=== PATIENT | male | born 1950 | race Caucasian/White ===

== ENCOUNTER → 2019-03-02 09:10 | Outpatient (ROUT) | payer MEDICARE, MEDICAID, SELFPAY ==
[2019-03-02 10:21] LABS: Add Manual Diff / Slide Review NO; Basophils Absolute Auto 100 /uL (0-100); Basophils Percent Auto 0.7 % (0-2); Eosinophils Absolute Auto 400 /uL (0-450); Eosinophils Percent Auto 4.2 % (2-4); Hemoglobin 14.3 g/dL (13.5-17.5); Lymphocytes Absolute Auto 1700 /uL (1100-4500); Lymphocytes Percent Auto 15.8 % (25-40); Mean Corpuscular HGB Conc 33.2 % (30-36); Mean Corpuscular Hemoglobin 29.9 PG (26-34); Mean Corpuscular Volume 89.9 fL (80-100); Monocytes Absolute Auto 600 /uL (0-900); Monocytes Percent Auto 5.2 % (3-14); Neutrophils Absolute Auto 7900 /uL (1500-7000); Neutrophils Percent Auto 74.1 % (50-75); Platelet Count 307 X10^3/uL (150-400); Red Blood Cell Count 4.78 X10^6/uL (4.5-5.9); Red Cell Distribution Width 15.2 % (11.6-14.8); White Blood Cell Count 10.7 X10^3/uL (4.5-11.0)
[2019-03-02 10:54] LABS: Alanine Aminotransferase 24 IU/L (<50); Albumin 4.5 g/dL (3.5-5.0); Albumin Globulin Ratio 1.5 (1.0-2.8); Alkaline Phosphatase 93 U/L (38-126); Aspartate Aminotransferase 30 IU/L (17-59); BUN Creatinine Ratio 27.1 (6-22); Bilirubin Total 0.6 mg/dL (0.2-1.3); Blood Urea Nitrogen 19 mg/dL (9-20); Calcium 9.7 mg/dL (8.4-10.2); Carbon Dioxide 28 mmol/L (22-32); Chloride 103 mmol/L (98-107); Cholesterol 127 mg/dL (140-199); Estimated Glomerular Filt Rate > 60.0 mL/min (>60); Glucose 117 mg/dL (80-110); HDL Cholesterol 40 mg/dL (40-60); HEMOLYSIS < 15 (0-50); LDL Cholesterol Calculated 64 mg/dL (<100); Potassium 3.9 mmol/L (3.4-5.1); Sodium 140 mmol/L (137-145); Total Protein 7.5 g/dL (6.3-8.2); Triglycerides 114 mg/dL (35-150)
== END ==
PROVIDERS: Visit Provider Nurse Practitioner Family
DX: I63.9 Cerebral infarction, unspecified (principal); Z79.899 Other long term (current) drug therapy
CPT/HCPCS: 36415; 80053; 80061; 85025

== ENCOUNTER → 2019-05-27 07:41 | Outpatient (ROUT) | payer MEDICARE, MEDICAID, SELFPAY ==
[2019-05-27 08:43] LABS: Add Manual Diff / Slide Review NO; Basophils Absolute Auto 100 /uL (0-100); Basophils Percent Auto 0.7 % (0-2); Eosinophils Absolute Auto 600 /uL (0-450); Eosinophils Percent Auto 7.8 % (2-4); Hematocrit 45.6 % (41-53); Hemoglobin 15.1 g/dL (13.5-17.5); Lymphocytes Absolute Auto 2600 /uL (1100-4500); Lymphocytes Percent Auto 33.1 % (25-40); Mean Corpuscular HGB Conc 33.1 % (30-36); Mean Corpuscular Hemoglobin 30.1 PG (26-34); Monocytes Absolute Auto 500 /uL (0-900); Monocytes Percent Auto 6.6 % (3-14); Neutrophils Absolute Auto 4100 /uL (1500-7000); Neutrophils Percent Auto 51.8 % (50-75); Platelet Count 301 X10^3/uL (150-400); Red Blood Cell Count 5.02 X10^6/uL (4.5-5.9); Red Cell Distribution Width 14.6 % (11.6-14.8); White Blood Cell Count 7.8 X10^3/uL (4.5-11.0)
[2019-05-27 09:32] LABS: BUN Creatinine Ratio 30.5 (6-22); Blood Urea Nitrogen 18 mg/dL (9-20); Calcium 9.5 mg/dL (8.4-10.2); Carbon Dioxide 24 mmol/L (22-32); Chloride 108 mmol/L (98-107); Estimated Glomerular Filt Rate > 60.0 mL/min (>60); Glucose 80 mg/dL (80-110); HEMOLYSIS < 15 (0-50); Potassium 4.1 mmol/L (3.4-5.1); Sodium 139 mmol/L (137-145)
[2019-05-27 09:58] LABS: Thyroid Stimulating Hormone 1.38 uIU/mL (0.47-4.68)
== END ==
PROVIDERS: Visit Provider Nurse Practitioner Family
DX: I10 Essential (primary) hypertension (principal); F32.9 Major depressive disorder, single episode, unspecified
CPT/HCPCS: 36415; 80048; 84443; 85025

== ENCOUNTER → 2019-08-03 08:46 | Outpatient (ROUT) | payer MEDICARE, MEDICAID, SELFPAY ==
[2019-08-03 10:54] LABS: Prostate Specific Antigen 0.977 ng/mL (0.10-4.00)
== END ==
PROVIDERS: Visit Provider Nurse Practitioner Family
DX: R35.0 Frequency of micturition (principal)
CPT/HCPCS: 36415; 84153

== ENCOUNTER → 2020-03-02 08:25 | Outpatient (ROUT) | payer MEDICARE, MEDICAID, SELFPAY ==
[2020-03-02 08:50] LABS: Add Manual Diff / Slide Review NO; Basophils Absolute Auto 100 /uL (0-100); Basophils Percent Auto 0.8 % (0-2); Eosinophils Absolute Auto 700 /uL (0-450); Eosinophils Percent Auto 8.9 % (2-4); Hematocrit 42.3 % (41-53); Hemoglobin 14.1 g/dL (13.5-17.5); Lymphocytes Absolute Auto 3200 /uL (1100-4500); Lymphocytes Percent Auto 38.4 % (25-40); Mean Corpuscular HGB Conc 33.3 % (30-36); Mean Corpuscular Hemoglobin 30.4 PG (26-34); Mean Corpuscular Volume 91.3 fL (80-100); Monocytes Absolute Auto 600 /uL (0-900); Monocytes Percent Auto 7.1 % (3-14); Neutrophils Absolute Auto 3700 /uL (1500-7000); Neutrophils Percent Auto 44.8 % (50-75); Platelet Count 298 X10^3/uL (150-400); Red Blood Cell Count 4.64 X10^6/uL (4.5-5.9); White Blood Cell Count 8.2 X10^3/uL (4.5-11.0)
[2020-03-02 09:02] LABS: Alanine Aminotransferase 23 IU/L (<50); Albumin 4.2 g/dL (3.5-5.0); Albumin Globulin Ratio 1.4 (1.0-2.8); Alkaline Phosphatase 87 U/L (38-126); Aspartate Aminotransferase 37 IU/L (17-59); Bilirubin Total 0.5 mg/dL (0.2-1.3); Blood Urea Nitrogen 13 mg/dL (9-20); Calcium 9.3 mg/dL (8.4-10.2); Carbon Dioxide 24 mmol/L (22-32); Chloride 108 mmol/L (98-107); Cholesterol 147 mg/dL (140-199); Estimated Glomerular Filt Rate > 60.0 mL/min (>60); Globulin 3.1 g/dL (1.7-4.1); Glucose 77 mg/dL (80-110); HDL Cholesterol 40 mg/dL (40-60); HEMOLYSIS 32 (0-50); LDL Cholesterol Calculated 55 mg/dL (<100); Potassium 3.9 mmol/L (3.4-5.1); Sodium 139 mmol/L (137-145); Total Protein 7.3 g/dL (6.3-8.2); Triglycerides 259 mg/dL (35-150)
== END ==
PROVIDERS: Visit Provider Nurse Practitioner Gerontology
DX: I10 Essential (primary) hypertension (principal); E78.5 Hyperlipidemia, unspecified
CPT/HCPCS: 36415; 80053; 80061; 85025

== ENCOUNTER → 2020-05-30 08:41 | Outpatient (ROUT) | payer MEDICARE, MEDICAID, SELFPAY ==
[2020-05-30 09:18] LABS: Add Manual Diff / Slide Review NO; Basophils Absolute Auto 100 /uL (0-100); Eosinophils Absolute Auto 500 /uL (0-450); Eosinophils Percent Auto 6.9 % (2-4); Hematocrit 43.7 % (41-53); Hemoglobin 14.4 g/dL (13.5-17.5); Lymphocytes Absolute Auto 2700 /uL (1100-4500); Lymphocytes Percent Auto 39.9 % (25-40); Mean Corpuscular HGB Conc 33.1 % (30-36); Mean Corpuscular Hemoglobin 29.8 PG (26-34); Mean Corpuscular Volume 90.1 fL (80-100); Monocytes Absolute Auto 400 /uL (0-900); Monocytes Percent Auto 6.1 % (3-14); Neutrophils Absolute Auto 3100 /uL (1500-7000); Neutrophils Percent Auto 46.1 % (50-75); Platelet Count 401 X10^3/uL (150-400); Red Blood Cell Count 4.85 X10^6/uL (4.5-5.9); Red Cell Distribution Width 14.1 % (11.6-14.8); White Blood Cell Count 6.7 X10^3/uL (4.5-11.0)
[2020-05-30 09:38] LABS: Alanine Aminotransferase 20 IU/L (<50); Albumin 4.2 g/dL (3.5-5.0); Albumin Globulin Ratio 1.4 (1.0-2.8); Alkaline Phosphatase 53 U/L (38-126); Aspartate Aminotransferase 29 IU/L (17-59); BUN Creatinine Ratio 21.1 (6-22); Bilirubin Total 0.3 mg/dL (0.2-1.3); Blood Urea Nitrogen 19 mg/dL (9-20); Calcium 9.8 mg/dL (8.4-10.2); Carbon Dioxide 26 mmol/L (22-32); Chloride 107 mmol/L (98-107); Cholesterol 150 mg/dL (140-199); Estimated Glomerular Filt Rate > 60.0 mL/min (>60); Glucose 79 mg/dL (80-110); HDL Cholesterol 42 mg/dL (40-60); HEMOLYSIS < 15 (0-50); LDL Cholesterol Calculated 79 mg/dL (<100); Potassium 4.2 mmol/L (3.4-5.1); Sodium 140 mmol/L (137-145); Total Protein 7.2 g/dL (6.3-8.2); Triglycerides 143 mg/dL (35-150)
== END ==
PROVIDERS: Visit Provider Nurse Practitioner Gerontology
DX: E78.00 Pure hypercholesterolemia, unspecified (principal); D72.10 Eosinophilia, unspecified
CPT/HCPCS: 36415; 80053; 80061; 85025

== ENCOUNTER → 2020-09-22 14:44 | Outpatient (CLI) | payer MEDICARE, MEDICAID, SELFPAY ==
--- NOTE | 2020-09-22 14:52 | DI.RAD.S_ITS ---
PROCEDURE: XR CHEST 2V INDICATIONS: SOB, WHEEZING TECHNIQUE: 2 views of the chest were acquired. COMPARISON: None. FINDINGS: Surgical changes and devices: None. Lungs and pleura: Elevation of left hemidiaphragm. Subtle infiltrate in the right upper lung zone. Left basilar opacities most likely atelectasis. No pleural effusions or pneumothorax. Mediastinum: Mediastinal contours are normal. Heart size is normal. Bones and chest wall: No suspicious bony abnormalities. Soft tissues appear unremarkable. IMPRESSION: 1. Subtle infiltrate in the right upper lung zone is suspicious for developing pneumonia. 2. Left hemidiaphragm elevation and left basilar atelectasis. Dictated by: Zaid Guevara M.D. on 09/22/2020 at 17:02 Approved by: Zaid Guevara M.D. on 09/22/2020 at 17:06
== END ==
PROVIDERS: PCP Family Medicine; Referring Provider Internal Medicine; Visit Provider Internal Medicine
DX: R06.02 Shortness of breath (principal); R06.2 Wheezing
CPT/HCPCS: 71046

== ENCOUNTER → 2020-10-10 07:36 | Outpatient (ROUT) | payer MEDICARE, MEDICAID, SELFPAY ==
[2020-10-10 08:27] LABS: BUN Creatinine Ratio 23.3 (6-22); Blood Urea Nitrogen 17 mg/dL (9-20); Calcium 9.7 mg/dL (8.4-10.2); Carbon Dioxide 25 mmol/L (22-32); Chloride 109 mmol/L (98-107); Estimated Glomerular Filt Rate > 60.0 mL/min (>60); Glucose 86 mg/dL (80-110); HEMOLYSIS 28 (0-50); Potassium 4.6 mmol/L (3.4-5.1); Sodium 140 mmol/L (137-145)
== END ==
PROVIDERS: PCP Family Medicine; Visit Provider Internal Medicine
DX: Z79.899 Other long term (current) drug therapy (principal)
CPT/HCPCS: 36415; 80048

== ENCOUNTER 2021-01-31 09:29 | Emergency (ER) | payer MEDICARE, MEDICAID, SELFPAY ==
[2021-01-31] VITALS (12 sets, daily range): BP systolic 100–142; BP diastolic 57–86; PULSE 62–82; RESP 24–31; TEMP 37.6; O2SAT 88–97; BMI 35.4
--- NOTE | 2021-01-31 09:46 | DI.RAD.S_ITS ---
PROCEDURE: XR CHEST 1V INDICATIONS: covid +,SOB TECHNIQUE: One view of the chest was acquired. COMPARISON: [facility], CR, XR CHEST 2V, 09/22/2020, 14:49. FINDINGS: Surgical changes and devices: Right shoulder postoperative change is seen. Lungs and pleura: Low lung volumes are noted. This causes a crowded appearance to the lung markings and limits evaluation. Bilateral patchy interstitial infiltrates are seen, right worse than left. No large pneumothorax or large pleural effusions are seen. Mediastinum: Mediastinal contours appear normal. Heart size is normal. Bones and chest wall: No suspicious bony lesions. Age-appropriate bony degenerative changes are seen. Overlying soft tissues appear unremarkable. IMPRESSION: Patchy bilateral interstitial infiltrates are seen, which are consistent with the known clinical history of COVID pneumonia. Low lung volumes. Dictated by: Vineet Finley M.D. on 01/31/2021 at 9:30 Approved by: Vineet Finley M.D. on 01/31/2021 at 9:31
[2021-01-31 09:57] LABS: Add Manual Diff / Slide Review NO; Basophils Absolute Auto 0 /uL (0-100); Basophils Percent Auto 0.4 % (0-2); Eosinophils Absolute Auto 0 /uL (0-450); Eosinophils Percent Auto 0.3 % (2-4); Hematocrit 39.8 % (41-53); Hemoglobin 13.2 g/dL (13.5-17.5); Lymphocytes Absolute Auto 1000 /uL (1100-4500); Lymphocytes Percent Auto 17.7 % (25-40); Mean Corpuscular HGB Conc 33.2 % (30-36); Mean Corpuscular Hemoglobin 28.9 PG (26-34); Monocytes Absolute Auto 400 /uL (0-900); Monocytes Percent Auto 7.8 % (3-14); Neutrophils Absolute Auto 4200 /uL (1500-7000); Neutrophils Percent Auto 73.8 % (50-75); Platelet Count 233 X10^3/uL (150-400); Red Blood Cell Count 4.58 X10^6/uL (4.5-5.9); Red Cell Distribution Width 15.8 % (11.6-14.8); White Blood Cell Count 5.7 X10^3/uL (4.5-11.0)
--- NOTE | 2021-01-31 09:59 | ED_ITS ---
HPI - General Adult General Chief complaint: Shortness of Breath/Dyspnea Stated complaint: Hypoxia,COVID + Time Seen by Provider: 01/31/21 09:36 Source: patient and EMS Mode of arrival: EMS Limitations: physical limitation History of Present Illness HPI narrative: Patient is a 70-year-old male. Five years ago had a stroke. Is currently residing in a assisted living facility. Is vaccinated against COVID-19 however couple days ago tested positive. Respiratory status has been worsening. Was sent over from the living facility for evaluation of hypoxia. Patient does not have an oxygen requirement at baseline but is currently requiring 4 L in order to maintain oxygen saturation greater than 90%. Providers at the nursing facility inform me that he does have a history of COPD but the patient denied this. He denies chest pain. He has no change in his neurologic status. Related Data Allergies Allergy/AdvReac Type Severity Reaction Status Date / Time No Known Drug Allergies Allergy Verified 01/31/21 09:50 Review of Systems Constitutional Constitutional: Denies fever(s) Cardiovascular Cardiovascular: Reports as per HPI and Reports system reviewed and no additional complaints, except as documented Respiratory Respiratory: Reports as per HPI and Reports system reviewed and no additional complaints, except as documented Gastrointestinal Gastrointestinal: Reports as per HPI and Reports system reviewed and no additional complaints, except as documented Musculoskeletal Musculoskeletal: Reports system reviewed and no additional complaints, except as documented Integumentary/Breasts Skin/Breast: Reports system reviewed and no additional complaints, except as documented Neurologic Neurologic: Reports system reviewed and no additional complaints, except as documented Hematologic/Lymphatic On Anticoagulants: No Patient History Social History Smoking Status: Current every day smoker Smoking Status: Current every day smoker tobacco type: cigarettes alcohol intake frequency: 0-2 drinks per day Alcohol type: hard liquor Substance Use Type: does not use Exam Initial Vital Signs Initial Vital Signs: Vital Signs Temperature 99.6 F 01/31/21 09:30 Pulse Rate 82 01/31/21 09:30 Respiratory Rate 24 01/31/21 09:30 Blood Pressure 142/86 H 01/31/21 09:30 Pulse Oximetry 93 01/31/21 09:30 Const General: cooperative and No ill appearing HENMT Head: normal to inspection and normocephalic Resp Effort & Inspection: nasal flaring and tachypneic Auscultation: clear to auscultation bilaterally Cardio Rate: regular rate Rhythm: regular rhythm GI Inspection: non-distended Palpation: soft and No tender Skin Lesions: no lesions Rashes: no rashes Neuro General: patient alert, patient awake and other (No movement left arm which is not new) Cognition: normal cognition Speech: speech normal Extrem General: capillary refill normal Psych Appearance: grossly normal and well kempt Course Orders Ordered: ED Orders 01/31/21 09:45 Complete Blood Count AUTO DIFF Stat Lactate (Lactic Acid) Stat Prothrombin Time INR Stat EKG-12 Lead Stat Measure peak expiratory flow ONCE RT Consult Eval and Treat Now 01/31/21 09:46 Chest [XR chest 1V] Stat 01/31/21 10:16 Comprehensive Metabolic Panel Stat NT-proBNP (BNP-Adult 18+) Stat 01/31/21 10:43 C-Reactive Protein Quant Stat D Dimer Stat Ferritin Stat Lactate Dehydrogenase Stat Procalcitonin Stat Troponin & CK Cardiac Panel Stat Discontinued Medications Albuterol/Ipratropium (Albuterol/Ipratropium 3 Ml Ampul) 3 ml INH NOW ONE Stop: 01/31/21 10:25 Last Admin: 01/31/21 10:45 Dose: 3 ml Documented by: YOVANA Dexamethasone (Dexamethasone 10 Mg/Ml Vial) 10 mg IV NOW ONE Stop: 01/31/21 10:02 Last Admin: 01/31/21 10:12 Dose: 10 mg Documented by: LEYLA Vital Signs Vital signs: Vital Signs - 8 hr 01/31/21 09:30 01/31/21 09:43 01/31/21 10:00 Temperature 99.6 F Pulse Rate 82 78 77 Respiratory Rate 24 Blood Pressure 142/86 H Pulse Oximetry 93 93 93 01/31/21 10:01 01/31/21 10:18 01/31/21 10:30 Temperature Pulse Rate 77 70 Respiratory Rate 26 H 26 H Blood Pressure 119/62 101/59 L Pulse Oximetry 94 97 95 01/31/21 10:55 01/31/21 11:00 01/31/21 11:30 Temperature Pulse Rate 68 71 Respiratory Rate 30 H 25 H Blood Pressure 109/61 114/65 Pulse Oximetry 96 93 93 01/31/21 12:00 Temperature Pulse Rate 72 Respiratory Rate 28 H Blood Pressure 100/57 L Pulse Oximetry 88 L Medical Decision Making Lab Data Lab results reviewed: Yes I reviewed the patient's lab results. Result diagrams: 01/31/21 09:45 01/31/21 10:16 Labs: Lab Results 01/31/21 01/31/21 01/31/21 Range/Units 09:45 09:45 09:45 WBC 5.7 (4.5-11.0) X10^3/uL RBC 4.58 (4.5-5.9) X10^6/uL Hgb 13.2 L (13.5-17.5) g/dL Hct 39.8 L (41-53) % MCV 87.0 (80-100) fL MCH 28.9 (26-34) PG MCHC 33.2 (30-36) % RDW 15.8 H (11.6-14.8) % Plt Count 233 (150-400) X10^3/uL Neut % (Auto) 73.8 (50-75) % Lymph % (Auto) 17.7 L (25-40) % Bracken % (Auto) 7.8 (3-14) % Eos % (Auto) 0.3 L (2-4) % Baso % (Auto) 0.4 (0-2) % Neut # (Auto) 4200 (2135-4203) /uL Lymph # (Auto) 1000 L (7168-1254) /uL Bracken # (Auto) 400 (0-900) /uL Eos # (Auto) 0 (0-450) /uL Baso # (Auto) 0 (0-100) /uL PT 12.8 H (10.1-12.7) SECONDS INR 1.1 (0.9-1.3) D-Dimer (<230) ng/mL Sodium (137-145) mmol/L Potassium (3.4-5.1) mmol/L Chloride (98-107) mmol/L Carbon Dioxide (22-32) mmol/L BUN (9-20) mg/dL Creatinine (0.66-1.25) mg/dL Estimated GFR (>60) mL/min BUN/Creatinine Ratio (6-22) Glucose (80-110) mg/dL Lactate 1.0 (0.7-2.1) mmol/L Calcium (8.4-10.2) mg/dL Ferritin (18-464) ng/mL Total Bilirubin (0.2-1.3) mg/dL AST (17-59) IU/L ALT (<50) IU/L Alkaline Phosphatase (38-126) U/L Lactate Dehydrogenase (313-618) U/L Total Creatine Kinase (55-170) U/L CK-MB (CK-2) (<2.37) ng/mL CK-MB (CK-2) Rel Index (1.5-5.0) % Troponin I (0.01-0.034) ng/mL C-Reactive Protein (<1.0) mg/dL NT-Pro-B Natriuret Pep (<125) pg/mL Total Protein (6.3-8.2) g/dL Albumin (3.5-5.0) g/dL Globulin (1.7-4.1) g/dL Albumin/Globulin Ratio (1.0-2.8) Procalcitonin (<0.5) ng/mL 01/31/21 01/31/21 01/31/21 Range/Units 10:16 10:43 10:43 WBC (4.5-11.0) X10^3/uL RBC (4.5-5.9) X10^6/uL Hgb (13.5-17.5) g/dL Hct (41-53) % MCV (80-100) fL MCH (26-34) PG MCHC (30-36) % RDW (11.6-14.8) % Plt Count (150-400) X10^3/uL Neut % (Auto) (50-75) % Lymph % (Auto) (25-40) % Bracken % (Auto) (3-14) % Eos % (Auto) (2-4) % Baso % (Auto) (0-2) % Neut # (Auto) (0446-6992) /uL Lymph # (Auto) (0927-2284) /uL Bracken # (Auto) (0-900) /uL Eos # (Auto) (0-450) /uL Baso # (Auto) (0-100) /uL PT (10.1-12.7) SECONDS INR (0.9-1.3) D-Dimer 394 H (<230) ng/mL Sodium 139 (137-145) mmol/L Potassium 4.3 (3.4-5.1) mmol/L Chloride 108 H (98-107) mmol/L Carbon Dioxide 25 (22-32) mmol/L BUN 29 H (9-20) mg/dL Creatinine 1.21 (0.66-1.25) mg/dL Estimated GFR 59.5 L (>60) mL/min BUN/Creatinine Ratio 24.0 H (6-22) Glucose 113 H (80-110) mg/dL Lactate (0.7-2.1) mmol/L Calcium 8.8 (8.4-10.2) mg/dL Ferritin 122 (18-464) ng/mL Total Bilirubin 0.5 (0.2-1.3) mg/dL AST 54 (17-59) IU/L ALT 21 (<50) IU/L Alkaline Phosphatase 53 (38-126) U/L Lactate Dehydrogenase (313-618) U/L Total Creatine Kinase 460 H (55-170) U/L CK-MB (CK-2) 2.34 (<2.37) ng/mL CK-MB (CK-2) Rel Index 0.5 L (1.5-5.0) % Troponin I 0.074 H (0.01-0.034) ng/mL C-Reactive Protein 8.7 H (<1.0) mg/dL NT-Pro-B Natriuret Pep 878 H (<125) pg/mL Total Protein 6.5 (6.3-8.2) g/dL Albumin 3.7 (3.5-5.0) g/dL Globulin 2.8 (1.7-4.1) g/dL Albumin/Globulin Ratio 1.3 (1.0-2.8) Procalcitonin 0.13 (<0.5) ng/mL 01/31/21 Range/Units 10:43 WBC (4.5-11.0) X10^3/uL RBC (4.5-5.9) X10^6/uL Hgb (13.5-17.5) g/dL Hct (41-53) % MCV (80-100) fL MCH (26-34) PG MCHC (30-36) % RDW (11.6-14.8) % Plt Count (150-400) X10^3/uL Neut % (Auto) (50-75) % Lymph % (Auto) (25-40) % Bracken % (Auto) (3-14) % Eos % (Auto) (2-4) % Baso % (Auto) (0-2) % Neut # (Auto) (9256-4850) /uL Lymph # (Auto) (4514-6874) /uL Bracken # (Auto) (0-900) /uL Eos # (Auto) (0-450) /uL Baso # (Auto) (0-100) /uL PT (10.1-12.7) SECONDS INR (0.9-1.3) D-Dimer (<230) ng/mL Sodium (137-145) mmol/L Potassium (3.4-5.1) mmol/L Chloride (98-107) mmol/L Carbon Dioxide (22-32) mmol/L BUN (9-20) mg/dL Creatinine (0.66-1.25) mg/dL Estimated GFR (>60) mL/min BUN/Creatinine Ratio (6-22) Glucose (80-110) mg/dL Lactate (0.7-2.1) mmol/L Calcium (8.4-10.2) mg/dL Ferritin (18-464) ng/mL Total Bilirubin (0.2-1.3) mg/dL AST (17-59) IU/L ALT (<50) IU/L Alkaline Phosphatase (38-126) U/L Lactate Dehydrogenase 901 H (313-618) U/L Total Creatine Kinase (55-170) U/L CK-MB (CK-2) (<2.37) ng/mL CK-MB (CK-2) Rel Index (1.5-5.0) % Troponin I (0.01-0.034) ng/mL C-Reactive Protein (<1.0) mg/dL NT-Pro-B Natriuret Pep (<125) pg/mL Total Protein (6.3-8.2) g/dL Albumin (3.5-5.0) g/dL Globulin (1.7-4.1) g/dL Albumin/Globulin Ratio (1.0-2.8) Procalcitonin (<0.5) ng/mL Imaging Data Chest x-ray: Radiologist's Impression: [address] [address] XRay Report Signed Patient: Arron Agarwal MR#: [id number] : 1950 Acct:[id number] Age/Sex: 70 / M Date of Service: 01/31/21 Loc: ED Accession Number: [id number] ?? Procedure: XR chest 1V Ordering Provider: Nicola Welch D.O. PROCEDURE:? XR CHEST 1V ? INDICATIONS:? covid +,SOB ? TECHNIQUE:? One view of the chest was acquired.? ? COMPARISON:? [facility], , XR CHEST 2V, 09/22/2020, 14:49. ? FINDINGS:? ? Surgical changes and devices:? Right shoulder postoperative change is seen. ? Lungs and pleura:? Low lung volumes are noted. This causes a crowded appearance to the lung markings and limits evaluation.? Bilateral patchy interstitial infiltrates are seen, right worse than left. No large pneumothorax or large pleural effusions are seen.? ? Mediastinum:? Mediastinal contours appear normal.? Heart size is normal.? ? Bones and chest wall:? No suspicious bony lesions.? Age-appropriate bony degenerative changes are seen.? Overlying soft tissues appear unremarkable.? IMPRESSION:? Patchy bilateral interstitial infiltrates are seen, which are consistent with the known clinical history of COVID pneumonia.? ? Low lung volumes. ? ? Dictated by: Vineet Finley M.D. on 01/31/2021 at 9:30 ? ? Approved by: Vineet Finley M.D. on 01/31/2021 at 9:31? ECG Data Attestation: I personally reviewed and interpreted this ECG as follows: Prior ECG tracings: not available for review Interpretation: Sinus rhythm Ventricular rate is 76 Normal axis Normal QRS Normal QTC Nonspecific ST T wave changes MDM Narrative Medical decision making narrative: Patient is alert oriented x3. Has a GCS of 15. In my opinion has capacity to make decisions. Patient is adamant that he does not want to be admitted to the hospital. Informed the patient that I am concerned that he potentially could deteriorate over the next couple days and require additional respiratory support. He expressed understanding of this but does not want to be admitted. He states that this is because he has spent the better part of the past 5 years and the hospital because of his stroke and does not want to come back into the hospital. He stated that he was told by the facility staff that he could come to the emergency department ?get treatment ?and then return back home. Informed him that there is no specific medication that we can give him 1 time through the IV and then discharge him home. He denies the history of COPD however I was told by the facility staff that he does have a history of COPD. He did have some wheezing. Was given 1 DuoNeb which he states did improve his respiratory status somewhat. I also gave him Decadron. This may help with his COVID status and potentially with COPD. Upon re-evaluation patient requires 3 L of oxygen by nasal cannula to maintain saturations above 90%. Patient again understands that he can be admitted to the hospital and understands the risks of being discharged and still would like to be discharged. He was told he could return to the emergency department at any point for worsening symptoms. Discharge Plan Departure Patient Disposition: Home Clinical Impression: COVID-19, Acute respiratory distress Instructions: Coronavirus Disease 2019 Activity Restrictions/Additional Instructions: Despite our discussions about potentially worsening over the next couple days and requiring additional oxygen support you opted to be discharged back to your living facility. I recommend that you continue all of your medications as directed. You can be administered oxygen at the living facility as needed. You can return to the emergency department at any point for new or worsening symptoms. Referrals: Emerald Hahn MD [Primary Care Provider] -
[2021-01-31 10:02] LABS: INR 1.1 (0.9-1.3); Prothrombin Time 12.8 SECONDS (10.1-12.7)
[2021-01-31] MEDS: DEXAMETHASONE 10 MG/ML VIAL IV (10:12)
[2021-01-31] MEDS: ALBUTEROL/IPRATROPIUM 3 ML AMPUL INH (10:45)
[2021-01-31 11:03] LABS: D Dimer 394 ng/mL (<230)
[2021-01-31 11:05] LABS: Lactate Dehydrogenase 901 U/L (313-618)
[2021-01-31 11:08] LABS: C-Reactive Protein Quant 8.7 mg/dL (<1.0); Creatine Kinase 460 U/L (55-170)
[2021-01-31 11:17] LABS: Troponin I 0.074 ng/mL (0.01-0.034)
[2021-01-31 11:20] LABS: CKMB % Relative Index 0.5 % (1.5-5.0); Creatine Kinase MB 2.34 ng/mL (<2.37)
[2021-01-31 11:22] LABS: Procalcitonin 0.13 ng/mL (<0.5)
[2021-01-31 11:38] LABS: Alanine Aminotransferase 21 IU/L (<50); Albumin 3.7 g/dL (3.5-5.0); Albumin Globulin Ratio 1.3 (1.0-2.8); Alkaline Phosphatase 53 U/L (38-126); Aspartate Aminotransferase 54 IU/L (17-59); Bilirubin Total 0.5 mg/dL (0.2-1.3); Blood Urea Nitrogen 29 mg/dL (9-20); Calcium 8.8 mg/dL (8.4-10.2); Carbon Dioxide 25 mmol/L (22-32); Chloride 108 mmol/L (98-107); Estimated Glomerular Filt Rate 59.5 mL/min (>60); Globulin 2.8 g/dL (1.7-4.1); Glucose 113 mg/dL (80-110); HEMOLYSIS < 15 (0-50); Potassium 4.3 mmol/L (3.4-5.1); Sodium 139 mmol/L (137-145); Total Protein 6.5 g/dL (6.3-8.2)
[2021-01-31 11:40] LABS: NT-proBNP (BNP-Adult 18+) 878 pg/mL (<125)
[2021-01-31 11:40] LABS: Ferritin 122 ng/mL (18-464)
== END 2021-01-31 13:15 | disposition home or self-care (01) ==
PROVIDERS: Emergency Provider Emergency Medicine; PCP Family Medicine
DX: U07.1 COVID-19 (principal); R06.03 Acute respiratory distress; R03.0 Elevated blood-pressure reading, without diagnosis of hypertension
CPT/HCPCS: 36415; 71045; 80053; 82550; 82553; 82728; 83605; 83615; 83880; 84145; 84484; 85025; 85379; 85610; 86140; 93005; 94640; 96374; 99285; J1100

== ENCOUNTER → 2021-07-05 12:49 | Outpatient (ROUT) | payer MEDICARE, MEDICAID, SELFPAY ==
[2021-07-05 13:40] LABS: Appearance Urine UA CLEAR; Bilirubin Urine UA NEGATIVE (NEGATIVE); Color Urine UA YELLOW; Glucose Urine UA NEGATIVE (Negative); Ketones Urine UA NEGATIVE (NEGATIVE); Leukocyte Esterase Urine UA NEGATIVE (NEGATIVE); Nitrite Urine UA NEGATIVE (Negative); Occult Blood Urine UA NEGATIVE (Negative); Protein Urine UA NEGATIVE (Negative); Urobilinogen Urine UA 0.2 E.U./dL (0.2)
[2021-07-05 14:24] LABS: Bacteria Urine None Seen; Mucus Urine 1+ (Negative); RBC Urine None Seen (0-5/HPF); Squamous Epithelial Cell Urine None Seen (0-5/HPF); WBC Urine None Seen (0-5/HPF)
[2021-07-05 14:25] LABS: Culture Indicated Urine Cult Not Indicated
== END ==
PROVIDERS: PCP Family Medicine; Visit Provider Nurse Practitioner Family
DX: R32 Unspecified urinary incontinence (principal); R39.15 Urgency of urination
CPT/HCPCS: 81001

== ENCOUNTER → 2021-08-21 08:29 | Outpatient (ROUT) | payer MEDICARE, MEDICAID, SELFPAY ==
[2021-08-21 10:38] LABS: Hematocrit 47.3 % (41-53); Hemoglobin 15.5 g/dL (13.5-17.5); Mean Corpuscular HGB Conc 32.8 % (30-36); Mean Corpuscular Hemoglobin 28.8 PG (26-34); Mean Corpuscular Volume 87.7 fL (80-100); Platelet Count 311 X10^3/uL (150-400); Red Cell Distribution Width 16.9 % (11.6-14.8)
[2021-08-21 10:40] LABS: Add Manual Diff / Slide Review YES
[2021-08-21 11:16] LABS: Alanine Aminotransferase 16 IU/L (<50); Albumin 4.2 g/dL (3.5-5.0); Albumin Globulin Ratio 1.4 (1.0-2.8); Alkaline Phosphatase 54 U/L (38-126); Aspartate Aminotransferase 28 IU/L (17-59); BUN Creatinine Ratio 20.8 (6-22); Bilirubin Total 0.6 mg/dL (0.2-1.3); Blood Urea Nitrogen 20 mg/dL (9-20); Calcium 9.5 mg/dL (8.4-10.2); Carbon Dioxide 24 mmol/L (22-32); Chloride 108 mmol/L (98-107); Cholesterol 159 mg/dL (140-199); Estimated Glomerular Filt Rate > 60 mL/min (>60); Glucose 77 mg/dL (80-110); HDL Cholesterol 43 mg/dL (40-60); HEMOLYSIS 34 (0-50); LDL Cholesterol Calculated 89 mg/dL (<100); Potassium 3.9 mmol/L (3.4-5.1); Sodium 141 mmol/L (137-145); Total Protein 7.2 g/dL (6.3-8.2); Triglycerides 135 mg/dL (35-150)
[2021-08-21 11:43] LABS: Prostate Specific Antigen 1.35 ng/mL (0.10-4.00)
[2021-08-21 12:04] LABS: Neutrophils Absolute Manual 5580 /uL (3000-5900); Total Cells Counted 100
[2021-08-21 12:05] LABS: Anisocytosis 1+; Poikilocytosis 1+
== END ==
PROVIDERS: PCP Family Medicine; Visit Provider Nurse Practitioner Gerontology
DX: I10 Essential (primary) hypertension (principal); E78.5 Hyperlipidemia, unspecified; Z79.899 Other long term (current) drug therapy; R97.20 Elevated prostate specific antigen [PSA]
CPT/HCPCS: 36415; 80053; 80061; 84153; 85007; 85025

== ENCOUNTER → 2021-09-07 09:28 | Outpatient (CLI) | payer MEDICARE, MEDICAID, SELFPAY ==
--- NOTE | 2021-09-07 | DI.US.S_ITS ---
PROCEDURE: US PERIPH VENOUS LOW EXTREM LT INDICATIONS: LOCALIZED SWELLING,MASS AND LUMP LLE TECHNIQUE: Real-time imaging, as well as color and pulse Doppler interrogation, were performed of the lower extremity deep veins from the inguinal ligament to the popliteal fossa. COMPARISON: None. FINDINGS: The common femoral, femoral and popliteal veins are normally compressible, and free of intraluminal thrombus where seen. However, the mid to distal femoral vein is not seen. Color and pulse Doppler demonstrate normal phasic intraluminal flow. There is normal augmentation response to distal compression maneuver. The calf veins are not seen. Additional, dedicated ultrasound scanning is performed at the area of the clinical lump involving the mid anterior lower extremity. Soft tissue edema can be seen at this site. This study is limited by body habitus. IMPRESSION: No findings of deep venous thrombosis can be seen. However, this study is limited and the mid to distal femoral vein is not seen. Soft tissue edema can be seen at the area of swelling involving the mid anterior lower extremity. Dictated by: Vineet Finley M.D. on 09/07/2021 at 11:04 Approved by: Vineet Finley M.D. on 09/07/2021 at 11:06
== END ==
PROVIDERS: PCP Family Medicine; Referring Provider Internal Medicine; Visit Provider Internal Medicine
DX: R22.42 Localized swelling, mass and lump, left lower limb (principal)
CPT/HCPCS: 93971

== ENCOUNTER → 2021-09-19 07:43 | Outpatient (ROUT) | payer MEDICARE, MEDICAID, SELFPAY ==
[2021-09-19 09:15] LABS: BUN Creatinine Ratio 21.2 (6-22); Blood Urea Nitrogen 22 mg/dL (9-20); Calcium 9.3 mg/dL (8.4-10.2); Carbon Dioxide 26 mmol/L (22-32); Chloride 106 mmol/L (98-107); Estimated Glomerular Filt Rate > 60 mL/min (>60); Glucose 80 mg/dL (80-110); HEMOLYSIS < 15 (0-50); Potassium 3.7 mmol/L (3.4-5.1); Sodium 140 mmol/L (137-145)
[2021-09-19 09:22] LABS: NT-proBNP (BNP-Adult 18+) 978 pg/mL (<125)
== END ==
PROVIDERS: PCP Family Medicine; Visit Provider Nurse Practitioner Family
DX: R60.9 Edema, unspecified (principal)
CPT/HCPCS: 36415; 80048; 83880

== ENCOUNTER → 2021-12-27 12:03 | Outpatient (CLI) | payer MEDICARE, MEDICAID, SELFPAY ==
[2021-12-27 14:49] LABS: Hematocrit 45.7 % (41-53); Hemoglobin 15.2 g/dL (13.5-17.5); Mean Corpuscular HGB Conc 33.3 % (30-36); Mean Corpuscular Hemoglobin 30.6 PG (26-34); Mean Corpuscular Volume 91.9 fL (80-100); Platelet Count 314 X10^3/uL (150-400); Red Blood Cell Count 4.97 X10^6/uL (4.5-5.9); Red Cell Distribution Width 15.5 % (11.6-14.8); White Blood Cell Count 10.6 X10^3/uL (4.5-11.0)
[2021-12-27 14:50] LABS: Add Manual Diff / Slide Review YES
[2021-12-27 15:10] LABS: Alanine Aminotransferase 17 IU/L (<50); Albumin 4.3 g/dL (3.5-5.0); Albumin Globulin Ratio 1.3 (1.0-2.8); Alkaline Phosphatase 57 U/L (38-126); Aspartate Aminotransferase 30 IU/L (17-59); BUN Creatinine Ratio 15.9 (6-22); Bilirubin Total 0.5 mg/dL (0.2-1.3); Blood Urea Nitrogen 22 mg/dL (9-20); Calcium 9.4 mg/dL (8.4-10.2); Carbon Dioxide 29 mmol/L (22-32); Chloride 106 mmol/L (98-107); Estimated Glomerular Filt Rate 55 mL/min (>60); Globulin 3.3 g/dL (1.7-4.1); Glucose 74 mg/dL (80-110); HEMOLYSIS 22 (0-50); Potassium 3.6 mmol/L (3.4-5.1); Sodium 146 mmol/L (137-145); Total Protein 7.6 g/dL (6.3-8.2)
[2021-12-27 15:17] LABS: NT-proBNP (BNP-Adult 18+) 1630 pg/mL (<125)
[2021-12-27 15:21] LABS: Neutrophils Absolute Manual 7526 /uL (3000-5900); Total Cells Counted 100
[2021-12-27 15:22] LABS: Anisocytosis 2+
== END ==
PROVIDERS: PCP Nurse Practitioner Family; Referring Provider Nurse Practitioner Family; Visit Provider Nurse Practitioner Family
DX: R60.9 Edema, unspecified (principal); R06.03 Acute respiratory distress
CPT/HCPCS: 36415; 80053; 83880; 85007; 85025

== ENCOUNTER 2021-12-28 22:43 | Inpatient (IN) | payer MEDICARE, MEDICAID, SELFPAY ==
[2021-12-28 22:43] VITALS: BP 96/71; PULSE 75; RESP 24; O2SAT 90; BMI 34.9
[2021-12-28 22:48] VITALS: PULSE 73; O2SAT 90
--- NOTE | 2021-12-28 22:52 | DI.RAD.S_ITS ---
PROCEDURE: XR CHEST 2V INDICATIONS: shortness of breath TECHNIQUE: 2 views of the chest were acquired. COMPARISON: [facility], CR, XR CHEST 1V, 01/31/2021, 10:01. [facility], CR, XR CHEST 2V, 09/22/2020, 14:49. FINDINGS: Surgical changes and devices: None. Lungs and pleura: Left lower lobe airspace opacity is increased. No pleural effusions or pneumothorax. Mediastinum: Suspect hiatal hernia. Heart size is normal. Bones and chest wall: No suspicious bony abnormalities. Soft tissues appear unremarkable. IMPRESSION: Left lower lobe airspace opacity. This could be due to atelectasis or pneumonia or aspiration. Suspect hiatal hernia. Dictated by: Shaheen Lowry M.D. on 12/28/2021 at 23:14 Approved by: Shaheen Lowry M.D. on 12/28/2021 at 23:15
--- NOTE | 2021-12-28 22:54 | PC.NURSE ---
pt was recently started on lasix he was not taking it because of his hx of urinary retention. he states I was afraid of it
[2021-12-28 23:07] LABS: Add Manual Diff / Slide Review NO; Basophils Absolute Auto 100 /uL (0-100); Basophils Percent Auto 1.2 % (0-2); Eosinophils Absolute Auto 1100 /uL (0-450); Eosinophils Percent Auto 10.8 % (2-4); Hematocrit 45.4 % (41-53); Hemoglobin 15.1 g/dL (13.5-17.5); Lymphocytes Absolute Auto 2600 /uL (1100-4500); Mean Corpuscular HGB Conc 33.3 % (30-36); Mean Corpuscular Hemoglobin 30.2 PG (26-34); Mean Corpuscular Volume 90.7 fL (80-100); Monocytes Absolute Auto 600 /uL (0-900); Monocytes Percent Auto 5.7 % (3-14); Neutrophils Absolute Auto 5700 /uL (1500-7000); Neutrophils Percent Auto 56.3 % (50-75); Platelet Count 332 X10^3/uL (150-400); Red Blood Cell Count 5.01 X10^6/uL (4.5-5.9); Red Cell Distribution Width 15.3 % (11.6-14.8); White Blood Cell Count 10.1 X10^3/uL (4.5-11.0)
[2021-12-28 23:09] LABS: Creatine Kinase 601 U/L (55-170)
[2021-12-28] MEDS: methylPREDNISolone 125 MG/2 ML VIAL IV (23:09)
[2021-12-28 23:10] VITALS: PULSE 84; RESP 23; O2SAT 67
[2021-12-28 23:11] LABS: Alanine Aminotransferase 20 IU/L (<50); Albumin 4.2 g/dL (3.5-5.0); Albumin Globulin Ratio 1.2 (1.0-2.8); Alkaline Phosphatase 56 U/L (38-126); Aspartate Aminotransferase 32 IU/L (17-59); BUN Creatinine Ratio 15.9 (6-22); Bilirubin Total 0.5 mg/dL (0.2-1.3); Blood Urea Nitrogen 23 mg/dL (9-20); Calcium 9.1 mg/dL (8.4-10.2); Carbon Dioxide 30 mmol/L (22-32); Chloride 107 mmol/L (98-107); Estimated Glomerular Filt Rate 52 mL/min (>60); Globulin 3.4 g/dL (1.7-4.1); Glucose 118 mg/dL (80-110); HEMOLYSIS 39 (0-50); Lactate (Lactic Acid) 1.6 mmol/L (0.7-2.1); Sodium 145 mmol/L (137-145); Total Protein 7.6 g/dL (6.3-8.2)
[2021-12-28] MEDS: ALBUTEROL/IPRATROPIUM 3 ML AMPUL INH (23:15)
[2021-12-28 23:23] LABS: NT-proBNP (BNP-Adult 18+) 1930 pg/mL (<125); Troponin I 0.022 ng/mL (0.01-0.034)
[2021-12-28 23:27] LABS: Procalcitonin 0.07 ng/mL (<0.5)
[2021-12-28 23:30] VITALS: PULSE 82; RESP 32; O2SAT 98
--- NOTE | 2021-12-28 23:44 | ED.SOB ---
HPI - SOB/Dyspnea General Chief Complaint: Shortness of Breath/Dyspnea Stated Complaint: SOB Time Seen by Provider: 12/28/21 22:54 Source: EMS Mode of arrival: EMS History of Present Illness HPI Narrative: 71-year-old male daily smoker with history of prior stroke, COPD and pulmonary edema presents by EMS for evaluation of shortness of breath worsening over the course of the day that is not being relieved by his typical breathing treatments. He is a very poor historian but suggest that his shortness of breath is worse with any exertion and he is having trouble laying flat. There is some question about whether not he has been taking his diuretics because they make him urinate too often and he has a hard time going to the bathroom. He is had no fever or chills and denies any chest pain. He does not routinely use supplemental oxygen. He comes to us from a local rehab facility. He is had no nausea or vomiting and denies any abdominal pain Related Data Home Medications Medication Instructions Recorded Confirmed furosemide 80 mg tablet 80 mg DAILY 12/28/21 12/29/21 albuterol sulfate 90 mcg/actuation 2 inh inhalation BID 12/29/21 12/29/21 aerosol inhaler aspirin 81 mg tablet,delayed 81 mg DAILY 12/29/21 12/29/21 release atorvastatin 20 mg tablet 20 mg DAILY 12/29/21 12/29/21 fenofibrate micronized 134 mg 134 mg DAILY 12/29/21 12/29/21 capsule gabapentin 600 mg tablet 600 mg BID 12/29/21 12/29/21 ibuprofen 400 mg tablet 600 mg TID 12/29/21 12/29/21 lidocaine 5 % topical ointment 1 applic DAILY 12/29/21 12/29/21 melatonin 6 mg BEDTIME 12/29/21 12/29/21 potassium chloride 20 mEq 20 meq PO DAILY 12/29/21 12/29/21 tablet,extended release(part/cryst) prednisone 5 mg tablet 5 mg DAILY 12/29/21 12/29/21 risperidone 1 mg tablet 1 mg BEDTIME 12/29/21 12/29/21 salmeterol 50 mcg/dose blister 1 inh inhalation BID 12/29/21 12/29/21 powder for inhalation (Serevent Diskus) sertraline 25 mg tablet 75 mg DAILY 12/29/21 12/29/21 tamsulosin 0.4 mg capsule 0.4 mg PO DAILY 12/29/21 12/29/21 tiotropium bromide 2.5 2 inh inhalation DAILY 12/29/21 12/29/21 mcg/actuation mist for inhalation (Spiriva Respimat) Allergies Allergy/AdvReac Type Severity Reaction Status Date / Time No Known Drug Allergies Allergy Verified 01/31/21 09:50 Review of Systems Review of Systems Narrative: GENERAL: Denies chills, fatigue, malaise, fever, sweats. HEENT: Denies sinus pain, ear pain, sore throat, difficulty swallowing, dizziness. RESPIRATORY: See HPI CARDIOVASCULAR: Denies chest pain, palpitations, orthopnea, edema, GASTROINTESTINAL: Denies nausea, vomiting, abdominal pain, diarrhea, constipation, melena. : Denies dysuria, frequency, incontinence, hematuria, urinary retention. MUSCULOSKELETAL: denies weakness, joint pain, or bony pain SKIN: Denies rash, skin lesions, or other NEUROLOGIC: Denies weakness, headache, numbness, change in speech, confusion, seizures, incoordination. PSYCHIATRIC: No concerning psychosocial issues. 12 point review of systems is negative except for those stated above Patient History Social History Smoking Status: Current every day smoker Smoking Status: Current every day smoker tobacco type: cigarettes alcohol intake frequency: 0-2 drinks per day Alcohol type: hard liquor Substance Use Type: does not use Exam Narrative Exam Narrative: GENERAL: [71] year old patient appears stated age. Well-developed patient, in mild distress. Increased work of breathing, room air pulse ox in the mid to upper 80s HEAD: Atraumatic. Normocephalic. EYES: Pupils equal round and reactive. Extraocular motions intact. No scleral icterus. No injection or drainage. ENT: Nose without bleeding, purulent drainage. Throat without erythema, tonsillar hypertrophy or exudate. Airway patent. NECK: Trachea midline. Non tender CARDIOVASCULAR: Regular rate and rhythm without murmurs, gallops, or rubs. RESPIRATORY: Increased work of breathing, crackles in bilateral bases with prolonged expiratory phase, left greater than right GASTROINTESTINAL: Abdomen soft, non-tender, nondistended. EXTREMITIES: 2+ pitting edema bilateral BACK: Nontender without deformity or crepitance. No flank tenderness. NEURO: AOx3. SKIN: No rash or erythema of visible areas Initial Vital Signs Initial Vital Signs: Vital Signs Pulse Rate 75 12/28/21 22:43 Respiratory Rate 24 12/28/21 22:43 Blood Pressure 96/71 12/28/21 22:43 Pulse Oximetry 90 L 12/28/21 22:43 Oxygen Delivery Method 12/28/21 22:43 Course Course Course Narrative: Patient does have improvement in symptoms after above-stated therapies but is still requiring 5L by nasal cannula and has saturations in the mid to upper 90s. Room air ABG notes PO2 56 Orders Ordered: ED Orders 12/28/21 22:50 BNP [NT-proBNP (BNP-Adult 18+)] Stat Complete Blood Count AUTO DIFF Stat Comprehensive Metabolic Panel Stat Lactate (Lactic Acid) Stat Procalcitonin Stat Troponin & CK Cardiac Panel Stat 12/28/21 22:52 XR chest 2V Stat Measure peak expiratory flow ONCE RT Consult Eval and Treat Now 12/28/21 23:21 EKG-12 Lead Stat 12/28/21 23:47 ABG [Arterial Blood Gas] Stat 12/29/21 01:30 COVID19 -Nasal RAPID/Pre-Proc Stat Discontinued Medications Albuterol/Ipratropium (Albuterol/Ipratropium 3 Ml Ampul) 3 ml INH NOW ONE Stop: 12/28/21 22:55 Last Admin: 12/28/21 23:15 Dose: 3 ml Documented By: HEMALATHA Furosemide (Furosemide 40 Mg/4 Ml Vial) 40 mg IV NOW ONE Stop: 12/28/21 23:47 Last Admin: 12/29/21 00:07 Dose: 40 mg Documented By: HEMALATHA Ceftriaxone Sodium 2,000 mg/ (Sodium Chloride) 100 mls @ 200 mls/hr IV NOW ONE Stop: 12/29/21 01:32 Last Infusion: 12/29/21 02:58 Dose: 0 mls/hr Documented By: Admin: 12/29/21 02:13 Dose: 200 mls/hr Documented By: HEMALATHA Azithromycin 500 mg/ Dextrose 250 mls @ 250 mls/hr IV NOW ONE Stop: 12/29/21 01:32 Last Admin: 12/29/21 02:57 Dose: 250 mls/hr Documented By: HEMALATHA Methylprednisolone (Methylprednisolone 125 Mg/2 Ml Vial) 125 mg IV NOW ONE Stop: 12/28/21 22:55 Last Admin: 12/28/21 23:09 Dose: 125 mg Documented By: HEMALATHA Vital Signs Vital signs: Vital Signs - 8 hr 12/28/21 22:43 Pulse Rate 75 Respiratory Rate 24 Blood Pressure 96/71 Pulse Oximetry 90 L Oxygen Delivery Method Room Air MDM - SOB/Dyspnea Lab Data Result diagrams: 12/28/21 22:50 12/28/21 22:50 Labs: Lab Results 12/28/21 12/28/21 12/28/21 Range/Units 22:50 22:50 22:50 WBC 10.1 (4.5-11.0) X10^3/uL RBC 5.01 (4.5-5.9) X10^6/uL Hgb 15.1 (13.5-17.5) g/dL Hct 45.4 (41-53) % MCV 90.7 (80-100) fL MCH 30.2 (26-34) PG MCHC 33.3 (30-36) % RDW 15.3 H (11.6-14.8) % Plt Count 332 (150-400) X10^3/uL Neut % (Auto) 56.3 (50-75) % Lymph % (Auto) 26.0 (25-40) % [place] % (Auto) 5.7 (3-14) % Eos % (Auto) 10.8 H (2-4) % Baso % (Auto) 1.2 (0-2) % Neut # (Auto) 5700 (3327-6921) /uL Lymph # (Auto) 2600 (6440-9551) /uL [place] # (Auto) 600 (0-900) /uL Eos # (Auto) 1100 H (0-450) /uL Baso # (Auto) 100 (0-100) /uL ABG pH (7.35-7.45) ABG pCO2 (35-45) mmHg ABG pO2 (80-100) mmHg ABG HCO3 (22-26) mmol/L ABG Total CO2 (21-31) mmol/L ABG O2 Saturation (95-100) % ABG Base Excess (-2-2) mmol/L FiO2 Sodium 145 (137-145) mmol/L Potassium 4.0 (3.4-5.1) mmol/L Chloride 107 (98-107) mmol/L Carbon Dioxide 30 (22-32) mmol/L BUN 23 H (9-20) mg/dL Creatinine 1.45 H (0.66-1.25) mg/dL Estimated GFR 52 L (>60) mL/min BUN/Creatinine Ratio 15.9 (6-22) Glucose 118 H (80-110) mg/dL Lactate 1.6 (0.7-2.1) mmol/L Calcium 9.1 (8.4-10.2) mg/dL Total Bilirubin 0.5 (0.2-1.3) mg/dL AST 32 (17-59) IU/L ALT 20 (<50) IU/L Alkaline Phosphatase 56 (38-126) U/L Total Creatine Kinase (55-170) U/L CK-MB (CK-2) (<2.37) ng/mL CK-MB (CK-2) Rel Index (1.5-5.0) % Troponin I (0.01-0.034) ng/mL NT-Pro-B Natriuret Pep (<125) pg/mL Total Protein 7.6 (6.3-8.2) g/dL Albumin 4.2 (3.5-5.0) g/dL Globulin 3.4 (1.7-4.1) g/dL Albumin/Globulin Ratio 1.2 (1.0-2.8) Procalcitonin (<0.5) ng/mL SARS-CoV-2 (PCR) (Negative) 12/28/21 12/28/21 12/29/21 Range/Units 22:50 23:47 01:30 WBC (4.5-11.0) X10^3/uL RBC (4.5-5.9) X10^6/uL Hgb (13.5-17.5) g/dL Hct (41-53) % MCV (80-100) fL MCH (26-34) PG MCHC (30-36) % RDW (11.6-14.8) % Plt Count (150-400) X10^3/uL Neut % (Auto) (50-75) % Lymph % (Auto) (25-40) % [place] % (Auto) (3-14) % Eos % (Auto) (2-4) % Baso % (Auto) (0-2) % Neut # (Auto) (5429-1432) /uL Lymph # (Auto) (7476-1638) /uL [place] # (Auto) (0-900) /uL Eos # (Auto) (0-450) /uL Baso # (Auto) (0-100) /uL ABG pH 7.44 (7.35-7.45) ABG pCO2 41.6 (35-45) mmHg ABG pO2 56 L (80-100) mmHg ABG HCO3 28 H (22-26) mmol/L ABG Total CO2 29 (21-31) mmol/L ABG O2 Saturation 89 L (95-100) % ABG Base Excess 4.0 H (-2-2) mmol/L FiO2 21 Sodium (137-145) mmol/L Potassium (3.4-5.1) mmol/L Chloride (98-107) mmol/L Carbon Dioxide (22-32) mmol/L BUN (9-20) mg/dL Creatinine (0.66-1.25) mg/dL Estimated GFR (>60) mL/min BUN/Creatinine Ratio (6-22) Glucose (80-110) mg/dL Lactate (0.7-2.1) mmol/L Calcium (8.4-10.2) mg/dL Total Bilirubin (0.2-1.3) mg/dL AST (17-59) IU/L ALT (<50) IU/L Alkaline Phosphatase (38-126) U/L Total Creatine Kinase 601 H (55-170) U/L CK-MB (CK-2) 6.47 H (<2.37) ng/mL CK-MB (CK-2) Rel Index 1.1 L (1.5-5.0) % Troponin I 0.022 (0.01-0.034) ng/mL NT-Pro-B Natriuret Pep 1930 H (<125) pg/mL Total Protein (6.3-8.2) g/dL Albumin (3.5-5.0) g/dL Globulin (1.7-4.1) g/dL Albumin/Globulin Ratio (1.0-2.8) Procalcitonin 0.07 (<0.5) ng/mL SARS-CoV-2 (PCR) Negative (Negative) Discharge Plan Departure Patient Disposition: Admitted As Inpatient Clinical Impression: Acute hypoxemic respiratory failure, Left lower lobe pneumonia, Acute exacerbation of chronic obstructive pulmonary disease, Acute CHF Admit Date/Time: 12/29/21 03:09 Admit Provider: Chelsi Shin
[2021-12-29] VITALS (23 sets, daily range): BP systolic 109–177; BP diastolic 56–91; PULSE 67–94; RESP 20–44; TEMP 35.9–37.6; O2SAT 82–96; BMI 34.9
[2021-12-29] MEDS: FUROSEMIDE 40 MG/4 ML VIAL IV ×2 (00:07→05:02)
[2021-12-29 00:18] LABS: CKMB % Relative Index 1.1 % (1.5-5.0); Creatine Kinase MB 6.47 ng/mL (<2.37)
[2021-12-29 00:22] LABS: HCO3 ABG 28 mmol/L (22-26); Oxygen Saturation ABG 89 % (95-100); PCO2 ABG 41.6 mmHg (35-45); PO2 ABG 56 mmHg (80-100); TCO2 ABG 29 mmol/L (21-31); pH ABG 7.44 (7.35-7.45)
[2021-12-29 00:23] LABS: Fractionated Inspired Oxygen 21
[2021-12-29 01:59] LABS: COVID19 -Nasal RAPID Negative (Negative)
[2021-12-29] MEDS: cefTRIAXone 2,000 MG in SODIUM CHLORIDE 0.9% 100 ML 200 MG IV (02:13)
[2021-12-29] MEDS: AZITHROMYCIN 500 MG in DEXTROSE 5% IN WATER 250 ML 250 MG IV (02:57)
--- NOTE | 2021-12-29 04:02 | DI.ECHO.S_ITS ---
[facility]---------+ [facility] +---------+ : : [address] : [address] : : : : [phone] : : : : Phone: [phone]+ Echocardiogram Report + + :Name: BOROKE PETIT Study Date: 12/29/2021 Height: 68 in : :[facility] ReadingLocation: Weight: 230 lb: : Gender: Male BSA: 2.2 m2 : :: 1950 Age: 71 yrs : :Reason For Study: ACUTE RESPIRATORY FAILURE : : Performed By: Julissa Sanchez : :Referring: ARTEM OGDEN : + + Interpretation Summary The patient was in normal sinus rhythm during the exam. The left ventricle is normal in size and wall thickness. The interventricular septum is flattened, consistent with a right ventricular pressure/volume condition. Diastolic function could not be accurately assessed due to unobtainable data. The right ventricle is moderately dilated. The left atrium is not well visualized. There is trace tricuspid regurgitation. Right ventricular systolic pressure is estimated to be 50 mmHg plus the clinically estimated CVP which cannot be estimated on this exam. No prior study for comparison. Procedure: A two-dimensional transthoracic echocardiogram with color flow and Doppler was performed. Most of the acoustic windows were suboptimal, but the best imaging was obtained from the parasternal window. There is no prior echocardiogram noted for this patient. The patient was in normal sinus rhythm during the exam. Left Ventricle: The left ventricle is normal in size and wall thickness. There is no ventricular septal defect visualized. The ejection fraction is estimated to be 55-60%. The interventricular septum is flattened, consistent with a right ventricular pressure/volume condition. Diastolic function could not be accurately assessed due to unobtainable data. Right Ventricle: The right ventricle is moderately dilated. The right ventricular systolic function is normal. Atria: The left atrium is not well visualized. Right atrial size is normal. Mitral Valve: Mitral valve prolapse cannot be excluded. There is trace mitral regurgitation. Aortic Valve: The aortic valve is trileaflet. The aortic valve opens well. There is trace aortic regurgitation. Tricuspid Valve: The tricuspid valve is not well visualized, but is grossly normal. There is trace tricuspid regurgitation. Right ventricular systolic pressure is estimated to be 50 mmHg plus the clinically estimated CVP which cannot be estimated on this exam. Pulmonic Valve: The pulmonic valve is not well visualized. Great Vessels: The aortic root is normal size. The ascending aorta is normal in size. The IVC was not well visualized secondary to technical limitations making central venous pressures difficult to estimate. Pericardium/ Pleura There is no pericardial effusion. MMode/2D Measurements & Calculations LVIDd: 4.3 cm LVOT diam: 2.3 cm LVIDs: 3.1 cm Ao root diam: 3.4 cm FS: 28.7 % asc Aorta Diam: 3.3 cm EPSS: 0.89 cm IVSd: 0.92 cm LVPWd: 0.85 cm LV beach. diameter/BSA (cm/m^2): 2.0 LV sys. diameter/BSA (cm/m^2): 1.4 RA long axis: 5.6 cm RVD1 (basal): 4.9 cm RA area: 21.7 cm2 TAPSE: 2.4 cm RA vol: 70.9 ml RA : 32.7 ml/m2 Doppler Measurements & Calculations Ao V2 max: 132.9 cm/sec LVOT Max Magan: 84.8 cm/sec Ao V2 mean: 101.9 cm/sec LV V1 max P.9 mmHg Ao max P.1 mmHg LV V1 VTI: 14.5 cm Ao mean P.4 mmHg BALJINDER(I,D): 2.6 cm2 Ao V2 VTI: 22.7 cm BALJINDER(V,D): 2.6 cm2 sev ratio: 0.64 BALJINDER indexed to BSA (cm^2/m^2): 1.2 MV E max magan: 59.0 cm/sec TR max magan: 354.3 cm/sec MV A max magan: 58.7 cm/sec TR max P.2 mmHg MV E/A: 1.0 PA V2 max: 63.8 cm/sec Med Peak E' Magan: 5.2 cm/sec PA V2 mean: 41.7 cm/sec E/E' med: 11.4 PA mean P.79 mmHg Lat Peak E' Magan: 8.3 cm/sec PA pr(Accel): 67.0 mmHg E/E' lat: 7.1 E/e' average: 9.2 MV dec time: 0.20 sec SV(LVOT): 58.2 ml Reading Physician:DAVINA
--- NOTE | 2021-12-29 05:31 | PC.ADMIT ---
[facility] Admission Note: The patient,Arron Agarwal,71 y/o, was given written information regarding hospital policies, unit procedures and contact persons. Patient's smoking status: Current every day smoker. Vital Signs - 8 hr 12/28/21 22:43 12/28/21 22:48 12/28/21 23:10 Pulse Rate 75 73 84 Respiratory Rate 24 23 Blood Pressure 96/71 Pulse Oximetry 90 L 90 L 67 L Oxygen Delivery Method Room Air 12/28/21 23:30 12/29/21 00:00 12/29/21 00:30 Pulse Rate 82 70 67 Respiratory Rate 32 H 24 44 H Blood Pressure Pulse Oximetry 98 93 95 Oxygen Delivery Method 12/29/21 01:00 12/29/21 01:30 12/29/21 02:00 Pulse Rate 74 69 94 H Respiratory Rate 23 30 H 26 H Blood Pressure Pulse Oximetry 92 95 82 L Oxygen Delivery Method 12/29/21 02:30 12/29/21 03:00 12/29/21 03:22 Pulse Rate 71 71 74 Respiratory Rate 34 H 38 H 28 H Blood Pressure Pulse Oximetry 93 92 93 Oxygen Delivery Method 12/29/21 03:22 12/29/21 03:30 12/29/21 03:30 Pulse Rate 73 Respiratory Rate 30 H Blood Pressure 168/91 H 166/91 H Pulse Oximetry 93 Oxygen Delivery Method 12/29/21 03:47 12/29/21 04:00 12/29/21 04:00 Pulse Rate 77 Respiratory Rate 29 H Blood Pressure 166/91 H 177/84 H Pulse Oximetry 92 Oxygen Delivery Method Patient up from ED via stretcher. 4 assist with slider board to bed. Patient tolerated transfer well. Patient is A&O, calm and cooperative.
[2021-12-29 06:24] LABS: Appearance Urine UA CLEAR; Bilirubin Urine UA NEGATIVE (NEGATIVE); Color Urine UA YELLOW; Glucose Urine UA NEGATIVE (Negative); Ketones Urine UA NEGATIVE (NEGATIVE); Leukocyte Esterase Urine UA NEGATIVE (NEGATIVE); Nitrite Urine UA NEGATIVE (Negative); Occult Blood Urine UA NEGATIVE (Negative); Protein Urine UA NEGATIVE (Negative); Urobilinogen Urine UA 0.2 E.U./dL (0.2); pH Urine UA 6.5 (4.5-8.0)
[2021-12-29 06:25] LABS: Bacteria Urine None Seen; Culture Indicated Urine Cult Not Indicated; Hyaline Casts Urine 0-1/LPF; RBC Urine None Seen (0-5/HPF); WBC Urine None Seen (0-5/HPF)
[2021-12-29 06:39] LABS: Add Manual Diff / Slide Review NO; Basophils Absolute Auto 0 /uL (0-100); Basophils Percent Auto 0.5 % (0-2); Eosinophils Absolute Auto 100 /uL (0-450); Eosinophils Percent Auto 0.7 % (2-4); Hematocrit 44.7 % (41-53); Lymphocytes Absolute Auto 600 /uL (1100-4500); Lymphocytes Percent Auto 6.7 % (25-40); Mean Corpuscular HGB Conc 33.4 % (30-36); Mean Corpuscular Hemoglobin 30.4 PG (26-34); Mean Corpuscular Volume 90.8 fL (80-100); Monocytes Absolute Auto 100 /uL (0-900); Monocytes Percent Auto 0.7 % (3-14); Neutrophils Absolute Auto 8400 /uL (1500-7000); Neutrophils Percent Auto 91.4 % (50-75); Platelet Count 329 X10^3/uL (150-400); Red Blood Cell Count 4.93 X10^6/uL (4.5-5.9); Red Cell Distribution Width 14.9 % (11.6-14.8); White Blood Cell Count 9.2 X10^3/uL (4.5-11.0)
[2021-12-29 06:49] LABS: Magnesium 1.5 mg/dL (1.6-2.3)
[2021-12-29 06:56] LABS: Alanine Aminotransferase 22 IU/L (<50); Albumin 4.3 g/dL (3.5-5.0); Albumin Globulin Ratio 1.3 (1.0-2.8); Alkaline Phosphatase 56 U/L (38-126); Aspartate Aminotransferase 31 IU/L (17-59); BUN Creatinine Ratio 17.1 (6-22); Bilirubin Total 0.4 mg/dL (0.2-1.3); Blood Urea Nitrogen 22 mg/dL (9-20); Calcium 9.1 mg/dL (8.4-10.2); Carbon Dioxide 29 mmol/L (22-32); Chloride 101 mmol/L (98-107); Estimated Glomerular Filt Rate 60 mL/min (>60); Globulin 3.4 g/dL (1.7-4.1); Glucose 140 mg/dL (80-110); HEMOLYSIS < 15 (0-50); Potassium 3.5 mmol/L (3.4-5.1); Sodium 146 mmol/L (137-145); Total Protein 7.7 g/dL (6.3-8.2)
[2021-12-29 07:04] LABS: Troponin I 0.017 ng/mL (0.01-0.034)
[2021-12-29 07:21] LABS: Thyroid Stimulating Hormone 0.854 uIU/mL (0.47-4.68)
--- NOTE | 2021-12-29 07:46 | PM.HP.1 ---
History of Present Illness History of Present Illness Date Patient Seen: 12/29/21 Time Patient Seen: 04:11 Chief complaint: SOB Narrative: Arron Agarwal 71-year-old male daily smoker with history of prior stroke, COPD, CHF, BPH, obesity and pulmonary edema presents by EMS for evaluation of shortness of breath worsening over the course of the day that is not being relieved by his typical breathing treatments.? ED reported pt to be a very poor historian, and suggested that his shortness of breath was worse with any exertion and he is having trouble laying flat.? Patient initially presented with O2 saturations in the low 80s on room air. There is some question about whether not he has been taking his diuretics because they make him urinate too often and he has a hard time going to the bathroom.? He is had no fever or chills and denies any chest pain.? He does not routinely use supplemental oxygen.? He comes to us from a local rehab facility.? He is had no nausea or vomiting and denies any abdominal pain. For admit examination on the floor patient is difficult to rouse unable to remain awake or provide any HPI, ROS, medical history, or clarify medications. He did monitor that he has not been taking his Lasix. But was unable to obtain any further information or details. Patient's initial vitals in ED temp 99.6?, HR 82, RR 24, blood pressure 148/86, O2 saturation 93% on 4 L nasal cannula, on admit afebrile, BP 96/71, HR 75, R 24, O2 saturation 90% on 4 L nasal cannula patient's breathing is quite labored and he is sitting upright in the bed asleep, unsure if he is more obtunded due to lack of oxygenation, toxicity or simply fatigue. Patient's ABGs pH 7.44, pCO2 41.6, PO2 56, bicarb 28, TCO2 29, O2 saturation 89%, base excess 4 FiO2 21. Repeat vitals BP 166/91, HR 73, respiratory 30, O2 saturation 93% on 4 L nasal cannula. Patient's CBC is WNL, noted JEISON BUN 23, creatinine 1.45, GFR 52, glucose 118-reviewed previous labs from 09/19/2021 for comparison. Lactate and procalcitonin were WNL, BNP 1930, total CK 601, CK-to 6.47, troponin 0.022. Patient's chest x-ray demonstrated left lower lobe airspace opacities possible pneumonia, EKG sinus rhythm I personally reviewed with a rate of [address] and T-wave changes, COVID is negative. Patient admitted for acute hypoxic respiratory failure likely secondary to CHF/COPD exacerbation with JEISON. Patient History Medical History (Updated 12/29/21 @ 08:00 by JASON Diallo-) BPH (benign prostatic hyperplasia) CHF (congestive heart failure) COPD (chronic obstructive pulmonary disease) History of stroke Hyperlipidemia Neuropathy Obesity (BMI 30-39.9) Surgical History (Updated 12/29/21 @ 07:58 by JASON DialloRADHA) History of shoulder surgery Family & Social History Family History Father Heart attack Sister AA (aortic aneurysm) Social History: household members none Prior Living Arrangements Skilled Nurse Facility Safety & Behavioral: Feels Safe in Current Yes Environment Been Physically Hurt or No Threatened By a Person Tobacco & Substance use: Smoking Status Current every day smoker Smoking packs per day 1 alcohol intake frequency 0-2 drinks per day Substance Use Type does not use Meds Home Medications and Allergies Home Medications Medication Instructions Recorded Confirmed Type furosemide 80 mg tablet 80 mg DAILY 12/28/21 12/29/21 History albuterol sulfate 90 mcg/actuation 2 inh inhalation BID 12/29/21 12/29/21 History aerosol inhaler aspirin 81 mg tablet,delayed 81 mg DAILY 12/29/21 12/29/21 History release atorvastatin 20 mg tablet 20 mg DAILY 12/29/21 12/29/21 History fenofibrate micronized 134 mg 134 mg DAILY 12/29/21 12/29/21 History capsule gabapentin 600 mg tablet 600 mg BID 12/29/21 12/29/21 History ibuprofen 400 mg tablet 600 mg TID 12/29/21 12/29/21 History lidocaine 5 % topical ointment 1 applic DAILY 12/29/21 12/29/21 History melatonin 6 mg BEDTIME 12/29/21 12/29/21 History potassium chloride 20 mEq 20 meq PO DAILY 12/29/21 12/29/21 History tablet,extended release(part/cryst) prednisone 5 mg tablet 5 mg DAILY 12/29/21 12/29/21 History risperidone 1 mg tablet 1 mg BEDTIME 12/29/21 12/29/21 History salmeterol 50 mcg/dose blister 1 inh inhalation BID 12/29/21 12/29/21 History powder for inhalation (Serevent Diskus) sertraline 25 mg tablet 75 mg DAILY 12/29/21 12/29/21 History tamsulosin 0.4 mg capsule 0.4 mg PO DAILY 12/29/21 12/29/21 History tiotropium bromide 2.5 2 inh inhalation DAILY 12/29/21 12/29/21 History mcg/actuation mist for inhalation (Spiriva Respimat) Allergies Allergy/AdvReac Type Severity Reaction Status Date / Time No Known Drug Allergies Allergy Verified 01/31/21 09:50 Review of Systems Review of Systems Narrative: Unable to obtain ROS due to patient's lethargy. Exam Vital Signs (past 8 hours): - 12/29/21 00:00 12/29/21 00:30 12/29/21 01:00 Pulse Rate 70 67 74 Respiratory Rate 24 44 H 23 Blood Pressure Pulse Oximetry 93 95 92 Oxygen Delivery Method Oxygen Flow Rate 12/29/21 01:30 12/29/21 02:00 12/29/21 02:30 Pulse Rate 69 94 H 71 Respiratory Rate 30 H 26 H 34 H Blood Pressure Pulse Oximetry 95 82 L 93 Oxygen Delivery Method Oxygen Flow Rate 12/29/21 03:00 12/29/21 03:22 12/29/21 03:22 Pulse Rate 71 74 Respiratory Rate 38 H 28 H Blood Pressure 168/91 H Pulse Oximetry 92 93 Oxygen Delivery Method Oxygen Flow Rate 12/29/21 03:30 12/29/21 03:30 12/29/21 03:47 Pulse Rate 73 Respiratory Rate 30 H Blood Pressure 166/91 H 166/91 H Pulse Oximetry 93 Oxygen Delivery Method Oxygen Flow Rate 12/29/21 04:00 12/29/21 04:00 12/29/21 03:34 Pulse Rate 77 Respiratory Rate 29 H Blood Pressure 177/84 H Pulse Oximetry 92 Oxygen Delivery Method Nasal Cannula Oxygen Flow Rate 12/29/21 04:05 Pulse Rate Respiratory Rate Blood Pressure Pulse Oximetry 92 Oxygen Delivery Method Nasal Cannula Oxygen Flow Rate 4 Oxygen Delivery Method Nasal Cannula Oxygen Flow Rate 4 Narrative Exam Narrative: GENERAL: [71] year old patient appears stated age, unable to remain awake and answer questions, lethargic, does not open eyes, in mild distress.? Increased work of breathing. HEAD: Atraumatic. Normocephalic. EYES: Unable to asses ENT: Airway patent. NECK: Trachea midline. Non tender, no JVD CARDIOVASCULAR: Regular rate and rhythm without murmurs, gallops, or rubs. RESPIRATORY:? Increased work of breathing, crackles in bilateral bases with prolonged expiratory phase, left greater than right, tachypnea. GASTROINTESTINAL: Abdomen soft, non-tender, nondistended. EXTREMITIES:? 2+ pitting edema bilateral NEURO: Arousable with moderate physical stimulation, is able to verbalize orientation to place and person, unable to remain awake and doses easily. Mumbling, unable to participate in HPI, ROS SKIN: No rash or erythema of visible areas Objective Labs Result Diagrams: 12/29/21 05:35 12/29/21 05:35 Labs: Laboratory Results - last 24 hr 12/28/21 12/28/21 12/28/21 22:50 22:50 22:50 WBC 10.1 RBC 5.01 Hgb 15.1 Hct 45.4 MCV 90.7 MCH 30.2 MCHC 33.3 RDW 15.3 H Plt Count 332 Neut % (Auto) 56.3 Lymph % (Auto) 26.0 Bea[place]gard % (Auto) 5.7 Eos % (Auto) 10.8 H Baso % (Auto) 1.2 Neut # (Auto) 5700 Lymph # (Auto) 2600 [place] # (Auto) 600 Eos # (Auto) 1100 H Baso # (Auto) 100 PT INR ABG pH ABG pCO2 ABG pO2 ABG HCO3 ABG Total CO2 ABG O2 Saturation ABG Base Excess FiO2 Sodium 145 Potassium 4.0 Chloride 107 Carbon Dioxide 30 BUN 23 H Creatinine 1.45 H Estimated GFR 52 L BUN/Creatinine Ratio 15.9 Glucose 118 H Lactate 1.6 Calcium 9.1 Magnesium Total Bilirubin 0.5 AST 32 ALT 20 Alkaline Phosphatase 56 Total Creatine Kinase CK-MB (CK-2) CK-MB (CK-2) Rel Index Troponin I NT-Pro-B Natriuret Pep Total Protein 7.6 Albumin 4.2 Globulin 3.4 Albumin/Globulin Ratio 1.2 Procalcitonin TSH Urine Color Urine Appearance Urine pH Ur Specific Cameron Urine Protein Urine Glucose (UA) Urine Ketones Urine Occult Blood Urine Nitrate Urine Bilirubin Urine Urobilinogen Ur Leukocyte Esterase Urine RBC Urine WBC Urine Bacteria Hyaline Casts Ur Culture Indicated? SARS-CoV-2 (PCR) 12/28/21 12/28/21 12/29/21 22:50 23:47 01:30 WBC RBC Hgb Hct MCV MCH MCHC RDW Plt Count Neut % (Auto) Lymph % (Auto) [place] % (Auto) Eos % (Auto) Baso % (Auto) Neut # (Auto) Lymph # (Auto) [place] # (Auto) Eos # (Auto) Baso # (Auto) PT INR ABG pH 7.44 ABG pCO2 41.6 ABG pO2 56 L ABG HCO3 28 H ABG Total CO2 29 ABG O2 Saturation 89 L ABG Base Excess 4.0 H FiO2 21 Sodium Potassium Chloride Carbon Dioxide BUN Creatinine Estimated GFR BUN/Creatinine Ratio Glucose Lactate Calcium Magnesium Total Bilirubin AST ALT Alkaline Phosphatase Total Creatine Kinase 601 H CK-MB (CK-2) 6.47 H CK-MB (CK-2) Rel Index 1.1 L Troponin I 0.022 NT-Pro-B Natriuret Pep 1930 H Total Protein Albumin Globulin Albumin/Globulin Ratio Procalcitonin 0.07 TSH Urine Color Urine Appearance Urine pH Ur Specific Cameron Urine Protein Urine Glucose (UA) Urine Ketones Urine Occult Blood Urine Nitrate Urine Bilirubin Urine Urobilinogen Ur Leukocyte Esterase Urine RBC Urine WBC Urine Bacteria Hyaline Casts Ur Culture Indicated? SARS-CoV-2 (PCR) Negative 12/29/21 12/29/21 12/29/21 05:35 05:35 05:35 WBC 9.2 RBC 4.93 Hgb 15.0 Hct 44.7 MCV 90.8 MCH 30.4 MCHC 33.4 RDW 14.9 H Plt Count 329 Neut % (Auto) 91.4 H D Lymph % (Auto) 6.7 L Bea[place]gard % (Auto) 0.7 L Eos % (Auto) 0.7 L Baso % (Auto) 0.5 Neut # (Auto) 8400 H Lymph # (Auto) 600 L [place] # (Auto) 100 Eos # (Auto) 100 Baso # (Auto) 0 PT 12.0 INR 1.0 ABG pH ABG pCO2 ABG pO2 ABG HCO3 ABG Total CO2 ABG O2 Saturation ABG Base Excess FiO2 Sodium Potassium Chloride Carbon Dioxide BUN Creatinine Estimated GFR BUN/Creatinine Ratio Glucose Lactate Calcium Magnesium 1.5 L Total Bilirubin AST ALT Alkaline Phosphatase Total Creatine Kinase CK-MB (CK-2) CK-MB (CK-2) Rel Index Troponin I NT-Pro-B Natriuret Pep Total Protein Albumin Globulin Albumin/Globulin Ratio Procalcitonin TSH Urine Color Urine Appearance Urine pH Ur Specific Cameron Urine Protein Urine Glucose (UA) Urine Ketones Urine Occult Blood Urine Nitrate Urine Bilirubin Urine Urobilinogen Ur Leukocyte Esterase Urine RBC Urine WBC Urine Bacteria Hyaline Casts Ur Culture Indicated? SARS-CoV-2 (PCR) 12/29/21 12/29/21 12/29/21 05:35 05:35 06:00 WBC RBC Hgb Hct MCV MCH MCHC RDW Plt Count Neut % (Auto) Lymph % (Auto) Bea[place]gard % (Auto) Eos % (Auto) Baso % (Auto) Neut # (Auto) Lymph # (Auto) [place] # (Auto) Eos # (Auto) Baso # (Auto) PT INR ABG pH ABG pCO2 ABG pO2 ABG HCO3 ABG Total CO2 ABG O2 Saturation ABG Base Excess FiO2 Sodium 146 H Potassium 3.5 Chloride 101 Carbon Dioxide 29 BUN 22 H Creatinine 1.29 H Estimated GFR 60 BUN/Creatinine Ratio 17.1 Glucose 140 H Lactate Calcium 9.1 Magnesium Total Bilirubin 0.4 AST 31 ALT 22 Alkaline Phosphatase 56 Total Creatine Kinase CK-MB (CK-2) CK-MB (CK-2) Rel Index Troponin I 0.017 NT-Pro-B Natriuret Pep Total Protein 7.7 Albumin 4.3 Globulin 3.4 Albumin/Globulin Ratio 1.3 Procalcitonin TSH 0.854 Urine Color Yellow Urine Appearance Clear Urine pH 6.5 Ur Specific Cameron 1.010 Urine Protein Negative Urine Glucose (UA) Negative Urine Ketones Negative Urine Occult Blood Negative Urine Nitrate Negative Urine Bilirubin Negative Urine Urobilinogen 0.2 Ur Leukocyte Esterase Negative Urine RBC None seen Urine WBC None seen Urine Bacteria None seen Hyaline Casts 0-1/lpf Ur Culture Indicated? Cult not indicated SARS-CoV-2 (PCR) Assessment & Plan Assessment & Plan narrative: Arron Agarwal 71-year-old male daily smoker with history of prior stroke, COPD, CHF, BPH, obesity and pulmonary edema who presented with increasing shortness of breath. Patient admitted for acute hypoxic respiratory failure appears likely secondary to CHF and COPD exacerbation there is a possibility of left lower lobe pneumonia, patient also has a mild JEISON. 1. Hypoxic respiratory failure, acute, present on admission -suspect that this is CHF/COPD exacerbation but will continue to rule out bacterial pneumonia and viral respiratory infection. -WBC, lactate, procalcitonin all within normal limits -patient is not on home O2, presented to the ED with O2 saturations in the low 80s on room air. -Currently patient is satting 90% to 94% on 4 L nasal cannula -respiratory consult, DuoNebs q.4 hours, prednisone 40 mg daily x4 days. -repeat the ABGs, respiratory panel ordered, tox screen -patient did receive azithromycin/Rocephin in ED 2. CHF exacerbation, acute, likely secondary to medication noncompliance, present on admission -today BNP 1930, comparison 09/19/2021 BUN of 978 -2000 cc fluid restriction, low-sodium diet -strict I&O, daily weights -was unable to verify patient's medications due to his lethargy, it is reported that he is supposed to take Lasix 80 mg daily-will hold PO Lasix -20 mg IV Lasix q.8 hours-closely monitor renal function, if worsening creatinine recommend starting gentle Lasix drip. -echo ordered 3. COPD, exacerbation, acute on chronic, present on admission -continue patient's servant, Spiriva -DuoNebs, prednisone, respiratory consult 4. JEISON, acute, present on admission -today BUN 23, creatinine 1.45, GFR 52 Comparison: 09/19/2021 creatinine 1.04, GFR>60 -monitor renal function avoid nephrotoxic medications. -if Lasix causes increased creatinine consider Lasix drip for gentle rehydration and decreased nephrotoxic effects 5. Hyperlipidemia, chronic, present on admission -continue Lipitor 6. BPH, chronic, present on admission -continue Flomax -UA ordered to rule out UTI, bladder scan is needed to monitor for urinary retention 7. Neuropathy, chronic, present on admission -holding gabapentin due to patient's over-sedation 7. Obesity as evidence by BMI of 35, acute on chronic, present on admission -dietary consult placed for nutritional lifestyle modifications and weight loss Code status: DNR Surrogate decision maker: Manoj Cadenagabriele ANGELO PCR: Negative DVT/VTE prophylaxis: Lovenox and SCDs Disposition: Patient admitted to acute care for management of acute hypoxic respiratory failure secondary to COPD and CHF exacerbation with JEISON, expected length of stay greater than 3 midnights. Patient will require diuresis, support a respiratory function, and of correction renal function. I have utilized all available immediate resources to obtain, update, or review the patient's current medications. I confirmed that the patient's advanced care plan is present, Code status is documented and/or surrogate decision maker is listed in the patient's medical record. Time Spent With Patient Critical Care time: I spent a total of [] minutes of critical care time on this patient's care today; this time is exclusive of procedural time.
[2021-12-29] MEDS: predniSONE 20 MG TABLET 40 MG PO (09:05)
[2021-12-29] MEDS: FENOFIBRATE, MICRONIZED 67 MG CAPSULE 134 MG PO (09:05)
[2021-12-29] MEDS: ATORVASTATIN 20 MG TABLET PO (09:05)
[2021-12-29] MEDS: SERTRALINE 50 MG TABLET 75 MG PO (09:05)
[2021-12-29] MEDS: ASPIRIN EC 81 MG TABLET PO (09:05)
[2021-12-29] MEDS: FUROSEMIDE 20 MG/2 ML VIAL IV ×2 (09:05→16:19)
[2021-12-29] MEDS: TAMSULOSIN 0.4 MG CAPSULE PO (09:06)
[2021-12-29] MEDS: GABAPENTIN 600 MG TABLET PO ×2 (09:06→21:24)
[2021-12-29] MEDS: ENOXAPARIN 30 MG/0.3 ML SYRINGE SUBCUT (09:06)
[2021-12-29] MEDS: POTASSIUM CHLORIDE 20 MEQ TAB PO (09:06)
[2021-12-29] MEDS: IPRATROPIUM 0.5 MG/2.5 ML NEB INH ×2 (09:21→16:45)
[2021-12-29] MEDS: ALBUTEROL 2.5 MG/3 ML NEB (ADULT) INH ×2 (09:21→16:45)
[2021-12-29] MEDS: MAGNESIUM CHLORIDE 64 MG TABLET 128 MG PO (10:01)
--- NOTE | 2021-12-29 14:24 | CM.DANOTE ---
Initial Discharge Assessment Note: Case reviewed, met with patient in his room. Introduced self and role. Payer: [facility] [place] PCP: Isi Andrews 71 year old single male admitted at 03:09 am via ambulance from [facility] with SOB, acute CHF, COPD, hypoxemia and dx'd with LLL pneumonia and JEISON. He is being treated with diuretics and oxygen. He has moist cough. Patient has history of stroke 3 years ago resulting in left sided weakness and moved to [facility]. He states he cannot walk and uses a wheelchair. He uses PRN O2 at the facility and prn inhaler. He is a daily smoker. His son Manoj lives in [place], he states he has no other family. Plan: Return to [facility]. They will have to come here and evaluate him first before they accept him back. Assess for home health needs. MIKEY Discharge Planning/Care Management CM Discharge Assessment Start: 12/29/21 14:21 Freq: Status: Active Protocol: Document 12/29/21 14:22 (Rec: 12/29/21 14:24 [id number]) Discharge Planning Assessment Assigned Direct Marketing Representative Sasha Vaughan RN/DCP Advance Directives? No History Provided By Patient Prior Living Arrangements Assisted Living Comment [facility] in [place], he has resided there for 3 years since he had a stroke. Household Members none Type of transporation used prior to Relies on Others admit Facility Name Admitted From: [facility] Willing to Return to Facility? Yes Independent with ADL's No Is patient alert and oriented? No: [employer] Needs Assistance With Bathing,Grooming,Meal Prep, Managing Medications,Home Chores / Shopping Caregiver for Another No Comment ADA DME in facility Barriers to Discharge No Discharge Plan Assisted Living Facility Transportation Arrangement [facility] Additional Comment May need ? Review Status In Process Next Review Type Continued Stay Review
[2021-12-29 14:29] LABS: UR Morphine/Opiate cutoff 300 Negative (Negative); Ur Creatinine Normal (Normal); Ur Specific Gravity Normal (Normal); Urine Amphetamines Negative (Negative); Urine Barbiturates Negative (Negative); Urine Benzodiazepines Negative (Negative); Urine Cocaine Negative (Negative); Urine MDMA Negative (Negative); Urine Methadone Negative (Negative); Urine Methamphetamines Negative (Negative); Urine Oxycodone Negative (Negative); Urine Phencyclidine Negative (Negative); Urine Tetrahydrocannabinol Negative (Negative); Urine Tricyclic Antidepressant Negative (Negative); Urine pH Normal (Normal)
--- NOTE | 2021-12-29 18:02 | PM.EVENT ---
Event Note Date Patient Seen: 12/29/21 Event Note (Rapid Response, Code, or fall): Saw the patient this morning, feeling better. Acute Hypoxic respiratory failure most likely secondary to CHF exacerbation and probably COPD. Continue IV diuresis. Close monitoring of kidney functions. Refer to H and P for further details. Care plan discussed with the patient. Answered all questions.
[2021-12-29] MEDS: MELATONIN 3 MG TABLET 6 MG PO (21:23)
[2021-12-29] MEDS: risperiDONE 1 MG TABLET PO (21:24)
[2021-12-29] MEDS: ALBUTEROL/IPRATROPIUM 3 ML AMPUL INH ×2 (21:30)
[2021-12-30] VITALS (14 sets, daily range): BP systolic 105–136; BP diastolic 57–74; PULSE 67–96; RESP 16–28; TEMP 36.2–37.4; O2SAT 91–96
[2021-12-30] MEDS: FUROSEMIDE 20 MG/2 ML VIAL IV ×2 (00:25→11:03)
[2021-12-30 05:55] LABS: Add Manual Diff / Slide Review NO; Basophils Absolute Auto 0 /uL (0-100); Basophils Percent Auto 0.1 % (0-2); Eosinophils Absolute Auto 0 /uL (0-450); Eosinophils Percent Auto 0.1 % (2-4); Hematocrit 39.3 % (41-53); Hemoglobin 13.2 g/dL (13.5-17.5); Lymphocytes Absolute Auto 1100 /uL (1100-4500); Lymphocytes Percent Auto 9.1 % (25-40); Mean Corpuscular HGB Conc 33.5 % (30-36); Mean Corpuscular Hemoglobin 30.3 PG (26-34); Mean Corpuscular Volume 90.5 fL (80-100); Monocytes Absolute Auto 700 /uL (0-900); Monocytes Percent Auto 6.1 % (3-14); Neutrophils Absolute Auto 10200 /uL (1500-7000); Neutrophils Percent Auto 84.6 % (50-75); Platelet Count 328 X10^3/uL (150-400); Red Blood Cell Count 4.34 X10^6/uL (4.5-5.9); Red Cell Distribution Width 15.3 % (11.6-14.8); White Blood Cell Count 12.1 X10^3/uL (4.5-11.0)
--- NOTE | 2021-12-30 06:00 | DI.RAD.S_ITS ---
PROCEDURE: XR CHEST 2V INDICATIONS: Further assessment of Infiltrate of CXR TECHNIQUE: 2 views of the chest were acquired. COMPARISON: [facility], CR, XR CHEST 2V, 09/22/2020, 14:49. [facility], CR, XR CHEST 1V, 01/31/2021, 10:01. [facility], CR, XR CHEST 2V, 12/28/2021, 22:55. FINDINGS: Surgical changes and devices: None. Lungs and pleura: An incomplete inspiratory result is noted, causing a crowded appearance to the lung markings. No pneumothorax or significant pleural effusions are seen. Mild perihilar infiltrates are seen, which are more prominent on the current study than on the prior. Mild left lung base atelectasis is seen, which is improved. Mediastinum: Mediastinal contours are normal. Heart size is mildly enlarged. Bones and chest wall: No suspicious bony abnormalities. Age-appropriate bony degenerative changes are seen. Soft tissues appear unremarkable. IMPRESSION: Increased perihilar infiltrates. Mild cardiomegaly. Please consider CHF. Left lung base atelectasis is seen, which is improved compared to the prior. Note: No significant discrepancy from the preliminary report. Dictated by: Vineet Finley M.D. on 12/30/2021 at 6:52 Approved by: Vineet Finley M.D. on 12/30/2021 at 6:54
[2021-12-30 06:12] LABS: Alanine Aminotransferase 17 IU/L (<50); Albumin 3.5 g/dL (3.5-5.0); Albumin Globulin Ratio 1.2 (1.0-2.8); Alkaline Phosphatase 46 U/L (38-126); Aspartate Aminotransferase 24 IU/L (17-59); BUN Creatinine Ratio 24.4 (6-22); Bilirubin Total 0.4 mg/dL (0.2-1.3); Blood Urea Nitrogen 29 mg/dL (9-20); Calcium 8.7 mg/dL (8.4-10.2); Carbon Dioxide 29 mmol/L (22-32); Chloride 104 mmol/L (98-107); Estimated Glomerular Filt Rate > 60 mL/min (>60); Globulin 2.9 g/dL (1.7-4.1); Glucose 136 mg/dL (80-110); HEMOLYSIS < 15 (0-50); Potassium 3.7 mmol/L (3.4-5.1); Sodium 141 mmol/L (137-145); Total Protein 6.4 g/dL (6.3-8.2)
[2021-12-30] MEDS: ALBUTEROL/IPRATROPIUM 3 ML AMPUL INH ×2 (07:45→14:34)
[2021-12-30] MEDS: ENOXAPARIN 40 MG/0.4 ML SYRINGE SUBCUT (10:56)
[2021-12-30] MEDS: FENOFIBRATE, MICRONIZED 67 MG CAPSULE 134 MG PO (10:56)
[2021-12-30] MEDS: POTASSIUM CHLORIDE 20 MEQ TAB PO (10:57)
[2021-12-30] MEDS: predniSONE 20 MG TABLET 40 MG PO (10:57)
[2021-12-30] MEDS: TAMSULOSIN 0.4 MG CAPSULE PO (10:57)
[2021-12-30] MEDS: SERTRALINE 50 MG TABLET 75 MG PO (10:57)
[2021-12-30] MEDS: ASPIRIN EC 81 MG TABLET PO (10:58)
[2021-12-30] MEDS: ATORVASTATIN 20 MG TABLET PO (10:58)
[2021-12-30] MEDS: GABAPENTIN 600 MG TABLET PO ×2 (10:58→20:18)
--- NOTE | 2021-12-30 13:47 | CM.DPC ---
DCP/Continued: Reviewed chart. Spoke with provider in AM rounds, he reports that patient most likely will be medically stable for d/c tomorrow 10-17. Patient resides at [facility]. INTERNAL CONTROLS SPECIALIST left message with nurses station that patient will be medically stable to return tomorrow. P: CM team to follow up in AM with [place] for patient's return. Unclear is they will need to do in person assessment prior to patient's return. TEODORA
--- NOTE | 2021-12-30 16:01 | P.PN_ITS ---
Exam Vital Signs (past 8 hours): - 12/30/21 08:16 12/30/21 12:14 12/30/21 10:00 Temperature 97.1 F L 97.5 F L Pulse Rate 71 81 Respiratory Rate 26 H 26 H Blood Pressure 105/67 136/61 Pulse Oximetry 95 91 91 Oxygen Delivery Method Nasal Cannula Oxygen Flow Rate 0 3 3 12/30/21 14:00 12/30/21 14:34 Temperature Pulse Rate 82 Respiratory Rate 24 Blood Pressure Pulse Oximetry 91 93 Oxygen Delivery Method Nasal Cannula Oximask Oxygen Flow Rate 3 3 Oxygen Delivery Method Oximask Oxygen Flow Rate 3 Objective Labs Result Diagrams: 12/30/21 05:15 12/30/21 05:15 Labs: Laboratory Results - last 24 hr 12/30/21 12/30/21 05:15 05:15 WBC 12.1 H RBC 4.34 L Hgb 13.2 L Hct 39.3 L MCV 90.5 MCH 30.3 MCHC 33.5 RDW 15.3 H Plt Count 328 Neut % (Auto) 84.6 H Lymph % (Auto) 9.1 L [place] % (Auto) 6.1 Eos % (Auto) 0.1 L Baso % (Auto) 0.1 Neut # (Auto) 46802 H Lymph # (Auto) 1100 [place] # (Auto) 700 Eos # (Auto) 0 Baso # (Auto) 0 Sodium 141 Potassium 3.7 Chloride 104 Carbon Dioxide 29 BUN 29 H Creatinine 1.19 Estimated GFR > 60 BUN/Creatinine Ratio 24.4 H Glucose 136 H Calcium 8.7 Total Bilirubin 0.4 AST 24 ALT 17 Alkaline Phosphatase 46 Total Protein 6.4 Albumin 3.5 Globulin 2.9 Albumin/Globulin Ratio 1.2 [facility] Medical History (Updated 12/29/21 @ 08:00 by CIRA Diallo) BPH (benign prostatic hyperplasia) CHF (congestive heart failure) COPD (chronic obstructive pulmonary disease) History of stroke Hyperlipidemia Neuropathy Obesity (BMI 30-39.9) Surgical History (Updated 12/29/21 @ 07:58 by CIRA Diallo) History of shoulder surgery Family History Father Heart attack Sister AA (aortic aneurysm) Social History household members: none Smoking Status: Current every day smoker Assessment & Plan Assessment & Plan narrative: Acute hypoxic respiratory failure secondary to combination of CHF and COPD exacerbation -improving with IV diuretics, steroids, nebulizer therapy -most likely secondary to infiltrates and community-acquired pneumonia -received antibiotics in the ER, continuing Levaquin for 4 more days Acute on chronic systolic heart failure -continue IV diuresis, transitioned to p.o., monitor kidney functions Acute COPD exacerbation most likely secondary to underlying pneumonia, improved with nebulizer therapy and home inhalers, encourage incentive spirometry JEISON, acute, present on admission -improving probably most likely due to prerenal and poor oral intake Other medical conditions: Hyperlipidemia- continue Lipitor BPH - Continue Flomax Peripheral neuropathy -cautioned with gabapentin Obesity, secondary to excessive calories Code status:? DNR Surrogate decision maker:? Manoj Agarwal son COVID PCR:? Negative DVT/VTE prophylaxis:? Lovenox and SCDs Care plan explained to the patient and and his son Manoj. Patient's son confirms the DNR status, also understands overall poor prognosis. Time Spent With Patient Critical Care time: I spent a total of [] minutes of critical care time on this patient's care today; this time is exclusive of procedural time.
[2021-12-30] MEDS: NICOTINE 21 MG PATCH TOP (18:45)
[2021-12-30] MEDS: levoFLOXacin 250 MG TABLET 750 MG PO (18:49)
[2021-12-30] MEDS: MELATONIN 3 MG TABLET 6 MG PO (20:18)
[2021-12-30] MEDS: SENNOSIDES 8.6 MG TABLET 17.2 MG PO (20:18)
[2021-12-30] MEDS: risperiDONE 1 MG TABLET PO (20:18)
[2021-12-31 02:00] VITALS: O2SAT 89
[2021-12-31 02:05] VITALS: O2SAT 94
[2021-12-31 05:05] VITALS: BP 135/78; PULSE 66; RESP 17; TEMP 36.6; O2SAT 95
[2021-12-31 05:33] LABS: Add Manual Diff / Slide Review NO; Basophils Absolute Auto 100 /uL (0-100); Basophils Percent Auto 0.5 % (0-2); Eosinophils Absolute Auto 0 /uL (0-450); Eosinophils Percent Auto 0.2 % (2-4); Hemoglobin 14.5 g/dL (13.5-17.5); Lymphocytes Absolute Auto 1800 /uL (1100-4500); Lymphocytes Percent Auto 16.8 % (25-40); Mean Corpuscular HGB Conc 33.7 % (30-36); Mean Corpuscular Hemoglobin 30.5 PG (26-34); Mean Corpuscular Volume 90.5 fL (80-100); Monocytes Absolute Auto 700 /uL (0-900); Monocytes Percent Auto 6.5 % (3-14); Neutrophils Absolute Auto 8100 /uL (1500-7000); Platelet Count 316 X10^3/uL (150-400); Red Blood Cell Count 4.76 X10^6/uL (4.5-5.9); Red Cell Distribution Width 15.6 % (11.6-14.8); White Blood Cell Count 10.7 X10^3/uL (4.5-11.0)
[2021-12-31 05:52] LABS: Alanine Aminotransferase 18 IU/L (<50); Albumin 4.1 g/dL (3.5-5.0); Albumin Globulin Ratio 1.3 (1.0-2.8); Alkaline Phosphatase 49 U/L (38-126); Aspartate Aminotransferase 24 IU/L (17-59); BUN Creatinine Ratio 32.8 (6-22); Bilirubin Total 0.5 mg/dL (0.2-1.3); Blood Urea Nitrogen 40 mg/dL (9-20); Calcium 9.3 mg/dL (8.4-10.2); Carbon Dioxide 31 mmol/L (22-32); Chloride 101 mmol/L (98-107); Estimated Glomerular Filt Rate > 60 mL/min (>60); Globulin 3.1 g/dL (1.7-4.1); Glucose 95 mg/dL (80-110); HEMOLYSIS 26 (0-50); Potassium 3.9 mmol/L (3.4-5.1); Sodium 140 mmol/L (137-145); Total Protein 7.2 g/dL (6.3-8.2)
[2021-12-31] MEDS: ALBUTEROL/IPRATROPIUM 3 ML AMPUL INH (07:24)
[2021-12-31 07:25] VITALS: PULSE 68; RESP 20; O2SAT 94
--- NOTE | 2021-12-31 07:32 | PC.NURSE ---
Patient agitated and frustrated last night, refused Lasix. Explained importance of getting the lasix, pt continued to refuse, told junior underwriter to get out and leave him alone, I just want to sleep. MALORIE Diallo notified of pt's refusal of IV Lasix. When pt calmed down RN allowed to check IV. Site painful with flushing, infiltrated. IV DCd. Pt refused new IV. Patient continued to refuse new IV and Lasix this am. Patient also repeatedly takes off O2 mask. POX 98-99% on RA, 94% with Oximask at 3L.
[2021-12-31 08:15] VITALS: BP 121/70; PULSE 72; RESP 26; TEMP 36.1; O2SAT 94
[2021-12-31] MEDS: FUROSEMIDE 40 MG TABLET 80 MG PO (08:48)
[2021-12-31] MEDS: ASPIRIN EC 81 MG TABLET PO (08:48)
[2021-12-31] MEDS: ATORVASTATIN 20 MG TABLET PO (08:48)
[2021-12-31] MEDS: ENOXAPARIN 40 MG/0.4 ML SYRINGE SUBCUT (08:48)
[2021-12-31] MEDS: FENOFIBRATE, MICRONIZED 67 MG CAPSULE 134 MG PO (08:49)
[2021-12-31] MEDS: predniSONE 20 MG TABLET 40 MG PO (08:49)
[2021-12-31] MEDS: SERTRALINE 50 MG TABLET 75 MG PO (08:49)
[2021-12-31] MEDS: GABAPENTIN 600 MG TABLET PO (08:49)
[2021-12-31] MEDS: POTASSIUM CHLORIDE 20 MEQ TAB PO (08:49)
[2021-12-31] MEDS: TAMSULOSIN 0.4 MG CAPSULE PO (08:50)
--- NOTE | 2021-12-31 10:19 | CM.DPC ---
Addendum entered by Nan Stone R.N. 12/31/21 10:46: Spoke to Carissa from [facility] and she confirmed that they are able to accept pt back to their facility today @ 1400. DCP verbalized understanding. [facility] updated MD and RN. Pt will transport via [facility] transportation today. Nan Stone RN/SUZY Original Note: DCP Cont: [facility] contacted [facility] to request assessment on pt for his return back to their facility. Carissa @ [facility] states she will be here @ 1045 today. Pt has discharge orders placed. If [facility] is OK with accepting pt back today, pt will transport back to their facility via transport. Nan Stone RN/ZOILAP
[2021-12-31 12:54] VITALS: O2SAT 90
--- NOTE | 2021-12-31 14:27 | PC.NURSE ---
Discharge Note Patient A&O, VSS, RA, no complaints of pain/discomfort. Patient agreeable to discharge plan. Report given to facility staff, all questions/concerns addressed. Patient assisted to dress and pack all belongings. Discharge packet and belongings given to facility staff. Patient taken down via wheelchair by facility staff.
--- NOTE | 2021-12-31 18:39 | P.DS_ITS ---
History of Present Illness History of Present Illness Date Patient Seen: 12/29/21 Time Patient Seen: 04:11 Chief complaint: SOB Narrative: Per admitting provider: Arron Agarwal 71-year-old male daily smoker with history of prior stroke, COPD, CHF, BPH, obesity and pulmonary edema presents by EMS for evaluation of shortness of breath worsening over the course of the day that is not being relieved by his typical breathing treatments.? ED reported pt to be a very poor historian, and suggested that his shortness of breath was worse with any exertion and he is having trouble laying flat.? Patient initially presented with O2 saturations in the low 80s on room air. There is some question about whether not he has been taking his diuretics because they make him urinate too often and he has a hard time going to the bathroom.? He is had no fever or chills and de nies any chest pain.? He does not routinely use supplemental oxygen.? He comes to us from a local rehab facility.? He is had no nausea or vomiting and denies any abdominal pain. For admit examination on the floor patient is difficult to rouse unable to remain awake or provide any HPI, ROS, medical history, or clarify medications. He did monitor that he has not been taking his Lasix. But was unable to obtain any further information or details. Patient's initial vitals in ED temp 99.6?, HR 82, RR 24, blood pressure 148/86, O2 saturation 93% on 4 L nasal cannula, on admit afebrile, BP 96/71, HR 75, R 24, O2 saturation 90% on 4 L nasal cannula patient's breathing is quite labored and he is sitting upright in the bed asleep, unsure if he is more obtunded due to lack of oxygenation, toxicity or simply fatigue. Patient's ABGs pH 7.44, pCO2 41.6, PO2 56, bicarb 28, TCO2 29, O2 saturation 89%, base excess 4 FiO2 21. Repeat vitals BP 166/91, HR 73, respiratory 30, O2 saturation 93% on 4 L nasal cannula. Patient's CBC is WNL, noted JEISON BUN 23, creatinine 1.45, GFR 52, glucose 118-reviewed previous labs from 09/19/2021 for comparison. Lactate and procalcitonin were WNL, BNP 1930, total CK 601, CK-to 6.47, troponin 0.022. Patient's chest x-ray demonstrated left lower lobe airspace opacities possible pneumonia, EKG sinus rhythm I personally reviewed with a rate of [address] and T-wave changes, COVID is negative. Patient admitted for acute hypoxic respiratory failure likely secondary to CHF/COPD exacerbation with JEISON. Discharge Providers Provider Date of admission: 12/29/21 03:09 Discharge Date: 12/31/21 Primary care physician: MALORIE Lind Consults: 12/29/21 04:02 Consult to Respiratory Therapy Evaluate & Treat Comment: as needed for resp failure Physician Instructions: Evaluate and treat 12/29/21 04:08 Consult to Dietitian, Adult Routine Comment: Reason For Exam: BMI 35 Discharge provider: Dilshad Gannon MD Summary Hospital Course Discharge Diagnosis: 1. Acute on chronic hypoxemic respiratory failure 2. Acute on chronic diastolic heart failure 3. Acute COPD exacerbation 4. JEISON 5. BPH 6. Hyperlipidemia 7. History of CVA Hospital Course: Mr. Agarwal was admitted with respiratory distress and was hypoxemic. Workup showed volume overload, ECHO showed preserved EF, consistent with acute diastolic CHF exacerbation. He diuresed with IV lasix. He is on intermittent home O2 and in the hospital he was intermittently on oxygen on day of discharge, and this can be continued. However, he notes hesitance as an outpatient to take lasix due to urinary incontinence and difficulty with mobility after a stroke. He was more amenable to taking this medication after learning it would help prevent readmission. On day of discharge he refused to have IV placed after it come out, he was adamant about discharge home and declined to stay for further diuresis. As his respiratory status was much improved he was able to be discharged. He was also discharged with a short course of antibiotics and steroids due to his respiratory distress and possible COPD and pneumonia. He can decrease down to his home dose of prednisone after completing a short burst of increased dose. Exam Vital Signs (past 8 hours): - 12/31/21 12:54 Pulse Oximetry 90 L Oxygen Delivery Method Room Air Oxygen Delivery Method Room Air Oxygen Flow Rate 3 Narrative Exam Narrative: GEN: no acute distress CARDIOVASCULAR: Regular rate and rhythm without murmurs RESPIRATORY:? crackles bilaterally GASTROINTESTINAL: Abdomen soft, non-tender, nondistended. EXTREMITIES:? 1+ pitting edema bilaterally Objective Labs Result Diagrams: 12/31/21 05:01 12/31/21 05:01 Labs: Laboratory Results - last 24 hr 12/31/21 12/31/21 05:01 05:01 WBC 10.7 RBC 4.76 Hgb 14.5 Hct 43.0 MCV 90.5 MCH 30.5 MCHC 33.7 RDW 15.6 H Plt Count 316 Neut % (Auto) 76.0 H Lymph % (Auto) 16.8 L [place] % (Auto) 6.5 Eos % (Auto) 0.2 L Baso % (Auto) 0.5 Neut # (Auto) 8100 H Lymph # (Auto) 1800 [place] # (Auto) 700 Eos # (Auto) 0 Baso # (Auto) 100 Sodium 140 Potassium 3.9 Chloride 101 Carbon Dioxide 31 BUN 40 H Creatinine 1.22 Estimated GFR > 60 BUN/Creatinine Ratio 32.8 H Glucose 95 Calcium 9.3 Total Bilirubin 0.5 AST 24 ALT 18 Alkaline Phosphatase 49 Total Protein 7.2 Albumin 4.1 Globulin 3.1 Albumin/Globulin Ratio 1.3 [facility] Medical History (Updated 12/29/21 @ 08:00 by CIRA Diallo) BPH (benign prostatic hyperplasia) CHF (congestive heart failure) COPD (chronic obstructive pulmonary disease) History of stroke Hyperlipidemia Neuropathy Obesity (BMI 30-39.9) Surgical History (Updated 12/29/21 @ 07:58 by CIRA Diallo) History of shoulder surgery Family History Father Heart attack Sister AA (aortic aneurysm) Social History household members: none Smoking Status: Current every day smoker Discharge Plan Discharge Plan Patient Disposition: Home Provider Discharge Comment: Mr. Agarwal came in with shortness of breath. He was given medications for pneumonia, COPD and congestive heart failure. He should take his lasix regularly to prevent fluid retention. He should finish his prednisone of 40mg and then go back to his 5mg dose. He should finish his antibiotics. Discharge orders & Medications Prescriptions: New levofloxacin 250 mg Tablet 750 mg PO DAILY@1700 Qty: 3 0RF furosemide [Lasix] 40 mg tablet 40 mg PO BID Qty: 60 0RF prednisone 20 mg tablet 40 mg PO DAILY Qty: 6 0RF Continued gabapentin 600 mg tablet 600 mg BID atorvastatin 20 mg tablet 20 mg DAILY prednisone 5 mg tablet 5 mg DAILY aspirin 81 mg tablet,delayed release (DR/EC) 81 mg DAILY fenofibrate micronized 134 mg capsule 134 mg DAILY potassium chloride 20 mEq tablet,ER particles/crystals 20 meq PO DAILY tamsulosin 0.4 mg capsule 0.4 mg PO DAILY Serevent Diskus 50 mcg/dose blister with device 1 inh INHALATION BID sertraline 25 mg tablet 75 mg DAILY albuterol sulfate 90 mcg/actuation HFA aerosol inhaler 2 inh INHALATION BID risperidone 1 mg tablet 1 mg BEDTIME lidocaine 5 % ointment 1 applic DAILY Rx Instructions: to right hand Spiriva Respimat 2.5 mcg/actuation mist 2 inh INHALATION DAILY melatonin 3 mg 6 mg BEDTIME Changed ibuprofen 400 mg tablet 600 mg PO TID PRN (Reason: pain) Qty: 10 0RF Discontinued furosemide 80 mg tablet 80 mg DAILY Follow up/Referrals: Isi Andrews ARNP [Primary Care Provider] - (follow up within 2 days) Diet/Activity/Treatments Diet: Low-sodium Diet comment: 2L fluid restriction Visit Report/Discharge Packet Instructions: DI for Heart Failure Discharge Data Primary Care Provider: Isi Andrews
== END 2021-12-31 14:00 | disposition home or self-care (01) | DRG 189 ==
LOC: ED 12-29 02:23 → AC 12-29 03:10
PROVIDERS: Family Medicine; Admitting Provider Nurse Practitioner Family; Emergency Provider Emergency Medicine; PCP Nurse Practitioner Family; Referring Provider Emergency Medicine; Visit Provider Nurse Practitioner Family
DX: J96.21 Acute and chronic respiratory failure with hypoxia (principal); I50.33 Acute on chronic diastolic (congestive) heart failure; J44.1 Chronic obstructive pulmonary disease with (acute) exacerbation; N17.9 Acute kidney failure, unspecified; E78.5 Hyperlipidemia, unspecified; N40.0 Benign prostatic hyperplasia without lower urinary tract symptoms; G62.9 Polyneuropathy, unspecified; F17.210 Nicotine dependence, cigarettes, uncomplicated; Z66 Do not resuscitate; Z20.822 Contact with and (suspected) exposure to COVID-19
CPT/HCPCS: 36415; 36600; 71046; 80053; 80305; 81001; 82550; 82553; 82805; 83605; 83735; 83880; 84145; 84443; 84484; 85007; 85025; 85610; 87635; 93005; 93010; 93306; 94640; 94760; 96365; 96367; 96375; 99284; 99285; 99406; C9803; A9270; J0696; J1650; J1940; J2930; J7613

== ENCOUNTER → 2022-01-08 10:37 | Outpatient (CLI) | payer MEDICARE, MEDICAID, SELFPAY ==
[2021-12-29 04:31] VITALS: BMI 34.9
[2022-01-08 12:50] LABS: Hematocrit 46.7 % (41-53); Hemoglobin 15.8 g/dL (13.5-17.5); Mean Corpuscular HGB Conc 33.9 % (30-36); Mean Corpuscular Hemoglobin 30.4 PG (26-34); Mean Corpuscular Volume 89.6 fL (80-100); Platelet Count 262 X10^3/uL (150-400); Red Blood Cell Count 5.21 X10^6/uL (4.5-5.9); Red Cell Distribution Width 14.7 % (11.6-14.8); White Blood Cell Count 12.9 X10^3/uL (4.5-11.0)
[2022-01-08 12:51] LABS: Add Manual Diff / Slide Review YES
[2022-01-08 13:02] LABS: Blood Urea Nitrogen 23 mg/dL (9-20); Calcium 8.9 mg/dL (8.4-10.2); Carbon Dioxide 30 mmol/L (22-32); Chloride 98 mmol/L (98-107); Estimated Glomerular Filt Rate > 60 mL/min (>60); Glucose 109 mg/dL (80-110); Potassium 3.7 mmol/L (3.4-5.1); Sodium 138 mmol/L (137-145)
[2022-01-08 13:09] LABS: NT-proBNP (BNP-Adult 18+) 1520 pg/mL (<125)
[2022-01-08 13:56] LABS: Neutrophils Absolute Manual 9804 /uL (3000-5900); RBC Morphology Normal Morphology; Total Cells Counted 100
== END ==
PROVIDERS: PCP Nurse Practitioner Family; Referring Provider Nurse Practitioner Family; Visit Provider Nurse Practitioner Family
DX: I50.20 Unspecified systolic (congestive) heart failure (principal); R60.9 Edema, unspecified; J44.9 Chronic obstructive pulmonary disease, unspecified
CPT/HCPCS: 36415; 80048; 83880; 85007; 85025

== ENCOUNTER 2022-02-26 06:54 | Inpatient (IN) | payer MEDICARE, MEDICAID, SELFPAY ==
[2021-12-29 04:31] VITALS: BMI 34.9
[2022-02-26] VITALS (67 sets, daily range): BP systolic 86–137; BP diastolic 48–72; PULSE 84–123; RESP 10–39; TEMP 29–38.6; O2SAT 89–97; BMI 36.9
--- NOTE | 2022-02-26 07:07 | DI.RAD.S_ITS ---
PROCEDURE: XR CHEST 1V INDICATIONS: short of breath TECHNIQUE: One view of the chest was acquired. COMPARISON: [facility], CR, XR CHEST 2V, 12/30/2021, 6:15. FINDINGS: Surgical changes and devices: None. Lungs and pleura: Patchy bibasilar atelectasis. No pleural effusions or pneumothorax. Mediastinum: Mediastinal contours appear normal. Mild cardiomegaly. Bones and chest wall: No suspicious bony lesions. Overlying soft tissues appear unremarkable. IMPRESSION: Mild cardiomegaly, patchy bibasilar atelectasis. Dictated by: Jm Birch M.D. on 02/26/2022 at 8:24 Approved by: Jm Birch M.D. on 02/26/2022 at 8:25
[2022-02-26] MEDS: ALBUTEROL 2.5 MG/3 ML NEB (ADULT) 20 MG INH (07:10)
[2022-02-26] MEDS: FUROSEMIDE 40 MG/4 ML VIAL IV (07:20)
[2022-02-26] MEDS: methylPREDNISolone 125 MG/2 ML VIAL IV (07:20)
[2022-02-26 07:33] LABS: INR 1.1 (0.9-1.3)
[2022-02-26 07:36] LABS: Add Manual Diff / Slide Review NO; Basophils Absolute Auto 0 /uL (0-100); Basophils Percent Auto 0.2 % (0-2); Eosinophils Absolute Auto 0 /uL (0-450); Eosinophils Percent Auto 0.1 % (2-4); Hematocrit 45.1 % (41-53); Hemoglobin 14.7 g/dL (13.5-17.5); Lymphocytes Absolute Auto 600 /uL (1100-4500); Lymphocytes Percent Auto 4.3 % (25-40); Mean Corpuscular HGB Conc 32.7 % (30-36); Mean Corpuscular Hemoglobin 29.9 PG (26-34); Mean Corpuscular Volume 91.4 fL (80-100); Monocytes Absolute Auto 700 /uL (0-900); Monocytes Percent Auto 5.3 % (3-14); Neutrophils Absolute Auto 11500 /uL (1500-7000); Neutrophils Percent Auto 90.1 % (50-75); PTT Partial Thromboplastin Tim 20 SECONDS (26-36); Platelet Count 265 X10^3/uL (150-400); Red Blood Cell Count 4.93 X10^6/uL (4.5-5.9); White Blood Cell Count 12.8 X10^3/uL (4.5-11.0)
[2022-02-26 07:38] LABS: Alanine Aminotransferase 23 IU/L (<50); Albumin 4.1 g/dL (3.5-5.0); Albumin Globulin Ratio 1.3 (1.0-2.8); Alkaline Phosphatase 62 U/L (38-126); Aspartate Aminotransferase 32 IU/L (17-59); BUN Creatinine Ratio 13.8 (6-22); Bilirubin Total 0.7 mg/dL (0.2-1.3); Blood Urea Nitrogen 19 mg/dL (9-20); Calcium 9.1 mg/dL (8.4-10.2); Carbon Dioxide 25 mmol/L (22-32); Chloride 101 mmol/L (98-107); Creatine Kinase 620 U/L (55-170); Estimated Glomerular Filt Rate 55 mL/min (>60); Globulin 3.1 g/dL (1.7-4.1); Glucose 140 mg/dL (80-110); HEMOLYSIS < 15 (0-50); Lipase 179 U/L (23-300); Potassium 3.6 mmol/L (3.4-5.1); Sodium 138 mmol/L (137-145); Total Protein 7.2 g/dL (6.3-8.2)
[2022-02-26 07:47] LABS: NT-proBNP (BNP-Adult 18+) 4160 pg/mL (<125)
[2022-02-26 07:52] LABS: Troponin I 0.164 ng/mL (0.01-0.034)
--- NOTE | 2022-02-26 07:52 | ED.SOB ---
HPI - SOB/Dyspnea General Chief Complaint: Shortness of Breath/Dyspnea Stated Complaint: Shortness of breath Time Seen by Provider: 02/26/22 06:56 Source: patient and EMS Mode of arrival: EMS Limitations: no limitations History of Present Illness HPI Narrative: Patient is a 71-year-old male history of COPD CHF, stroke with left-sided hemiparesis presenting today with increasing shortness of breath. He says started yesterday afternoon progressively got worse. He denies any fever cough. He has no chest pain but is obviously dyspneic. Room O2 sat is in the 80s. Immediately placed on oxygen. He denies any swelling but has some lower extremity edema that I appreciate. He lives at a long-term care facility. He complains of orthopnea as well. Denies any palpitations chest pain. Related Data Home Medications Medication Instructions Recorded Confirmed albuterol sulfate 90 mcg/actuation 2 inh inhalation BID 12/29/21 12/29/21 aerosol inhaler aspirin 81 mg tablet,delayed 81 mg DAILY 12/29/21 12/29/21 release atorvastatin 20 mg tablet 20 mg DAILY 12/29/21 12/29/21 fenofibrate micronized 134 mg 134 mg DAILY 12/29/21 12/29/21 capsule gabapentin 600 mg tablet 600 mg BID 12/29/21 12/29/21 lidocaine 5 % topical ointment 1 applic DAILY 12/29/21 12/29/21 melatonin 6 mg BEDTIME 12/29/21 12/29/21 potassium chloride 20 mEq 20 meq PO DAILY 12/29/21 12/29/21 tablet,extended release(part/cryst) prednisone 5 mg tablet 5 mg DAILY 12/29/21 12/29/21 risperidone 1 mg tablet 1 mg BEDTIME 12/29/21 12/29/21 salmeterol 50 mcg/dose blister 1 inh inhalation BID 12/29/21 12/29/21 powder for inhalation (Serevent Diskus) sertraline 25 mg tablet 75 mg DAILY 12/29/21 12/29/21 tamsulosin 0.4 mg capsule 0.4 mg PO DAILY 12/29/21 12/29/21 tiotropium bromide 2.5 2 inh inhalation DAILY 12/29/21 12/29/21 mcg/actuation mist for inhalation (Spiriva Respimat) Previous Rx's Medication Instructions Recorded furosemide 40 mg tablet (Lasix) 40 mg PO BID #60 tabs 12/31/21 ibuprofen 400 mg tablet 600 mg PO TID PRN pain #10 tabs 12/31/21 levofloxacin 250 mg tablet 750 mg PO DAILY@1700 #3 tabs 12/31/21 prednisone 20 mg tablet 40 mg PO DAILY #6 tabs 12/31/21 Allergies Allergy/AdvReac Type Severity Reaction Status Date / Time No Known Drug Allergies Allergy Verified 01/31/21 09:50 Review of Systems Review of Systems Narrative: GENERAL: Denies chills, fatigue, malaise, fever, sweats, travel HEENT: Denies sinus pain, ear pain, sore throat, difficulty swallowing, neck pain RESPIRATORY: See HPI CARDIOVASCULAR: Denies chest pain, palpitations, orthopnea, edema GASTROINTESTINAL: Denies nausea, vomiting, abdominal pain, diarrhea, constipation, melena. : Denies dysuria, frequency, incontinence, hematuria, urinary retention, flank pain. MUSCULOSKELETAL: Denies weakness, joint pain, or bony pain SKIN: No rash, no erythema, no pruritus NEUROLOGIC: Denies weakness, dizziness, headache, numbness, change in speech, confusion PSYCHIATRIC: No concerning psychosocial issues. 12 point review of systems is negative except for those stated above and HPI Patient History Medical History BPH (benign prostatic hyperplasia) CHF (congestive heart failure) COPD (chronic obstructive pulmonary disease) History of stroke Hyperlipidemia Neuropathy Obesity (BMI 30-39.9) Surgical History History of shoulder surgery Family History Father Heart attack Sister AA (aortic aneurysm) Social History household members: none Smoking Status: Current every day smoker Smoking Status: Current every day smoker tobacco type: cigarettes alcohol intake frequency: 0-2 drinks per day Alcohol type: hard liquor Substance Use Type: does not use Exam Initial Vital Signs Initial Vital Signs: Vital Signs Pulse Rate 118 H 02/26/22 07:03 Respiratory Rate 30 H 02/26/22 07:03 Blood Pressure 137/67 02/26/22 07:03 Pulse Oximetry 96 02/26/22 07:03 Oxygen Delivery Method 02/26/22 07:03 Oxygen Flow Rate 4 02/26/22 07:03 GENERAL: Alert 71-year-old male obvious respiratory distress HEENT: Head atraumatic,EOMI, pupils reactive, face symmetric, [moist] mucous membranes CARDIOVASCULAR: Regular rate and rhythm without murmurs, rubs or gallops. RESPIRATORY: Decreased breath sounds bilaterally, speaks in 2-3 word sentences tachypneic ABDOMEN: Soft, nontender. Normoactive bowel sounds all 4 quadrants. No guarding or rebound. EXTREMITIES: Normal range of motion, no clubbing. Bilateral +2 pitting edema Neurovascularly intact NEUROLOGICAL: Alert and oriented x4. Left-sided hemiparesis at baseline SKIN: Warm, dry, no laceration, no petechiae, no rashes or lesions. Course Orders Ordered: ED Orders 02/26/22 15:30 PTT [Partial Thromboplastin Time] Stat 02/27/22 02:15 Partial Thromboplastin Time Q6H Acetaminophen (Acetaminophen 325 Mg Tablet) 650 mg PO Q6H PRN PRN Reason: Fever/Mild Pain (1-3) Last Admin: 02/26/22 12:53 Dose: 650 mg Documented By: RB Acetaminophen (Acetaminophen 650 Mg Supp) 650 mg [place] Q6HR PRN PRN Reason: Fever/Mild Pain (1-3) Aspirin (Aspirin Ec 81 Mg Tablet) 81 mg PO DAILY LIZA Atorvastatin Calcium (Atorvastatin 20 Mg Tablet) 20 mg PO BEDTIME LIZA Fenofibrate (Fenofibrate, Micronized 67 Mg Capsule) 134 mg PO DAILY LIZA Gabapentin (Gabapentin 600 Mg Tablet) 600 mg PO BID LIZA Heparin Sodium/Dextrose (Heparin Drip) 25,000 unit in 500 mls @ 20 mls/hr IV CONT LIZA; Protocol Last Titration: 02/26/22 17:00 Dose: 900 units/hr, 18 mls/hr Documented By: Titration: 02/26/22 16:30 Dose: 0 units/hr, 0 mls/hr Documented By: Admin: 02/26/22 08:56 Dose: 1,000 units/hr, 20 mls/hr Documented By: MARIBETH Piperacillin Sod/Tazobactam (Sod 3.375 gm/ Sodium Chloride) 100 mls @ 25 mls/hr IV Q8H LIZA Azithromycin 500 mg/ Dextrose 250 mls @ 250 mls/hr IV Q24H LIZA Stop: 03/01/22 12:44 Last Infusion: 02/26/22 15:22 Dose: 0 mls/hr Documented By: Admin: 02/26/22 14:02 Dose: 250 mls/hr Documented By: RB Melatonin (Melatonin 3 Mg Tablet) 6 mg PO BEDTIME PRN PRN Reason: Insomnia Naloxone HCl (Naloxone 0.4 Mg/Ml Vial) 0.2 mg IV Q2MIN PRN PRN Reason: Opiate Reversal Pantoprazole Sodium (Pantoprazole 40 Mg Vial) 40 mg IV DAILY LIZA Polyethylene Glycol (Polyethylene Glycol 3350 17 Gm Powd.Pack) 17 gm PO DAILY PRN PRN Reason: Constipation Potassium Chloride (Potassium Chloride 20 Meq Tab) 20 meq PO DAILY LIZA Risperidone (Risperidone 1 Mg Tablet) 1 mg PO BEDTIME LIZA Sennosides (Sennosides 8.6 Mg Tablet) 8.6 mg PO BID PRN PRN Reason: Constipation Sertraline HCl (Sertraline 50 Mg Tablet) 75 mg PO DAILY LIZA Tamsulosin HCl (Tamsulosin 0.4 Mg Capsule) 0.4 mg PO BEDTIME LIZA Discontinued Medications Albuterol (Albuterol 2.5 Mg/3 Ml Neb (Adult)) 20 mg INH NOW ONE Stop: 02/26/22 07:07 Last Admin: 02/26/22 07:10 Dose: 20 mg Documented By: ADY Aspirin (Aspirin 81 Mg Chew Tab) 324 mg PO NOW ONE Stop: 02/26/22 09:43 Last Admin: 02/26/22 10:19 Dose: 324 mg Documented By: MARIBETH Furosemide (Furosemide 40 Mg/4 Ml Vial) 40 mg IV NOW ONE Stop: 02/26/22 07:08 Last Admin: 02/26/22 07:20 Dose: 40 mg Documented By: KEYLA Furosemide (Furosemide 40 Mg/4 Ml Vial) 40 mg IV 1600,0800 [facility] Heparin Sodium (Porcine) (Heparin 5,000 Unit/Ml Vial) 5,000 unit IV NOW ONE Stop: 02/26/22 08:11 Last Admin: 02/26/22 08:57 Dose: 5,000 unit Documented By: MARIBETH Piperacillin Sod/Tazobactam (Sod 4.5 gm/ Sodium Chloride) 100 mls @ 200 mls/hr IV NOW ONE Stop: 02/26/22 10:57 Last Infusion: 02/26/22 13:31 Dose: 0 mls/hr Documented By: Admin: 02/26/22 12:21 Dose: 200 mls/hr Documented By: RB POTASSIUM CHLORIDE IN WATER (Potassium Cl 10 Meq/100 Ml Angelina) 10 meq in 100 mls @ 100 mls/hr IV Q1H LIZA Stop: 02/26/22 15:44 Last Admin: 02/26/22 17:32 Dose: Not Given Documented By: Admin: 02/26/22 17:32 Dose: Not Given Documented By: Admin: 02/26/22 15:37 Dose: 100 mls/hr Documented By: Infusion: 02/26/22 14:02 Dose: 0 mls/hr Documented By: Admin: 02/26/22 12:54 Dose: 100 mls/hr Documented By: RB Sodium Chloride (Normal Saline 0.9%) 500 mls @ 500 mls/hr IV BOLUS ONE Stop: 02/26/22 15:13 Last Infusion: 02/26/22 15:21 Dose: 0 mls/hr Documented By: Admin: 02/26/22 14:28 Dose: 500 mls/hr Documented By: RB Sodium Chloride (Normal Saline 0.9%) 500 mls @ 500 mls/hr IV BOLUS ONE Stop: 02/26/22 15:49 Last Infusion: 02/26/22 16:35 Dose: 0 mls/hr Documented By: Admin: 02/26/22 15:35 Dose: 500 mls/hr Documented By: CLP Methylprednisolone (Methylprednisolone 125 Mg/2 Ml Vial) 125 mg IV NOW ONE Stop: 02/26/22 07:08 Last Admin: 02/26/22 07:20 Dose: 125 mg Documented By: KEYLA Potassium Chloride (Potassium Chloride 20 Meq Tab) 20 meq PO NOW ONE Stop: 02/26/22 17:34 Last Admin: 02/26/22 18:21 Dose: 20 meq Documented By: CLP Vital Signs Vital signs: Vital Signs - 8 hr 02/26/22 07:03 02/26/22 08:20 Pulse Rate 118 H Respiratory Rate 30 H Blood Pressure 137/67 128/72 Pulse Oximetry 96 Oxygen Delivery Method Nasal Cannula Oxygen Flow Rate 4 MDM - SOB/Dyspnea Lab Data Result diagrams: 02/26/22 07:17 02/26/22 16:35 Labs: Lab Results 02/26/22 02/26/22 02/26/22 Range/Units 07:17 07:17 07:17 WBC 12.8 H (4.5-11.0) X10^3/uL RBC 4.93 (4.5-5.9) X10^6/uL Hgb 14.7 (13.5-17.5) g/dL Hct 45.1 (41-53) % MCV 91.4 (80-100) fL MCH 29.9 (26-34) PG MCHC 32.7 (30-36) % RDW 15.0 H (11.6-14.8) % Plt Count 265 (150-400) X10^3/uL Neut % (Auto) 90.1 H (50-75) % Lymph % (Auto) 4.3 L (25-40) % [place] % (Auto) 5.3 (3-14) % Eos % (Auto) 0.1 L (2-4) % Baso % (Auto) 0.2 (0-2) % Neut # (Auto) 43621 H (4424-7734) /uL Lymph # (Auto) 600 L (0415-9131) /uL [place] # (Auto) 700 (0-900) /uL Eos # (Auto) 0 (0-450) /uL Baso # (Auto) 0 (0-100) /uL PT 13.0 H (10.1-12.7) SECONDS INR 1.1 (0.9-1.3) APTT 20 L (26-36) SECONDS D-Dimer (<500) ng/ml Sodium 138 (137-145) mmol/L Potassium 3.6 (3.4-5.1) mmol/L Chloride 101 (98-107) mmol/L Carbon Dioxide 25 (22-32) mmol/L BUN 19 (9-20) mg/dL Creatinine 1.38 H (0.66-1.25) mg/dL Estimated GFR 55 L (>60) mL/min BUN/Creatinine Ratio 13.8 (6-22) Glucose 140 H (80-110) mg/dL Lactate (0.7-2.1) mmol/L Calcium 9.1 (8.4-10.2) mg/dL Magnesium (1.6-2.3) mg/dL Total Bilirubin 0.7 (0.2-1.3) mg/dL AST 32 (17-59) IU/L ALT 23 (<50) IU/L Alkaline Phosphatase 62 (38-126) U/L Total Creatine Kinase 620 H (55-170) U/L CK-MB (CK-2) 3.59 H (<2.37) ng/mL CK-MB (CK-2) Rel Index 0.6 L (1.5-5.0) % Troponin I 0.164 H* (0.01-0.034) ng/mL NT-Pro-B Natriuret Pep (<125) pg/mL Total Protein 7.2 (6.3-8.2) g/dL Albumin 4.1 (3.5-5.0) g/dL Globulin 3.1 (1.7-4.1) g/dL Albumin/Globulin Ratio 1.3 (1.0-2.8) Lipase 179 (23-300) U/L Procalcitonin 0.17 (<0.5) ng/mL SARS-CoV-2 (PCR) (Negative) Influenza A (RT-PCR) (NEGATIVE) Influenza B (RT-PCR) (NEGATIVE) RSV (PCR) (Negative) 02/26/22 02/26/22 02/26/22 Range/Units 07:17 07:17 07:17 WBC (4.5-11.0) X10^3/uL RBC (4.5-5.9) X10^6/uL Hgb (13.5-17.5) g/dL Hct (41-53) % MCV (80-100) fL MCH (26-34) PG MCHC (30-36) % RDW (11.6-14.8) % Plt Count (150-400) X10^3/uL Neut % (Auto) (50-75) % Lymph % (Auto) (25-40) % [place] % (Auto) (3-14) % Eos % (Auto) (2-4) % Baso % (Auto) (0-2) % Neut # (Auto) (8891-6543) /uL Lymph # (Auto) (8858-1111) /uL [place] # (Auto) (0-900) /uL Eos # (Auto) (0-450) /uL Baso # (Auto) (0-100) /uL PT (10.1-12.7) SECONDS INR (0.9-1.3) APTT (26-36) SECONDS D-Dimer (<500) ng/ml Sodium (137-145) mmol/L Potassium (3.4-5.1) mmol/L Chloride (98-107) mmol/L Carbon Dioxide (22-32) mmol/L BUN (9-20) mg/dL Creatinine (0.66-1.25) mg/dL Estimated GFR (>60) mL/min BUN/Creatinine Ratio (6-22) Glucose (80-110) mg/dL Lactate 3.2 H (0.7-2.1) mmol/L Calcium (8.4-10.2) mg/dL Magnesium 1.7 (1.6-2.3) mg/dL Total Bilirubin (0.2-1.3) mg/dL AST (17-59) IU/L ALT (<50) IU/L Alkaline Phosphatase (38-126) U/L Total Creatine Kinase (55-170) U/L CK-MB (CK-2) (<2.37) ng/mL CK-MB (CK-2) Rel Index (1.5-5.0) % Troponin I (0.01-0.034) ng/mL NT-Pro-B Natriuret Pep 4160 H (<125) pg/mL Total Protein (6.3-8.2) g/dL Albumin (3.5-5.0) g/dL Globulin (1.7-4.1) g/dL Albumin/Globulin Ratio (1.0-2.8) Lipase (23-300) U/L Procalcitonin (<0.5) ng/mL SARS-CoV-2 (PCR) (Negative) Influenza A (RT-PCR) (NEGATIVE) Influenza B (RT-PCR) (NEGATIVE) RSV (PCR) (Negative) 02/26/22 02/26/22 02/26/22 Range/Units 07:17 09:00 09:02 WBC (4.5-11.0) X10^3/uL RBC (4.5-5.9) X10^6/uL Hgb (13.5-17.5) g/dL Hct (41-53) % MCV (80-100) fL MCH (26-34) PG MCHC (30-36) % RDW (11.6-14.8) % Plt Count (150-400) X10^3/uL Neut % (Auto) (50-75) % Lymph % (Auto) (25-40) % [place] % (Auto) (3-14) % Eos % (Auto) (2-4) % Baso % (Auto) (0-2) % Neut # (Auto) (0474-4629) /uL Lymph # (Auto) (1618-7559) /uL [place] # (Auto) (0-900) /uL Eos # (Auto) (0-450) /uL Baso # (Auto) (0-100) /uL PT (10.1-12.7) SECONDS INR (0.9-1.3) APTT (26-36) SECONDS D-Dimer 612 H (<500) ng/ml Sodium (137-145) mmol/L Potassium (3.4-5.1) mmol/L Chloride (98-107) mmol/L Carbon Dioxide (22-32) mmol/L BUN (9-20) mg/dL Creatinine (0.66-1.25) mg/dL Estimated GFR (>60) mL/min BUN/Creatinine Ratio (6-22) Glucose (80-110) mg/dL Lactate (0.7-2.1) mmol/L Calcium (8.4-10.2) mg/dL Magnesium (1.6-2.3) mg/dL Total Bilirubin (0.2-1.3) mg/dL AST (17-59) IU/L ALT (<50) IU/L Alkaline Phosphatase (38-126) U/L Total Creatine Kinase (55-170) U/L CK-MB (CK-2) (<2.37) ng/mL CK-MB (CK-2) Rel Index (1.5-5.0) % Troponin I 0.171 H* (0.01-0.034) ng/mL NT-Pro-B Natriuret Pep (<125) pg/mL Total Protein (6.3-8.2) g/dL Albumin (3.5-5.0) g/dL Globulin (1.7-4.1) g/dL Albumin/Globulin Ratio (1.0-2.8) Lipase (23-300) U/L Procalcitonin (<0.5) ng/mL SARS-CoV-2 (PCR) Negative (Negative) Influenza A (RT-PCR) Flu a negative (NEGATIVE) Influenza B (RT-PCR) Flu b negative (NEGATIVE) RSV (PCR) Negative (Negative) 02/26/22 Range/Units 10:28 WBC (4.5-11.0) X10^3/uL RBC (4.5-5.9) X10^6/uL Hgb (13.5-17.5) g/dL Hct (41-53) % MCV (80-100) fL MCH (26-34) PG MCHC (30-36) % RDW (11.6-14.8) % Plt Count (150-400) X10^3/uL Neut % (Auto) (50-75) % Lymph % (Auto) (25-40) % [place] % (Auto) (3-14) % Eos % (Auto) (2-4) % Baso % (Auto) (0-2) % Neut # (Auto) (9395-2257) /uL Lymph # (Auto) (6044-8259) /uL [place] # (Auto) (0-900) /uL Eos # (Auto) (0-450) /uL Baso # (Auto) (0-100) /uL PT (10.1-12.7) SECONDS INR (0.9-1.3) APTT (26-36) SECONDS D-Dimer (<500) ng/ml Sodium (137-145) mmol/L Potassium (3.4-5.1) mmol/L Chloride (98-107) mmol/L Carbon Dioxide (22-32) mmol/L BUN (9-20) mg/dL Creatinine (0.66-1.25) mg/dL Estimated GFR (>60) mL/min BUN/Creatinine Ratio (6-22) Glucose (80-110) mg/dL Lactate 4.8 H* (0.7-2.1) mmol/L Calcium (8.4-10.2) mg/dL Magnesium (1.6-2.3) mg/dL Total Bilirubin (0.2-1.3) mg/dL AST (17-59) IU/L ALT (<50) IU/L Alkaline Phosphatase (38-126) U/L Total Creatine Kinase (55-170) U/L CK-MB (CK-2) (<2.37) ng/mL CK-MB (CK-2) Rel Index (1.5-5.0) % Troponin I (0.01-0.034) ng/mL NT-Pro-B Natriuret Pep (<125) pg/mL Total Protein (6.3-8.2) g/dL Albumin (3.5-5.0) g/dL Globulin (1.7-4.1) g/dL Albumin/Globulin Ratio (1.0-2.8) Lipase (23-300) U/L Procalcitonin (<0.5) ng/mL SARS-CoV-2 (PCR) (Negative) Influenza A (RT-PCR) (NEGATIVE) Influenza B (RT-PCR) (NEGATIVE) RSV (PCR) (Negative) ECG Data Interpretation: Sinus rhythm rate 116 WY interval 184 QRS 94 QTC 419 Q-waves noted in 1 to aVL no overall ST changes although some ST depression in lead 3 PVC also noted these are new from previous EKG in December 2021 MDM Narrative Medical decision making narrative: Patient is quite tachypneic and in respiratory distress. Initially albuterol DuoNeb and continuous nebulizer was started. He is not feeling much better after it or during it. He was quickly changed over to BiPAP started on Lasix. Seems to be tolerating Lasix ease of breathing is getting better. Troponin 0.16 and 0.17. No EKG changes probably demand ischemia. However during his previous admission in December he did not have elevated troponins. He is preserved ejection fraction of 55-60% in December. He has urinated with 40 mg of Lasix and has a Jimenez catheter in place. He is maintaining blood pressure. Dr. Palma cardiology consulted agrees with heparin drip and admission. Recommend spironolactone and other heart failure program medications. Agrees with heparin drip for [address] Oconnor updated on patient's symptoms test results and kindly accepts patient Discharge Plan Departure Patient Disposition: Admitted As Inpatient Clinical Impression: Acute CHF Admit Date/Time: 02/26/22 11:06 Admit Provider: Benedicto Oconnor
[2022-02-26 07:54] LABS: CKMB % Relative Index 0.6 % (1.5-5.0); Creatine Kinase MB 3.59 ng/mL (<2.37)
[2022-02-26 07:55] LABS: Procalcitonin 0.17 ng/mL (<0.5)
[2022-02-26 08:04] LABS: Lactate (Lactic Acid) 3.2 mmol/L (0.7-2.1)
[2022-02-26] MEDS: HEPARIN DRIP 25,000 UNIT/500 ML IV.SOLN 20 UNIT IV (08:56)
[2022-02-26] MEDS: HEPARIN 5,000 UNIT/ML VIAL 5000 UNIT IV (08:57)
[2022-02-26 09:37] LABS: Troponin I 0.171 ng/mL (0.01-0.034)
[2022-02-26 09:41] LABS: Magnesium 1.7 mg/dL (1.6-2.3)
[2022-02-26 09:55] LABS: Reflexed Lactate in 2 Hours Y
[2022-02-26] MEDS: ASPIRIN 81 MG CHEW TAB 324 MG PO (10:19)
[2022-02-26 10:27] LABS: Influenza A - CEPHEID Flu A NEGATIVE (NEGATIVE); Influenza B - CEPHEID Flu B NEGATIVE (NEGATIVE); Respiratory Syncytial Virus Negative (Negative)
[2022-02-26 10:30] LABS: COVID-19 CEPHEID 4-PLEX PCR Negative (Negative)
[2022-02-26 10:56] LABS: Lactate 2HR (Lactic Acid Rflx) 4.8 mmol/L (0.7-2.1)
--- NOTE | 2022-02-26 11:43 | DI.ECHO.S_ITS ---
[place] [facility]---------+ [facility] +---------+ : : [address] : [place] : : : : [phone] : : : : Phone: [phone] Echocardiogram Report + + :Name: BROOKE PETIT Study Date: 02/26/2022 Height: 68 in : :[facility] ReadingLocation: Weight: 230 lb : : Gender: Male BSA: 2.2 m2 : :: 1950 Age: 71 yrs BP: 101/53 mmHg: :Reason For Study: ASSESS EF : :Ordering Physician: SANDRA DUQUE : :Tamara Escalona Performed By: Prabha Vargas : :Referring: SANDRA DUQUE D.O. : + + Interpretation Summary Limited echo: 1) Normal left ventricular size and thickness with hyperdynamic systolic function (EF 70-75%). 2) The interventricular septum is flattened, consistent with a right ventricular pressure overload condition. 3) Moderately to severely enlarged right ventricle with mildly reduced function. Callahan sign persent (also visualized on the prior echo). 5) Right ventricular systolic pressure is estimated to be 45 mmHg plus the clinically estimated CVP which cannot be estimated on this exam. 6) Compared to the Echo done 12/29/2021, LV is hyperdynamic on this study. Procedure: A two-dimensional transthoracic echocardiogram with color flow and Doppler was performed in limited views only to assess Ejection fraction, wall motion.. The study quality was technically difficult. Comparison is made with the echocardiogram of 12/29/2021. Left Ventricle: The left ventricle is normal in size and wall thickness. The ejection fraction is estimated to be 70-75%. The interventricular septum is flattened, consistent with a right ventricular pressure overload condition. Right Ventricle: The right ventricle is moderate to severely dilated. mildly reduced function. Callahan sign persent (also visualized on the prior echo). Tricuspid Valve: There is trace tricuspid regurgitation. Right ventricular systolic pressure is estimated to be 45 mmHg plus the clinically estimated CVP which cannot be estimated on this exam. Pericardium/ Pleura There is no pericardial effusion. There is no pleural effusion. MMode/2D Measurements & Calculations LVIDd: 4.5 cm LA A4 area: 18.4 cm2 LVIDs: 2.7 cm LA length (vol): 6.2 cm FS: 39.9 % IVSd: 1.0 cm LVPWd: 1.0 cm LV beach. diameter/BSA (cm/m^2): 2.1 LV sys. diameter/BSA (cm/m^2): 1.2 RA long axis: 6.3 cm RVD1 (basal): 5.8 cm RA area: 29.5 cm2 TAPSE: 2.1 cm RA vol: 117.2 ml RA : 54.0 ml/m2 Doppler Measurements & Calculations TR max jax: 337.1 cm/sec TR max P.4 mmHg Reading Physician:03:58 PM
[2022-02-26 12:03] LABS: D Dimer 612 ng/ml (<500)
[2022-02-26] MEDS: PIPERACILLIN/TAZO 4.5 GM in SODIUM CHLORIDE 0.9% 100 ML IV (12:21)
[2022-02-26] MEDS: ACETAMINOPHEN 325 MG TABLET 650 MG PO (12:53)
[2022-02-26] MEDS: POTASSIUM CHLORIDE IN WATER 10 MEQ/100 ML PIGGYBACK 100 MEQ IV ×2 (12:54→15:37)
[2022-02-26 13:18] LABS: Appearance Urine UA CLEAR; Bilirubin Urine UA NEGATIVE (NEGATIVE); Color Urine UA YELLOW; Glucose Urine UA NEGATIVE (Negative); Ketones Urine UA NEGATIVE (NEGATIVE); Leukocyte Esterase Urine UA TRACE (NEGATIVE); Nitrite Urine UA NEGATIVE (Negative); Occult Blood Urine UA 1+ (Negative); Protein Urine UA NEGATIVE (Negative); Urobilinogen Urine UA 0.2 E.U./dL (0.2)
[2022-02-26 13:25] LABS: Bacteria Urine None Seen; Culture Indicated Urine Specimen Cultured; RBC Urine 0-1/HPF (0-5/HPF); Transitional Epi Cells Urine 0-1/HPF (0-5/HPF); WBC Urine 1-5/HPF (0-5/HPF)
[2022-02-26 13:40] LABS: Procalcitonin 0.26 ng/mL (<0.5)
[2022-02-26] MEDS: AZITHROMYCIN 500 MG in DEXTROSE 5% IN WATER 250 ML 250 MG IV (14:02)
[2022-02-26] MEDS: SODIUM CHLORIDE 0.9% 500 ML IV ×2 (14:28→15:35)
[2022-02-26 14:30] LABS: Adenovirus Not Detected (Not Detect); B. parapertussis Not Detected (Not Detecte); Bordetella pertussis Not Detected (Not Detecte); Chlamydophila pneumoniae Not Detected (Not Detect); Coronavirus 229E Not Detected (Not Detect); Coronavirus HKU1 Not Detected (Not Detect); Coronavirus NL 63 Not Detected (Not Detect); Coronavirus OC43 Not Detected (Not Detect); Human Metapneumovirus Not Detected (Not Detect); Human Rhinovirus/Enterovirus Not Detected (Not Detect); Influenza A Detected (Not Detect); Influenza B Not Detected (Not Detect); Mycoplasma pneumoniae Not Detected (Not Detect); Parainfluenza Virus 1 Not Detected (Not Detect); Parainfluenza Virus 2 Not Detected (Not Detect); Parainfluenza Virus 3 Not Detected (Not Detect); Parainfluenza Virus 4 Not Detected (Not Detect); Respiratory Syncytial Virus Not Detected (Not Detect); SARS- CoV-2 Not Detected (Not Detecte)
--- NOTE | 2022-02-26 14:42 | PC.NURSE ---
called dr. cote via office and cell to report bp trending down, no answer, left message.
[2022-02-26 14:49] LABS: Troponin I 0.156 ng/mL (0.01-0.034)
[2022-02-26 15:55] LABS: Reflexed Lactate in 2 Hours Y
[2022-02-26 16:10] LABS: PTT Partial Thromboplastin Tim 95 SECONDS (26-36)
--- NOTE | 2022-02-26 16:24 | PM.HP.1 ---
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 Patient states for last 4 days he has had progressively worsening dyspnea to where he couldn't even get around in his wheelchair without becoming very SOB. He is a longtime smoker and still currently smokes. He denies CP or wheezes. Further history is difficult to obtain due to Bipap mask in place. He would like to be DNR. In the ED patient placed on bipap with improvement in his resp distress. Had soft BP down to 86/55 and given x2 of 500cc boluses. Lactate elevated to 6. WBC 12.8 and had a fever of 101.4F. Cr 1.38. Troponin found to be 0.156 and cards contacted who recommended heparin drip x48 hours as likely demand ischemia from hypoxia. Again patient denied any chest pain. Patient History Medical History BPH (benign prostatic hyperplasia) CHF (congestive heart failure) COPD (chronic obstructive pulmonary disease) History of stroke Hyperlipidemia Neuropathy Obesity (BMI 30-39.9) Surgical History History of shoulder surgery Family & Social History Family History Father Heart attack Sister AA (aortic aneurysm) Social History: household members none Safety & Behavioral: Feels Safe in Current Yes Environment Tobacco & Substance use: Smoking Status Current every day smoker alcohol intake frequency 0-2 drinks per day Substance Use Type does not use Meds Home Medications and Allergies Home Medications Medication Instructions Recorded Confirmed Type albuterol sulfate 90 mcg/actuation 2 inh inhalation BID 12/29/21 12/29/21 History aerosol inhaler aspirin 81 mg tablet,delayed 81 mg DAILY 12/29/21 12/29/21 History release atorvastatin 20 mg tablet 20 mg DAILY 12/29/21 12/29/21 History fenofibrate micronized 134 mg 134 mg DAILY 12/29/21 12/29/21 History capsule gabapentin 600 mg tablet 600 mg BID 12/29/21 12/29/21 History lidocaine 5 % topical ointment 1 applic DAILY 12/29/21 12/29/21 History melatonin 6 mg BEDTIME 12/29/21 12/29/21 History potassium chloride 20 mEq 20 meq PO DAILY 12/29/21 12/29/21 History tablet,extended release(part/cryst) prednisone 5 mg tablet 5 mg DAILY 12/29/21 12/29/21 History risperidone 1 mg tablet 1 mg BEDTIME 12/29/21 12/29/21 History salmeterol 50 mcg/dose blister 1 inh inhalation BID 12/29/21 12/29/21 History powder for inhalation (Serevent Diskus) sertraline 25 mg tablet 75 mg DAILY 12/29/21 12/29/21 History tamsulosin 0.4 mg capsule 0.4 mg PO DAILY 12/29/21 12/29/21 History tiotropium bromide 2.5 2 inh inhalation DAILY 12/29/21 12/29/21 History mcg/actuation mist for inhalation (Spiriva Respimat) furosemide 40 mg tablet (Lasix) 40 mg PO BID #60 tabs 12/31/21 Rx ibuprofen 400 mg tablet 600 mg PO TID PRN pain #10 tabs 12/31/21 12/29/21 Rx levofloxacin 250 mg tablet 750 mg PO DAILY@1700 #3 tabs 12/31/21 Rx prednisone 20 mg tablet 40 mg PO DAILY #6 tabs 12/31/21 Rx Allergies Allergy/AdvReac Type Severity Reaction Status Date / Time No Known Drug Allergies Allergy Verified 01/31/21 09:50 Review of Systems Review of Systems Narrative: All other systems reviewed with the patient and are negative unless otherwise stated. Exam Vital Signs (past 8 hours): - 02/26/22 11:18 02/26/22 12:32 02/26/22 12:33 Temperature Pulse Rate 86 Respiratory Rate 27 H Blood Pressure 103/54 L 108/55 L Pulse Oximetry 95 Oxygen Delivery Method BiPAP Oxygen Flow Rate 15 Fraction of Inspired Oxygen 02/26/22 12:33 02/26/22 10:45 02/26/22 10:50 Temperature 101.4 F H Pulse Rate 85 98 H 97 H Respiratory Rate 28 H Blood Pressure Pulse Oximetry 94 94 94 Oxygen Delivery Method BiPAP BiPAP BiPAP Oxygen Flow Rate 15 Fraction of Inspired Oxygen 02/26/22 10:55 02/26/22 11:00 02/26/22 11:05 Temperature Pulse Rate 97 H 97 H 97 H Respiratory Rate Blood Pressure 103/54 L Pulse Oximetry 94 94 94 Oxygen Delivery Method BiPAP BiPAP BiPAP Oxygen Flow Rate Fraction of Inspired Oxygen 02/26/22 11:10 02/26/22 11:15 02/26/22 11:20 Temperature Pulse Rate 97 H 96 H 96 H Respiratory Rate Blood Pressure Pulse Oximetry 94 94 94 Oxygen Delivery Method BiPAP Oxygen Flow Rate Fraction of Inspired Oxygen 02/26/22 11:25 02/26/22 11:30 02/26/22 11:35 Temperature Pulse Rate 96 H 94 H 94 H Respiratory Rate Blood Pressure 103/59 L Pulse Oximetry 94 94 Oxygen Delivery Method BiPAP BiPAP BiPAP Oxygen Flow Rate Fraction of Inspired Oxygen 02/26/22 11:40 02/26/22 11:45 02/26/22 11:50 Temperature Pulse Rate 95 H 94 H 99 H Respiratory Rate Blood Pressure Pulse Oximetry 94 94 90 L Oxygen Delivery Method BiPAP BiPAP BiPAP Oxygen Flow Rate Fraction of Inspired Oxygen 02/26/22 11:55 02/26/22 12:00 02/26/22 12:05 Temperature Pulse Rate 97 H 93 H 91 H Respiratory Rate Blood Pressure 102/72 Pulse Oximetry 94 95 95 Oxygen Delivery Method BiPAP BiPAP BiPAP Oxygen Flow Rate Fraction of Inspired Oxygen 02/26/22 12:10 02/26/22 12:15 02/26/22 12:20 Temperature Pulse Rate 91 H 89 88 Respiratory Rate Blood Pressure 103/55 L Pulse Oximetry 95 93 94 Oxygen Delivery Method BiPAP BiPAP BiPAP Oxygen Flow Rate Fraction of Inspired Oxygen 02/26/22 12:25 02/26/22 12:30 02/26/22 12:53 Temperature 101.4 F H Pulse Rate 84 87 Respiratory Rate Blood Pressure Pulse Oximetry 94 94 Oxygen Delivery Method BiPAP Oxygen Flow Rate Fraction of Inspired Oxygen 02/26/22 13:37 02/26/22 12:41 02/26/22 12:41 Temperature 99.1 F Pulse Rate 89 Respiratory Rate 26 H Blood Pressure 118/58 L Pulse Oximetry 96 Oxygen Delivery Method Oxygen Flow Rate Fraction of Inspired Oxygen 02/26/22 12:50 02/26/22 12:50 02/26/22 13:00 Temperature Pulse Rate 90 Respiratory Rate 30 H Blood Pressure 115/51 L 103/57 L Pulse Oximetry 94 Oxygen Delivery Method Oxygen Flow Rate Fraction of Inspired Oxygen 02/26/22 13:00 02/26/22 13:11 02/26/22 13:11 Temperature Pulse Rate 90 94 H Respiratory Rate 29 H 31 H Blood Pressure 99/55 L Pulse Oximetry 94 91 Oxygen Delivery Method Oxygen Flow Rate Fraction of Inspired Oxygen 02/26/22 13:20 02/26/22 13:20 02/26/22 13:30 Temperature Pulse Rate 89 Respiratory Rate 29 H Blood Pressure 109/53 L 101/53 L Pulse Oximetry 95 Oxygen Delivery Method Oxygen Flow Rate Fraction of Inspired Oxygen 02/26/22 13:30 02/26/22 13:51 02/26/22 13:51 Temperature Pulse Rate 89 89 Respiratory Rate 29 H 30 H Blood Pressure 119/57 L Pulse Oximetry 94 94 Oxygen Delivery Method Oxygen Flow Rate Fraction of Inspired Oxygen 02/26/22 14:00 02/26/22 14:00 02/26/22 14:10 Temperature Pulse Rate 90 90 Respiratory Rate 31 H 31 H Blood Pressure 103/55 L Pulse Oximetry 95 94 Oxygen Delivery Method Oxygen Flow Rate Fraction of Inspired Oxygen 02/26/22 14:10 02/26/22 14:20 02/26/22 14:30 Temperature Pulse Rate 88 Respiratory Rate 29 H Blood Pressure 101/50 L 87/49 L Pulse Oximetry 94 Oxygen Delivery Method Oxygen Flow Rate Fraction of Inspired Oxygen 02/26/22 14:30 02/26/22 14:34 02/26/22 14:34 Temperature Pulse Rate 88 88 Respiratory Rate 27 H 27 H Blood Pressure 90/54 L Pulse Oximetry 94 94 Oxygen Delivery Method Oxygen Flow Rate Fraction of Inspired Oxygen 02/26/22 14:35 02/26/22 14:35 02/26/22 15:00 Temperature 97.8 F Pulse Rate 87 94 H Respiratory Rate 29 H 25 H Blood Pressure 89/53 L 108/62 Pulse Oximetry 94 96 Oxygen Delivery Method Oxygen Flow Rate 32 Fraction of Inspired Oxygen 32 02/26/22 14:40 02/26/22 14:40 02/26/22 14:45 Temperature Pulse Rate 88 88 Respiratory Rate 28 H 27 H Blood Pressure 96/48 L Pulse Oximetry 94 93 Oxygen Delivery Method Oxygen Flow Rate Fraction of Inspired Oxygen 02/26/22 14:45 02/26/22 14:51 02/26/22 14:51 Temperature Pulse Rate 95 H Respiratory Rate 32 H Blood Pressure 90/55 L 94/51 L Pulse Oximetry 91 Oxygen Delivery Method Oxygen Flow Rate Fraction of Inspired Oxygen 02/26/22 14:57 02/26/22 14:57 02/26/22 15:00 Temperature Pulse Rate 92 H Respiratory Rate 32 H Blood Pressure 89/56 L 86/55 L Pulse Oximetry 96 Oxygen Delivery Method Oxygen Flow Rate Fraction of Inspired Oxygen 02/26/22 15:00 02/26/22 15:30 02/26/22 15:30 Temperature Pulse Rate 99 H 88 Respiratory Rate 32 H 29 H Blood Pressure 96/52 L Pulse Oximetry 93 95 Oxygen Delivery Method Oxygen Flow Rate Fraction of Inspired Oxygen 02/26/22 14:10 02/26/22 16:00 02/26/22 16:00 Temperature Pulse Rate 86 Respiratory Rate 32 H Blood Pressure 103/55 L 103/58 L Pulse Oximetry 96 Oxygen Delivery Method Oxygen Flow Rate Fraction of Inspired Oxygen 35 Fraction of Inspired Oxygen 32 Oxygen Delivery Method BiPAP Oxygen Flow Rate 32 Narrative Exam Narrative: GEN: resp distress on bipap, obese male HEENT: moist mucous membranes, PERRL NECK: trachea midline, no JVD CV: regular rate and rhythm, no murmurs PULM: coarse breath sounds bilaterally ABD: soft, nontender, nondistended, no organomegaly EXT: warm and well perfused with no edema NEURO: awake, alert, oriented, no focal deficits Objective Labs Result Diagrams: 02/26/22 07:17 02/26/22 07:17 Labs: Laboratory Results - last 24 hr 02/26/22 02/26/22 02/26/22 07:17 07:17 07:17 WBC 12.8 H RBC 4.93 Hgb 14.7 Hct 45.1 MCV 91.4 MCH 29.9 MCHC 32.7 RDW 15.0 H Plt Count 265 Neut % (Auto) 90.1 H Lymph % (Auto) 4.3 L [place] % (Auto) 5.3 Eos % (Auto) 0.1 L Baso % (Auto) 0.2 Neut # (Auto) 37424 H Lymph # (Auto) 600 L [place] # (Auto) 700 Eos # (Auto) 0 Baso # (Auto) 0 PT 13.0 H INR 1.1 APTT 20 L D-Dimer Sodium 138 Potassium 3.6 Chloride 101 Carbon Dioxide 25 BUN 19 Creatinine 1.38 H Estimated GFR 55 L BUN/Creatinine Ratio 13.8 Glucose 140 H Lactate Calcium 9.1 Magnesium Total Bilirubin 0.7 AST 32 ALT 23 Alkaline Phosphatase 62 Total Creatine Kinase 620 H CK-MB (CK-2) 3.59 H CK-MB (CK-2) Rel Index 0.6 L Troponin I 0.164 H* NT-Pro-B Natriuret Pep Total Protein 7.2 Albumin 4.1 Globulin 3.1 Albumin/Globulin Ratio 1.3 Lipase 179 Procalcitonin 0.17 Urine Color Urine Appearance Urine pH Ur Specific [place] Urine Protein Urine Glucose (UA) Urine Ketones Urine Occult Blood Urine Nitrate Urine Bilirubin Urine Urobilinogen Ur Leukocyte Esterase Urine RBC Urine WBC Ur Transition Epith Cell Urine Bacteria Ur Culture Indicated? Chlamy pneumoniae PCR Adenovirus (PCR) B. pertussis DNA (PCR) B.parapertussis DNA PCR Coronavirus OC43 (PCR) Coronavirus HKU1 (PCR) Coronavirus 229E (PCR) SARS-CoV-2 (PCR) Coronavirus NL63 (PCR) Human Metapneumovir PCR Influenza A (RT-PCR) Influenza Type A (PCR) Influenza B (RT-PCR) Influenza Type B (PCR) M. pneumoniae (PCR) Parainfluenza 1 (PCR) Parainfluenza 2 (PCR) Parainfluenza 3 (PCR) Parainfluenza 4 (PCR) RSV (PCR) Entero/Rhino (PCR) 02/26/22 02/26/22 02/26/22 07:17 07:17 07:17 WBC RBC Hgb Hct MCV MCH MCHC RDW Plt Count Neut % (Auto) Lymph % (Auto) [place] % (Auto) Eos % (Auto) Baso % (Auto) Neut # (Auto) Lymph # (Auto) [place] # (Auto) Eos # (Auto) Baso # (Auto) PT INR APTT D-Dimer Sodium Potassium Chloride Carbon Dioxide BUN Creatinine Estimated GFR BUN/Creatinine Ratio Glucose Lactate 3.2 H Calcium Magnesium 1.7 Total Bilirubin AST ALT Alkaline Phosphatase Total Creatine Kinase CK-MB (CK-2) CK-MB (CK-2) Rel Index Troponin I NT-Pro-B Natriuret Pep 4160 H Total Protein Albumin Globulin Albumin/Globulin Ratio Lipase Procalcitonin Urine Color Urine Appearance Urine pH Ur Specific [place] Urine Protein Urine Glucose (UA) Urine Ketones Urine Occult Blood Urine Nitrate Urine Bilirubin Urine Urobilinogen Ur Leukocyte Esterase Urine RBC Urine WBC Ur Transition Epith Cell Urine Bacteria Ur Culture Indicated? Chlamy pneumoniae PCR Adenovirus (PCR) B. pertussis DNA (PCR) B.parapertussis DNA PCR Coronavirus OC43 (PCR) Coronavirus HKU1 (PCR) Coronavirus 229E (PCR) SARS-CoV-2 (PCR) Coronavirus NL63 (PCR) Human Metapneumovir PCR Influenza A (RT-PCR) Influenza Type A (PCR) Influenza B (RT-PCR) Influenza Type B (PCR) M. pneumoniae (PCR) Parainfluenza 1 (PCR) Parainfluenza 2 (PCR) Parainfluenza 3 (PCR) Parainfluenza 4 (PCR) RSV (PCR) Entero/Rhino (PCR) 02/26/22 02/26/22 02/26/22 07:17 09:00 09:02 WBC RBC Hgb Hct MCV MCH MCHC RDW Plt Count Neut % (Auto) Lymph % (Auto) [place] % (Auto) Eos % (Auto) Baso % (Auto) Neut # (Auto) Lymph # (Auto) [place] # (Auto) Eos # (Auto) Baso # (Auto) PT INR APTT D-Dimer 612 H Sodium Potassium Chloride Carbon Dioxide BUN Creatinine Estimated GFR BUN/Creatinine Ratio Glucose Lactate Calcium Magnesium Total Bilirubin AST ALT Alkaline Phosphatase Total Creatine Kinase CK-MB (CK-2) CK-MB (CK-2) Rel Index Troponin I 0.171 H* NT-Pro-B Natriuret Pep Total Protein Albumin Globulin Albumin/Globulin Ratio Lipase Procalcitonin Urine Color Urine Appearance Urine pH Ur Specific [place] Urine Protein Urine Glucose (UA) Urine Ketones Urine Occult Blood Urine Nitrate Urine Bilirubin Urine Urobilinogen Ur Leukocyte Esterase Urine RBC Urine WBC Ur Transition Epith Cell Urine Bacteria Ur Culture Indicated? Chlamy pneumoniae PCR Adenovirus (PCR) B. pertussis DNA (PCR) B.parapertussis DNA PCR Coronavirus OC43 (PCR) Coronavirus HKU1 (PCR) Coronavirus 229E (PCR) SARS-CoV-2 (PCR) Negative Coronavirus NL63 (PCR) Human Metapneumovir PCR Influenza A (RT-PCR) Flu a negative Influenza Type A (PCR) Influenza B (RT-PCR) Flu b negative Influenza Type B (PCR) M. pneumoniae (PCR) Parainfluenza 1 (PCR) Parainfluenza 2 (PCR) Parainfluenza 3 (PCR) Parainfluenza 4 (PCR) RSV (PCR) Negative Entero/Rhino (PCR) 02/26/22 02/26/22 02/26/22 10:28 12:55 12:55 WBC RBC Hgb Hct MCV MCH MCHC RDW Plt Count Neut % (Auto) Lymph % (Auto) [place] % (Auto) Eos % (Auto) Baso % (Auto) Neut # (Auto) Lymph # (Auto) [place] # (Auto) Eos # (Auto) Baso # (Auto) PT INR APTT D-Dimer Sodium Potassium Chloride Carbon Dioxide BUN Creatinine Estimated GFR BUN/Creatinine Ratio Glucose Lactate 4.8 H* 6.0 H* Calcium Magnesium Total Bilirubin AST ALT Alkaline Phosphatase Total Creatine Kinase CK-MB (CK-2) CK-MB (CK-2) Rel Index Troponin I 0.156 H* NT-Pro-B Natriuret Pep Total Protein Albumin Globulin Albumin/Globulin Ratio Lipase Procalcitonin Urine Color Urine Appearance Urine pH Ur Specific [place] Urine Protein Urine Glucose (UA) Urine Ketones Urine Occult Blood Urine Nitrate Urine Bilirubin Urine Urobilinogen Ur Leukocyte Esterase Urine RBC Urine WBC Ur Transition Epith Cell Urine Bacteria Ur Culture Indicated? Chlamy pneumoniae PCR Adenovirus (PCR) B. pertussis DNA (PCR) B.parapertussis DNA PCR Coronavirus OC43 (PCR) Coronavirus HKU1 (PCR) Coronavirus 229E (PCR) SARS-CoV-2 (PCR) Coronavirus NL63 (PCR) Human Metapneumovir PCR Influenza A (RT-PCR) Influenza Type A (PCR) Influenza B (RT-PCR) Influenza Type B (PCR) M. pneumoniae (PCR) Parainfluenza 1 (PCR) Parainfluenza 2 (PCR) Parainfluenza 3 (PCR) Parainfluenza 4 (PCR) RSV (PCR) Entero/Rhino (PCR) 02/26/22 02/26/22 02/26/22 12:55 13:00 13:10 WBC RBC Hgb Hct MCV MCH MCHC RDW Plt Count Neut % (Auto) Lymph % (Auto) [place] % (Auto) Eos % (Auto) Baso % (Auto) Neut # (Auto) Lymph # (Auto) [place] # (Auto) Eos # (Auto) Baso # (Auto) PT INR APTT D-Dimer Sodium Potassium Chloride Carbon Dioxide BUN Creatinine Estimated GFR BUN/Creatinine Ratio Glucose Lactate Calcium Magnesium Total Bilirubin AST ALT Alkaline Phosphatase Total Creatine Kinase CK-MB (CK-2) CK-MB (CK-2) Rel Index Troponin I NT-Pro-B Natriuret Pep Total Protein Albumin Globulin Albumin/Globulin Ratio Lipase Procalcitonin 0.26 Urine Color Yellow Urine Appearance Clear Urine pH 5.0 Ur Specific [place] 1.020 Urine Protein Negative Urine Glucose (UA) Negative Urine Ketones Negative Urine Occult Blood 1+ H Urine Nitrate Negative Urine Bilirubin Negative Urine Urobilinogen 0.2 Ur Leukocyte Esterase Trace H Urine RBC 0-1/hpf Urine WBC 1-5/hpf Ur Transition Epith Cell 0-1/hpf Urine Bacteria None seen Ur Culture Indicated? Specimen cultured Chlamy pneumoniae PCR Not detected Adenovirus (PCR) Not detected B. pertussis DNA (PCR) Not detected B.parapertussis DNA PCR Not detected Coronavirus OC43 (PCR) Not detected Coronavirus HKU1 (PCR) Not detected Coronavirus 229E (PCR) Not detected SARS-CoV-2 (PCR) Not detected Coronavirus NL63 (PCR) Not detected Human Metapneumovir PCR Not detected Influenza A (RT-PCR) Influenza Type A (PCR) Detected H Influenza B (RT-PCR) Influenza Type B (PCR) Not detected M. pneumoniae (PCR) Not detected Parainfluenza 1 (PCR) Not detected Parainfluenza 2 (PCR) Not detected Parainfluenza 3 (PCR) Not detected Parainfluenza 4 (PCR) Not detected RSV (PCR) Not detected Entero/Rhino (PCR) Not detected 02/26/22 15:30 WBC RBC Hgb Hct MCV MCH MCHC RDW Plt Count Neut % (Auto) Lymph % (Auto) [place] % (Auto) Eos % (Auto) Baso % (Auto) Neut # (Auto) Lymph # (Auto) [place] # (Auto) Eos # (Auto) Baso # (Auto) PT INR APTT 95 H* D D-Dimer Sodium Potassium Chloride Carbon Dioxide BUN Creatinine Estimated GFR BUN/Creatinine Ratio Glucose Lactate Calcium Magnesium Total Bilirubin AST ALT Alkaline Phosphatase Total Creatine Kinase CK-MB (CK-2) CK-MB (CK-2) Rel Index Troponin I NT-Pro-B Natriuret Pep Total Protein Albumin Globulin Albumin/Globulin Ratio Lipase Procalcitonin Urine Color Urine Appearance Urine pH Ur Specific [place] Urine Protein Urine Glucose (UA) Urine Ketones Urine Occult Blood Urine Nitrate Urine Bilirubin Urine Urobilinogen Ur Leukocyte Esterase Urine RBC Urine WBC Ur Transition Epith Cell Urine Bacteria Ur Culture Indicated? Chlamy pneumoniae PCR Adenovirus (PCR) B. pertussis DNA (PCR) B.parapertussis DNA PCR Coronavirus OC43 (PCR) Coronavirus HKU1 (PCR) Coronavirus 229E (PCR) SARS-CoV-2 (PCR) Coronavirus NL63 (PCR) Human Metapneumovir PCR Influenza A (RT-PCR) Influenza Type A (PCR) Influenza B (RT-PCR) Influenza Type B (PCR) M. pneumoniae (PCR) Parainfluenza 1 (PCR) Parainfluenza 2 (PCR) Parainfluenza 3 (PCR) Parainfluenza 4 (PCR) RSV (PCR) Entero/Rhino (PCR) Assessment & Plan Time Spent With Patient Critical Care time: I spent a total of [] minutes of critical care time on this patient's care today; this time is exclusive of procedural time.
--- NOTE | 2022-02-26 16:52 | PM.CN.EICU ---
History of Present Illness Consult details IF CAMERA ACTIVATED, patient seen via real-time interactive audiovisual communication: Camera activated Date Patient Seen: 02/26/22 Chief complaint: Shortness of breath Consent obtained for tele-county assessor care: Yes Patient Location: ICU Provider location (State): [place] Other participants/roles: RN Narrative: Patient is a 71M with a PMH of HFpEF, COPD, CVA with L hemiparesis (wheelchair bound), BPH, obesity who was admitted with hypoxic respiratory failure requiring BiPAP, presumed due to flu pneumonia. In ER patient was diuresed with Lasix due to c/f pulmonary edema. Later with softer BPs, thus given 500cc bolus x 2. Lactate elevated to 6. Elevated troponin; Cardiology consulted and patient started on a Heparin drip, presumed demand ischemia due to hypoxia. TTE: 1) Normal left ventricular size and thickness with hyperdynamic systolic function (EF 70-75%). 2) The interventricular septum is flattened, consistent with a right ventricular pressure overload condition. 3) Moderately to severely enlarged right ventricle with mildly reduced function. Callahan sign persent (also visualized on the prior echo). 5) Right ventricular systolic pressure is estimated to be 45 mmHg plus the clinically estimated CVP which cannot be estimated on this exam. 6) Compared to the Echo done 12/29/2021, LV is hyperdynamic on this study. [facility] Medical History BPH (benign prostatic hyperplasia) CHF (congestive heart failure) COPD (chronic obstructive pulmonary disease) History of stroke Hyperlipidemia Neuropathy Obesity (BMI 30-39.9) Surgical History History of shoulder surgery Family History Father Heart attack Sister AA (aortic aneurysm) Social History household members: none Smoking Status: Current every day smoker Current Medications Current Medications Medications: Home Medications albuterol sulfate 90 mcg/actuation aerosol inhaler 2 inh inhalation BID 12/29/21 [History Confirmed 12/29/21] aspirin 81 mg tablet,delayed release 81 mg DAILY 12/29/21 [History Confirmed 12/29/21] atorvastatin 20 mg tablet 20 mg DAILY 12/29/21 [History Confirmed 12/29/21] fenofibrate micronized 134 mg capsule 134 mg DAILY 12/29/21 [History Confirmed 12/29/21] gabapentin 600 mg tablet 600 mg BID 12/29/21 [History Confirmed 12/29/21] lidocaine 5 % topical ointment 1 applic DAILY 12/29/21 [History Confirmed 12/29/21] melatonin 6 mg BEDTIME 12/29/21 [History Confirmed 12/29/21] potassium chloride 20 mEq tablet,extended release(part/cryst) 20 meq PO DAILY 12/29/21 [History Confirmed 12/29/21] prednisone 5 mg tablet 5 mg DAILY 12/29/21 [History Confirmed 12/29/21] risperidone 1 mg tablet 1 mg BEDTIME 12/29/21 [History Confirmed 12/29/21] salmeterol 50 mcg/dose blister powder for inhalation (Serevent Diskus) 1 inh inhalation BID 12/29/21 [History Confirmed 12/29/21] sertraline 25 mg tablet 75 mg DAILY 12/29/21 [History Confirmed 12/29/21] tamsulosin 0.4 mg capsule 0.4 mg PO DAILY 12/29/21 [History Confirmed 12/29/21] tiotropium bromide 2.5 mcg/actuation mist for inhalation (Spiriva Respimat) 2 inh inhalation DAILY 12/29/21 [History Confirmed 12/29/21] furosemide 40 mg tablet (Lasix) 40 mg PO BID #60 tabs 12/31/21 [Rx] ibuprofen 400 mg tablet 600 mg PO TID PRN pain #10 tabs 12/31/21 [Rx Confirmed 12/29/21] levofloxacin 250 mg tablet 750 mg PO DAILY@1700 #3 tabs 12/31/21 [Rx] prednisone 20 mg tablet 40 mg PO DAILY #6 tabs 12/31/21 [Rx] Visit Medications (administered) Generic Name Dose Route Start Last Admin Trade Name Freq PRN Reason Stop Dose Admin Acetaminophen 650 mg 02/26/22 11:40 02/26/22 12:53 Acetaminophen 325 Mg Tablet PO 650 mg Q6H PRN Administration Fever/Mild Pain (1-3) Heparin Sodium/Dextrose 25,000 unit in 500 mls @ 20 mls/hr 02/26/22 08:15 02/26/22 16:30 Heparin Drip IV 0 units/hr CONT LIZA 0 mls/hr Titration Protocol 1,000 UNITS/HR Azithromycin 500 mg/ Dextrose 250 mls @ 250 mls/hr 02/26/22 12:45 02/26/22 15:22 IV 03/01/22 12:44 Infused Q24H LIZA Infusion Exam Vital Signs (past 8 hours): - 02/26/22 11:18 02/26/22 12:32 02/26/22 12:33 Temperature Pulse Rate 86 Respiratory Rate 27 H Blood Pressure 103/54 L 108/55 L Pulse Oximetry 95 Oxygen Delivery Method BiPAP Oxygen Flow Rate 15 Fraction of Inspired Oxygen 02/26/22 12:33 02/26/22 10:45 02/26/22 10:50 Temperature 101.4 F H Pulse Rate 85 98 H 97 H Respiratory Rate 28 H Blood Pressure Pulse Oximetry 94 94 94 Oxygen Delivery Method BiPAP BiPAP BiPAP Oxygen Flow Rate 15 Fraction of Inspired Oxygen 02/26/22 10:55 02/26/22 11:00 02/26/22 11:05 Temperature Pulse Rate 97 H 97 H 97 H Respiratory Rate Blood Pressure 103/54 L Pulse Oximetry 94 94 94 Oxygen Delivery Method BiPAP BiPAP BiPAP Oxygen Flow Rate Fraction of Inspired Oxygen 02/26/22 11:10 02/26/22 11:15 02/26/22 11:20 Temperature Pulse Rate 97 H 96 H 96 H Respiratory Rate Blood Pressure Pulse Oximetry 94 94 94 Oxygen Delivery Method BiPAP Oxygen Flow Rate Fraction of Inspired Oxygen 02/26/22 11:25 02/26/22 11:30 02/26/22 11:35 Temperature Pulse Rate 96 H 94 H 94 H Respiratory Rate Blood Pressure 103/59 L Pulse Oximetry 94 94 Oxygen Delivery Method BiPAP BiPAP BiPAP Oxygen Flow Rate Fraction of Inspired Oxygen 02/26/22 11:40 02/26/22 11:45 02/26/22 11:50 Temperature Pulse Rate 95 H 94 H 99 H Respiratory Rate Blood Pressure Pulse Oximetry 94 94 90 L Oxygen Delivery Method BiPAP BiPAP BiPAP Oxygen Flow Rate Fraction of Inspired Oxygen 02/26/22 11:55 02/26/22 12:00 02/26/22 12:05 Temperature Pulse Rate 97 H 93 H 91 H Respiratory Rate Blood Pressure 102/72 Pulse Oximetry 94 95 95 Oxygen Delivery Method BiPAP BiPAP BiPAP Oxygen Flow Rate Fraction of Inspired Oxygen 02/26/22 12:10 02/26/22 12:15 02/26/22 12:20 Temperature Pulse Rate 91 H 89 88 Respiratory Rate Blood Pressure 103/55 L Pulse Oximetry 95 93 94 Oxygen Delivery Method BiPAP BiPAP BiPAP Oxygen Flow Rate Fraction of Inspired Oxygen 02/26/22 12:25 02/26/22 12:30 02/26/22 12:53 Temperature 101.4 F H Pulse Rate 84 87 Respiratory Rate Blood Pressure Pulse Oximetry 94 94 Oxygen Delivery Method BiPAP Oxygen Flow Rate Fraction of Inspired Oxygen 02/26/22 13:37 02/26/22 12:41 02/26/22 12:41 Temperature 99.1 F Pulse Rate 89 Respiratory Rate 26 H Blood Pressure 118/58 L Pulse Oximetry 96 Oxygen Delivery Method Oxygen Flow Rate Fraction of Inspired Oxygen 02/26/22 12:50 02/26/22 12:50 02/26/22 13:00 Temperature Pulse Rate 90 Respiratory Rate 30 H Blood Pressure 115/51 L 103/57 L Pulse Oximetry 94 Oxygen Delivery Method Oxygen Flow Rate Fraction of Inspired Oxygen 02/26/22 13:00 02/26/22 13:11 02/26/22 13:11 Temperature Pulse Rate 90 94 H Respiratory Rate 29 H 31 H Blood Pressure 99/55 L Pulse Oximetry 94 91 Oxygen Delivery Method Oxygen Flow Rate Fraction of Inspired Oxygen 02/26/22 13:20 02/26/22 13:20 02/26/22 13:30 Temperature Pulse Rate 89 Respiratory Rate 29 H Blood Pressure 109/53 L 101/53 L Pulse Oximetry 95 Oxygen Delivery Method Oxygen Flow Rate Fraction of Inspired Oxygen 02/26/22 13:30 02/26/22 13:51 02/26/22 13:51 Temperature Pulse Rate 89 89 Respiratory Rate 29 H 30 H Blood Pressure 119/57 L Pulse Oximetry 94 94 Oxygen Delivery Method Oxygen Flow Rate Fraction of Inspired Oxygen 02/26/22 14:00 02/26/22 14:00 02/26/22 14:10 Temperature Pulse Rate 90 90 Respiratory Rate 31 H 31 H Blood Pressure 103/55 L Pulse Oximetry 95 94 Oxygen Delivery Method Oxygen Flow Rate Fraction of Inspired Oxygen 02/26/22 14:10 02/26/22 14:20 02/26/22 14:30 Temperature Pulse Rate 88 Respiratory Rate 29 H Blood Pressure 101/50 L 87/49 L Pulse Oximetry 94 Oxygen Delivery Method Oxygen Flow Rate Fraction of Inspired Oxygen 02/26/22 14:30 02/26/22 14:34 02/26/22 14:34 Temperature Pulse Rate 88 88 Respiratory Rate 27 H 27 H Blood Pressure 90/54 L Pulse Oximetry 94 94 Oxygen Delivery Method Oxygen Flow Rate Fraction of Inspired Oxygen 02/26/22 14:35 02/26/22 14:35 02/26/22 15:00 Temperature 97.8 F Pulse Rate 87 94 H Respiratory Rate 29 H 25 H Blood Pressure 89/53 L 108/62 Pulse Oximetry 94 96 Oxygen Delivery Method Oxygen Flow Rate 32 Fraction of Inspired Oxygen 32 02/26/22 14:40 02/26/22 14:40 02/26/22 14:45 Temperature Pulse Rate 88 88 Respiratory Rate 28 H 27 H Blood Pressure 96/48 L Pulse Oximetry 94 93 Oxygen Delivery Method Oxygen Flow Rate Fraction of Inspired Oxygen 02/26/22 14:45 02/26/22 14:51 02/26/22 14:51 Temperature Pulse Rate 95 H Respiratory Rate 32 H Blood Pressure 90/55 L 94/51 L Pulse Oximetry 91 Oxygen Delivery Method Oxygen Flow Rate Fraction of Inspired Oxygen 02/26/22 14:57 02/26/22 14:57 02/26/22 15:00 Temperature Pulse Rate 92 H Respiratory Rate 32 H Blood Pressure 89/56 L 86/55 L Pulse Oximetry 96 Oxygen Delivery Method Oxygen Flow Rate Fraction of Inspired Oxygen 02/26/22 15:00 02/26/22 15:30 02/26/22 15:30 Temperature Pulse Rate 99 H 88 Respiratory Rate 32 H 29 H Blood Pressure 96/52 L Pulse Oximetry 93 95 Oxygen Delivery Method Oxygen Flow Rate Fraction of Inspired Oxygen 02/26/22 14:10 02/26/22 16:00 02/26/22 16:00 Temperature Pulse Rate 86 Respiratory Rate 32 H Blood Pressure 103/55 L 103/58 L Pulse Oximetry 96 Oxygen Delivery Method Oxygen Flow Rate Fraction of Inspired Oxygen 35 Fraction of Inspired Oxygen 32 Oxygen Delivery Method BiPAP Oxygen Flow Rate 32 Narrative Exam Narrative: On my tele eval, patient is awake and alert. He tachypneic into the mid-20s while on BiPAP. Satting in the high 90s. Objective Labs Result Diagrams: 02/26/22 07:17 02/26/22 16:35 Labs: Laboratory Results - last 24 hr 02/26/22 02/26/22 02/26/22 07:17 07:17 07:17 WBC 12.8 H RBC 4.93 Hgb 14.7 Hct 45.1 MCV 91.4 MCH 29.9 MCHC 32.7 RDW 15.0 H Plt Count 265 Neut % (Auto) 90.1 H Lymph % (Auto) 4.[address] [place] % (Auto) 5.3 Eos % (Auto) 0.1 L Baso % (Auto) 0.2 Neut # (Auto) 75989 H Lymph # (Auto) [address] [place] # (Auto) 700 Eos # (Auto) 0 Baso # (Auto) 0 PT 13.0 H INR 1.1 APTT 20 L D-Dimer Sodium 138 Potassium 3.6 Chloride 101 Carbon Dioxide 25 BUN 19 Creatinine 1.38 H Estimated GFR 55 L BUN/Creatinine Ratio 13.8 Glucose 140 H Lactate Calcium 9.1 Magnesium Total Bilirubin 0.7 AST 32 ALT 23 Alkaline Phosphatase 62 Total Creatine Kinase 620 H CK-MB (CK-2) 3.59 H CK-MB (CK-2) Rel Index 0.6 L Troponin I 0.164 H* NT-Pro-B Natriuret Pep Total Protein 7.2 Albumin 4.1 Globulin 3.1 Albumin/Globulin Ratio 1.3 Lipase 179 Procalcitonin 0.17 Urine Color Urine Appearance Urine pH Ur Specific [place] Urine Protein Urine Glucose (UA) Urine Ketones Urine Occult Blood Urine Nitrate Urine Bilirubin Urine Urobilinogen Ur Leukocyte Esterase Urine RBC Urine WBC Ur Transition Epith Cell Urine Bacteria Ur Culture Indicated? Chlamy pneumoniae PCR Adenovirus (PCR) B. pertussis DNA (PCR) B.parapertussis DNA PCR Coronavirus OC43 (PCR) Coronavirus HKU1 (PCR) Coronavirus 229E (PCR) SARS-CoV-2 (PCR) Coronavirus NL63 (PCR) Human Metapneumovir PCR Influenza A (RT-PCR) Influenza Type A (PCR) Influenza B (RT-PCR) Influenza Type B (PCR) M. pneumoniae (PCR) Parainfluenza 1 (PCR) Parainfluenza 2 (PCR) Parainfluenza 3 (PCR) Parainfluenza 4 (PCR) RSV (PCR) Entero/Rhino (PCR) 02/26/22 02/26/22 02/26/22 07:17 07:17 07:17 WBC RBC Hgb Hct MCV MCH MCHC RDW Plt Count Neut % (Auto) Lymph % (Auto) [place] % (Auto) Eos % (Auto) Baso % (Auto) Neut # (Auto) Lymph # (Auto) [place] # (Auto) Eos # (Auto) Baso # (Auto) PT INR APTT D-Dimer Sodium Potassium Chloride Carbon Dioxide BUN Creatinine Estimated GFR BUN/Creatinine Ratio Glucose Lactate 3.2 H Calcium Magnesium 1.7 Total Bilirubin AST ALT Alkaline Phosphatase Total Creatine Kinase CK-MB (CK-2) CK-MB (CK-2) Rel Index Troponin I NT-Pro-B Natriuret Pep 4160 H Total Protein Albumin Globulin Albumin/Globulin Ratio Lipase Procalcitonin Urine Color Urine Appearance Urine pH Ur Specific [place] Urine Protein Urine Glucose (UA) Urine Ketones Urine Occult Blood Urine Nitrate Urine Bilirubin Urine Urobilinogen Ur Leukocyte Esterase Urine RBC Urine WBC Ur Transition Epith Cell Urine Bacteria Ur Culture Indicated? Chlamy pneumoniae PCR Adenovirus (PCR) B. pertussis DNA (PCR) B.parapertussis DNA PCR Coronavirus OC43 (PCR) Coronavirus HKU1 (PCR) Coronavirus 229E (PCR) SARS-CoV-2 (PCR) Coronavirus NL63 (PCR) Human Metapneumovir PCR Influenza A (RT-PCR) Influenza Type A (PCR) Influenza B (RT-PCR) Influenza Type B (PCR) M. pneumoniae (PCR) Parainfluenza 1 (PCR) Parainfluenza 2 (PCR) Parainfluenza 3 (PCR) Parainfluenza 4 (PCR) RSV (PCR) Entero/Rhino (PCR) 02/26/22 02/26/22 02/26/22 07:17 09:00 09:02 WBC RBC Hgb Hct MCV MCH MCHC RDW Plt Count Neut % (Auto) Lymph % (Auto) [place] % (Auto) Eos % (Auto) Baso % (Auto) Neut # (Auto) Lymph # (Auto) [place] # (Auto) Eos # (Auto) Baso # (Auto) PT INR APTT D-Dimer 612 H Sodium Potassium Chloride Carbon Dioxide BUN Creatinine Estimated GFR BUN/Creatinine Ratio Glucose Lactate Calcium Magnesium Total Bilirubin AST ALT Alkaline Phosphatase Total Creatine Kinase CK-MB (CK-2) CK-MB (CK-2) Rel Index Troponin I 0.171 H* NT-Pro-B Natriuret Pep Total Protein Albumin Globulin Albumin/Globulin Ratio Lipase Procalcitonin Urine Color Urine Appearance Urine pH Ur Specific [place] Urine Protein Urine Glucose (UA) Urine Ketones Urine Occult Blood Urine Nitrate Urine Bilirubin Urine Urobilinogen Ur Leukocyte Esterase Urine RBC Urine WBC Ur Transition Epith Cell Urine Bacteria Ur Culture Indicated? Chlamy pneumoniae PCR Adenovirus (PCR) B. pertussis DNA (PCR) B.parapertussis DNA PCR Coronavirus OC43 (PCR) Coronavirus HKU1 (PCR) Coronavirus 229E (PCR) SARS-CoV-2 (PCR) Negative Coronavirus NL63 (PCR) Human Metapneumovir PCR Influenza A (RT-PCR) Flu a negative Influenza Type A (PCR) Influenza B (RT-PCR) Flu b negative Influenza Type B (PCR) M. pneumoniae (PCR) Parainfluenza 1 (PCR) Parainfluenza 2 (PCR) Parainfluenza 3 (PCR) Parainfluenza 4 (PCR) RSV (PCR) Negative Entero/Rhino (PCR) 02/26/22 02/26/22 02/26/22 10:28 12:55 12:55 WBC RBC Hgb Hct MCV MCH MCHC RDW Plt Count Neut % (Auto) Lymph % (Auto) [place] % (Auto) Eos % (Auto) Baso % (Auto) Neut # (Auto) Lymph # (Auto) [place] # (Auto) Eos # (Auto) Baso # (Auto) PT INR APTT D-Dimer Sodium Potassium Chloride Carbon Dioxide BUN Creatinine Estimated GFR BUN/Creatinine Ratio Glucose Lactate 4.8 H* 6.0 H* Calcium Magnesium Total Bilirubin AST ALT Alkaline Phosphatase Total Creatine Kinase CK-MB (CK-2) CK-MB (CK-2) Rel Index Troponin I 0.156 H* NT-Pro-B Natriuret Pep Total Protein Albumin Globulin Albumin/Globulin Ratio Lipase Procalcitonin Urine Color Urine Appearance Urine pH Ur Specific [place] Urine Protein Urine Glucose (UA) Urine Ketones Urine Occult Blood Urine Nitrate Urine Bilirubin Urine Urobilinogen Ur Leukocyte Esterase Urine RBC Urine WBC Ur Transition Epith Cell Urine Bacteria Ur Culture Indicated? Chlamy pneumoniae PCR Adenovirus (PCR) B. pertussis DNA (PCR) B.parapertussis DNA PCR Coronavirus OC43 (PCR) Coronavirus HKU1 (PCR) Coronavirus 229E (PCR) SARS-CoV-2 (PCR) Coronavirus NL63 (PCR) Human Metapneumovir PCR Influenza A (RT-PCR) Influenza Type A (PCR) Influenza B (RT-PCR) Influenza Type B (PCR) M. pneumoniae (PCR) Parainfluenza 1 (PCR) Parainfluenza 2 (PCR) Parainfluenza 3 (PCR) Parainfluenza 4 (PCR) RSV (PCR) Entero/Rhino (PCR) 02/26/22 02/26/22 02/26/22 12:55 13:00 13:10 WBC RBC Hgb Hct MCV MCH MCHC RDW Plt Count Neut % (Auto) Lymph % (Auto) [place] % (Auto) Eos % (Auto) Baso % (Auto) Neut # (Auto) Lymph # (Auto) [place] # (Auto) Eos # (Auto) Baso # (Auto) PT INR APTT D-Dimer Sodium Potassium Chloride Carbon Dioxide BUN Creatinine Estimated GFR BUN/Creatinine Ratio Glucose Lactate Calcium Magnesium Total Bilirubin AST ALT Alkaline Phosphatase Total Creatine Kinase CK-MB (CK-2) CK-MB (CK-2) Rel Index Troponin I NT-Pro-B Natriuret Pep Total Protein Albumin Globulin Albumin/Globulin Ratio Lipase Procalcitonin 0.26 Urine Color Yellow Urine Appearance Clear Urine pH 5.0 Ur Specific [place] 1.020 Urine Protein Negative Urine Glucose (UA) Negative Urine Ketones Negative Urine Occult Blood 1+ H Urine Nitrate Negative Urine Bilirubin Negative Urine Urobilinogen 0.2 Ur Leukocyte Esterase Trace H Urine RBC 0-1/hpf Urine WBC 1-5/hpf Ur Transition Epith Cell 0-1/hpf Urine Bacteria None seen Ur Culture Indicated? Specimen cultured Chlamy pneumoniae PCR Not detected Adenovirus (PCR) Not detected B. pertussis DNA (PCR) Not detected B.parapertussis DNA PCR Not detected Coronavirus OC43 (PCR) Not detected Coronavirus HKU1 (PCR) Not detected Coronavirus 229E (PCR) Not detected SARS-CoV-2 (PCR) Not detected Coronavirus NL63 (PCR) Not detected Human Metapneumovir PCR Not detected Influenza A (RT-PCR) Influenza Type A (PCR) Detected H Influenza B (RT-PCR) Influenza Type B (PCR) Not detected M. pneumoniae (PCR) Not detected Parainfluenza 1 (PCR) Not detected Parainfluenza 2 (PCR) Not detected Parainfluenza 3 (PCR) Not detected Parainfluenza 4 (PCR) Not detected RSV (PCR) Not detected Entero/Rhino (PCR) Not detected 02/26/22 15:30 WBC RBC Hgb Hct MCV MCH MCHC RDW Plt Count Neut % (Auto) Lymph % (Auto) [place] % (Auto) Eos % (Auto) Baso % (Auto) Neut # (Auto) Lymph # (Auto) [place] # (Auto) Eos # (Auto) Baso # (Auto) PT INR APTT 95 H* D D-Dimer Sodium Potassium Chloride Carbon Dioxide BUN Creatinine Estimated GFR BUN/Creatinine Ratio Glucose Lactate Calcium Magnesium Total Bilirubin AST ALT Alkaline Phosphatase Total Creatine Kinase CK-MB (CK-2) CK-MB (CK-2) Rel Index Troponin I NT-Pro-B Natriuret Pep Total Protein Albumin Globulin Albumin/Globulin Ratio Lipase Procalcitonin Urine Color Urine Appearance Urine pH Ur Specific [place] Urine Protein Urine Glucose (UA) Urine Ketones Urine Occult Blood Urine Nitrate Urine Bilirubin Urine Urobilinogen Ur Leukocyte Esterase Urine RBC Urine WBC Ur Transition Epith Cell Urine Bacteria Ur Culture Indicated? Chlamy pneumoniae PCR Adenovirus (PCR) B. pertussis DNA (PCR) B.parapertussis DNA PCR Coronavirus OC43 (PCR) Coronavirus HKU1 (PCR) Coronavirus 229E (PCR) SARS-CoV-2 (PCR) Coronavirus NL63 (PCR) Human Metapneumovir PCR Influenza A (RT-PCR) Influenza Type A (PCR) Influenza B (RT-PCR) Influenza Type B (PCR) M. pneumoniae (PCR) Parainfluenza 1 (PCR) Parainfluenza 2 (PCR) Parainfluenza 3 (PCR) Parainfluenza 4 (PCR) RSV (PCR) Entero/Rhino (PCR) Assessment & Plan Assessment and plan (1) Acute hypoxemic respiratory failure: Status: Acute (2) Influenza A: Status: Acute (3) Pneumonia: Status: Acute (4) Sepsis: Status: Acute Plan Patient's acute hypoxic respiratory failure likely multifactorial - suspect flu pneumonia, COPD exacerbation. Lower suspicion for pulmonary edema given TTE, CXR findings. Consider R Heart Failure as etiology of hypoxia. Lower suspicion for superimposed bacterial pneumonia at this time. - Continue BiPAP overnight while sleeping. Can consider HFNC if uncomfortable on BiPAP overnight. - Repeat ABG if any change in status - Would trend lactates. Continue gentle hydration perhaps 250cc bolus; cautious given elevated R heart pressures. - If JEISON improving, would obtain CTA, rule out PE - Obtain DVT US LE - Continue Heparin drip, PE protocol - Cardiology following. - Continue Zosyn/Azithro. If worsening e/o infection, may need Vancomycin for MRSA coverage - Follow up MRSA swab, blood cultures - Repeat Trop/EKG if chest pain or change in clinical status - Continue nebs. Given COPD history, would consider steroid course. - Monitor BP, goal is MAP >65. If unable to achieve this goal, start Levophed. - If hypotensive, will also have to consider massive PE; though suspicion for PH given TTE findings today and previously with significant elevated R heart pressures/IV septal flattening. Please contact Tele-ICU with any change in status. We will continue to follow along. Time Spent With Patient Critical Care time: I spent a total of [35] minutes of critical care time on this patient's care today; this time is exclusive of procedural time.
[2022-02-26 17:02] LABS: BUN Creatinine Ratio 14.7 (6-22); Blood Urea Nitrogen 20 mg/dL (9-20); Calcium 8.7 mg/dL (8.4-10.2); Carbon Dioxide 22 mmol/L (22-32); Chloride 102 mmol/L (98-107); Estimated Glomerular Filt Rate 56 mL/min (>60); Glucose 186 mg/dL (80-110); HEMOLYSIS < 15 (0-50); Potassium 3.4 mmol/L (3.4-5.1); Sodium 139 mmol/L (137-145)
[2022-02-26 17:04] LABS: Fractionated Inspired Oxygen 35; HCO3 ABG 23 mmol/L (22-26); Oxygen Saturation ABG 97 % (95-100); PCO2 ABG 37.8 mmHg (35-45); PO2 ABG 92 mmHg (80-100); TCO2 ABG 24 mmol/L (21-31)
[2022-02-26 17:12] LABS: Lactate 2HR (Lactic Acid Rflx) 4.1 mmol/L (0.7-2.1)
[2022-02-26] MEDS: POTASSIUM CHLORIDE 20 MEQ TAB PO (18:21)
[2022-02-26 19:43] LABS: Troponin I 0.112 ng/mL (0.01-0.034)
[2022-02-26] MEDS: PIPERACILLIN/TAZO 3.375 GM in SODIUM CHLORIDE 0.9% 100 ML IV (21:21)
[2022-02-26] MEDS: MELATONIN 3 MG TABLET 6 MG PO (21:21)
[2022-02-26] MEDS: TAMSULOSIN 0.4 MG CAPSULE PO (21:21)
[2022-02-26] MEDS: GABAPENTIN 600 MG TABLET PO (21:21)
[2022-02-26] MEDS: ATORVASTATIN 20 MG TABLET PO (21:21)
[2022-02-26] MEDS: risperiDONE 1 MG TABLET PO (21:21)
[2022-02-27] VITALS (44 sets, daily range): BP systolic 106–163; BP diastolic 55–103; PULSE 73–129; RESP 24–42; TEMP 36.1–36.9; O2SAT 84–96
--- NOTE | 2022-02-27 00:19 | PC.NURSE ---
Pt started to become more anxious. Pt A&OX4. Not wanting to keep nasal cannula in nose and did not want to wear Bipap. Hospitalist consulted. ABG was ordered. Pt currently on Bipap FiO2 25% 4 L satting 93%.
[2022-02-27 00:56] LABS: PTT Partial Thromboplastin Tim 56 SECONDS (26-36)
--- NOTE | 2022-02-27 01:01 | PC.NURSE ---
Consulted with Tele business resiliency manager around 2029. Ordered to continue the plan, as well as to continue trending lactate.
[2022-02-27] MEDS: PIPERACILLIN/TAZO 3.375 GM in SODIUM CHLORIDE 0.9% 100 ML IV ×3 (04:51→22:00)
[2022-02-27 05:29] LABS: Add Manual Diff / Slide Review NO; Basophils Absolute Auto 0 /uL (0-100); Basophils Percent Auto 0.1 % (0-2); Eosinophils Absolute Auto 0 /uL (0-450); Hematocrit 44.3 % (41-53); Hemoglobin 14.5 g/dL (13.5-17.5); Lymphocytes Absolute Auto 400 /uL (1100-4500); Mean Corpuscular HGB Conc 32.9 % (30-36); Mean Corpuscular Volume 91.3 fL (80-100); Monocytes Absolute Auto 900 /uL (0-900); Monocytes Percent Auto 8.3 % (3-14); Neutrophils Absolute Auto 9300 /uL (1500-7000); Neutrophils Percent Auto 87.6 % (50-75); Platelet Count 253 X10^3/uL (150-400); Red Blood Cell Count 4.85 X10^6/uL (4.5-5.9); Red Cell Distribution Width 15.2 % (11.6-14.8); White Blood Cell Count 10.6 X10^3/uL (4.5-11.0)
[2022-02-27 05:40] LABS: PTT Partial Thromboplastin Tim 52 SECONDS (26-36)
[2022-02-27 05:42] LABS: Blood Urea Nitrogen 23 mg/dL (9-20); Calcium 9.2 mg/dL (8.4-10.2); Carbon Dioxide 28 mmol/L (22-32); Chloride 102 mmol/L (98-107); Estimated Glomerular Filt Rate 52 mL/min (>60); Glucose 112 mg/dL (80-110); HEMOLYSIS < 15 (0-50); Potassium 3.6 mmol/L (3.4-5.1); Sodium 141 mmol/L (137-145)
[2022-02-27 06:39] LABS: Lactate (Lactic Acid) 1.7 mmol/L (0.7-2.1)
[2022-02-27] MEDS: PANTOPRAZOLE 40 MG VIAL IV (08:09)
[2022-02-27] MEDS: FENOFIBRATE, MICRONIZED 67 MG CAPSULE 134 MG PO (08:09)
[2022-02-27] MEDS: GABAPENTIN 600 MG TABLET PO ×2 (08:10→22:01)
[2022-02-27] MEDS: SERTRALINE 50 MG TABLET 75 MG PO (08:10)
[2022-02-27] MEDS: POTASSIUM CHLORIDE 20 MEQ TAB PO (08:10)
--- NOTE | 2022-02-27 08:34 | PM.PN.1 ---
Subjective Subjective Date Patient Seen: 02/27/22 Interval history: Patient asking to leave the hospital, saying he has oxygen at home, and the fresh air would help me. I explained the severity of his condition and his high chance of resp deterioration and needing to return to the hospital. He relented and agreed to stay. Says his breathing is quite wheezy this morning but otherwise feeling a little better. Exam Vital Signs (past 8 hours): - 02/27/22 01:00 02/27/22 01:00 02/27/22 01:30 Temperature Pulse Rate 113 H 100 H Respiratory Rate 38 H 33 H Blood Pressure 140/85 Pulse Oximetry 93 92 Oxygen Flow Rate 02/27/22 01:31 02/27/22 01:31 02/27/22 01:37 Temperature Pulse Rate 100 H 106 H Respiratory Rate 34 H 34 H Blood Pressure 133/102 H Pulse Oximetry 92 89 L Oxygen Flow Rate 02/27/22 01:37 02/27/22 02:00 02/27/22 02:00 Temperature 97.0 F L Pulse Rate 97 H Respiratory Rate 33 H Blood Pressure 135/71 120/64 Pulse Oximetry 89 L Oxygen Flow Rate 02/27/22 02:30 02/27/22 02:30 02/27/22 03:00 Temperature Pulse Rate 98 H Respiratory Rate 33 H Blood Pressure 131/73 140/85 Pulse Oximetry 92 Oxygen Flow Rate 2 02/27/22 03:00 02/27/22 03:30 02/27/22 03:31 Temperature Pulse Rate 111 H 112 H 111 H Respiratory Rate 35 H 39 H 39 H Blood Pressure Pulse Oximetry 91 94 92 Oxygen Flow Rate 02/27/22 03:31 02/27/22 03:54 02/27/22 03:54 Temperature Pulse Rate 101 H Respiratory Rate 36 H Blood Pressure 152/103 H 115/68 Pulse Oximetry 95 Oxygen Flow Rate 02/27/22 04:00 02/27/22 04:00 02/27/22 04:30 Temperature Pulse Rate 105 H Respiratory Rate 37 H Blood Pressure 125/69 115/82 Pulse Oximetry 92 Oxygen Flow Rate 2 02/27/22 04:30 02/27/22 05:00 02/27/22 05:00 Temperature Pulse Rate 109 H 106 H Respiratory Rate 37 H 39 H Blood Pressure 120/77 Pulse Oximetry 89 L 95 Oxygen Flow Rate 02/27/22 05:30 02/27/22 05:34 02/27/22 05:34 Temperature Pulse Rate 108 H 117 H Respiratory Rate 35 H 42 H Blood Pressure 133/74 Pulse Oximetry 91 90 L Oxygen Flow Rate 02/27/22 06:00 02/27/22 06:00 02/27/22 06:30 Temperature Pulse Rate 102 H 104 H Respiratory Rate 37 H 37 H Blood Pressure 115/56 L Pulse Oximetry 95 95 Oxygen Flow Rate 02/27/22 07:00 02/27/22 07:00 02/27/22 08:00 Temperature 97.5 F L 98.5 F Pulse Rate 103 H Respiratory Rate 36 H Blood Pressure 132/64 Pulse Oximetry 93 Oxygen Flow Rate 2 02/27/22 08:00 02/27/22 08:00 Temperature Pulse Rate 101 H Respiratory Rate 33 H Blood Pressure 128/77 Pulse Oximetry 90 L Oxygen Flow Rate Fraction of Inspired Oxygen 32 Oxygen Delivery Method Nasal Cannula Oxygen Flow Rate 2 Narrative Exam Narrative: GEN: diaphoretic, mod resp distress with increased work of breathing, currently on oxymask HEENT: moist mucous membranes, PERRL NECK: trachea midline, no JVD CV: regular rate and rhythm, no murmurs PULM: bilateral diffuse wheezes ABD: soft, nontender, nondistended, no organomegaly EXT: warm and well perfused with no edema NEURO: awake, alert, oriented, no focal deficits Objective Labs Result Diagrams: 02/27/22 04:25 02/27/22 04:25 Labs: Laboratory Results - last 24 hr 02/26/22 02/26/22 02/26/22 07:17 07:17 09:00 WBC RBC Hgb Hct MCV MCH MCHC RDW Plt Count Neut % (Auto) Lymph % (Auto) [facility] % (Auto) Eos % (Auto) Baso % (Auto) Neut # (Auto) Lymph # (Auto) [facility] # (Auto) Eos # (Auto) Baso # (Auto) APTT D-Dimer 612 H ABG pH ABG pCO2 ABG pO2 ABG HCO3 ABG Total CO2 ABG O2 Saturation ABG Base Excess FiO2 Sodium Potassium Chloride Carbon Dioxide BUN Creatinine Estimated GFR BUN/Creatinine Ratio Glucose Lactate Calcium Magnesium 1.7 Troponin I Procalcitonin Urine Color Urine Appearance Urine pH Ur Specific [place] Urine Protein Urine Glucose (UA) Urine Ketones Urine Occult Blood Urine Nitrate Urine Bilirubin Urine Urobilinogen Ur Leukocyte Esterase Urine RBC Urine WBC Ur Transition Epith Cell Urine Bacteria Ur Culture Indicated? Nasal Screen MRSA (PCR) Chlamy pneumoniae PCR Adenovirus (PCR) B. pertussis DNA (PCR) B.parapertussis DNA PCR Coronavirus OC43 (PCR) Coronavirus HKU1 (PCR) Coronavirus 229E (PCR) SARS-CoV-2 (PCR) Negative Coronavirus NL63 (PCR) Human Metapneumovir PCR Influenza A (RT-PCR) Flu a negative Influenza Type A (PCR) Influenza B (RT-PCR) Flu b negative Influenza Type B (PCR) M. pneumoniae (PCR) Parainfluenza 1 (PCR) Parainfluenza 2 (PCR) Parainfluenza 3 (PCR) Parainfluenza 4 (PCR) RSV (PCR) Negative Entero/Rhino (PCR) 02/26/22 02/26/22 02/26/22 09:02 10:28 12:55 WBC RBC Hgb Hct MCV MCH MCHC RDW Plt Count Neut % (Auto) Lymph % (Auto) [facility] % (Auto) Eos % (Auto) Baso % (Auto) Neut # (Auto) Lymph # (Auto) [facility] # (Auto) Eos # (Auto) Baso # (Auto) APTT D-Dimer ABG pH ABG pCO2 ABG pO2 ABG HCO3 ABG Total CO2 ABG O2 Saturation ABG Base Excess FiO2 Sodium Potassium Chloride Carbon Dioxide BUN Creatinine Estimated GFR BUN/Creatinine Ratio Glucose Lactate 4.8 H* Calcium Magnesium Troponin I 0.171 H* 0.156 H* Procalcitonin Urine Color Urine Appearance Urine pH Ur Specific [place] Urine Protein Urine Glucose (UA) Urine Ketones Urine Occult Blood Urine Nitrate Urine Bilirubin Urine Urobilinogen Ur Leukocyte Esterase Urine RBC Urine WBC Ur Transition Epith Cell Urine Bacteria Ur Culture Indicated? Nasal Screen MRSA (PCR) Chlamy pneumoniae PCR Adenovirus (PCR) B. pertussis DNA (PCR) B.parapertussis DNA PCR Coronavirus OC43 (PCR) Coronavirus HKU1 (PCR) Coronavirus 229E (PCR) SARS-CoV-2 (PCR) Coronavirus NL63 (PCR) Human Metapneumovir PCR Influenza A (RT-PCR) Influenza Type A (PCR) Influenza B (RT-PCR) Influenza Type B (PCR) M. pneumoniae (PCR) Parainfluenza 1 (PCR) Parainfluenza 2 (PCR) Parainfluenza 3 (PCR) Parainfluenza 4 (PCR) RSV (PCR) Entero/Rhino (PCR) 02/26/22 02/26/22 02/26/22 12:55 12:55 13:00 WBC RBC Hgb Hct MCV MCH MCHC RDW Plt Count Neut % (Auto) Lymph % (Auto) [facility] % (Auto) Eos % (Auto) Baso % (Auto) Neut # (Auto) Lymph # (Auto) [facility] # (Auto) Eos # (Auto) Baso # (Auto) APTT D-Dimer ABG pH ABG pCO2 ABG pO2 ABG HCO3 ABG Total CO2 ABG O2 Saturation ABG Base Excess FiO2 Sodium Potassium Chloride Carbon Dioxide BUN Creatinine Estimated GFR BUN/Creatinine Ratio Glucose Lactate 6.0 H* Calcium Magnesium Troponin I Procalcitonin 0.26 Urine Color Yellow Urine Appearance Clear Urine pH 5.0 Ur Specific [place] 1.020 Urine Protein Negative Urine Glucose (UA) Negative Urine Ketones Negative Urine Occult Blood 1+ H Urine Nitrate Negative Urine Bilirubin Negative Urine Urobilinogen 0.2 Ur Leukocyte Esterase Trace H Urine RBC 0-1/hpf Urine WBC 1-5/hpf Ur Transition Epith Cell 0-1/hpf Urine Bacteria None seen Ur Culture Indicated? Specimen cultured Nasal Screen MRSA (PCR) Chlamy pneumoniae PCR Adenovirus (PCR) B. pertussis DNA (PCR) B.parapertussis DNA PCR Coronavirus OC43 (PCR) Coronavirus HKU1 (PCR) Coronavirus 229E (PCR) SARS-CoV-2 (PCR) Coronavirus NL63 (PCR) Human Metapneumovir PCR Influenza A (RT-PCR) Influenza Type A (PCR) Influenza B (RT-PCR) Influenza Type B (PCR) M. pneumoniae (PCR) Parainfluenza 1 (PCR) Parainfluenza 2 (PCR) Parainfluenza 3 (PCR) Parainfluenza 4 (PCR) RSV (PCR) Entero/Rhino (PCR) 02/26/22 02/26/22 02/26/22 13:10 15:30 16:33 WBC RBC Hgb Hct MCV MCH MCHC RDW Plt Count Neut % (Auto) Lymph % (Auto) [facility] % (Auto) Eos % (Auto) Baso % (Auto) Neut # (Auto) Lymph # (Auto) [facility] # (Auto) Eos # (Auto) Baso # (Auto) APTT 95 H* D D-Dimer ABG pH 7.40 ABG pCO2 37.8 ABG pO2 92 ABG HCO3 23 ABG Total CO2 24 ABG O2 Saturation 97 ABG Base Excess -2.0 FiO2 35 Sodium Potassium Chloride Carbon Dioxide BUN Creatinine Estimated GFR BUN/Creatinine Ratio Glucose Lactate Calcium Magnesium Troponin I Procalcitonin Urine Color Urine Appearance Urine pH Ur Specific [place] Urine Protein Urine Glucose (UA) Urine Ketones Urine Occult Blood Urine Nitrate Urine Bilirubin Urine Urobilinogen Ur Leukocyte Esterase Urine RBC Urine WBC Ur Transition Epith Cell Urine Bacteria Ur Culture Indicated? Nasal Screen MRSA (PCR) Chlamy pneumoniae PCR Not detected Adenovirus (PCR) Not detected B. pertussis DNA (PCR) Not detected B.parapertussis DNA PCR Not detected Coronavirus OC43 (PCR) Not detected Coronavirus HKU1 (PCR) Not detected Coronavirus 229E (PCR) Not detected SARS-CoV-2 (PCR) Not detected Coronavirus NL63 (PCR) Not detected Human Metapneumovir PCR Not detected Influenza A (RT-PCR) Influenza Type A (PCR) Detected H Influenza B (RT-PCR) Influenza Type B (PCR) Not detected M. pneumoniae (PCR) Not detected Parainfluenza 1 (PCR) Not detected Parainfluenza 2 (PCR) Not detected Parainfluenza 3 (PCR) Not detected Parainfluenza 4 (PCR) Not detected RSV (PCR) Not detected Entero/Rhino (PCR) Not detected 02/26/22 02/26/22 02/26/22 16:35 16:35 17:26 WBC RBC Hgb Hct MCV MCH MCHC RDW Plt Count Neut % (Auto) Lymph % (Auto) [facility] % (Auto) Eos % (Auto) Baso % (Auto) Neut # (Auto) Lymph # (Auto) [facility] # (Auto) Eos # (Auto) Baso # (Auto) APTT D-Dimer ABG pH ABG pCO2 ABG pO2 ABG HCO3 ABG Total CO2 ABG O2 Saturation ABG Base Excess FiO2 Sodium 139 Potassium 3.4 Chloride 102 Carbon Dioxide 22 BUN 20 Creatinine 1.36 H Estimated GFR 56 L BUN/Creatinine Ratio 14.7 Glucose 186 H Lactate 4.1 H* Calcium 8.7 Magnesium Troponin I Procalcitonin Urine Color Urine Appearance Urine pH Ur Specific [place] Urine Protein Urine Glucose (UA) Urine Ketones Urine Occult Blood Urine Nitrate Urine Bilirubin Urine Urobilinogen Ur Leukocyte Esterase Urine RBC Urine WBC Ur Transition Epith Cell Urine Bacteria Ur Culture Indicated? Nasal Screen MRSA (PCR) Negative for mrsa Chlamy pneumoniae PCR Adenovirus (PCR) B. pertussis DNA (PCR) B.parapertussis DNA PCR Coronavirus OC43 (PCR) Coronavirus HKU1 (PCR) Coronavirus 229E (PCR) SARS-CoV-2 (PCR) Coronavirus NL63 (PCR) Human Metapneumovir PCR Influenza A (RT-PCR) Influenza Type A (PCR) Influenza B (RT-PCR) Influenza Type B (PCR) M. pneumoniae (PCR) Parainfluenza 1 (PCR) Parainfluenza 2 (PCR) Parainfluenza 3 (PCR) Parainfluenza 4 (PCR) RSV (PCR) Entero/Rhino (PCR) 02/26/22 02/26/22 02/27/22 18:54 23:59 04:25 WBC RBC Hgb Hct MCV MCH MCHC RDW Plt Count Neut % (Auto) Lymph % (Auto) [facility] % (Auto) Eos % (Auto) Baso % (Auto) Neut # (Auto) Lymph # (Auto) [facility] # (Auto) Eos # (Auto) Baso # (Auto) APTT 56 H D 52 H D-Dimer ABG pH ABG pCO2 ABG pO2 ABG HCO3 ABG Total CO2 ABG O2 Saturation ABG Base Excess FiO2 Sodium Potassium Chloride Carbon Dioxide BUN Creatinine Estimated GFR BUN/Creatinine Ratio Glucose Lactate Calcium Magnesium Troponin I 0.112 H Procalcitonin Urine Color Urine Appearance Urine pH Ur Specific [place] Urine Protein Urine Glucose (UA) Urine Ketones Urine Occult Blood Urine Nitrate Urine Bilirubin Urine Urobilinogen Ur Leukocyte Esterase Urine RBC Urine WBC Ur Transition Epith Cell Urine Bacteria Ur Culture Indicated? Nasal Screen MRSA (PCR) Chlamy pneumoniae PCR Adenovirus (PCR) B. pertussis DNA (PCR) B.parapertussis DNA PCR Coronavirus OC43 (PCR) Coronavirus HKU1 (PCR) Coronavirus 229E (PCR) SARS-CoV-2 (PCR) Coronavirus NL63 (PCR) Human Metapneumovir PCR Influenza A (RT-PCR) Influenza Type A (PCR) Influenza B (RT-PCR) Influenza Type B (PCR) M. pneumoniae (PCR) Parainfluenza 1 (PCR) Parainfluenza 2 (PCR) Parainfluenza 3 (PCR) Parainfluenza 4 (PCR) RSV (PCR) Entero/Rhino (PCR) 02/27/22 02/27/22 02/27/22 04:25 04:25 04:25 WBC 10.6 RBC 4.85 Hgb 14.5 Hct 44.3 MCV 91.3 MCH 30.0 MCHC 32.9 RDW 15.2 H Plt Count 253 Neut % (Auto) 87.6 H Lymph % (Auto) 4.[address] % (Auto) 8.3 Eos % (Auto) 0.0 L Baso % (Auto) 0.1 Neut # (Auto) 9300 H Lymph # (Auto) [address] [facility] # (Auto) 900 Eos # (Auto) 0 Baso # (Auto) 0 APTT D-Dimer ABG pH ABG pCO2 ABG pO2 ABG HCO3 ABG Total CO2 ABG O2 Saturation ABG Base Excess FiO2 Sodium 141 Potassium 3.6 Chloride 102 Carbon Dioxide 28 BUN 23 H Creatinine 1.44 H Estimated GFR 52 L BUN/Creatinine Ratio 16.0 Glucose 112 H Lactate Calcium 9.2 Magnesium 2.0 Troponin I Procalcitonin Urine Color Urine Appearance Urine pH Ur Specific [place] Urine Protein Urine Glucose (UA) Urine Ketones Urine Occult Blood Urine Nitrate Urine Bilirubin Urine Urobilinogen Ur Leukocyte Esterase Urine RBC Urine WBC Ur Transition Epith Cell Urine Bacteria Ur Culture Indicated? Nasal Screen MRSA (PCR) Chlamy pneumoniae PCR Adenovirus (PCR) B. pertussis DNA (PCR) B.parapertussis DNA PCR Coronavirus OC43 (PCR) Coronavirus HKU1 (PCR) Coronavirus 229E (PCR) SARS-CoV-2 (PCR) Coronavirus NL63 (PCR) Human Metapneumovir PCR Influenza A (RT-PCR) Influenza Type A (PCR) Influenza B (RT-PCR) Influenza Type B (PCR) M. pneumoniae (PCR) Parainfluenza 1 (PCR) Parainfluenza 2 (PCR) Parainfluenza 3 (PCR) Parainfluenza 4 (PCR) RSV (PCR) Entero/Rhino (PCR) 02/27/22 04:25 WBC RBC Hgb Hct MCV MCH MCHC RDW Plt Count Neut % (Auto) Lymph % (Auto) [facility] % (Auto) Eos % (Auto) Baso % (Auto) Neut # (Auto) Lymph # (Auto) [facility] # (Auto) Eos # (Auto) Baso # (Auto) APTT D-Dimer ABG pH ABG pCO2 ABG pO2 ABG HCO3 ABG Total CO2 ABG O2 Saturation ABG Base Excess FiO2 Sodium Potassium Chloride Carbon Dioxide BUN Creatinine Estimated GFR BUN/Creatinine Ratio Glucose Lactate 1.7 Calcium Magnesium Troponin I Procalcitonin Urine Color Urine Appearance Urine pH Ur Specific [place] Urine Protein Urine Glucose (UA) Urine Ketones Urine Occult Blood Urine Nitrate Urine Bilirubin Urine Urobilinogen Ur Leukocyte Esterase Urine RBC Urine WBC Ur Transition Epith Cell Urine Bacteria Ur Culture Indicated? Nasal Screen MRSA (PCR) Chlamy pneumoniae PCR Adenovirus (PCR) B. pertussis DNA (PCR) B.parapertussis DNA PCR Coronavirus OC43 (PCR) Coronavirus HKU1 (PCR) Coronavirus 229E (PCR) SARS-CoV-2 (PCR) Coronavirus NL63 (PCR) Human Metapneumovir PCR Influenza A (RT-PCR) Influenza Type A (PCR) Influenza B (RT-PCR) Influenza Type B (PCR) M. pneumoniae (PCR) Parainfluenza 1 (PCR) Parainfluenza 2 (PCR) Parainfluenza 3 (PCR) Parainfluenza 4 (PCR) RSV (PCR) Entero/Rhino (PCR) [facility] Medical History BPH (benign prostatic hyperplasia) CHF (congestive heart failure) COPD (chronic obstructive pulmonary disease) History of stroke Hyperlipidemia Neuropathy Obesity (BMI 30-39.9) Surgical History History of shoulder surgery Family History Father Heart attack Sister AA (aortic aneurysm) Social History household members: none Smoking Status: Current every day smoker Assessment & Plan Assessment & Plan narrative: # Acute hypoxic resp failure secondary to acute influenza A with sepsis -positive flu on resp PCR, likely explains fevers, with end-organ damage indicated by elevated Cr and elev troponin -required intermittent Bipap, now on oxymask -apprecaite tele-ICU consultation -continue Zosyn and azithro for possible superimposed bacterial pneumonia, lots of wheezing will add prednisone and duonebs -hospital out of tamiflu supply -wean O2 as able -once JEISON improves will consider CTPA to rule out PE given echo findings of pulmonary HTN and septal flattening suggesting RV overload, RVSP 45 -obtain DVT LE US # lactic acidosis, resolved -LA 6 and now downtrending with fluids -now 1.7 # JEISON -Cr 1.36 on admission with baseline of 1 -likely hypovolemic given lactic acidosis, NS boluses given -monitor and avoid nephrotoxic agents -nonobstructive as white present, will obtain renal US # myocardial injury due to sepsis -troponin elevated to 0.171 and now downtrending -cardiology recommended [id number] of heparin drip -echo reassuring # history of HFpEF -echo findings as above -hold home Lasix # h/o stroke with left sided hemiparesis -continue ASA, statin and fibrate # depression -continue home sertraline and risperidone # obesity -bariatric precautions Code status is DNR. COVID negative.? Influenza A positive. DVT prophylaxis with heparin drip. Proxy is carl Aranda. Dispo: 2-3 days pending improvement in resp failure and JEISON. Time Spent With Patient Critical Care time: I spent a total of [] minutes of critical care time on this patient's care today; this time is exclusive of procedural time.
--- NOTE | 2022-02-27 08:42 | DI.US.S_ITS ---
PROCEDURE: US RENAL COMPLETE INDICATIONS: uptrending Cr, rule out obstruction TECHNIQUE: Real-time scanning was performed of the kidneys and bladder, with image documentation. COMPARISON: None. FINDINGS: Suboptimal examination due to patient body habitus. Kidneys: Kidneys are normal in size. Right kidney measures 11.3 cm long; left kidney measures 10.3 cm long. Right renal cortical thickness is 2.0 cm; left renal cortical thickness is 1.5 cm. No hydronephrosis or nephrolithiasis. Bladder: Not well visualized, decompressed by Jimenez catheter Miscellaneous: No free pelvic fluid. IMPRESSION: No hydronephrosis. Dictated by: Beltran Jaimes M.D. on 02/27/2022 at 11:06 Approved by: Beltran Jaimes M.D. on 02/27/2022 at 11:08
--- NOTE | 2022-02-27 08:46 | DI.US.S_ITS ---
PROCEDURE: US PERIPH VENOUS LOW EXTREM BI INDICATIONS: rule out DVT TECHNIQUE: Real-time imaging, as well as color and pulse Doppler interrogation, were performed of the deep veins of both legs from the inguinal ligament to the popliteal fossa. COMPARISON: None. FINDINGS: Right: The common femoral, femoral and popliteal veins are normally compressible, and free of intraluminal thrombus. Color and pulse Doppler demonstrate normal phasic intravascular flow. There is normal augmentation response to distal compression maneuver. Left: There is noncompressible clot present in the proximal superficial femoral vein (deep vein of the thigh). The midthigh and distal thigh SFA the is not well evaluated secondary to body habitus. There is thrombus present in the popliteal vein, which is nonocclusive. IMPRESSION: Left lower extremity DVT at the knee and in the thigh. No right lower extremity DVT. Dictated by: Jm Birch M.D. on 02/27/2022 at 10:59 Approved by: Jm Birch M.D. on 02/27/2022 at 11:17
[2022-02-27 09:20] LABS: Procalcitonin 0.29 ng/mL (<0.5)
[2022-02-27] MEDS: predniSONE 20 MG TABLET 40 MG PO (09:20)
[2022-02-27] MEDS: ALBUTEROL/IPRATROPIUM 3 ML AMPUL INH (09:59)
[2022-02-27] MEDS: HEPARIN DRIP 25,000 UNIT/500 ML IV.SOLN 18 UNIT IV (11:08)
--- NOTE | 2022-02-27 11:08 | PC.NURSE ---
notified of pink/peach-tinged urine while on Heparin gtt. No interventions at this time.
--- NOTE | 2022-02-27 11:37 | CM.DANOTE ---
DCP Assessment: Payor confirmed: Medicare & [facility] PCP confirmed: [facility] Provider Pt is a 71 y.o. M who presented to the ER with shortness of breath. Pt positive for flu. Pt brought up to the ICU for management of his oxygenation and diagnosis. DCP met with pt this morning to discuss needs. DCP introduced self and role. Pt lives at [facility]. Pt uses a motorized wheelchair at baseline. Pt is a smoker. Pt emergency contact is his son, Manoj. Pt wanting to discharge as soon as possible and states, I have made a deal with Dr. Oconnor that I will get discharged tomorrow morning. DCP states that she would need to contact the living facility to discuss returning home. Pt requesting that when they pick him up to bring his wheelchair, pair of shoes, and jacket. DCP will follow up with [facility]. Pt denies any resources at this time. DCP to continue working with care team on discharge needs. Pt thankful for discussion. DCP left voicemail at [facility] for a call back. P: Anticipate discharge back to [facility] within 1-2 days. DCP to continue to follow. Nan Stone RN/SUZY Discharge Planning/Care Management CM Discharge Assessment Start: 02/27/22 11:32 Freq: Status: Active Protocol: Document 02/27/22 11:34 NUVIA (Rec: 02/27/22 11:35 NUVIA [id number]) Discharge Planning Assessment Assigned Panel Cutter Nan Stone RN/SZUY Advance Directives? No History Provided By Patient,Medical Record Prior Living Arrangements Assisted Living Comment [facility] Household Members none Type of transporation used prior to Relies on Others admit Facility Name Admitted From: [facility] Willing to Return to Facility? Yes Independent with ADL's Yes Is patient alert and oriented? Yes Caregiver for Another No DME Already Rented / Owned Wheelchair Comment ADA DME in facility Discharge Plan Assisted Living Facility Transportation Arrangement [facility] Whiteboard Updated in Patient Room with No name and ext. # of Panel Cutter Review Status In Process Please Provide Date Initial DC 02/27/22 Assessment Was Performed Next Review Type Continued Stay Review
[2022-02-27] MEDS: AZITHROMYCIN 500 MG in DEXTROSE 5% IN WATER 250 ML 250 MG IV (12:18)
[2022-02-27] MEDS: NICOTINE 21 MG PATCH TOP (12:52)
[2022-02-27] MEDS: HEPARIN 5,000 UNIT/ML VIAL 2000 UNIT IV (14:37)
[2022-02-27] MEDS: HEPARIN DRIP 25,000 UNIT/500 ML IV.SOLN 20 UNIT IV (14:41)
--- NOTE | 2022-02-27 14:54 | PC.NURSE ---
Heparin gtt changed from cardiac to non-cardiac protocol d/t new finding of LLE DVT. Per protocol and based on previous PTT 52, administered 2000u bolus and increased rate by 100u/hr. Will check PTT in 6 hrs.
[2022-02-27] MEDS: risperiDONE 1 MG TABLET PO (22:00)
[2022-02-27] MEDS: ATORVASTATIN 20 MG TABLET PO (22:01)
[2022-02-27] MEDS: MELATONIN 3 MG TABLET 6 MG PO (22:01)
[2022-02-27] MEDS: TAMSULOSIN 0.4 MG CAPSULE PO (22:01)
[2022-02-27 22:18] LABS: PTT Partial Thromboplastin Tim 126 SECONDS (26-36)
[2022-02-28] VITALS (31 sets, daily range): BP systolic 104–133; BP diastolic 55–83; PULSE 65–95; RESP 20–56; TEMP 35.9–36.7; O2SAT 61–98
[2022-02-28] MEDS: ALBUTEROL/IPRATROPIUM 3 ML AMPUL INH ×3 (00:50→22:25)
[2022-02-28] MEDS: PIPERACILLIN/TAZO 3.375 GM in SODIUM CHLORIDE 0.9% 100 ML IV ×3 (05:31→21:25)
[2022-02-28 05:44] LABS: Add Manual Diff / Slide Review NO; Basophils Absolute Auto 0 /uL (0-100); Basophils Percent Auto 0.2 % (0-2); Eosinophils Absolute Auto 0 /uL (0-450); Hematocrit 39.6 % (41-53); Lymphocytes Absolute Auto 900 /uL (1100-4500); Lymphocytes Percent Auto 13.4 % (25-40); Mean Corpuscular Hemoglobin 30.4 PG (26-34); Mean Corpuscular Volume 92.3 fL (80-100); Monocytes Absolute Auto 600 /uL (0-900); Monocytes Percent Auto 8.5 % (3-14); Neutrophils Absolute Auto 5300 /uL (1500-7000); Neutrophils Percent Auto 77.9 % (50-75); Platelet Count 228 X10^3/uL (150-400); Red Blood Cell Count 4.29 X10^6/uL (4.5-5.9); Red Cell Distribution Width 15.2 % (11.6-14.8); White Blood Cell Count 6.8 X10^3/uL (4.5-11.0)
[2022-02-28 05:57] LABS: BUN Creatinine Ratio 18.6 (6-22); Blood Urea Nitrogen 22 mg/dL (9-20); Calcium 8.7 mg/dL (8.4-10.2); Carbon Dioxide 28 mmol/L (22-32); Chloride 105 mmol/L (98-107); Estimated Glomerular Filt Rate > 60 mL/min (>60); Glucose 106 mg/dL (80-110); HEMOLYSIS < 15 (0-50); Potassium 3.8 mmol/L (3.4-5.1); Sodium 140 mmol/L (137-145)
[2022-02-28 06:02] LABS: Magnesium 2.2 mg/dL (1.6-2.3)
[2022-02-28 06:47] LABS: PTT Partial Thromboplastin Tim 112 SECONDS (26-36)
--- NOTE | 2022-02-28 06:49 | PC.NURSE ---
Senior It Specialist Note-Patient continues to want to leave AMA, deescalated and is sometimes understanding of illness. Remains on HHF 30%/40L, SpO2 >92%, faint exp wheezes anteriorly, neb tx. Heparin gtt continues per protocol, hematuria in MD Tony aware, incontinent 3 large loose stools.
[2022-02-28] MEDS: predniSONE 20 MG TABLET 40 MG PO (09:40)
[2022-02-28] MEDS: POTASSIUM CHLORIDE 20 MEQ TAB PO (09:40)
[2022-02-28] MEDS: NICOTINE 21 MG PATCH TOP (09:40)
[2022-02-28] MEDS: SERTRALINE 50 MG TABLET 75 MG PO (09:40)
[2022-02-28] MEDS: GABAPENTIN 600 MG TABLET PO ×2 (09:40→21:25)
[2022-02-28] MEDS: PANTOPRAZOLE 40 MG VIAL IV (09:40)
[2022-02-28] MEDS: FENOFIBRATE, MICRONIZED 67 MG CAPSULE 134 MG PO (11:02)
--- NOTE | 2022-02-28 11:28 | PC.NURSE ---
At start of shift, pt Heparin gtt infusing at 700u/hr (14mL/hr) according to the protocol. Heparin gtt in MAR did not reflect this value. Adjusted accordingly in MAR to reflect accurate infusion rate.
[2022-02-28] MEDS: APIXABAN 5 MG TABLET 10 MG PO ×2 (12:25→21:25)
[2022-02-28] MEDS: AZITHROMYCIN 500 MG in DEXTROSE 5% IN WATER 250 ML 250 MG IV (12:26)
--- NOTE | 2022-02-28 12:39 | CM.DPC ---
DCP Cont: Per MD, pt medically stable for discharge. DCP contacted [facility] and they informed me that they cannot do an assessment until tomorrow @ 1000. DCP informed MD. Anticipate discharge back to [facility] tomorrow. Nan Stone RN/ZOILAP
--- NOTE | 2022-02-28 14:50 | PM.PN.1 ---
Subjective Subjective Date Patient Seen: 02/28/22 Interval history: Patient now off O2. Wants to go home today but [facility] cannot do eval req to go home until tomorrow. Discussed anticoag for his LLE DVT and patient notes he was previously on Xarelto several years ago but it was stopped due to melena. He is willing to try xarelto again and if he bleeds again will stop it. Exam Vital Signs (past 8 hours): - 02/28/22 07:00 02/28/22 07:01 02/28/22 07:01 Pulse Rate 72 74 Respiratory Rate 25 H 27 H Blood Pressure 121/62 Pulse Oximetry 95 96 Oxygen Delivery Method Oxygen Flow Rate 02/28/22 09:57 02/28/22 08:00 02/28/22 08:00 Pulse Rate 65 Respiratory Rate 30 H Blood Pressure 109/55 L Pulse Oximetry 96 97 Oxygen Delivery Method Room Air Oxygen Flow Rate 0 02/28/22 09:00 02/28/22 09:00 02/28/22 10:00 Pulse Rate 94 H Respiratory Rate 33 H Blood Pressure 121/72 112/76 Pulse Oximetry 92 Oxygen Delivery Method Oxygen Flow Rate 02/28/22 10:00 02/28/22 09:45 02/28/22 12:12 Pulse Rate 90 89 Respiratory Rate 25 H 20 Blood Pressure Pulse Oximetry 95 93 Oxygen Delivery Method Room Air Room Air Oxygen Flow Rate 02/28/22 13:00 02/28/22 14:44 Pulse Rate Respiratory Rate Blood Pressure Pulse Oximetry 93 Oxygen Delivery Method Room Air Nasal Cannula Oxygen Flow Rate 4 Fraction of Inspired Oxygen 35 Oxygen Delivery Method Nasal Cannula Oxygen Flow Rate 4 Narrative Exam Narrative: GEN: diaphoretic, NAD, on room air HEENT: moist mucous membranes, PERRL NECK: trachea midline, no JVD CV: regular rate and rhythm, no murmurs PULM: bilateral diffuse wheezes improved ABD: soft, nontender, nondistended, no organomegaly EXT: warm and well perfused with no edema NEURO: awake, alert, oriented, no focal deficits Objective Labs Result Diagrams: 02/28/22 04:43 02/28/22 04:43 Labs: Laboratory Results - last 24 hr 02/27/22 02/28/22 02/28/22 21:47 04:43 04:43 WBC RBC Hgb Hct MCV MCH MCHC RDW Plt Count Neut % (Auto) Lymph % (Auto) [place] % (Auto) Eos % (Auto) Baso % (Auto) Neut # (Auto) Lymph # (Auto) [place] # (Auto) Eos # (Auto) Baso # (Auto) APTT 126 H* D Sodium Potassium Chloride Carbon Dioxide BUN Creatinine Estimated GFR BUN/Creatinine Ratio Glucose Lactate 1.0 Calcium Magnesium 2.2 02/28/22 02/28/22 02/28/22 04:43 04:43 04:43 WBC 6.8 RBC 4.29 L Hgb 13.0 L Hct 39.6 L MCV 92.3 MCH 30.4 MCHC 33.0 RDW 15.2 H Plt Count 228 Neut % (Auto) 77.9 H Lymph % (Auto) 13.4 L [place] % (Auto) 8.5 Eos % (Auto) 0.0 L Baso % (Auto) 0.2 Neut # (Auto) 5300 Lymph # (Auto) 900 L [place] # (Auto) 600 Eos # (Auto) 0 Baso # (Auto) 0 APTT 112 H* Sodium 140 Potassium 3.8 Chloride 105 Carbon Dioxide 28 BUN 22 H Creatinine 1.18 Estimated GFR > 60 BUN/Creatinine Ratio 18.6 Glucose 106 Lactate Calcium 8.7 Magnesium PFSH Medical History BPH (benign prostatic hyperplasia) CHF (congestive heart failure) COPD (chronic obstructive pulmonary disease) History of stroke Hyperlipidemia Neuropathy Obesity (BMI 30-39.9) Surgical History History of shoulder surgery Family History Father Heart attack Sister AA (aortic aneurysm) Social History household members: none Smoking Status: Current every day smoker Assessment & Plan Assessment & Plan narrative: # Acute hypoxic resp failure secondary to acute influenza A with sepsis, improving -positive flu on resp PCR, likely explains fevers, with end-organ damage indicated by elevated Cr and elev troponin -required intermittent Bipap, now on oxymask -apprecaite tele-ICU consultation -continue Zosyn and azithro for possible superimposed bacterial pneumonia, lots of wheezing added prednisone and duonebs -hospital out of tamiflu supply -wean O2 as able -echo findings of pulmonary HTN and septal flattening suggesting RV overload, RVSP 45. Possibly due to advanced COPD as patient continues to smoke. # LLE DVT -doppler US on 02/27 with DVT at the knee and thigh -started on xarelto as patient on this previously for a PE -monitor for bleeding as had melena years ago while on xarelto # lactic acidosis, resolved -LA 6 and now downtrending with fluids -now 1.7 # JEISON, resolved -Cr 1.36 on admission with baseline of 1 -likely hypovolemic given lactic acidosis, NS boluses given -monitor and avoid nephrotoxic agents -renal US negative # myocardial injury due to sepsis -troponin elevated to 0.171 and now downtrending -cardiology recommended [id number] of heparin drip -echo reassuring # history of HFpEF -echo findings as above -hold home Lasix # h/o stroke with left sided hemiparesis -continue xarelto, statin and fibrate # depression -continue home sertraline and risperidone # obesity -bariatric precautions Code status is DNR. COVID negative.? Influenza A positive. DVT prophylaxis with heparin drip. Proxy is son Manoj. Dispo: Back to [facility] on 03/01. Time Spent With Patient Critical Care time: I spent a total of [] minutes of critical care time on this patient's care today; this time is exclusive of procedural time.
[2022-02-28] MEDS: TAMSULOSIN 0.4 MG CAPSULE PO (21:25)
[2022-02-28] MEDS: MELATONIN 3 MG TABLET 6 MG PO (21:25)
[2022-02-28] MEDS: ATORVASTATIN 20 MG TABLET PO (21:25)
[2022-02-28] MEDS: risperiDONE 1 MG TABLET PO (21:25)
[2022-02-28] MEDS: SODIUM CHLORIDE 0.9% FLUSH 10 ML IV (21:27)
[2022-03-01] VITALS (7 sets, daily range): BP systolic 118–131; BP diastolic 63–83; PULSE 59–74; RESP 19–31; TEMP 36.4–37; O2SAT 90–96
--- NOTE | 2022-03-01 | DI.CT.S_ITS ---
PROCEDURE: CT ANGIO CHEST PE PROTOCOL INDICATIONS: DVT, influenza A, eval for PE TECHNIQUE: After the administration of intravenous contrast, 2 mm thick sections acquired from the pulmonary apices to the posterior costophrenic angles. 3-dimensional maximum intensity projection (MIP) coronal and sagittal reformats were then acquired through the thorax. For radiation dose reduction, the following was used: automated exposure control, adjustment of mA and/or kV according to patient size. COMPARISON: None. FINDINGS: Image quality: Excellent. Pulmonary arteries: Pulmonary arteries are normal in size, and demonstrate small intraluminal filling defects involving the right lower lobe and left lower lobe subsegmental arteries, consistent with pulmonary embolism. Lungs and pleura: There is left hemidiaphragm elevation. Left lower lobe consolidation suspicious for pneumonia. There is mild right middle lobe infiltrate. Bibasilar atelectasis. Cystic change is noted in right middle lobe. There is trace left pleural effusion. No pneumothorax. Central and peripheral airways are patent. Mediastinum: Heart size is mildly increased. No pericardial effusion. There is moderate coronary artery calcification. No mediastinal or hilar adenopathy. Thoracic aorta is normal in caliber and enhancement. Esophagus is normal in caliber, without hiatal hernia. Bones and chest wall: No suspicious bony lesions. Ribs and thoracic spine appear intact throughout. Thyroid gland is unremarkable. No axillary or supraclavicular adenopathy. Abdomen: There is IV contrast reflux into the hepatic vein. IMPRESSION: 1. Small bilateral pulmonary emboli are seen involving both lower lobes. 2. Left lower lobe consolidation and small right pleural effusion, suspicious for pneumonia. A differential diagnosis is pulmonary infarct. 3. Mild infiltrate in the right middle lobe suspicious for pneumonia. 4. Mild cardiomegaly. There is moderate coronary artery atherosclerosis. 5. Reflux of IV contrast into the hepatic vein suggesting right heart strain. The result was discussed with Dr. Frazier. Dictated by: Zaid Guevara M.D. on 03/01/2022 at 12:26 Approved by: Zaid Guevara M.D. on 03/01/2022 at 12:41
[2022-03-01 05:14] LABS: Magnesium 2.1 mg/dL (1.6-2.3)
[2022-03-01 05:15] LABS: BUN Creatinine Ratio 19.3 (6-22); Blood Urea Nitrogen 21 mg/dL (9-20); Calcium 8.8 mg/dL (8.4-10.2); Carbon Dioxide 28 mmol/L (22-32); Chloride 106 mmol/L (98-107); Estimated Glomerular Filt Rate > 60 mL/min (>60); Glucose 104 mg/dL (80-110); HEMOLYSIS < 15 (0-50); Potassium 3.7 mmol/L (3.4-5.1); Sodium 139 mmol/L (137-145)
[2022-03-01] MEDS: PIPERACILLIN/TAZO 3.375 GM in SODIUM CHLORIDE 0.9% 100 ML IV ×3 (05:16→21:36)
[2022-03-01] MEDS: PANTOPRAZOLE DR 40 MG TABLET PO (05:16)
[2022-03-01 05:18] LABS: Add Manual Diff / Slide Review NO; Basophils Absolute Auto 0 /uL (0-100); Basophils Percent Auto 0.3 % (0-2); Eosinophils Absolute Auto 0 /uL (0-450); Eosinophils Percent Auto 0.1 % (2-4); Hematocrit 38.9 % (41-53); Hemoglobin 12.8 g/dL (13.5-17.5); Lymphocytes Absolute Auto 900 /uL (1100-4500); Lymphocytes Percent Auto 15.6 % (25-40); Mean Corpuscular HGB Conc 32.9 % (30-36); Mean Corpuscular Hemoglobin 30.2 PG (26-34); Mean Corpuscular Volume 91.9 fL (80-100); Monocytes Absolute Auto 500 /uL (0-900); Monocytes Percent Auto 8.3 % (3-14); Neutrophils Absolute Auto 4400 /uL (1500-7000); Neutrophils Percent Auto 75.7 % (50-75); Platelet Count 202 X10^3/uL (150-400); Red Blood Cell Count 4.24 X10^6/uL (4.5-5.9); Red Cell Distribution Width 15.2 % (11.6-14.8); White Blood Cell Count 5.9 X10^3/uL (4.5-11.0)
--- NOTE | 2022-03-01 08:08 | P.PN_ITS ---
Subjective Subjective Interval history: 71-year-old gentleman with chronic congestive heart failure with preserved ejection fraction, COPD, stroke in 2016 with resultant left-sided hemiparesis/wheelchair-bound, tobacco dependence, BPH, and class 1 obesity admitted with acute hypoxic respiratory failure secondary to acute influenza a, sepsis, JEISON, myocardial injury due to sepsis. He was subsequently found to have evidence of left lower extremity DVT at the knee and in the thigh on February 27 and was initiated on anticoagulation. Patient has been needing oxygen intermittently. He states he had been hopeful to discharge back to [facility] living [facility], but that has been delayed as the facility wanted to assess him in person. Patient states he is feeling better overall. He states that he does not feel particularly short of breath. He notes he has had edema in his left leg since his stroke. He reports he was requiring oxygen last evening but has been off today. Exam Vital Signs (past 8 hours): - 03/01/22 17:05 Temperature 97.6 F Pulse Rate 66 Respiratory Rate 31 H Blood Pressure 131/83 Pulse Oximetry 96 Oxygen Flow Rate 3 Fraction of Inspired Oxygen 35 Oxygen Delivery Method Nasal Cannula Oxygen Flow Rate 3 Narrative Exam Narrative: GEN: Pleasant middle-aged male, Alert and oriented x 3, NAD HEENT:NC, Face symmetric CHEST: Mildly tachypneic, Respiratory excursions symmetric, scattered diffuse expiratory wheezes CV: RRR, no M/R/G ABD: Soft, obese, NT/ND, BT present in all 4 quadrants, body habitus limits exam EXTR: warm, well perfused, no C/C, 2+ left lower extremity edema, no edema on the right SKIN: warm and dry, no rash NEURO: Alert and oriented x 3 Objective Labs Result Diagrams: 03/01/22 04:19 03/01/22 04:19 Labs: Laboratory Results - last 24 hr 03/01/22 03/01/22 03/01/22 04:19 04:19 04:19 WBC 5.9 RBC 4.24 L Hgb 12.8 L Hct 38.9 L MCV 91.9 MCH 30.2 MCHC 32.9 RDW 15.2 H Plt Count 202 Neut % (Auto) 75.7 H Lymph % (Auto) 15.6 L [place] % (Auto) 8.3 Eos % (Auto) 0.1 L Baso % (Auto) 0.3 Neut # (Auto) 4400 Lymph # (Auto) 900 L [place] # (Auto) 500 Eos # (Auto) 0 Baso # (Auto) 0 Sodium 139 Potassium 3.7 Chloride 106 Carbon Dioxide 28 BUN 21 H Creatinine 1.09 Estimated GFR > 60 BUN/Creatinine Ratio 19.3 Glucose 104 Calcium 8.8 Magnesium 2.1 ON LICENSE OF [facility] Medical History BPH (benign prostatic hyperplasia) CHF (congestive heart failure) COPD (chronic obstructive pulmonary disease) History of stroke Hyperlipidemia Neuropathy Obesity (BMI 30-39.9) Surgical History History of shoulder surgery Family History Father Heart attack Sister AA (aortic aneurysm) Social History household members: none Smoking Status: Current every day smoker Assessment & Plan Assessment & Plan narrative: 1. Acute hypoxic respiratory failure secondary to influenza a Patient did require some nocturnal oxygen last night but is stable 96% on room air presently. Will have respiratory therapy do an oxygen evaluation. Etiology is felt to be influenza A. Has been on Zosyn and azithromycin for possible superimposed bacterial pneumonia. He has had significant reactivity with his airways and has been treated with prednisone and DuoNebs. Tamiflu is not available as hospital supply has been exhausted. Echo did show evidence of pulmonary hypertension and septal flattening suggesting RV overload, RVSP was 45. Discussed the case with Dr. Hendrix, who oversees [facility] as their director medical safety. She requests a CT pulmonary angiogram to evaluate for underlying pulmonary embolus. This has been ordered. 2. Influenza a Continuing supportive care as noted. Tested positive 3 days ago. Should he return to his facility, he require isolation for an additional 48 hours. 3. Left lower extremity DVT Continue Xarelto. Patient reports prior history of pulmonary embolism. As noted, CTPA has been ordered and is pending. 4. Myocardial injury due to sepsis Troponin was 0.171 but subsequently down trended. Patient did receive 48 hours of heparin. Echo was reassuring. No further follow-up needed. 5. Chronic congestive heart failure with preserved ejection fraction Home dose of Lasix has been held since admission. Anticipate this can be r estarted in the next 24 hours 6. Previous stroke with left-sided hemiparesis Patient is wheelchair-bound at baseline. Continue statin and fibrate. 7. Class 1 obesity BMI is 34.4. He would benefit from weight reduction, though with his physical limitations this may be challenging. Resolved issues: JEISON Lactic acidosis Code status DNR Prophylaxis On Xarelto Disposition Patient likely will not be able to discharge back to his assisted living facility until oxygen can be coordinated and results of the CT are available. Time Spent With Patient Critical Care time: I spent a total of [] minutes of critical care time on this patient's care today; this time is exclusive of procedural time.
[2022-03-01] MEDS: APIXABAN 5 MG TABLET 10 MG PO ×2 (09:14→21:04)
[2022-03-01] MEDS: POTASSIUM CHLORIDE 20 MEQ TAB PO (09:15)
[2022-03-01] MEDS: FENOFIBRATE, MICRONIZED 67 MG CAPSULE 134 MG PO (09:15)
[2022-03-01] MEDS: GABAPENTIN 600 MG TABLET PO ×2 (09:15→21:04)
[2022-03-01] MEDS: predniSONE 20 MG TABLET 40 MG PO (09:15)
[2022-03-01] MEDS: SERTRALINE 50 MG TABLET 75 MG PO (09:15)
[2022-03-01] MEDS: NICOTINE 21 MG PATCH TOP (09:15)
[2022-03-01] MEDS: SODIUM CHLORIDE 0.9% FLUSH 10 ML IV ×2 (09:18→21:05)
--- NOTE | 2022-03-01 14:36 | CM.DPC ---
DCP Cont: Pt was supposed to discharge back to [facility] today. The [facility] bi technical lead came by and assessed patient and determined that pt was not safe to transport back today. PCP and hospitalist had a discussion and more testing and care was determined. Spoke with Dr. Frazier and she explained that the CT showed PE's and suspicion for pneumonia. also expressed that [facility] is ordering Tamiflu and bringing it up to the hospital to provide to the patient since hospital is out of Tamiflu. states the patient will be here until Friday. Nan Stone RN/DCP
[2022-03-01] MEDS: OSELTAMIVIR 75 MG CAPSULE PO (16:33)
--- NOTE | 2022-03-01 17:27 | P.PN_ITS ---
Exam Vital Signs (past 8 hours): - 03/01/22 17:05 Temperature 97.6 F Pulse Rate 66 Respiratory Rate 31 H Blood Pressure 131/83 Pulse Oximetry 96 Oxygen Flow Rate 3 Fraction of Inspired Oxygen 35 Oxygen Delivery Method Nasal Cannula Oxygen Flow Rate 3 Objective Labs Result Diagrams: 03/01/22 04:19 03/01/22 04:19 Labs: Laboratory Results - last 24 hr 03/01/22 03/01/22 03/01/22 04:19 04:19 04:19 WBC 5.9 RBC 4.24 L Hgb 12.8 L Hct 38.9 L MCV 91.9 MCH 30.2 MCHC 32.9 RDW 15.2 H Plt Count 202 Neut % (Auto) 75.7 H Lymph % (Auto) 15.6 L [place] % (Auto) 8.3 Eos % (Auto) 0.1 L Baso % (Auto) 0.3 Neut # (Auto) 4400 Lymph # (Auto) 900 L [place] # (Auto) 500 Eos # (Auto) 0 Baso # (Auto) 0 Sodium 139 Potassium 3.7 Chloride 106 Carbon Dioxide 28 BUN 21 H Creatinine 1.09 Estimated GFR > 60 BUN/Creatinine Ratio 19.3 Glucose 104 Calcium 8.8 Magnesium 2.1 [facility] Medical History BPH (benign prostatic hyperplasia) CHF (congestive heart failure) COPD (chronic obstructive pulmonary disease) History of stroke Hyperlipidemia Neuropathy Obesity (BMI 30-39.9) Surgical History History of shoulder surgery Family History Father Heart attack Sister AA (aortic aneurysm) Social History household members: none Smoking Status: Current every day smoker Assessment & Plan Assessment & Plan narrative: Addendum to progress note: Note was just signed off but has not yet appeared into the progress notes. CTPA did reveal evidence of small pulmonary emboli. Reviewed again with Dr. Hendrix. She recommends patient remained in the hospital until next week. Facility also plans to fill a prescription for Tamiflu and bring it to the hospital for patient to use. Time Spent With Patient Critical Care time: I spent a total of [] minutes of critical care time on this patient's care today; this time is exclusive of procedural time.
[2022-03-01] MEDS: MELATONIN 3 MG TABLET 6 MG PO (21:04)
[2022-03-01] MEDS: ATORVASTATIN 20 MG TABLET PO (21:04)
[2022-03-01] MEDS: risperiDONE 1 MG TABLET PO (21:04)
[2022-03-01] MEDS: TAMSULOSIN 0.4 MG CAPSULE PO (21:04)
[2022-03-02] VITALS (8 sets, daily range): BP systolic 130–142; BP diastolic 65–74; PULSE 49–66; RESP 22–25; TEMP 36.2–37.1; O2SAT 92–98
[2022-03-02] MEDS: ALBUTEROL/IPRATROPIUM 3 ML AMPUL INH (00:40)
[2022-03-02 05:01] LABS: Add Manual Diff / Slide Review NO; Basophils Absolute Auto 0 /uL (0-100); Basophils Percent Auto 0.1 % (0-2); Eosinophils Absolute Auto 0 /uL (0-450); Hematocrit 41.1 % (41-53); Hemoglobin 13.3 g/dL (13.5-17.5); Lymphocytes Absolute Auto 800 /uL (1100-4500); Lymphocytes Percent Auto 15.4 % (25-40); Mean Corpuscular HGB Conc 32.4 % (30-36); Mean Corpuscular Volume 92.7 fL (80-100); Monocytes Absolute Auto 400 /uL (0-900); Monocytes Percent Auto 7.8 % (3-14); Neutrophils Absolute Auto 3800 /uL (1500-7000); Neutrophils Percent Auto 76.7 % (50-75); Platelet Count 205 X10^3/uL (150-400); Red Blood Cell Count 4.43 X10^6/uL (4.5-5.9); Red Cell Distribution Width 15.5 % (11.6-14.8)
[2022-03-02 05:05] LABS: BUN Creatinine Ratio 17.6 (6-22); Blood Urea Nitrogen 18 mg/dL (9-20); Calcium 8.9 mg/dL (8.4-10.2); Carbon Dioxide 28 mmol/L (22-32); Chloride 105 mmol/L (98-107); Estimated Glomerular Filt Rate > 60 mL/min (>60); Glucose 125 mg/dL (80-110); HEMOLYSIS 18 (0-50); Potassium 4.5 mmol/L (3.4-5.1); Sodium 140 mmol/L (137-145)
[2022-03-02] MEDS: PIPERACILLIN/TAZO 3.375 GM in SODIUM CHLORIDE 0.9% 100 ML IV ×2 (05:24→13:25)
[2022-03-02] MEDS: PANTOPRAZOLE DR 40 MG TABLET PO (07:03)
[2022-03-02] MEDS: POTASSIUM CHLORIDE 20 MEQ TAB PO (08:20)
[2022-03-02] MEDS: SODIUM CHLORIDE 0.9% FLUSH 10 ML IV ×2 (08:20→20:43)
[2022-03-02] MEDS: predniSONE 20 MG TABLET 40 MG PO (08:20)
[2022-03-02] MEDS: SERTRALINE 50 MG TABLET 75 MG PO (08:20)
[2022-03-02] MEDS: FENOFIBRATE, MICRONIZED 67 MG CAPSULE 134 MG PO (08:20)
[2022-03-02] MEDS: GABAPENTIN 600 MG TABLET PO ×2 (08:20→20:43)
[2022-03-02] MEDS: APIXABAN 5 MG TABLET 10 MG PO ×2 (08:20→20:43)
[2022-03-02] MEDS: OSELTAMIVIR 75 MG CAPSULE PO ×2 (08:28→20:43)
--- NOTE | 2022-03-02 08:29 | PM.PN.1 ---
Subjective Subjective Date Patient Seen: 03/02/22 Interval history: He is seen today to follow-up the influenza A related hypoxia and chronic weakness. He wishes to discharge to [facility] so he can use his power chair to go outside in the fresh air. His ability to understand the reasons for their delay in accepting him back seems to be limited. The CTA of the chest shows bilateral PE in the lower lobes. It is not clear if this is residual of his prior PE or new as he has continued on anticoagulation, apparently. Exam Vital Signs (past 8 hours): - 03/02/22 00:40 03/02/22 04:00 Temperature 97.6 F Pulse Rate 53 L 62 Respiratory Rate 24 24 Blood Pressure 142/70 H Pulse Oximetry 92 94 Oxygen Delivery Method Nasal Cannula Oxygen Flow Rate 2.5 2.5 Fraction of Inspired Oxygen 35 Oxygen Delivery Method Nasal Cannula Oxygen Flow Rate 2.5 Narrative Exam Narrative: He is alert and quite week today. He wishes to discharge to [facility] facility so he can use his power chair to go outside in the fresh air. His ability to understand the reasons for their delay in accepting him back seems to be limited. Heart is regular rate and rhythm without murmur Lungs are clear to auscultation bilaterally Abdomen is soft, bowel sounds positive, nontender, no organomegaly. Extremities have 1+ pitting edema of the left ankle and no edema of the right ankle. Objective Labs Result Diagrams: 03/02/22 04:20 03/02/22 04:20 Labs: Laboratory Results - last 24 hr 03/02/22 03/02/22 04:20 04:20 WBC 5.0 RBC 4.43 L Hgb 13.3 L Hct 41.1 MCV 92.7 MCH 30.0 MCHC 32.4 RDW 15.5 H Plt Count 205 Neut % (Auto) 76.7 H Lymph % (Auto) 15.4 L [place] % (Auto) 7.8 Eos % (Auto) 0.0 L Baso % (Auto) 0.1 Neut # (Auto) 3800 Lymph # (Auto) 800 L [place] # (Auto) 400 Eos # (Auto) 0 Baso # (Auto) 0 Sodium 140 Potassium 4.5 Chloride 105 Carbon Dioxide 28 BUN 18 Creatinine 1.02 Estimated GFR > 60 BUN/Creatinine Ratio 17.6 Glucose 125 H Calcium 8.9 PFSH Medical History BPH (benign prostatic hyperplasia) CHF (congestive heart failure) COPD (chronic obstructive pulmonary disease) History of stroke Hyperlipidemia Neuropathy Obesity (BMI 30-39.9) Surgical History History of shoulder surgery Family History Father Heart attack Sister AA (aortic aneurysm) Social History household members: none Smoking Status: Current every day smoker Assessment & Plan Assessment & Plan narrative: 1. Acute hypoxic respiratory failure secondary to influenza A and bilateral PE Patient is stable on room air presently.? He has been on Zosyn and azithromycin for possible superimposed bacterial pneumonia.? He has had significant reactivity with his airways and has been treated with prednisone and DuoNebs.? Tamiflu is not available as hospital supply has been exhausted.? Echo did show evidence of pulmonary hypertension and septal flattening suggesting RV overload, RVSP was 45.? PE is treated wtih Eliquis. 2. Influenza A Continuing supportive care as noted.? Tested positive 4 days ago.? Should he return to his facility, he may require isolation for an additional 24 hours. 3. Bilateral lower lobe PE/Left lower extremity DVT Continue Eliquis.? Patient reports prior history of pulmonary embolism, now seen again on CTA 03/01.? 4. Myocardial injury due to sepsis Troponin was 0.171 but subsequently down trended.? Patient did receive 48 hours of heparin.? Echo was reassuring.? No further follow-up needed. 5. Chronic congestive heart failure with preserved ejection fraction Home dose of Lasix has been held since admission.? Anticipate this can be restarted in the next 24 hours 6. Previous stroke with left-sided hemiparesis Patient is wheelchair-bound at baseline.? Continue statin and fibrate. 7. Class 1 obesity BMI is 34.4.? He would benefit from weight reduction, though with his physical limitations this may be challenging. Resolved issues: JEISON Lactic acidosis Code status DNR Prophylaxis On Eliquis Disposition Patient likely will not be able to discharge back to his assisted living facility until they are ready to accept him. Time Spent With Patient Critical Care time: I spent a total of [] minutes of critical care time on this patient's care today; this time is exclusive of procedural time.
--- NOTE | 2022-03-02 11:12 | CM.DPC ---
DCP Cont: Called Joanna at [facility], since they are sister facility of [facility], since they refused to accept Friday. Notes also indicate that Dr. Hendrix feels that patient should be here until mid next week. Want to have a back up plan for patient. She is [employer]. Joanna will review patient. Does not feel that there should be a problem since she resides at [facility]. P: DCP to continue to follow. Plan is [facility] versus [facility]. Bessy Peter RN/[employer]
[2022-03-02] MEDS: ATORVASTATIN 20 MG TABLET PO (20:43)
[2022-03-02] MEDS: risperiDONE 1 MG TABLET PO (20:43)
[2022-03-02] MEDS: TAMSULOSIN 0.4 MG CAPSULE PO (20:44)
[2022-03-03] VITALS (7 sets, daily range): BP systolic 114–154; BP diastolic 64–77; PULSE 50–64; RESP 17–24; TEMP 36.1–36.7; O2SAT 91–94
[2022-03-03] MEDS: PANTOPRAZOLE DR 40 MG TABLET PO (05:53)
[2022-03-03] MEDS: GABAPENTIN 600 MG TABLET PO ×2 (08:33→21:28)
[2022-03-03] MEDS: predniSONE 20 MG TABLET 40 MG PO (08:33)
[2022-03-03] MEDS: SERTRALINE 50 MG TABLET 75 MG PO (08:33)
[2022-03-03] MEDS: APIXABAN 5 MG TABLET 10 MG PO ×2 (08:33→21:28)
[2022-03-03] MEDS: POTASSIUM CHLORIDE 20 MEQ TAB PO (08:33)
[2022-03-03] MEDS: OSELTAMIVIR 75 MG CAPSULE PO ×2 (08:34→21:28)
[2022-03-03] MEDS: SODIUM CHLORIDE 0.9% FLUSH 10 ML IV ×2 (08:34→21:28)
[2022-03-03] MEDS: FENOFIBRATE, MICRONIZED 67 MG CAPSULE 134 MG PO (08:34)
--- NOTE | 2022-03-03 13:27 | P.PN_ITS ---
Subjective Subjective Date Patient Seen: 03/03/22 Interval history: He is seen today to follow-up the influenza A related hypoxia and chronic weakness. He feels improved today, no complaints. Exam Vital Signs (past 8 hours): - 03/03/22 08:49 03/03/22 07:00 Temperature 98 F Pulse Rate 52 L Respiratory Rate 23 Blood Pressure 137/74 Pulse Oximetry 93 Oxygen Delivery Method Nasal Cannula Oxygen Flow Rate 2.5 Fraction of Inspired Oxygen 35 Oxygen Delivery Method Nasal Cannula Oxygen Flow Rate 2.5 Narrative Exam Narrative: GEN: diaphoretic, NAD, on room air HEENT: moist mucous membranes, PERRL NECK: trachea midline, no JVD CV: regular rate and rhythm, no murmurs PULM: CTA b/l, no wheezing. ABD: soft, nontender, nondistended, no organomegaly EXT: warm and well perfused with trace bilateral LE edema NEURO: awake, alert, oriented, no focal deficits Objective Labs Result Diagrams: 03/02/22 04:20 03/02/22 04:20 [facility] Medical History BPH (benign prostatic hyperplasia) CHF (congestive heart failure) COPD (chronic obstructive pulmonary disease) History of stroke Hyperlipidemia Neuropathy Obesity (BMI 30-39.9) Surgical History History of shoulder surgery Family History Father Heart attack Sister AA (aortic aneurysm) Social History household members: none Smoking Status: Current every day smoker Assessment & Plan Assessment & Plan narrative: 1. Acute hypoxic respiratory failure secondary to influenza A and bilateral PE, possible reactive airway disease. Patient is stable on room air presently.? He has been on Zosyn and azithromycin for possible superimposed bacterial pneumonia.? He has had significant reactivity with his airways and has been treated with prednisone and DuoNebs.? Tamiflu is not available as hospital supply has been exhausted.? Echo did show evidence of pulmonary hypertension and septal flattening suggesting RV overload, RVSP was 45.? PE is treated [facility] Eliquis. Would recommend additional outpatient follow up for further management of above heart changes in setting of pulmonary hypertension presumably from PE with cardiology. 2. Influenza A Continuing supportive care as noted. 3. Bilateral lower lobe PE/Left lower extremity DVT Continue Eliquis.? Patient reports prior history of pulmonary embolism, now seen again on CTA 03/01.? 4. Myocardial injury Troponin was 0.171 but subsequently down trended.? Patient did receive 48 hours of heparin for possible NSTEMI but after echo this troponin elevation likely due to R heart strain noted above. 5. Chronic congestive heart failure with preserved ejection fraction Home dose of Lasix has been held since admission, can resume today but will restart at 20 mg PO BID. 6. Previous stroke with left-sided hemiparesis Patient is wheelchair-bound at baseline.? Continue statin and fibrate. 7. Class 1 obesity BMI is 34.4.? He would benefit from weight reduction, though with his physical limitations this may be challenging. Resolved issues: JEISON Lactic acidosis Code status DNR Prophylaxis On Eliquis Disposition Stable for transition back to [facility] at this time. No further inpatient workup is required as discussed above. Time Spent With Patient Critical Care time: I spent a total of [] minutes of critical care time on this patient's care today; this time is exclusive of procedural time.
--- NOTE | 2022-03-03 16:54 | CM.DPNOTE ---
Discharge Planning Note: Patient anxious to return to [facility]. Status improving. Plan: DCP to call [facility] in am to do reassessment for Friday for acceptance back. (Difficult for [facility] to take due to he smokes and uses electric w/c and would need isolation bed). Sasha Vaughan RN/DCP
[2022-03-03] MEDS: ATORVASTATIN 20 MG TABLET PO (21:28)
[2022-03-03] MEDS: risperiDONE 1 MG TABLET PO (21:28)
[2022-03-03] MEDS: TAMSULOSIN 0.4 MG CAPSULE PO (21:28)
--- NOTE | 2022-03-03 22:53 | PC.NURSE ---
Addendum entered by Tigist Butler R.N. 03/04/22 04:09: At 0043 patient noted to be only 90% on RA so was placed on oxygen at 1L/min per NC. Sat is currently 94% with patient asleep. Original Note: Patient is alert and oriented. Breath sounds coarse with late expiratory wheezes throughout. RA sat 93% but does desat with activity; on continuous oximetry. HRR. Denies nausea. BT present and abdomen is soft but large/round. Is incontinent of B&B; denies dysuria. Is assisted to reposition q2h; is able to turn to left but due to residual paresis of left extremites related to hx of CVA he does need assist to reposition. Denies pain. Has edema in bilateral LE left > right. Dressing to left knee is CDI. Declines use of SCD to right leg so reminded to ankle wave. Patient is non ambulatory. Fall risk score is high and bed alarm is activated. On droplet isolation for influenza A.
[2022-03-04] VITALS: BP 159/87; PULSE 57; RESP 19; TEMP 36.4; O2SAT 92
[2022-03-04 03:03] VITALS: PULSE 55; O2SAT 92
[2022-03-04 04:00] VITALS: BP 151/68; PULSE 54; RESP 24; TEMP 37; O2SAT 92; O2SAT 94
[2022-03-04 05:20] LABS: Hematocrit 41.3 % (41-53); Hemoglobin 13.8 g/dL (13.5-17.5); Mean Corpuscular HGB Conc 33.4 % (30-36); Mean Corpuscular Hemoglobin 30.2 PG (26-34); Mean Corpuscular Volume 90.6 fL (80-100); Platelet Count 251 X10^3/uL (150-400); Red Blood Cell Count 4.56 X10^6/uL (4.5-5.9); Red Cell Distribution Width 14.8 % (11.6-14.8); White Blood Cell Count 8.2 X10^3/uL (4.5-11.0)
[2022-03-04 05:23] LABS: Add Manual Diff / Slide Review YES
[2022-03-04 05:36] LABS: Blood Urea Nitrogen 22 mg/dL (9-20); Carbon Dioxide 26 mmol/L (22-32); Chloride 106 mmol/L (98-107); Estimated Glomerular Filt Rate > 60 mL/min (>60); Glucose 122 mg/dL (80-110); HEMOLYSIS < 15 (0-50); Magnesium 2.1 mg/dL (1.6-2.3); Potassium 4.4 mmol/L (3.4-5.1); Sodium 134 mmol/L (137-145)
[2022-03-04] MEDS: PANTOPRAZOLE DR 40 MG TABLET PO (05:55)
[2022-03-04 07:10] LABS: Neutrophils Absolute Manual 6888 /uL (3000-5900); RBC Morphology Normal Morphology; Total Cells Counted 100
[2022-03-04 08:00] VITALS: BP 160/79; PULSE 51; RESP 22; TEMP 36.4; O2SAT 96
--- NOTE | 2022-03-04 09:29 | PM.DS.1 ---
History of Present Illness History of Present Illness Date Patient Seen: 03/04/22 Time Patient Seen: 09:29 Chief complaint: Shortness of breath Narrative: Per Arron [facility] Med Agarwal is a 71yo M with PMH of HFpEF, COPD, stroke in 2016 with left sided hemiparesis, wheelchair-bound, tobacco dependence, BPH and obesity who presents with acute hypoxic resp failure and found to be flu positive. Patient states for last 4 days he has had progressively worsening dyspnea to where he couldn't even get around in his wheelchair without becoming very SOB. He is a longtime smoker and still currently smokes. He denies CP or wheezes. Further history is difficult to obtain due to Bipap mask in place. He would like to be DNR. In the ED patient placed on bipap with improvement in his resp distress. Had soft BP down to 86/55 and given x2 of 500cc boluses. Lactate elevated to 6. WBC 12.8 and had a fever of 101.4F. Cr 1.38. Troponin found to be 0.156 and cards contacted who recommended heparin drip x48 hours as likely demand ischemia from hypoxia. Again patient denied any chest pain. Discharge Providers Provider Date of admission: 02/26/22 11:06 Discharge Date: 03/04/22 Primary care physician: MALORIE Lind Consults: 02/26/22 15:02 Consult to Tele-solar panel technician Routine Comment: Consulting Provider: [employer] Reason for consultation: [employer] Discharge provider: Wilfredo Forbes DO Summary Hospital Course Discharge Diagnosis: Please see hospital course by problem list noted below: Hospital Course: 1. Acute hypoxic respiratory failure secondary to influenza A and bilateral PE, possible reactive airway disease, possible bacterial pneumonia. Patient is stable on room air presently but did require high flow oxygen during his stay.? He was started on Zosyn and azithromycin for possible superimposed bacterial pneumonia and completed therapy during his stay here for possible bacterial pneumonia.? He has had significant reactivity with his airways and has been treated with prednisone and DuoNebs.? Tamiflu is not available as hospital supply has been exhausted.? Echo did show evidence of pulmonary hypertension and septal flattening suggesting RV overload, RVSP was 45.? PE [facility]. Would recommend additional outpatient follow up for further management of above heart changes in setting of pulmonary hypertension possibly from PE or diastolic heart failure with cardiology. -patient currently without need for supplemental oxygen during the day after above therapies. -initially witheld home furosemide, but now resumed at home dosing upon discharge given echo findings. 2. Influenza A Continuing supportive care as noted, likely now resolved. 3. Bilateral lower lobe PE/Left lower extremity DVT Continue Eliquis.? Patient reports prior history of pulmonary embolism, now seen again on CTA 03/01.? Echo does show evidence of septal flattening and elevated R pressures. Would recommend follow up with cardiology as discussed above. 4. Myocardial injury Troponin was 0.171 but subsequently down trended.? Patient did receive 48 hours of heparin for possible NSTEMI but may be from R heart strain or demand in setting of flu / respiratory distress. 5. Chronic congestive heart failure with preserved ejection fraction Home dose of Lasix has been held since admission, was restarted prior to discharge and he can resume his usual home dosing upon discharge. 6. Previous stroke with left-sided hemiparesis Patient is wheelchair-bound at baseline.? Continue statin and fibrate. 7. Class 1 obesity BMI is 34.4.? He would benefit from weight reduction, though with his physical limitations this may be challenging. Resolved issues: JEISON, likely due to dehydration from flu A which now resolved. Lactic acidosis, likely due to dehydration and flu A which resolved.e Time Spent with Patient Time spent: Greater than 30 minutes Exam Vital Signs (past 8 hours): - 03/04/22 03:03 03/04/22 04:00 03/04/22 04:00 Temperature 98.6 F Pulse Rate 55 L 54 L Respiratory Rate 24 Blood Pressure 151/68 H Pulse Oximetry 92 94 92 Oxygen Delivery Method Room Air Nasal Cannula Oxygen Flow Rate 0 1 1 Fraction of Inspired Oxygen 21 03/04/22 08:00 Temperature 97.6 F Pulse Rate 51 L Respiratory Rate 22 Blood Pressure 160/79 H Pulse Oximetry 96 Oxygen Delivery Method Oxygen Flow Rate 0 Fraction of Inspired Oxygen Fraction of Inspired Oxygen 21 SaO2/FiO2 Ratio 438 Oxygen Delivery Method Nasal Cannula Oxygen Flow Rate 0 Narrative Exam Narrative: GEN: diaphoretic, NAD, on room air HEENT: moist mucous membranes, PERRL NECK: trachea midline, no JVD CV: regular rate and rhythm, no murmurs PULM: CTA b/l, no wheezing. ABD: soft, nontender, nondistended, no organomegaly EXT: warm and well perfused with trace bilateral LE edema NEURO: awake, alert, oriented, no focal deficits Objective Labs Result Diagrams: 03/04/22 04:25 03/04/22 04:25 Labs: Laboratory Results - last 24 hr 03/04/22 03/04/22 04:25 04:25 WBC 8.2 RBC 4.56 Hgb 13.8 Hct 41.3 MCV 90.6 MCH 30.2 MCHC 33.4 RDW 14.8 Plt Count 251 Neut % (Auto) Not Reportable Lymph % (Auto) Not Reportable [place] % (Auto) Not Reportable Eos % (Auto) Not Reportable Baso % (Auto) Not Reportable Lymph # (Auto) Not Reportable [place] # (Auto) Not Reportable Baso # (Auto) Not Reportable Total Counted 100 Seg Neutrophils % 83.0 H Band Neutrophils % 1.0 L Lymphocytes % (Manual) 13.0 L Monocytes % (Manual) 3.0 Neutrophils # (Manual) 6888 H RBC Morphology Normal morphology Sodium 134 L Potassium 4.4 Chloride 106 Carbon Dioxide 26 BUN 22 H Creatinine 0.88 Estimated GFR > 60 BUN/Creatinine Ratio 25.0 H Glucose 122 H Calcium 9.0 Magnesium 2.1 PFSH Medical History BPH (benign prostatic hyperplasia) CHF (congestive heart failure) COPD (chronic obstructive pulmonary disease) History of stroke Hyperlipidemia Neuropathy Obesity (BMI 30-39.9) Surgical History History of shoulder surgery Family History Father Heart attack Sister AA (aortic aneurysm) Social History household members: none Smoking Status: Current every day smoker Discharge Plan Discharge Plan Patient Disposition: Assisted Living Transfer to: [facility] Discharge orders & Medications Discharge Orders: Discharge (Order); Ordered 03/04/22 Ordered By: Wilfredo Forbes Prescriptions: New oseltamivir [Tamiflu] 75 mg Capsule 75 mg PO BID 5 Days Qty: 10 0RF Eliquis 5 mg Tablet 10 mg PO BID 5 Days Qty: 20 0RF Continued gabapentin 600 mg tablet 600 mg BID atorvastatin 20 mg tablet 20 mg DAILY prednisone 5 mg tablet 5 mg DAILY aspirin 81 mg tablet,delayed release (DR/EC) 81 mg DAILY fenofibrate micronized 134 mg capsule 134 mg DAILY potassium chloride 20 mEq tablet,ER particles/crystals 20 meq PO DAILY tamsulosin 0.4 mg capsule 0.4 mg PO DAILY Serevent Diskus 50 mcg/dose blister with device 1 inh INHALATION BID sertraline 25 mg tablet 75 mg DAILY albuterol sulfate 90 mcg/actuation HFA aerosol inhaler 2 inh INHALATION BID risperidone 1 mg tablet 1 mg BEDTIME lidocaine 5 % ointment 1 applic DAILY Rx Instructions: to right hand Spiriva Respimat 2.5 mcg/actuation mist 2 inh INHALATION DAILY melatonin 3 mg 6 mg BEDTIME furosemide [Lasix] 40 mg tablet 40 mg PO BID Qty: 60 0RF Discontinued levofloxacin 250 mg Tablet 750 mg PO DAILY@1700 Qty: 3 0RF prednisone 20 mg tablet 40 mg PO DAILY Qty: 6 0RF ibuprofen 400 mg tablet 600 mg PO TID PRN (Reason: pain) Qty: 10 0RF Follow up/Referrals: Isi Andrews ARNP [Primary Care Provider] - Visit Report/Discharge Packet Instructions: Deep Vein Thrombosis, DI for Heart Failure, DI for Deep Vein Thrombosis, DI for Influenza -- Adult, DI for Sepsis -- Adult Discharge Data Primary Care Provider: Isi Andrews
[2022-03-04] MEDS: GABAPENTIN 600 MG TABLET PO (10:30)
[2022-03-04] MEDS: SERTRALINE 50 MG TABLET 75 MG PO (10:30)
[2022-03-04] MEDS: APIXABAN 5 MG TABLET 10 MG PO (10:30)
[2022-03-04] MEDS: OSELTAMIVIR 75 MG CAPSULE PO (10:31)
[2022-03-04] MEDS: POTASSIUM CHLORIDE 20 MEQ TAB PO (10:31)
[2022-03-04] MEDS: FENOFIBRATE, MICRONIZED 67 MG CAPSULE 134 MG PO (10:31)
[2022-03-04] MEDS: SODIUM CHLORIDE 0.9% FLUSH 10 ML IV (10:32)
[2022-03-04] MEDS: FUROSEMIDE 20 MG TABLET PO (10:44)
[2022-03-04 12:00] VITALS: BP 163/80; PULSE 48; RESP 22; TEMP 36.9; O2SAT 94
--- NOTE | 2022-03-04 12:56 | CM.DPC ---
DCP Note continued [employer] calls [place] regarding needed bedside assessment. BRENDAN Botello from [place] assesses patient at bedside at 9 am and agrees to accepting patient back today upon medical clearance. Rosmery sets up transport for patient, patient to be picked up to return to [place] at 2pm. Plan: Patient to d/c back to [place] [facility] upon medical clearance via [place] transport at 1400. СВЕТЛАНА GallardoSW
--- NOTE | 2022-03-04 14:56 | PC.NURSE ---
Patient picked up for discharge to his assisted living at his current residence at [place]. Patient's IV dc'd intact. Discharge instructions and homecare handouts reviewed with patient, and he states understanding. Patient advised to continue to abstain from alcohol and tobacco use. Patient does not plan to quit at this time. Clean allevyn dressing placed to left knee abrasion prior to discharge. Patient picked up by facility transport via wheelchair with all his belongings.
[2022-03-05 16:42] LABS: PCO2 ABG 41.8 mmHg (35-45)
[2022-03-05 16:43] LABS: Fractionated Inspired Oxygen 0.35; HCO3 ABG 25 mmol/L (22-26); TCO2 ABG 26 mmol/L (21-31)
[2022-03-05 16:44] LABS: pH ABG 7.38 (7.35-7.45)
[2022-03-05 16:45] LABS: PO2 ABG 42 mmHg (80-100)
[2022-03-05 16:50] LABS: Oxygen Saturation ABG 76 % (95-100)
== END 2022-03-04 14:30 | DRG 175 ==
LOC: ED 11:04 → AC 11:06 → ICU 13:29
PROVIDERS: Emergency Medicine; Family Medicine; Internal Medicine; Nurse Practitioner Family; Admitting Provider Student in an Organized Health Care Education/Training Program; Emergency Provider Emergency Medicine; PCP Nurse Practitioner Family; Referring Provider Emergency Medicine; Visit Provider Student in an Organized Health Care Education/Training Program
DX: I26.99 Other pulmonary embolism without acute cor pulmonale (principal); J96.01 Acute respiratory failure with hypoxia; N17.9 Acute kidney failure, unspecified; I5A Non-ischemic myocardial injury (non-traumatic); I69.354 Hemiplegia and hemiparesis following cerebral infarction affecting left non-dominant side; I82.412 Acute embolism and thrombosis of left femoral vein; I82.432 Acute embolism and thrombosis of left popliteal vein; I50.32 Chronic diastolic (congestive) heart failure; E87.20 Acidosis, unspecified; J10.1 Influenza due to other identified influenza virus with other respiratory manifestations; F32.A Depression, unspecified; E78.5 Hyperlipidemia, unspecified; J44.9 Chronic obstructive pulmonary disease, unspecified; G62.9 Polyneuropathy, unspecified; F17.210 Nicotine dependence, cigarettes, uncomplicated; Z66 Do not resuscitate; Z20.822 Contact with and (suspected) exposure to COVID-19
CPT/HCPCS: 0241U; 36415; 36600; 71045; 71275; 76770; 80048; 80053; 81001; 82550; 82553; 82805; 83605; 83690; 83735; 83880; 84145; 84484; 85007; 85025; 85379; 85610; 85730; 87040; 87086; 87633; 87797; 93005; 93010; 93307; 93970; 94640; 94660; 94762; 96365; 96366; 96368; 96375; 96376; 99285; C9113; J1644; J1940; J2543; J2930; J7613; Q9957; Q9967

== ENCOUNTER → 2022-03-08 13:52 | Outpatient (ROUT) | payer MEDICARE, MEDICAID, SELFPAY ==
[2022-02-26 18:38] VITALS: BMI 36.9
[2022-02-26 23:30] VITALS: PULSE 88; RESP 28; O2SAT 94
[2022-03-08 16:08] LABS: Add Manual Diff / Slide Review NO; Basophils Absolute Auto 0 /uL (0-100); Basophils Percent Auto 0.3 % (0-2); Eosinophils Absolute Auto 100 /uL (0-450); Eosinophils Percent Auto 0.7 % (2-4); Hematocrit 44.1 % (41-53); Hemoglobin 14.6 g/dL (13.5-17.5); Lymphocytes Absolute Auto 1100 /uL (1100-4500); Lymphocytes Percent Auto 9.2 % (25-40); Mean Corpuscular HGB Conc 33.1 % (30-36); Mean Corpuscular Hemoglobin 30.2 PG (26-34); Mean Corpuscular Volume 91.4 fL (80-100); Monocytes Absolute Auto 500 /uL (0-900); Monocytes Percent Auto 4.8 % (3-14); Neutrophils Absolute Auto 9800 /uL (1500-7000); Platelet Count 353 X10^3/uL (150-400); Red Blood Cell Count 4.83 X10^6/uL (4.5-5.9); Red Cell Distribution Width 14.9 % (11.6-14.8); White Blood Cell Count 11.5 X10^3/uL (4.5-11.0)
== END ==
PROVIDERS: PCP Nurse Practitioner Family; Visit Provider Internal Medicine
DX: K92.1 Melena (principal); Z86.711 Personal history of pulmonary embolism; Z79.01 Long term (current) use of anticoagulants
CPT/HCPCS: 85025

== ENCOUNTER → 2022-03-15 18:22 | Outpatient (ROUT) | payer MEDICARE, MEDICAID, SELFPAY ==
[2022-02-26 18:38] VITALS: BMI 36.9
[2022-02-26 23:30] VITALS: PULSE 88; RESP 28; O2SAT 94
[2022-03-18 22:54] LABS: Fecal Immunochemical Test Positive (Negative)
== END ==
PROVIDERS: PCP Nurse Practitioner Family; Visit Provider Registered Nurse
DX: K92.1 Melena (principal); Z79.01 Long term (current) use of anticoagulants
CPT/HCPCS: 82274

== ENCOUNTER → 2022-03-26 07:44 | Outpatient (ROUT) | payer MEDICARE, MEDICAID, SELFPAY ==
[2022-02-26 18:38] VITALS: BMI 36.9
[2022-02-26 23:30] VITALS: PULSE 88; RESP 28; O2SAT 94
[2022-03-26 08:03] LABS: Add Manual Diff / Slide Review NO; Basophils Absolute Auto 100 /uL (0-100); Basophils Percent Auto 0.6 % (0-2); Eosinophils Absolute Auto 100 /uL (0-450); Eosinophils Percent Auto 1.5 % (2-4); Hematocrit 38.7 % (41-53); Hemoglobin 12.4 g/dL (13.5-17.5); Lymphocytes Absolute Auto 2300 /uL (1100-4500); Lymphocytes Percent Auto 23.8 % (25-40); Mean Corpuscular HGB Conc 32.1 % (30-36); Mean Corpuscular Hemoglobin 29.2 PG (26-34); Mean Corpuscular Volume 90.9 fL (80-100); Monocytes Absolute Auto 800 /uL (0-900); Monocytes Percent Auto 7.8 % (3-14); Neutrophils Absolute Auto 6400 /uL (1500-7000); Neutrophils Percent Auto 66.3 % (50-75); Platelet Count 420 X10^3/uL (150-400); Red Blood Cell Count 4.26 X10^6/uL (4.5-5.9); White Blood Cell Count 9.7 X10^3/uL (4.5-11.0)
== END ==
PROVIDERS: PCP Nurse Practitioner Family; Visit Provider Internal Medicine
DX: K92.2 Gastrointestinal hemorrhage, unspecified (principal)
CPT/HCPCS: 36415; 85025

== ENCOUNTER → 2022-04-02 07:35 | Outpatient (ROUT) | payer MEDICARE, MEDICAID, SELFPAY ==
[2022-02-26 18:38] VITALS: BMI 36.9
[2022-02-26 23:30] VITALS: PULSE 88; RESP 28; O2SAT 94
[2022-04-02 07:45] LABS: Add Manual Diff / Slide Review NO; Basophils Absolute Auto 100 /uL (0-100); Basophils Percent Auto 0.6 % (0-2); Eosinophils Absolute Auto 200 /uL (0-450); Eosinophils Percent Auto 2.2 % (2-4); Hematocrit 42.2 % (41-53); Hemoglobin 13.3 g/dL (13.5-17.5); Lymphocytes Absolute Auto 2400 /uL (1100-4500); Lymphocytes Percent Auto 21.4 % (25-40); Mean Corpuscular HGB Conc 31.5 % (30-36); Monocytes Absolute Auto 700 /uL (0-900); Monocytes Percent Auto 6.3 % (3-14); Neutrophils Absolute Auto 7700 /uL (1500-7000); Neutrophils Percent Auto 69.5 % (50-75); Platelet Count 387 X10^3/uL (150-400); Red Blood Cell Count 4.74 X10^6/uL (4.5-5.9); Red Cell Distribution Width 15.9 % (11.6-14.8); White Blood Cell Count 11.1 X10^3/uL (4.5-11.0)
== END ==
PROVIDERS: PCP Nurse Practitioner Family; Visit Provider Nurse Practitioner Gerontology
DX: K92.2 Gastrointestinal hemorrhage, unspecified (principal)
CPT/HCPCS: 36415; 85025

== ENCOUNTER → 2022-04-23 08:23 | Outpatient (ROUT) | payer MEDICARE, MEDICAID, SELFPAY ==
[2022-02-26 18:38] VITALS: BMI 36.9
[2022-02-26 23:30] VITALS: PULSE 88; RESP 28; O2SAT 94
[2022-04-23 10:14] LABS: Hematocrit 38.4 % (41-53); Hemoglobin 12.1 g/dL (13.5-17.5)
== END ==
PROVIDERS: PCP Nurse Practitioner Family; Visit Provider Internal Medicine
DX: D64.9 Anemia, unspecified (principal)
CPT/HCPCS: 36415; 85014; 85018

== ENCOUNTER → 2022-04-28 15:12 | Outpatient (ROUT) | payer MEDICARE, MEDICAID, SELFPAY ==
[2022-02-26 18:38] VITALS: BMI 36.9
[2022-02-26 23:30] VITALS: PULSE 88; RESP 28; O2SAT 94
[2022-04-28 15:22] LABS: INR 1.5 (0.9-1.3); Prothrombin Time 17.8 SECONDS (10.1-12.7)
== END ==
PROVIDERS: PCP Nurse Practitioner Family; Visit Provider Nurse Practitioner Gerontology
DX: Z79.01 Long term (current) use of anticoagulants (principal)
CPT/HCPCS: 85610

== ENCOUNTER → 2022-05-07 08:22 | Outpatient (ROUT) | payer MEDICARE, MEDICAID, SELFPAY ==
[2022-02-26 18:38] VITALS: BMI 36.9
[2022-02-26 23:30] VITALS: PULSE 88; RESP 28; O2SAT 94
[2022-05-07 08:57] LABS: INR 2.9 (0.9-1.3); Prothrombin Time 33.3 SECONDS (10.1-12.7)
== END ==
PROVIDERS: PCP Nurse Practitioner Family; Visit Provider Nurse Practitioner Family
DX: I82.409 Acute embolism and thrombosis of unspecified deep veins of unspecified lower extremity (principal); Z79.01 Long term (current) use of anticoagulants
CPT/HCPCS: 36415; 85610

== ENCOUNTER → 2022-05-28 08:00 | Outpatient (ROUT) | payer MEDICARE, MEDICAID, SELFPAY ==
[2022-02-26 18:38] VITALS: BMI 36.9
[2022-02-26 23:30] VITALS: PULSE 88; RESP 28; O2SAT 94
[2022-05-28 09:07] LABS: INR 4.3 (0.9-1.3); Prothrombin Time 50.2 SECONDS (10.1-12.7)
== END ==
PROVIDERS: PCP Nurse Practitioner Family; Visit Provider Nurse Practitioner Gerontology
DX: I82.409 Acute embolism and thrombosis of unspecified deep veins of unspecified lower extremity (principal)
CPT/HCPCS: 36415; 85610

== ENCOUNTER → 2022-06-04 07:36 | Outpatient (ROUT) | payer MEDICARE, MEDICAID, SELFPAY ==
[2022-02-26 18:38] VITALS: BMI 36.9
[2022-02-26 23:30] VITALS: PULSE 88; RESP 28; O2SAT 94
[2022-06-04 09:18] LABS: INR 3.4 (0.9-1.3); Prothrombin Time 39.4 SECONDS (10.1-12.7)
== END ==
PROVIDERS: PCP Nurse Practitioner Family; Visit Provider Nurse Practitioner Gerontology
DX: Z79.01 Long term (current) use of anticoagulants (principal)
CPT/HCPCS: 36415; 85610

== ENCOUNTER → 2022-06-11 07:52 | Outpatient (ROUT) | payer MEDICARE, MEDICAID, SELFPAY ==
[2022-02-26 18:38] VITALS: BMI 36.9
[2022-02-26 23:30] VITALS: PULSE 88; RESP 28; O2SAT 94
[2022-06-11 08:44] LABS: Hematocrit 36.4 % (41-53); Hemoglobin 11.5 g/dL (13.5-17.5)
[2022-06-11 08:45] LABS: INR 2.1 (0.9-1.3); Prothrombin Time 24.2 SECONDS (10.1-12.7)
== END ==
PROVIDERS: PCP Nurse Practitioner Family; Visit Provider Nurse Practitioner Gerontology
DX: D64.9 Anemia, unspecified (principal); Z79.01 Long term (current) use of anticoagulants
CPT/HCPCS: 36415; 85014; 85018; 85610

== ENCOUNTER 2022-06-14 17:13 | Emergency (ER) | payer MEDICARE, MEDICAID, SELFPAY ==
[2022-02-26 18:38] VITALS: BMI 36.9
[2022-02-26 23:30] VITALS: PULSE 88; RESP 28; O2SAT 94
[2022-06-14] VITALS (75 sets, daily range): BP systolic 99–152; BP diastolic 53–94; PULSE 69–109; RESP 18–28; TEMP 36.8; O2SAT 88–96; BMI 34.0
[2022-06-14 17:51] LABS: Add Manual Diff / Slide Review NO; Basophils Absolute Auto 100 /uL (0-100); Basophils Percent Auto 0.9 % (0-2); Eosinophils Absolute Auto 200 /uL (0-450); Eosinophils Percent Auto 2.1 % (2-4); Hematocrit 41.7 % (41-53); Hemoglobin 13.4 g/dL (13.5-17.5); Lymphocytes Absolute Auto 1500 /uL (1100-4500); Lymphocytes Percent Auto 15.6 % (25-40); Mean Corpuscular HGB Conc 32.1 % (30-36); Mean Corpuscular Hemoglobin 23.7 PG (26-34); Mean Corpuscular Volume 73.9 fL (80-100); Monocytes Absolute Auto 500 /uL (0-900); Monocytes Percent Auto 5.2 % (3-14); Neutrophils Absolute Auto 7200 /uL (1500-7000); Neutrophils Percent Auto 76.2 % (50-75); Platelet Count 437 X10^3/uL (150-400); Red Blood Cell Count 5.65 X10^6/uL (4.5-5.9); Red Cell Distribution Width 19.9 % (11.6-14.8); White Blood Cell Count 9.5 X10^3/uL (4.5-11.0)
[2022-06-14 17:57] LABS: Alanine Aminotransferase 24 IU/L (<50); Albumin 4.5 g/dL (3.5-5.0); Albumin Globulin Ratio 1.3 (1.0-2.8); Alkaline Phosphatase 83 U/L (38-126); Aspartate Aminotransferase 31 IU/L (17-59); BUN Creatinine Ratio 12.8 (6-22); Bilirubin Total 0.7 mg/dL (0.2-1.3); Blood Urea Nitrogen 17 mg/dL (9-20); Calcium 9.3 mg/dL (8.4-10.2); Carbon Dioxide 27 mmol/L (22-32); Chloride 101 mmol/L (98-107); Creatine Kinase 264 U/L (55-170); Estimated Glomerular Filt Rate 58 mL/min (>60); Globulin 3.5 g/dL (1.7-4.1); Glucose 122 mg/dL (80-110); HEMOLYSIS 22 (0-50); Lipase 173 U/L (23-300); Potassium 4.1 mmol/L (3.4-5.1); Sodium 140 mmol/L (137-145)
[2022-06-14 18:01] LABS: Prothrombin Time 23.4 SECONDS (10.1-12.7)
[2022-06-14 18:04] LABS: PTT Partial Thromboplastin Tim 39 SECONDS (26-36)
[2022-06-14 18:06] LABS: NT-proBNP (BNP-Adult 18+) 2000 pg/mL (<125)
[2022-06-14 18:08] LABS: Troponin I < 0.012 ng/mL (0.01-0.034)
[2022-06-14 18:12] LABS: CKMB % Relative Index 1.3 % (1.5-5.0); Creatine Kinase MB 3.43 ng/mL (<2.37)
[2022-06-14 18:13] LABS: Influenza A - CEPHEID Flu A NEGATIVE (NEGATIVE); Influenza B - CEPHEID Flu B NEGATIVE (NEGATIVE); Respiratory Syncytial Virus Negative (Negative)
[2022-06-14 18:16] LABS: COVID-19 CEPHEID 4-PLEX PCR Negative (Negative)
[2022-06-14 18:46] LABS: Procalcitonin 0.06 ng/mL (<0.5)
--- NOTE | 2022-06-14 20:02 | ED_ITS ---
HPI - Chest Pain General Chief Complaint: Chest Pain Stated Complaint: Chest Pain Time Seen by Provider: 06/14/22 18:08 Source: patient Mode of arrival: EMS Limitations: no limitations History of Present Illness HPI narrative: 71-year-old male daily smoker with history of CHF, COPD, prior pneumonia presents by EMS for evaluation of sudden-onset chest pain in the center of his chest that started while at rest just prior to arrival and had resolved by the time the medics picked him up. He denies any obvious provocation, palliation or radiation of this pain. He denies associated symptoms such as dizziness, wea kness or lightheadedness. He denies any nausea, vomiting or unexplained sweating. He denies any weight gain or lower extremity swelling that is more than normal for him. He states that he is always short of breath and does not feel more short of breath than normal, however he is requiring 2 L of supplemental oxygen. Related Data Home Medications Medication Instructions Recorded Confirmed albuterol sulfate 90 mcg/actuation 2 inh inhalation BID 12/29/21 12/29/21 aerosol inhaler aspirin 81 mg tablet,delayed 81 mg DAILY 12/29/21 12/29/21 release atorvastatin 20 mg tablet 20 mg DAILY 12/29/21 12/29/21 fenofibrate micronized 134 mg 134 mg DAILY 12/29/21 12/29/21 capsule gabapentin 600 mg tablet 600 mg BID 12/29/21 12/29/21 lidocaine 5 % topical ointment 1 applic DAILY 12/29/21 12/29/21 melatonin 6 mg BEDTIME 12/29/21 12/29/21 potassium chloride 20 mEq 20 meq PO DAILY 12/29/21 12/29/21 tablet,extended release(part/cryst) prednisone 5 mg tablet 5 mg DAILY 12/29/21 12/29/21 risperidone 1 mg tablet 1 mg BEDTIME 12/29/21 12/29/21 salmeterol 50 mcg/dose blister 1 inh inhalation BID 12/29/21 12/29/21 powder for inhalation (Serevent Diskus) sertraline 25 mg tablet 75 mg DAILY 12/29/21 12/29/21 tamsulosin 0.4 mg capsule 0.4 mg PO DAILY 12/29/21 12/29/21 tiotropium bromide 2.5 2 inh inhalation DAILY 12/29/21 12/29/21 mcg/actuation mist for inhalation (Spiriva Respimat) Previous Rx's Medication Instructions Recorded furosemide 40 mg tablet (Lasix) 40 mg PO BID #60 tabs 12/31/21 Allergies Allergy/AdvReac Type Severity Reaction Status Date / Time No Known Drug Allergies Allergy Verified 01/31/21 09:50 Review of Systems Review of Systems Narrative: GENERAL: Denies chills, fatigue, malaise, fever, sweats. HEENT: Denies sinus pain, ear pain, sore throat, difficulty swallowing, dizziness. RESPIRATORY: Denies dyspnea, cough, wheezing, hemoptysis, sputum. CARDIOVASCULAR: See HPI GASTROINTESTINAL: Denies nausea, vomiting, abdominal pain, diarrhea, constipation, melena. : Denies dysuria, frequency, incontinence, hematuria, urinary retention. MUSCULOSKELETAL: denies weakness, joint pain, or bony pain SKIN: Denies rash, skin lesions, or other NEUROLOGIC: Denies weakness, headache, numbness, change in speech, confusion, seizures, incoordination. PSYCHIATRIC: No concerning psychosocial issues. 12 point review of systems is negative except for those stated above Patient History Medical History BPH (benign prostatic hyperplasia) CHF (congestive heart failure) COPD (chronic obstructive pulmonary disease) History of stroke Hyperlipidemia Neuropathy Obesity (BMI 30-39.9) Surgical History History of shoulder surgery Family History Father Heart attack Sister AA (aortic aneurysm) Social History household members: none Smoking Status: Current every day smoker Smoking Status: Current every day smoker tobacco type: cigarettes alcohol intake frequency: 0-2 drinks per day Alcohol type: hard liquor Substance Use Type: marijuana Exam Narrative Exam Narrative: GENERAL: [71] year old patient appears stated age. Well-developed patient, in mild distress. HEAD: Atraumatic. Normocephalic. EYES: Pupils equal round and reactive. Extraocular motions intact. No scleral icterus. No injection or drainage. ENT: Nose without bleeding, purulent drainage. Throat without erythema, tonsillar hypertrophy or exudate. Airway patent. NECK: Trachea midline. Non tender CARDIOVASCULAR: Regular rate and rhythm without murmurs, gallops, or rubs. RESPIRATORY: Decreased breath sounds bilaterally with prolonged expiratory phase, no increased work of breathing, no obvious wheezes, rales or rhonchi GASTROINTESTINAL: Abdomen soft, non-tender, nondistended. EXTREMITIES: No edema or joint tenderness. BACK: Nontender without deformity or crepitance. No flank tenderness. NEURO: AOx3. SKIN: No rash or erythema of visible areas Initial Vital Signs Initial Vital Signs: Vital Signs Pulse Rate 109 H 06/14/22 17:25 Pulse Oximetry 90 L 06/14/22 17:25 Oxygen Delivery Method Room Air 06/14/22 17:25 Scores HEART Score Heart Score history: Slightly Suspicious Heart Score EKG: Normal Heart Score Age: > or = 65 years old Heart Score risk factors: 1-2 risk factors Heart Score troponin: < or = to normal limit Heart Score Total: 3 Course Orders Ordered: ED Orders 06/14/22 16:41 EKG-12 Lead Stat 06/14/22 17:20 Covid-19 + FLU A/B + RSV - PCR Stat 06/14/22 17:30 BNP [NT-proBNP (BNP-Adult 18+)] Stat Complete Blood Count AUTO DIFF Stat Comprehensive Metabolic Panel Stat D Dimer Stat Lipase Stat Magnesium Stat PTT Partial Thromboplastin Shin Stat Procalcitonin Stat Prothrombin Time INR Stat Troponin & CK Cardiac Panel Stat 06/14/22 18:08 ABG [Arterial Blood Gas] Stat 06/14/22 20:10 Venous Blood Gas Stat 06/14/22 20:20 Troponin & CK Cardiac Panel Stat 06/14/22 21:42 XR chest 1V Stat Reevaluation(s) Reevaluation #1: Patient pain-free for the duration of his visit Vital Signs Vital signs: Vital Signs - 8 hr 06/14/22 17:37 06/14/22 17:25 06/14/22 17:28 Temperature 98.2 F Pulse Rate 90 109 H Respiratory Rate 18 Blood Pressure 123/74 133/80 Pulse Oximetry 95 90 L Oxygen Delivery Method Nasal Cannula Room Air Oxygen Flow Rate 2 06/14/22 17:28 06/14/22 17:30 06/14/22 17:30 Temperature Pulse Rate 101 H 101 H Respiratory Rate Blood Pressure 125/75 Pulse Oximetry 94 95 Oxygen Delivery Method Nasal Cannula Nasal Cannula Oxygen Flow Rate 2 2 06/14/22 17:35 06/14/22 17:35 06/14/22 17:40 Temperature Pulse Rate 92 H 95 H Respiratory Rate Blood Pressure 123/74 Pulse Oximetry 95 94 Oxygen Delivery Method Nasal Cannula Nasal Cannula Oxygen Flow Rate 2 2 06/14/22 17:40 06/14/22 17:45 06/14/22 17:45 Temperature Pulse Rate 92 H Respiratory Rate Blood Pressure 138/74 136/79 Pulse Oximetry 94 Oxygen Delivery Method Oxygen Flow Rate 06/14/22 17:50 06/14/22 17:50 06/14/22 17:55 Temperature Pulse Rate 83 Respiratory Rate Blood Pressure 132/73 137/82 Pulse Oximetry 95 Oxygen Delivery Method Nasal Cannula Oxygen Flow Rate 2 06/14/22 17:55 06/14/22 18:00 06/14/22 18:00 Temperature Pulse Rate 81 82 Respiratory Rate Blood Pressure 133/81 Pulse Oximetry 92 91 Oxygen Delivery Method Nasal Cannula Oxygen Flow Rate 2 06/14/22 18:06 06/14/22 18:06 06/14/22 18:10 Temperature Pulse Rate 88 Respiratory Rate 19 Blood Pressure 152/72 H 131/69 Pulse Oximetry Oxygen Delivery Method Oxygen Flow Rate 06/14/22 18:10 06/14/22 18:15 06/14/22 18:15 Temperature Pulse Rate 81 79 Respiratory Rate 25 H 22 Blood Pressure 136/75 Pulse Oximetry 96 93 Oxygen Delivery Method Oxygen Flow Rate 06/14/22 18:20 06/14/22 18:20 06/14/22 18:26 Temperature Pulse Rate 76 Respiratory Rate 24 Blood Pressure 105/66 127/75 Pulse Oximetry 93 Oxygen Delivery Method Oxygen Flow Rate 06/14/22 18:26 06/14/22 18:30 06/14/22 18:31 Temperature Pulse Rate 76 84 Respiratory Rate 26 H 27 H Blood Pressure 131/94 H Pulse Oximetry 93 92 Oxygen Delivery Method Oxygen Flow Rate 06/14/22 18:31 06/14/22 18:35 06/14/22 18:35 Temperature Pulse Rate 86 83 Respiratory Rate 28 H 26 H Blood Pressure 132/87 Pulse Oximetry 92 93 Oxygen Delivery Method Oxygen Flow Rate 06/14/22 18:40 06/14/22 18:40 06/14/22 18:45 Temperature Pulse Rate 76 Respiratory Rate 24 Blood Pressure 144/83 H 131/59 L Pulse Oximetry 94 Oxygen Delivery Method Oxygen Flow Rate 06/14/22 18:45 06/14/22 18:51 06/14/22 18:51 Temperature Pulse Rate 80 86 Respiratory Rate 26 H 21 Blood Pressure 139/70 Pulse Oximetry 94 93 Oxygen Delivery Method Oxygen Flow Rate 06/14/22 18:55 06/14/22 18:55 06/14/22 19:00 Temperature Pulse Rate 79 Respiratory Rate 24 Blood Pressure 130/70 134/66 Pulse Oximetry 94 Oxygen Delivery Method Oxygen Flow Rate 06/14/22 19:00 06/14/22 19:05 06/14/22 19:05 Temperature Pulse Rate 77 78 Respiratory Rate 24 22 Blood Pressure 137/71 Pulse Oximetry 94 94 Oxygen Delivery Method Oxygen Flow Rate 06/14/22 19:10 06/14/22 19:10 06/14/22 19:15 Temperature Pulse Rate 77 80 Respiratory Rate 24 24 Blood Pressure 134/73 Pulse Oximetry 94 90 L Oxygen Delivery Method Oxygen Flow Rate 06/14/22 19:15 06/14/22 19:20 06/14/22 19:20 Temperature Pulse Rate 79 Respiratory Rate 24 Blood Pressure 124/74 123/78 Pulse Oximetry 91 Oxygen Delivery Method Oxygen Flow Rate 06/14/22 19:26 06/14/22 19:26 06/14/22 19:30 Temperature Pulse Rate 84 Respiratory Rate 22 Blood Pressure 137/77 132/69 Pulse Oximetry 95 Oxygen Delivery Method Oxygen Flow Rate 06/14/22 19:30 06/14/22 19:36 06/14/22 19:36 Temperature Pulse Rate 76 88 Respiratory Rate 23 21 Blood Pressure 132/75 Pulse Oximetry 94 95 Oxygen Delivery Method Oxygen Flow Rate 06/14/22 19:40 06/14/22 19:40 06/14/22 19:45 Temperature Pulse Rate 76 Respiratory Rate 23 Blood Pressure 132/70 133/69 Pulse Oximetry 95 Oxygen Delivery Method Oxygen Flow Rate 06/14/22 19:45 06/14/22 19:50 06/14/22 19:50 Temperature Pulse Rate 81 73 Respiratory Rate 22 20 Blood Pressure 137/63 Pulse Oximetry 94 95 Oxygen Delivery Method Oxygen Flow Rate 06/14/22 19:55 06/14/22 19:55 06/14/22 20:00 Temperature Pulse Rate 74 Respiratory Rate 24 Blood Pressure 114/57 L 115/63 Pulse Oximetry 95 Oxygen Delivery Method Oxygen Flow Rate 06/14/22 20:00 06/14/22 20:05 06/14/22 20:05 Temperature Pulse Rate 78 75 Respiratory Rate 23 23 Blood Pressure 118/66 Pulse Oximetry 94 Oxygen Delivery Method Oxygen Flow Rate 06/14/22 20:10 06/14/22 20:10 06/14/22 20:14 Temperature Pulse Rate 75 75 Respiratory Rate 19 22 Blood Pressure 129/75 Pulse Oximetry 96 Oxygen Delivery Method Oxygen Flow Rate 06/14/22 20:15 06/14/22 20:15 06/14/22 20:20 Temperature Pulse Rate 74 Respiratory Rate 23 Blood Pressure 126/72 128/66 Pulse Oximetry 96 Oxygen Delivery Method Oxygen Flow Rate 06/14/22 20:20 06/14/22 20:26 06/14/22 20:26 Temperature Pulse Rate 75 74 Respiratory Rate 23 22 Blood Pressure 126/76 Pulse Oximetry 95 94 Oxygen Delivery Method Oxygen Flow Rate 06/14/22 20:30 06/14/22 20:30 06/14/22 20:35 Temperature Pulse Rate 74 Respiratory Rate 24 Blood Pressure 113/60 119/63 Pulse Oximetry 93 Oxygen Delivery Method Oxygen Flow Rate 06/14/22 20:35 06/14/22 20:40 06/14/22 20:40 Temperature Pulse Rate 73 73 Respiratory Rate 22 Blood Pressure 122/60 Pulse Oximetry 93 94 Oxygen Delivery Method Oxygen Flow Rate 06/14/22 20:45 06/14/22 20:45 06/14/22 20:50 Temperature Pulse Rate 73 72 Respiratory Rate 23 21 Blood Pressure 130/64 Pulse Oximetry 94 95 Oxygen Delivery Method Oxygen Flow Rate 06/14/22 20:50 06/14/22 20:56 06/14/22 20:56 Temperature Pulse Rate 72 Respiratory Rate 23 Blood Pressure 122/63 121/56 L Pulse Oximetry 93 Oxygen Delivery Method Oxygen Flow Rate 06/14/22 21:00 06/14/22 21:00 06/14/22 21:05 Temperature Pulse Rate 75 Respiratory Rate 23 Blood Pressure 110/57 L 111/65 Pulse Oximetry 94 Oxygen Delivery Method Oxygen Flow Rate 06/14/22 21:05 06/14/22 21:10 06/14/22 21:10 Temperature Pulse Rate 72 69 Respiratory Rate 23 23 Blood Pressure 120/59 L Pulse Oximetry 93 93 Oxygen Delivery Method Oxygen Flow Rate 06/14/22 21:15 06/14/22 21:16 06/14/22 22:10 Temperature Pulse Rate 73 Respiratory Rate 23 Blood Pressure 112/64 Pulse Oximetry 94 96 Oxygen Delivery Method Room Air Oxygen Flow Rate MDM - Chest Pain Lab Data 06/14/22 17:30 06/14/22 17:30 Labs: Lab Results 06/14/22 06/14/22 06/14/22 Range/Units 17:20 17:30 17:30 WBC 9.5 (4.5-11.0) X10^3/uL RBC 5.65 (4.5-5.9) X10^6/uL Hgb 13.4 L (13.5-17.5) g/dL Hct 41.7 (41-53) % MCV 73.9 L (80-100) fL MCH 23.7 L (26-34) PG MCHC 32.1 (30-36) % RDW 19.9 H (11.6-14.8) % Plt Count 437 H (150-400) X10^3/uL Neut % (Auto) 76.2 H (50-75) % Lymph % (Auto) 15.6 L (25-40) % [place] % (Auto) 5.2 (3-14) % Eos % (Auto) 2.1 (2-4) % Baso % (Auto) 0.9 (0-2) % Neut # (Auto) 7200 H (5772-6654) /uL Lymph # (Auto) 1500 (7011-1631) /uL [place] # (Auto) 500 (0-900) /uL Eos # (Auto) 200 (0-450) /uL Baso # (Auto) 100 (0-100) /uL PT 23.4 H (10.1-12.7) SECONDS INR 2.0 H (0.9-1.3) APTT 39 H (26-36) SECONDS D-Dimer (<500) ng/ml VBG pH (7.33-7.43) VBG pCO2 (45-50) mmHg VBG pO2 (35-45) mmHg VBG HCO3 (24-28) mmol/L VBG Total CO2 (24-29) mmol/L VBG O2 Saturation (70-75) % VBG Base Excess (0-4) mmol/L FiO2 Sodium (137-145) mmol/L Potassium (3.4-5.1) mmol/L Chloride (98-107) mmol/L Carbon Dioxide (22-32) mmol/L BUN (9-20) mg/dL Creatinine (0.66-1.25) mg/dL Estimated GFR (>60) mL/min BUN/Creatinine Ratio (6-22) Glucose (80-110) mg/dL Calcium (8.4-10.2) mg/dL Magnesium (1.6-2.3) mg/dL Total Bilirubin (0.2-1.3) mg/dL AST (17-59) IU/L ALT (<50) IU/L Alkaline Phosphatase (38-126) U/L Total Creatine Kinase (55-170) U/L CK-MB (CK-2) (<2.37) ng/mL CK-MB (CK-2) Rel Index (1.5-5.0) % Troponin I (0.01-0.034) ng/mL NT-Pro-B Natriuret Pep (<125) pg/mL Total Protein (6.3-8.2) g/dL Albumin (3.5-5.0) g/dL Globulin (1.7-4.1) g/dL Albumin/Globulin Ratio (1.0-2.8) Lipase (23-300) U/L Procalcitonin (<0.5) ng/mL SARS-CoV-2 (PCR) Negative (Negative) Influenza A (RT-PCR) Flu a negative (NEGATIVE) Influenza B (RT-PCR) Flu b negative (NEGATIVE) RSV (PCR) Negative (Negative) 06/14/22 06/14/22 06/14/22 Range/Units 17:30 17:30 17:30 WBC (4.5-11.0) X10^3/uL RBC (4.5-5.9) X10^6/uL Hgb (13.5-17.5) g/dL Hct (41-53) % MCV (80-100) fL MCH (26-34) PG MCHC (30-36) % RDW (11.6-14.8) % Plt Count (150-400) X10^3/uL Neut % (Auto) (50-75) % Lymph % (Auto) (25-40) % [place] % (Auto) (3-14) % Eos % (Auto) (2-4) % Baso % (Auto) (0-2) % Neut # (Auto) (7985-5632) /uL Lymph # (Auto) (0360-4827) /uL [place] # (Auto) (0-900) /uL Eos # (Auto) (0-450) /uL Baso # (Auto) (0-100) /uL PT (10.1-12.7) SECONDS INR (0.9-1.3) APTT (26-36) SECONDS D-Dimer (<500) ng/ml VBG pH (7.33-7.43) VBG pCO2 (45-50) mmHg VBG pO2 (35-45) mmHg VBG HCO3 (24-28) mmol/L VBG Total CO2 (24-29) mmol/L VBG O2 Saturation (70-75) % VBG Base Excess (0-4) mmol/L FiO2 Sodium 140 (137-145) mmol/L Potassium 4.1 (3.4-5.1) mmol/L Chloride 101 (98-107) mmol/L Carbon Dioxide 27 (22-32) mmol/L BUN 17 (9-20) mg/dL Creatinine 1.33 H (0.66-1.25) mg/dL Estimated GFR 58 L (>60) mL/min BUN/Creatinine Ratio 12.8 (6-22) Glucose 122 H (80-110) mg/dL Calcium 9.3 (8.4-10.2) mg/dL Magnesium 2.0 (1.6-2.3) mg/dL Total Bilirubin 0.7 (0.2-1.3) mg/dL AST 31 (17-59) IU/L ALT 24 (<50) IU/L Alkaline Phosphatase 83 (38-126) U/L Total Creatine Kinase 264 H (55-170) U/L CK-MB (CK-2) 3.43 H (<2.37) ng/mL CK-MB (CK-2) Rel Index 1.3 L (1.5-5.0) % Troponin I < 0.012 (0.01-0.034) ng/mL NT-Pro-B Natriuret Pep 2000 H (<125) pg/mL Total Protein 8.0 (6.3-8.2) g/dL Albumin 4.5 (3.5-5.0) g/dL Globulin 3.5 (1.7-4.1) g/dL Albumin/Globulin Ratio 1.3 (1.0-2.8) Lipase 173 (23-300) U/L Procalcitonin 0.06 (<0.5) ng/mL SARS-CoV-2 (PCR) (Negative) Influenza A (RT-PCR) (NEGATIVE) Influenza B (RT-PCR) (NEGATIVE) RSV (PCR) (Negative) 06/14/22 06/14/22 06/14/22 Range/Units 17:30 20:10 20:20 WBC (4.5-11.0) X10^3/uL RBC (4.5-5.9) X10^6/uL Hgb (13.5-17.5) g/dL Hct (41-53) % MCV (80-100) fL MCH (26-34) PG MCHC (30-36) % RDW (11.6-14.8) % Plt Count (150-400) X10^3/uL Neut % (Auto) (50-75) % Lymph % (Auto) (25-40) % [place] % (Auto) (3-14) % Eos % (Auto) (2-4) % Baso % (Auto) (0-2) % Neut # (Auto) (6670-3827) /uL Lymph # (Auto) (2734-9464) /uL [place] # (Auto) (0-900) /uL Eos # (Auto) (0-450) /uL Baso # (Auto) (0-100) /uL PT (10.1-12.7) SECONDS INR (0.9-1.3) APTT (26-36) SECONDS D-Dimer < 215 (<500) ng/ml VBG pH 7.39 (7.33-7.43) VBG pCO2 48.0 (45-50) mmHg VBG pO2 34 L (35-45) mmHg VBG HCO3 29 H (24-28) mmol/L VBG Total CO2 30 H (24-29) mmol/L VBG O2 Saturation 63 L (70-75) % VBG Base Excess 4.0 (0-4) mmol/L FiO2 21 Sodium (137-145) mmol/L Potassium (3.4-5.1) mmol/L Chloride (98-107) mmol/L Carbon Dioxide (22-32) mmol/L BUN (9-20) mg/dL Creatinine (0.66-1.25) mg/dL Estimated GFR (>60) mL/min BUN/Creatinine Ratio (6-22) Glucose (80-110) mg/dL Calcium (8.4-10.2) mg/dL Magnesium (1.6-2.3) mg/dL Total Bilirubin (0.2-1.3) mg/dL AST (17-59) IU/L ALT (<50) IU/L Alkaline Phosphatase (38-126) U/L Total Creatine Kinase 214 H (55-170) U/L CK-MB (CK-2) 3.16 H (<2.37) ng/mL CK-MB (CK-2) Rel Index 1.5 (1.5-5.0) % Troponin I 0.012 (0.01-0.034) ng/mL NT-Pro-B Natriuret Pep (<125) pg/mL Total Protein (6.3-8.2) g/dL Albumin (3.5-5.0) g/dL Globulin (1.7-4.1) g/dL Albumin/Globulin Ratio (1.0-2.8) Lipase (23-300) U/L Procalcitonin (<0.5) ng/mL SARS-CoV-2 (PCR) (Negative) Influenza A (RT-PCR) (NEGATIVE) Influenza B (RT-PCR) (NEGATIVE) RSV (PCR) (Negative) ECG Data Interpretation: [1831] EKG is normal sinus arrhythmia rate [81 ] and free of any signs of ischemia or ectopy. No ST segmental elevation or depression. No T wave inversions MDM Narrative Medical decision making narrative: [71] year old patient presents with chest pain Multiple etiologies for patient's symptoms considered including, but not limited to: [Cardiac ischemia, pulmonary embolism, hypertension, pneumonia versus mu sculoskeletal versus other] Prior Charts reviewed in our EMR Primary Historian: patient Labs reviewed and interpreted by myself: Troponin x2 negative, D-dimer below age corrected cutoff, labs otherwise unremarkable Imaging reviewed: No obvious significant abnormal finding Patient's symptoms improved over duration of stay with above-stated therapies. Multiple causes of chest pain considered including DC, PE, pneumothorax, pneumonia, aortic dissection, and pleurisy. Patient reports no radiation, no diaphoresis, no provocation with exertion, and no vomiting Findings and discharge diagnosis discussed with patient/family followed by verbalization of understanding Return precautions discussed with patient/family whom verbalize understanding of diagnosis and plan Discharge Plan Departure Patient Disposition: Home Clinical Impression: Atypical chest pain Instructions: DI for Atypical Chest Pain Activity Restrictions/Additional Instructions: *You have been diagnosed with [atypical chest pain] *What to do: *Please continue to take your regular medications as directed. [ ] New medication prescriptions sent to your pharmacy: [ ] [ ] New medication written as a paper prescription [ ] No new medications given *Please follow up with your primary care provider in 2-3 days, call for an appointment. Let them know you were seen in the Emergency Department and that we ask that you be seen in follow up. We will electronically transmit a record of today's note if your PCP is in our system *If you do not have a primary care provider please contact the [facility] Resource line at [phone]. They will ask some questions about your medical history and help get you set up with a doctor in the community. *Return to Emergency Department if you should have any new, worsening or concerning symptoms, such as [fever greater than 101 F, shaking chills, worsening pain, persistent vomiting or other bothersome symptoms] Prescriptions: No Action gabapentin 600 mg tablet 600 mg BID atorvastatin 20 mg tablet 20 mg DAILY prednisone 5 mg tablet 5 mg DAILY aspirin 81 mg tablet,delayed release (DR/EC) 81 mg DAILY fenofibrate micronized 134 mg capsule 134 mg DAILY potassium chloride 20 mEq tablet,ER particles/crystals 20 meq PO DAILY tamsulosin 0.4 mg capsule 0.4 mg PO DAILY Serevent Diskus 50 mcg/dose blister with device 1 inh INHALATION BID sertraline 25 mg tablet 75 mg DAILY albuterol sulfate 90 mcg/actuation HFA aerosol inhaler 2 inh INHALATION BID risperidone 1 mg tablet 1 mg BEDTIME lidocaine 5 % ointment 1 applic DAILY Rx Instructions: to right hand Spiriva Respimat 2.5 mcg/actuation mist 2 inh INHALATION DAILY melatonin 3 mg 6 mg BEDTIME furosemide [Lasix] 40 mg tablet 40 mg PO BID Qty: 60 0RF Referrals: Isi Andrews ARNP [Primary Care Provider] - Stand Alone Forms: Patient Portal/API
[2022-06-14 20:28] LABS: D Dimer < 215 ng/ml (<500)
[2022-06-14 20:31] LABS: Fractionated Inspired Oxygen 21; HCO3 VBG 29 mmol/L (24-28); Oxygen Saturation VBG 63 % (70-75); PO2 VBG 34 mmHg (35-45); Total CO2 VBG 30 mmol/L (24-29); pH VBG 7.39 (7.33-7.43)
[2022-06-14 20:46] LABS: Creatine Kinase 214 U/L (55-170)
[2022-06-14 20:59] LABS: Troponin I 0.012 ng/mL (0.01-0.034)
[2022-06-14 21:01] LABS: CKMB % Relative Index 1.5 % (1.5-5.0); Creatine Kinase MB 3.16 ng/mL (<2.37)
--- NOTE | 2022-06-14 21:42 | DI.RAD.S_ITS ---
PROCEDURE: XR CHEST 1V INDICATIONS: SOB, chest pain. TECHNIQUE: One view of the chest was acquired. COMPARISON: [facility], CR, XR CHEST 1V, 02/26/2022, 7:09. FINDINGS: Surgical changes and devices: None. Lungs and pleura: There are linear opacities redemonstrated in the left lung base likely representing atelectasis. No pleural effusions or pneumothorax. Mediastinum: Mediastinal contours appear normal. Heart size is normal. Bones and chest wall: No suspicious bony lesions. Overlying soft tissues appear unremarkable. IMPRESSION: 1. Probable atelectasis in the left lung base. Dictated by: Vito Rust M.D. on 06/14/2022 at 22:47 Approved by: Vito Rust M.D. on 06/14/2022 at 22:48
--- NOTE | 2022-06-14 23:16 | PC.NURSE ---
Called report to [facility] at [phone]
== END 2022-06-14 23:10 | disposition home or self-care (01) ==
PROVIDERS: Emergency Medicine; Emergency Provider Emergency Medicine; PCP Nurse Practitioner Family
DX: R07.89 Other chest pain (principal); Z20.822 Contact with and (suspected) exposure to COVID-19; Z79.899 Other long term (current) drug therapy
CPT/HCPCS: 0241U; 36415; 71045; 80053; 82550; 82553; 82805; 83690; 83735; 83880; 84145; 84484; 85025; 85379; 85610; 85730; 93005; 99284; 99285

== ENCOUNTER → 2022-06-18 08:01 | Outpatient (ROUT) | payer MEDICARE, MEDICAID, SELFPAY ==
[2022-02-26 18:38] VITALS: BMI 36.9
[2022-02-26 23:30] VITALS: PULSE 88; RESP 28; O2SAT 94
[2022-06-18 09:22] LABS: INR 2.3 (0.9-1.3); Prothrombin Time 26.7 SECONDS (10.1-12.7)
== END ==
PROVIDERS: PCP Nurse Practitioner Family; Visit Provider Nurse Practitioner Gerontology
DX: Z79.01 Long term (current) use of anticoagulants (principal)
CPT/HCPCS: 36415; 85610

== ENCOUNTER → 2022-07-02 07:52 | Outpatient (ROUT) | payer MEDICARE, MEDICAID, SELFPAY ==
[2022-02-26 18:38] VITALS: BMI 36.9
[2022-02-26 23:30] VITALS: PULSE 88; RESP 28; O2SAT 94
[2022-07-02 08:38] LABS: INR 3.3 (0.9-1.3); Prothrombin Time 38.4 SECONDS (10.1-12.7)
[2022-07-02 08:56] LABS: NT-proBNP (BNP-Adult 18+) 2370 pg/mL (<125)
== END ==
PROVIDERS: PCP Nurse Practitioner Family; Visit Provider Nurse Practitioner Gerontology
DX: R06.00 Dyspnea, unspecified (principal); Z79.01 Long term (current) use of anticoagulants
CPT/HCPCS: 36415; 83880; 85610

== ENCOUNTER → 2022-07-08 09:25 | Outpatient (CLI) | payer MEDICARE, MEDICAID, SELFPAY ==
[2022-02-26 18:38] VITALS: BMI 36.9
[2022-02-26 23:30] VITALS: PULSE 88; RESP 28; O2SAT 94
[2022-07-08 10:32] LABS: Prothrombin Time 34.4 SECONDS (10.1-12.7)
[2022-07-08 10:37] LABS: BUN Creatinine Ratio 15.5 (6-22); Blood Urea Nitrogen 17 mg/dL (9-20); Calcium 8.7 mg/dL (8.4-10.2); Carbon Dioxide 30 mmol/L (22-32); Chloride 102 mmol/L (98-107); Estimated Glomerular Filt Rate > 60 mL/min (>60); Glucose 93 mg/dL (80-110); HEMOLYSIS < 15 (0-50); Potassium 3.4 mmol/L (3.4-5.1); Sodium 138 mmol/L (137-145)
[2022-07-08 10:45] LABS: NT-proBNP (BNP-Adult 18+) 1420 pg/mL (<125)
== END ==
PROVIDERS: PCP Nurse Practitioner Family; Referring Provider Nurse Practitioner Gerontology; Visit Provider Nurse Practitioner Gerontology
DX: I50.23 Acute on chronic systolic (congestive) heart failure (principal); Z79.01 Long term (current) use of anticoagulants
CPT/HCPCS: 36415; 80048; 83880; 85610

== ENCOUNTER → 2022-07-09 07:21 | Outpatient (ROUT) | payer MEDICARE, MEDICAID, SELFPAY ==
[2022-02-26 18:38] VITALS: BMI 36.9
[2022-02-26 23:30] VITALS: PULSE 88; RESP 28; O2SAT 94
[2022-07-09 07:41] LABS: Add Manual Diff / Slide Review NO; Basophils Absolute Auto 100 /uL (0-100); Eosinophils Absolute Auto 400 /uL (0-450); Eosinophils Percent Auto 4.9 % (2-4); Hematocrit 37.2 % (41-53); Hemoglobin 11.7 g/dL (13.5-17.5); Lymphocytes Absolute Auto 2000 /uL (1100-4500); Lymphocytes Percent Auto 23.3 % (25-40); Mean Corpuscular HGB Conc 31.4 % (30-36); Mean Corpuscular Hemoglobin 22.2 PG (26-34); Mean Corpuscular Volume 70.8 fL (80-100); Monocytes Absolute Auto 700 /uL (0-900); Monocytes Percent Auto 8.3 % (3-14); Neutrophils Absolute Auto 5400 /uL (1500-7000); Neutrophils Percent Auto 62.5 % (50-75); Platelet Count 400 X10^3/uL (150-400); Red Blood Cell Count 5.25 X10^6/uL (4.5-5.9); Red Cell Distribution Width 19.8 % (11.6-14.8); White Blood Cell Count 8.6 X10^3/uL (4.5-11.0)
== END ==
PROVIDERS: PCP Nurse Practitioner Family; Visit Provider Nurse Practitioner Gerontology
DX: I50.9 Heart failure, unspecified (principal); Z79.01 Long term (current) use of anticoagulants
CPT/HCPCS: 36415; 85025

== ENCOUNTER → 2022-07-23 07:40 | Outpatient (ROUT) | payer MEDICARE, MEDICAID, SELFPAY ==
[2022-02-26 18:38] VITALS: BMI 36.9
[2022-02-26 23:30] VITALS: PULSE 88; RESP 28; O2SAT 94
[2022-07-23 07:57] LABS: Prothrombin Time 46.8 SECONDS (10.1-12.7)
== END ==
PROVIDERS: PCP Nurse Practitioner Family; Visit Provider Nurse Practitioner Gerontology
DX: Z79.01 Long term (current) use of anticoagulants (principal)
CPT/HCPCS: 36415; 85610

== ENCOUNTER → 2022-07-30 08:20 | Outpatient (ROUT) | payer MEDICARE, MEDICAID, SELFPAY ==
[2022-02-26 18:38] VITALS: BMI 36.9
[2022-02-26 23:30] VITALS: PULSE 88; RESP 28; O2SAT 94
[2022-07-30 09:40] LABS: INR 1.4 (0.9-1.3); Prothrombin Time 15.8 SECONDS (10.1-12.7)
== END ==
PROVIDERS: PCP Nurse Practitioner Family; Visit Provider Nurse Practitioner Gerontology
DX: I82.409 Acute embolism and thrombosis of unspecified deep veins of unspecified lower extremity (principal); Z79.01 Long term (current) use of anticoagulants
CPT/HCPCS: 36415; 85610

== ENCOUNTER 2022-08-25 17:20 | Inpatient (IN) | payer MEDICARE, MEDICAID, SELFPAY ==
[2022-02-26 18:38] VITALS: BMI 36.9
[2022-02-26 23:30] VITALS: PULSE 88; RESP 28; O2SAT 94
[2022-08-25] VITALS (14 sets, daily range): BP systolic 129–147; BP diastolic 66–99; PULSE 77–93; RESP 16–32; TEMP 36.2–36.6; O2SAT 89–96; BMI 40.1; BMI 34.7
--- NOTE | 2022-08-25 17:22 | DI.RAD.S_ITS ---
PROCEDURE: XR CHEST 1V INDICATIONS: SOB TECHNIQUE: One view of the chest was acquired. COMPARISON: [facility], CT, CT ANGIO CHEST PE PROTOCOL, 03/01/2022, 11:58. [facility], CR, XR CHEST 1V, 06/14/2022, 21:44. FINDINGS: Surgical changes and devices: Suture anchor noted in the right humeral head Lungs and pleura: Hyperinflation and chronic interstitial changes. Elevated left hemidiaphragm. Mediastinum: Mediastinal contours appear normal. Heart size is normal. Bones and chest wall: No suspicious bony lesions. Overlying soft tissues appear unremarkable. IMPRESSION: No acute cardiopulmonary findings Pulmonary hyperinflation and chronic interstitial changes Approved by: Omar Levine M.D. on 08/25/2022 at 17:07
[2022-08-25] MEDS: SODIUM CHLORIDE 0.9% 1,000 ML 150 ML IV (17:52)
[2022-08-25] MEDS: FUROSEMIDE 40 MG/4 ML VIAL IV (17:52)
[2022-08-25 18:04] LABS: Add Manual Diff / Slide Review NO; Basophils Absolute Auto 100 /uL (0-100); Basophils Percent Auto 0.9 % (0-2); Eosinophils Absolute Auto 300 /uL (0-450); Eosinophils Percent Auto 3.3 % (2-4); Hematocrit 41.6 % (41-53); Hemoglobin 12.7 g/dL (13.5-17.5); Lymphocytes Absolute Auto 1600 /uL (1100-4500); Lymphocytes Percent Auto 18.2 % (25-40); Mean Corpuscular HGB Conc 30.5 % (30-36); Mean Corpuscular Hemoglobin 21.5 PG (26-34); Mean Corpuscular Volume 70.5 fL (80-100); Monocytes Absolute Auto 800 /uL (0-900); Monocytes Percent Auto 9.1 % (3-14); Neutrophils Absolute Auto 5900 /uL (1500-7000); Neutrophils Percent Auto 68.5 % (50-75); Platelet Count 297 X10^3/uL (150-400); White Blood Cell Count 8.6 X10^3/uL (4.5-11.0)
[2022-08-25 18:14] LABS: PCO2 ABG 33.5 mmHg (35-45); PO2 ABG 54 mmHg (80-100); pH ABG 7.39 (7.35-7.45)
[2022-08-25 18:14] LABS: Alanine Aminotransferase 25 IU/L (<50); Albumin 3.9 g/dL (3.5-5.0); Albumin Globulin Ratio 1.2 (1.0-2.8); Alkaline Phosphatase 64 U/L (38-126); Aspartate Aminotransferase 28 IU/L (17-59); BUN Creatinine Ratio 13.3 (6-22); Bilirubin Total 0.6 mg/dL (0.2-1.3); Blood Urea Nitrogen 13 mg/dL (9-20); Calcium 9.1 mg/dL (8.4-10.2); Carbon Dioxide 21 mmol/L (22-32); Chloride 109 mmol/L (98-107); Creatine Kinase 145 U/L (55-170); Estimated Glomerular Filt Rate > 60 mL/min (>60); Globulin 3.3 g/dL (1.7-4.1); Glucose 100 mg/dL (80-110); HEMOLYSIS 23 (0-50); INR 1.2 (0.9-1.3); Lipase 178 U/L (23-300); PTT Partial Thromboplastin Tim 29 SECONDS (26-36); Potassium 4.4 mmol/L (3.4-5.1); Prothrombin Time 14.2 SECONDS (10.1-12.7); Sodium 140 mmol/L (137-145); Total Protein 7.2 g/dL (6.3-8.2)
[2022-08-25 18:15] LABS: Fractionated Inspired Oxygen 21; HCO3 ABG 20 mmol/L (23-27); Oxygen Saturation ABG 88 % (95-100); TCO2 ABG 21 mmol/L (23-27)
[2022-08-25 18:27] LABS: Troponin I 0.013 ng/mL (0.01-0.034)
--- NOTE | 2022-08-25 18:27 | PC.NURSE ---
The patient authorized verbally for this RN to cut off his pants in gain access for him to urinate. Patient unable to tolerate rolling at the time due to shortness of breath. These were a worn navy sweatpant.
[2022-08-25 18:31] LABS: Procalcitonin 0.08 ng/mL (<0.5)
[2022-08-25 18:41] LABS: NT-proBNP (BNP-Adult 18+) 2460 pg/mL (<125)
[2022-08-25 18:49] LABS: Bacteria Urine None Seen; Calcium Oxalate Crystals Urine Few; Mucus Urine 1+ (Negative); RBC Urine 0-1/HPF (0-5/HPF); Squamous Epithelial Cell Urine 0-1 /HPF (0-5/HPF); WBC Urine 0-1/HPF (0-5/HPF)
--- NOTE | 2022-08-25 19:05 | ED_ITS ---
HPI - SOB/Dyspnea General Chief Complaint: Shortness of Breath/Dyspnea Stated Complaint: COPD / CHF Time Seen by Provider: 08/25/22 17:22 Source: EMS Mode of arrival: EMS History of Present Illness HPI Narrative: Patient here for shortness of breath. Patient here from [facility]. Patient has history of CHF but is noncompliant. He is DNR DNI with selective treatments. Pulsed form on chart. Patient has been feeling more shortness of breath and generalized lymphedema. No chest pain. No cough cold congestion fever chills. Related Data Home Medications Medication Instructions Recorded Confirmed albuterol sulfate 90 mcg/actuation 2 inh inhalation BID 12/29/21 12/29/21 aerosol inhaler aspirin 81 mg tablet,delayed 81 mg DAILY 12/29/21 12/29/21 release atorvastatin 20 mg tablet 20 mg DAILY 12/29/21 12/29/21 fenofibrate micronized 134 mg 134 mg DAILY 12/29/21 12/29/21 capsule gabapentin 600 mg tablet 600 mg BID 12/29/21 12/29/21 lidocaine 5 % topical ointment 1 applic DAILY 12/29/21 12/29/21 melatonin 6 mg BEDTIME 12/29/21 12/29/21 potassium chloride 20 mEq 20 meq PO DAILY 12/29/21 12/29/21 tablet,extended release(part/cryst) prednisone 5 mg tablet 5 mg DAILY 12/29/21 12/29/21 risperidone 1 mg tablet 1 mg BEDTIME 12/29/21 12/29/21 salmeterol 50 mcg/dose blister 1 inh inhalation BID 12/29/21 12/29/21 powder for inhalation (Serevent Diskus) sertraline 25 mg tablet 75 mg DAILY 12/29/21 12/29/21 tamsulosin 0.4 mg capsule 0.4 mg PO DAILY 12/29/21 12/29/21 tiotropium bromide 2.5 2 inh inhalation DAILY 12/29/21 12/29/21 mcg/actuation mist for inhalation (Spiriva Respimat) Previous Rx's Medication Instructions Recorded furosemide 40 mg tablet (Lasix) 40 mg PO BID #60 tabs 12/31/21 Allergies Allergy/AdvReac Type Severity Reaction Status Date / Time No Known Drug Allergies Allergy Verified 08/25/22 17:27 Review of Systems Review of Systems Narrative: GENERAL: negative chills, fatigue, malaise, fever, sweats. HEENT: negative sinus pain, ear pain, sore throat RESPIRATORY: Positive dyspnea, negative cough CARDIOVASCULAR: negative chest pain, palpitations, positive limb edema GASTROINTESTINAL: negative nausea, vomiting, abdominal pain : negative dysuria, frequency, hematuria MUSCULOSKELETAL: negative muscle or bony pain SKIN: negative rash, skin lesions NEUROLOGIC: negative weakness, numbness ROS Unobtainable: All systems reviewed & are unremarkable except as noted in HPI and below Patient History Medical History (Updated 08/25/22 @ 22:28 by CIRA Diallo) Bilateral pulmonary embolism BPH (benign prostatic hyperplasia) CHF (congestive heart failure) COPD (chronic obstructive pulmonary disease) History of DVT (deep vein thrombosis) History of stroke Hyperlipidemia Neuropathy Obesity (BMI 30-39.9) Surgical History History of shoulder surgery Family History Father Heart attack Sister AA (aortic aneurysm) Social History household members: none Smoking Status: Current every day smoker Smoking Status: Current every day smoker tobacco type: cigarettes alcohol intake frequency: 0-2 drinks per day Alcohol type: hard liquor Substance Use Type: marijuana Exam Narrative Exam Narrative: GENERAL: in no distress, not toxic not dyspneic HEAD: Normocephalic. EYES: Pupils equal round ENT: Mucous membranes moist. NECK: Trachea midline. CARDIOVASCULAR: Regular rate and rhythm without murmurs RESPIRATORY: Requiring supplemental oxygen nasal cannula but now able to speak full sentences. Has mild bibasilar rales. No respiratory distress GASTROINTESTINAL: Abdomen soft, non-tender EXTREMITIES: No gross deformities. There is symmetric bilateral calf and ankle edema. BACK: No flank tenderness. NEURO: AOx4. SKIN: Warm and dry PSYCH: Not anxious, is cooperative Initial Vital Signs Initial Vital Signs: Vital Signs Temperature 97.8 F 08/25/22 17:23 Pulse Rate 90 08/25/22 17:23 Respiratory Rate 32 H 08/25/22 17:23 Blood Pressure 138/99 H 08/25/22 17:23 Pulse Oximetry 91 08/25/22 17:23 Oxygen Delivery Method Room Air 08/25/22 17:23 Course Orders Ordered: ED Orders 08/25/22 17:40 ABG [Arterial Blood Gas] Stat 08/25/22 17:48 EKG-12 Lead Stat 08/25/22 17:50 Complete Blood Count AUTO DIFF Stat Comprehensive Metabolic Panel Stat Lactate (Lactic Acid) Urgent Lipase Stat Magnesium Urgent NT-proBNP (BNP-Adult 18+) Stat PTT Partial Thromboplastin Shin Stat Procalcitonin Stat Prothrombin Time INR Stat Troponin & CK Cardiac Panel Stat 08/25/22 18:09 Urine Culture Stat Urine Microscopic Stat 08/25/22 19:45 BiPAP Ventilatory Support RT PROTOCOL Education, smoking cessation ONGOING 08/25/22 19:54 EC echo doppler complete Urgent RT Consult Eval and Treat PRN 08/25/22 20:01 Consult to Dietitian, Adult Routine Consult to Occupational Therapy Evaluate & Treat Consult to Physical Therapy Evaluate & Treat 08/25/22 20:12 Respiratory Panel (Film Array) Stat 08/25/22 20:30 CT angio chest PE protocol Stat 08/25/22 21:20 Thyroid Stimulating Hormone Urgent 08/26/22 05:00 Basic Metabolic Panel DAILY Complete Blood Count AUTO DIFF DAILY NT-proBNP (BNP-Adult 18+) Routine Troponin I Routine 08/27/22 05:00 Basic Metabolic Panel DAILY Complete Blood Count AUTO DIFF DAILY 08/28/22 05:00 Basic Metabolic Panel DAILY Complete Blood Count AUTO DIFF DAILY Acetaminophen (Acetaminophen 325 Mg Tablet) 650 mg PO Q6H PRN PRN Reason: Fever/Mild Pain (1-3) Hydrocodone Bitart/Acetaminophen (Hydrocodone/Acet 5/325 Tablet) 1 tab PO Q4H PRN PRN Reason: Pain, Moderate (4-10 Al Hydrox/Mg Hydrox/Simethicone (Mag Hydrox/Alum/Simeth 30 Ml Udc) 30 ml PO Q6HR PRN PRN Reason: Dyspepsia Albuterol/Ipratropium (Albuterol/Ipratropium 3 Ml Ampul) 3 ml INH [id number] [facility] Last Admin: 08/25/22 23:15 Dose: Not Given Documented By: MR Apixaban (Apixaban 5 Mg Tablet) 5 mg PO BID [facility] Last Admin: 08/25/22 23:04 Dose: 5 mg Documented By: DIO Aspirin (Aspirin Ec 81 Mg Tablet) 81 mg PO DAILY [facility] Atorvastatin Calcium (Atorvastatin 20 Mg Tablet) 20 mg PO DAILY [facility] Benzonatate (Benzonatate 100 Mg Capsule) 100 mg PO TID PRN PRN Reason: Cough Calcium Carbonate (Calcium Carbonate 500 Mg Tab) 1,000 mg PO Q4HR PRN PRN Reason: Dyspepsia Furosemide (Furosemide 20 Mg/2 Ml Vial) 40 mg IV BID [facility] Last Admin: 08/25/22 23:05 Dose: 40 mg Documented By: DIO Gabapentin (Gabapentin 600 Mg Tablet) 600 mg PO BID [facility] Last Admin: 08/25/22 23:04 Dose: 600 mg Documented By: DIO Guaifenesin/Codeine Phosphate (Codeine/Guaifenesin Liquid 5ml Udc) 5 ml PO Q6H PRN PRN Reason: Cough Melatonin (Melatonin 3 Mg Tablet) 6 mg PO BEDTIME [facility] Last Admin: 08/25/22 23:04 Dose: 6 mg Documented By: DIO Methylprednisolone (Methylprednisolone 125 Mg/2 Ml Vial) 60 mg IV Q6HR [facility] Last Admin: 08/25/22 23:31 Dose: 60 mg Documented By: DIO Naloxone HCl (Naloxone 0.4 Mg/Ml Vial) 0.2 mg IV Q2MIN PRN PRN Reason: Opiate Reversal Nicotine (Nicotine 14 Patch) 14 mg TOP DAILY [facility] Last Admin: 08/25/22 23:05 Dose: Not Given Documented By: DIO Non-Formulary Medication (Tiotropium [place] [Spiriva Respimat]) 2 inhalation INH DAILY [facility] Non-Formulary Medication (Salmeterol [Serevent Diskus]) 1 inhalation INH BID [facility] Potassium Chloride (Potassium Chloride 20 Meq Tab) 20 meq PO DAILYCC [facility] Sennosides (Sennosides 8.6 Mg Tablet) 17.2 mg PO BEDTIME [facility] Last Admin: 08/25/22 23:05 Dose: Not Given Documented By: DIO Discontinued Medications Enoxaparin Sodium (Enoxaparin 40 Mg/0.4 Ml Syringe) 40 mg SUBCUT DAILY [facility] Furosemide (Furosemide 40 Mg/4 Ml Vial) 40 mg IV NOW ONE Stop: 08/25/22 17:23 Last Admin: 08/25/22 17:52 Dose: 40 mg Documented By: RB Sodium Chloride (Normal Saline 0.9%) 1,000 mls @ 150 mls/hr IV CONT [facility] Last Admin: 08/25/22 17:52 Dose: 150 mls/hr Documented By: RB Vital Signs Vital signs: Vital Signs - 8 hr 08/25/22 18:30 08/25/22 19:00 08/25/22 19:30 Pulse Rate 85 87 93 H Respiratory Rate 26 H 16 Blood Pressure Pulse Oximetry 92 90 L Oxygen Delivery Method Room Air Room Air 08/25/22 19:52 08/25/22 19:52 08/25/22 20:00 Pulse Rate 82 83 Respiratory Rate 26 H 27 H Blood Pressure 129/66 Pulse Oximetry 92 92 Oxygen Delivery Method 08/25/22 20:01 08/25/22 20:01 Pulse Rate 81 Respiratory Rate 26 H Blood Pressure 129/80 Pulse Oximetry 92 Oxygen Delivery Method Room Air MDM - SOB/Dyspnea Lab Data 08/25/22 17:50 08/25/22 17:50 Labs: Lab Results 08/25/22 08/25/22 08/25/22 Range/Units 17:40 17:50 17:50 WBC 8.6 (4.5-11.0) X10^3/uL RBC 5.90 (4.5-5.9) X10^6/uL Hgb 12.7 L (13.5-17.5) g/dL Hct 41.6 (41-53) % MCV 70.5 L (80-100) fL MCH 21.5 L (26-34) PG MCHC 30.5 (30-36) % RDW 20.0 H (11.6-14.8) % Plt Count 297 (150-400) X10^3/uL Neut % (Auto) 68.5 (50-75) % Lymph % (Auto) 18.2 L (25-40) % Allen % (Auto) 9.1 (3-14) % Eos % (Auto) 3.3 (2-4) % Baso % (Auto) 0.9 (0-2) % Neut # (Auto) 5900 (4914-9542) /uL Lymph # (Auto) 1600 (5689-7365) /uL Allen # (Auto) 800 (0-900) /uL Eos # (Auto) 300 (0-450) /uL Baso # (Auto) 100 (0-100) /uL PT 14.2 H (10.1-12.7) SECONDS INR 1.2 (0.9-1.3) APTT 29 (26-36) SECONDS ABG pH 7.39 (7.35-7.45) ABG pCO2 33.5 L (35-45) mmHg ABG pO2 54 L (80-100) mmHg ABG HCO3 20 L (23-27) mmol/L ABG Total CO2 21 L (23-27) mmol/L ABG O2 Saturation 88 L (95-100) % ABG Base Excess -5.0 L (-2-3) mmol/L FiO2 21 Sodium (137-145) mmol/L Potassium (3.4-5.1) mmol/L Chloride (98-107) mmol/L Carbon Dioxide (22-32) mmol/L BUN (9-20) mg/dL Creatinine (0.66-1.25) mg/dL Estimated GFR (>60) mL/min BUN/Creatinine Ratio (6-22) Glucose (80-110) mg/dL Lactate (0.7-2.1) mmol/L Calcium (8.4-10.2) mg/dL Magnesium (1.6-2.3) mg/dL Total Bilirubin (0.2-1.3) mg/dL AST (17-59) IU/L ALT (<50) IU/L Alkaline Phosphatase (38-126) U/L Total Creatine Kinase (55-170) U/L CK-MB (CK-2) CK-MB (CK-2) Rel Index Troponin I (0.01-0.034) ng/mL NT-Pro-B Natriuret Pep (<125) pg/mL Total Protein (6.3-8.2) g/dL Albumin (3.5-5.0) g/dL Globulin (1.7-4.1) g/dL Albumin/Globulin Ratio (1.0-2.8) Lipase (23-300) U/L Procalcitonin (<0.5) ng/mL Urine RBC (0-5/HPF) Urine WBC (0-5/HPF) Ur Squamous Epith Cells (0-5/HPF) Calcium Oxalate Crystal Urine Bacteria (None) Urine Mucus (Negative) Chlamy pneumoniae PCR (Not Detect) Adenovirus (PCR) (Not Detect) B. pertussis DNA (PCR) (Not Detecte) B.parapertussis DNA PCR (Not Detecte) Coronavirus OC43 (PCR) (Not Detect) Coronavirus HKU1 (PCR) (Not Detect) Coronavirus 229E (PCR) (Not Detect) SARS-CoV-2 (PCR) (Not Detecte) Coronavirus NL63 (PCR) (Not Detect) Human Metapneumovir PCR (Not Detect) Influenza Type A (PCR) (Not Detect) Influenza Type B (PCR) (Not Detect) M. pneumoniae (PCR) (Not Detect) Parainfluenza 1 (PCR) (Not Detect) Parainfluenza 2 (PCR) (Not Detect) Parainfluenza 3 (PCR) (Not Detect) Parainfluenza 4 (PCR) (Not Detect) RSV (PCR) (Not Detect) Entero/Rhino (PCR) (Not Detect) 08/25/22 08/25/22 08/25/22 Range/Units 17:50 17:50 17:50 WBC (4.5-11.0) X10^3/uL RBC (4.5-5.9) X10^6/uL Hgb (13.5-17.5) g/dL Hct (41-53) % MCV (80-100) fL MCH (26-34) PG MCHC (30-36) % RDW (11.6-14.8) % Plt Count (150-400) X10^3/uL Neut % (Auto) (50-75) % Lymph % (Auto) (25-40) % Allen % (Auto) (3-14) % Eos % (Auto) (2-4) % Baso % (Auto) (0-2) % Neut # (Auto) (0867-8316) /uL Lymph # (Auto) (9762-6214) /uL Allen # (Auto) (0-900) /uL Eos # (Auto) (0-450) /uL Baso # (Auto) (0-100) /uL PT (10.1-12.7) SECONDS INR (0.9-1.3) APTT (26-36) SECONDS ABG pH (7.35-7.45) ABG pCO2 (35-45) mmHg ABG pO2 (80-100) mmHg ABG HCO3 (23-27) mmol/L ABG Total CO2 (23-27) mmol/L ABG O2 Saturation (95-100) % ABG Base Excess (-2-3) mmol/L FiO2 Sodium 140 (137-145) mmol/L Potassium 4.4 (3.4-5.1) mmol/L Chloride 109 H (98-107) mmol/L Carbon Dioxide 21 L (22-32) mmol/L BUN 13 (9-20) mg/dL Creatinine 0.98 (0.66-1.25) mg/dL Estimated GFR > 60 (>60) mL/min BUN/Creatinine Ratio 13.3 (6-22) Glucose 100 (80-110) mg/dL Lactate (0.7-2.1) mmol/L Calcium 9.1 (8.4-10.2) mg/dL Magnesium 2.1 (1.6-2.3) mg/dL Total Bilirubin 0.6 (0.2-1.3) mg/dL AST 28 (17-59) IU/L ALT 25 (<50) IU/L Alkaline Phosphatase 64 (38-126) U/L Total Creatine Kinase 145 (55-170) U/L CK-MB (CK-2) TNP CK-MB (CK-2) Rel Index TNP Troponin I 0.013 (0.01-0.034) ng/mL NT-Pro-B Natriuret Pep 2460 H (<125) pg/mL Total Protein 7.2 (6.3-8.2) g/dL Albumin 3.9 (3.5-5.0) g/dL Globulin 3.3 (1.7-4.1) g/dL Albumin/Globulin Ratio 1.2 (1.0-2.8) Lipase 178 (23-300) U/L Procalcitonin 0.08 (<0.5) ng/mL Urine RBC (0-5/HPF) Urine WBC (0-5/HPF) Ur Squamous Epith Cells (0-5/HPF) Calcium Oxalate Crystal Urine Bacteria (None) Urine Mucus (Negative) Chlamy pneumoniae PCR (Not Detect) Adenovirus (PCR) (Not Detect) B. pertussis DNA (PCR) (Not Detecte) B.parapertussis DNA PCR (Not Detecte) Coronavirus OC43 (PCR) (Not Detect) Coronavirus HKU1 (PCR) (Not Detect) Coronavirus 229E (PCR) (Not Detect) SARS-CoV-2 (PCR) (Not Detecte) Coronavirus NL63 (PCR) (Not Detect) Human Metapneumovir PCR (Not Detect) Influenza Type A (PCR) (Not Detect) Influenza Type B (PCR) (Not Detect) M. pneumoniae (PCR) (Not Detect) Parainfluenza 1 (PCR) (Not Detect) Parainfluenza 2 (PCR) (Not Detect) Parainfluenza 3 (PCR) (Not Detect) Parainfluenza 4 (PCR) (Not Detect) RSV (PCR) (Not Detect) Entero/Rhino (PCR) (Not Detect) 08/25/22 08/25/22 08/25/22 Range/Units 17:50 18:09 20:12 WBC (4.5-11.0) X10^3/uL RBC (4.5-5.9) X10^6/uL Hgb (13.5-17.5) g/dL Hct (41-53) % MCV (80-100) fL MCH (26-34) PG MCHC (30-36) % RDW (11.6-14.8) % Plt Count (150-400) X10^3/uL Neut % (Auto) (50-75) % Lymph % (Auto) (25-40) % Allen % (Auto) (3-14) % Eos % (Auto) (2-4) % Baso % (Auto) (0-2) % Neut # (Auto) (1906-4518) /uL Lymph # (Auto) (6096-9629) /uL Allen # (Auto) (0-900) /uL Eos # (Auto) (0-450) /uL Baso # (Auto) (0-100) /uL PT (10.1-12.7) SECONDS INR (0.9-1.3) APTT (26-36) SECONDS ABG pH (7.35-7.45) ABG pCO2 (35-45) mmHg ABG pO2 (80-100) mmHg ABG HCO3 (23-27) mmol/L ABG Total CO2 (23-27) mmol/L ABG O2 Saturation (95-100) % ABG Base Excess (-2-3) mmol/L FiO2 Sodium (137-145) mmol/L Potassium (3.4-5.1) mmol/L Chloride (98-107) mmol/L Carbon Dioxide (22-32) mmol/L BUN (9-20) mg/dL Creatinine (0.66-1.25) mg/dL Estimated GFR (>60) mL/min BUN/Creatinine Ratio (6-22) Glucose (80-110) mg/dL Lactate 3.0 H (0.7-2.1) mmol/L Calcium (8.4-10.2) mg/dL Magnesium (1.6-2.3) mg/dL Total Bilirubin (0.2-1.3) mg/dL AST (17-59) IU/L ALT (<50) IU/L Alkaline Phosphatase (38-126) U/L Total Creatine Kinase (55-170) U/L CK-MB (CK-2) CK-MB (CK-2) Rel Index Troponin I (0.01-0.034) ng/mL NT-Pro-B Natriuret Pep (<125) pg/mL Total Protein (6.3-8.2) g/dL Albumin (3.5-5.0) g/dL Globulin (1.7-4.1) g/dL Albumin/Globulin Ratio (1.0-2.8) Lipase (23-300) U/L Procalcitonin (<0.5) ng/mL Urine RBC 0-1/hpf (0-5/HPF) Urine WBC 0-1/hpf (0-5/HPF) Ur Squamous Epith Cells 0-1 /hpf (0-5/HPF) Calcium Oxalate Crystal Few H Urine Bacteria None seen (None) Urine Mucus 1+ H (Negative) Chlamy pneumoniae PCR Not detected (Not Detect) Adenovirus (PCR) Not detected (Not Detect) B. pertussis DNA (PCR) Not detected (Not Detecte) B.parapertussis DNA PCR Not detected (Not Detecte) Coronavirus OC43 (PCR) Not detected (Not Detect) Coronavirus HKU1 (PCR) Not detected (Not Detect) Coronavirus 229E (PCR) Not detected (Not Detect) SARS-CoV-2 (PCR) Not detected (Not Detecte) Coronavirus NL63 (PCR) Not detected (Not Detect) Human Metapneumovir PCR Not detected (Not Detect) Influenza Type A (PCR) Not detected (Not Detect) Influenza Type B (PCR) Not detected (Not Detect) M. pneumoniae (PCR) Not detected (Not Detect) Parainfluenza 1 (PCR) Not detected (Not Detect) Parainfluenza 2 (PCR) Not detected (Not Detect) Parainfluenza 3 (PCR) Not detected (Not Detect) Parainfluenza 4 (PCR) Not detected (Not Detect) RSV (PCR) Not detected (Not Detect) Entero/Rhino (PCR) Not detected (Not Detect) Urine Dip Bedside Urine Glucose Negative Bedside Urine Bilirubin - Negative Bedside Urine Ketone - Negative Urine Specific [place] 1.025 Bedside Urine Occult Blood +/- Bedside Urine pH 6.0 Bedside Urine Protein +/- 15 Bedside Urine Urobilinogen 0.2 Bedside Urine Nitrite - Negative Bedside Urine Leukocytes - Negative Esterase Imaging Data Chest x-ray: Radiologist's Impression: [address] [address] XRay Report Signed Patient: Arron Agarwal MR#: [id number] : 1950 Acct:[id number] Age/Sex: 72 / M Date of Service: 08/25/22 Loc: ED Accession Number: [id number] ?? Procedure: XR chest 1V Ordering Provider: Cornell Lim D.O. PROCEDURE:? XR CHEST 1V ? INDICATIONS:? SOB ? TECHNIQUE:? One view of the chest was acquired.? ? COMPARISON:? [facility], CT, CT ANGIO CHEST PE PROTOCOL, 03/01/2022, 11:58.? [facility], CR, XR CHEST 1V, 06/14/2022, 21:44. ? FINDINGS:? ? Surgical changes and devices:? Suture anchor noted in the right humeral head ? Lungs and pleura:? Hyperinflation and chronic interstitial changes.? Elevated left hemidiaphragm. ? Mediastinum:? Mediastinal contours appear normal.? Heart size is normal.? ? Bones and chest wall:? No suspicious bony lesions.? Overlying soft tissues appear unremarkable.? ? IMPRESSION:? ? No acute cardiopulmonary findings ? Pulmonary hyperinflation and chronic interstitial changes ? Approved by: Omar Levine M.D. on 08/25/2022 at 17:07? MDM Narrative Medical decision making narrative: Patient here for shortness of breath. Patient here from [place] longterm. Patient has history of CHF but is noncompliant. He is DNR DNI with selective treatments. Pulsed form on chart. Patient has been feeling more shortness of breath and generalized lymphedema. No chest pain. No cough cold congestion fever chills. After history and exam CBC CMP EKG BNP chest x-ray Lasix troponin MDM CC: Dyspnea Complicating co-morbidities: History of CHF Data collected from: Patient Medical records reviewed: skilled nursing medical records brought with patient Differential considered: Includes but not limited to CHF pneumonia non-STEMI Exam documented above, pertinent findings include: Bilateral leg edema Lab Test results independently reviewed as above. Pertinent findings: WBC 8.6 hemoglobin 12.7 INR 1.2 ABG pH 7.39 pCO2 33.5 PO2 54 which is near patient's baseline BUN 13 creatinine 0.98 BNP 2460 Independently reviewed EKG sinus rhythm rate [address] elevation, incomplete right bundle-branch block. Imaging studies independently reviewed: Chest x-ray mild interstitial edema Consultations: 7:00 p.m.. Spoke with hospitalist, lisa shin, will see pt for admit Treatments: Lasix Re-evaluations: Patient is doing better with Lasix. Doing much better with supplemental oxygen Discussion: Appropriate for admission for diuresis. Patient has been noncompliant with diuretics. Now requiring supplemental oxygen and will benefit with diuresis. Diagnosis: Acute on chronic CHF Discharge Plan Departure Patient Disposition: Admitted as Observation Clinical Impression: Acute CHF Admit Date/Time: 08/25/22 20:18 Admit Provider: Chelsi Shin
--- NOTE | 2022-08-25 19:54 | DI.ECHO.S_ITS ---
[place] +---------+ [facility] +---------+ : : [address] : : : : [id number] : : : : Phone: [phone] Echocardiogram Report + + :Name: BROOKE PETIT Study Date: 08/26/2022 Height: 68 in : :[facility] ReadingLocation: Weight: 263 lb : : Gender: Male BSA: 2.3 m2 : :: 1950 Age: 72 yrs BP: 114/61 mmHg: :Reason For Study: Acute Renal Failure : :Ordering Physician: Kip, : :Artem Performed By: Rere Hendricks : :Referring: ARTEM ODGEN : + + Interpretation Summary Small left ventricular cavity with ejection fraction 70-75%. Severely dilated right ventricle with mildly reduced right ventricular systolic function. The right atrium is severely dilated. No significant valvular abnormality. Comparison is made with the echocardiogram of 02/26/2022, there has been no significant change. Procedure: A two-dimensional transthoracic echocardiogram with color flow and Doppler was performed. The study quality was technically difficult. Comparison is made with the echocardiogram of 02/26/2022. The heart rate ranged between 85 bpm during the study. Left Ventricle: The left ventricular cavity is small. The ejection fraction is estimated to be 70-75%. The interventricular septum is flattened, consistent with a right ventricular pressure/volume condition. Right Ventricle: The right ventricle is severely dilated. Right ventricular systolic function is mildly reduced. Atria: The left atrial size is normal. The right atrium is severely dilated. There is no Doppler evidence for an interatrial shunt. Mitral Valve: The mitral valve is normal. There is no mitral valve stenosis. There is no mitral regurgitation noted. Aortic Valve: The aortic valve is trileaflet. The aortic valve opens well. There is mild aortic valve sclerosis. There is no aortic valve stenosis. No aortic regurgitation is present. Tricuspid Valve: The tricuspid valve leaflets are thin and pliable. There is no tricuspid stenosis. Unable to acquire an adequate tricuspid regurgitant jet, but the degree of regurgitation is presumably moderate. Pulmonic Valve: The pulmonic valve leaflets are thin and pliable; valve motion is normal. There is no pulmonic valvular stenosis. There is trace pulmonic regurgitation. Great Vessels: The aortic root is normal size. The ascending aorta is normal in size. The pulmonary artery is normal size. The inferior vena cava was not well visualized. Pericardium/ Pleura There is no pericardial effusion. MMode/2D Measurements & Calculations LVIDd: 3.9 cm LVOT diam: 2.1 cm LVIDs: 2.5 cm Ao root diam: 3.2 cm FS: 35.9 % asc Aorta Diam: 3.2 cm IVSd: 1.0 cm LVPWd: 1.2 cm LV beach. diameter/BSA (cm/m^2): 1.7 LV sys. diameter/BSA (cm/m^2): 1.1 LA A2 area: 15.6 cm2 RA long axis: 8.1 cm LA A4 area: 9.9 cm2 RA area: 44.9 cm2 LA length (vol): 5.5 cm RA vol: 212.6 ml LA vol: 23.8 ml RA : 92.6 ml/m2 LA vol index: 10.4 ml/m2 RVD1 (basal): 6.9 cm TAPSE_phl: 2.3 cm Doppler Measurements & Calculations Ao V2 max: 153.0 cm/sec LVOT Max Magan: 81.5 cm/sec Ao V2 mean: 108.0 cm/sec LV V1 max P.7 mmHg Ao max P.0 mmHg LV V1 VTI: 16.0 cm Ao mean P.0 mmHg BALJINDER(I,D): 2.1 cm2 Ao V2 VTI: 26.9 cm BALJINDER(V,D): 1.8 cm2 sev ratio: 0.59 BALJINDER indexed to BSA (cm^2/m^2): 0.90 MV E max magan: 44.2 cm/sec TR max magan: 362.0 cm/sec MV A max magan: 79.9 cm/sec TR max P.4 mmHg MV E/A: 0.55 PA pr(Accel): 37.6 mmHg Med Peak E' Magan: 6.3 cm/sec E/E' med: 7.0 Lat Peak E' Magan: 9.3 cm/sec E/E' lat: 4.8 E/e' average: 5.9 MV dec time: 0.21 sec SV(LVOT): 55.4 ml AV VR_phl: 0.53 BALJINDER(VTI)/BSA_phl: 0.90 Electronically signed by: Gerald Colin on Reading Physician:08/26/2022 04:14 PM
--- NOTE | 2022-08-25 20:09 | PM.HP.1 ---
History of Present Illness History of Present Illness Date Patient Seen: 08/25/22 Time Patient Seen: 20:09 Chief complaint: Acute resp fail CHF/COPDexac Narrative: Arron Agarwal is a 72yo M with PMH of HFpEF, COPD, stroke in 2016 with left sided hemiparesis, wheelchair-bound, tobacco dependence, BPH, obesity, pulmonary edema, HX of DVT, 02/2022 hospitalization for acute respiratory failure secondary to bilateral bibasilar PE, left lower extremity DVT, and CHF/COPD exacerbation d/c'd on eliquis presents by EMS for evaluation of shortness of breath worsening over the course of the day that is not being relieved by his typical breathing treatments. He complains of a mild cough with slight production, denies hematemesis. ?Shortness of breath worse with exertion and laying flat.? Patient initially presented with O2 saturations in the low 80s on room air.? Patient states that his remote history of DVT he was placed on Xarelto developed both upper GI and lower GI bleeding and was subsequently stopped. He had stopped his Eliquis (from last PE's & DVT) 10 days to 2 weeks ago, due to concerns regarding melena. He states that he had been started on Coumadin perhaps in the last week. Patient is a poor historian. He has NOT been taking his diuretics because they make him urinate too often and he has a hard time going to the bathroom.? He denies fever, chills, chest pain, abdominal pain, nausea, vomiting, diarrhea, changes in bowels, urinary changes not related to Lasix, recent illness injury or trauma.? He does not use supplemental oxygen.? He comes to us from [facility] facility. Patient states for last 4 days he has had progressively worsening dyspnea to where he couldn't even get around in his wheelchair without becoming very SOB. He is a longtime smoker and still currently smokes. Patient is afebrile, 147/70, 87, 16, satting 90-92% on 2 L/NC. Patient's CBC CMP and liver panel are predominantly unremarkable. ABGs pH 7.39, PO2 33, bicarb 20, TCO2 21, O2 sat 88%, BE-5, FiO2 21. BNP 2460, chest x-ray no acute cardiopulmonary changes. Troponin is negative at 0.013, procalcitonin negative. Patient did not meet SIRS criteria in ED sofa score: 2. On admit ordered CTA to rule out PE: Bilateral pulmonary embolism including involvement of the distal right lobar pulmonary artery as well as segmental and subsegmental pulmonary arteries in the right middle and lower lobes and left lower lobe.? No enlargement of the pulmonary arteries or leftward deviation of the interventricular septum to definitely suggest right heart strain.? However, there is mild enlargement of the right ventricle and reflux of contrast into the IVC suggestive of elevated right heart filling pressures. Peripheral areas of consolidation in the lower lobes and right middle lobe corresponding to the distribution of pulmonary emboli.? The findings are suggestive of pulmonary infarcts. Patient is admitted for acute hypoxic respiratory failure likely secondary bilateral PE's resulting from medication noncompliance, and COPD/CHF exacerbation. [facility] Medical History (Updated 08/25/22 @ 22:28 by CIRA Diallo) Bilateral pulmonary embolism BPH (benign prostatic hyperplasia) CHF (congestive heart failure) COPD (chronic obstructive pulmonary disease) History of DVT (deep vein thrombosis) History of stroke Hyperlipidemia Neuropathy Obesity (BMI 30-39.9) Surgical History History of shoulder surgery Family History Father Heart attack Sister AA (aortic aneurysm) Social History household members: none Smoking Status: Current every day smoker Meds Home Medications and Allergies Home Medications Medication Instructions Recorded Confirmed Type albuterol sulfate 90 mcg/actuation 2 inh inhalation BID 12/29/21 12/29/21 History aerosol inhaler aspirin 81 mg tablet,delayed 81 mg DAILY 12/29/21 12/29/21 History release atorvastatin 20 mg tablet 20 mg DAILY 12/29/21 12/29/21 History fenofibrate micronized 134 mg 134 mg DAILY 12/29/21 12/29/21 History capsule gabapentin 600 mg tablet 600 mg BID 12/29/21 12/29/21 History lidocaine 5 % topical ointment 1 applic DAILY 12/29/21 12/29/21 History melatonin 6 mg BEDTIME 12/29/21 12/29/21 History potassium chloride 20 mEq 20 meq PO DAILY 12/29/21 12/29/21 History tablet,extended release(part/cryst) prednisone 5 mg tablet 5 mg DAILY 12/29/21 12/29/21 History risperidone 1 mg tablet 1 mg BEDTIME 12/29/21 12/29/21 History salmeterol 50 mcg/dose blister 1 inh inhalation BID 12/29/21 12/29/21 History powder for inhalation (Serevent Diskus) sertraline 25 mg tablet 75 mg DAILY 12/29/21 12/29/21 History tamsulosin 0.4 mg capsule 0.4 mg PO DAILY 12/29/21 12/29/21 History tiotropium bromide 2.5 2 inh inhalation DAILY 12/29/21 12/29/21 History mcg/actuation mist for inhalation (Spiriva Respimat) furosemide 40 mg tablet (Lasix) 40 mg PO BID #60 tabs 12/31/21 Rx Allergies Allergy/AdvReac Type Severity Reaction Status Date / Time No Known Drug Allergies Allergy Verified 08/25/22 17:27 Review of Systems Review of Systems Narrative: All 12 point systems reviewed with the patient and are negative except otherwise documented. Exam Vital Signs (past 8 hours): - 08/25/22 17:23 08/25/22 17:23 08/25/22 17:25 Temperature 97.8 F Pulse Rate 90 91 H Respiratory Rate 32 H Blood Pressure 138/99 H 138/99 H Pulse Oximetry 91 90 L Oxygen Delivery Method Room Air Room Air 08/25/22 17:25 08/25/22 17:30 08/25/22 17:30 Temperature Pulse Rate 86 89 Respiratory Rate 23 26 H Blood Pressure 145/78 H Pulse Oximetry 92 92 Oxygen Delivery Method Room Air 08/25/22 17:46 08/25/22 18:00 08/25/22 18:00 Temperature Pulse Rate 84 Respiratory Rate 24 Blood Pressure 139/77 147/70 H Pulse Oximetry 93 Oxygen Delivery Method Room Air 08/25/22 18:30 08/25/22 19:00 08/25/22 19:30 Temperature Pulse Rate 85 87 93 H Respiratory Rate 26 H 16 Blood Pressure Pulse Oximetry 92 90 L Oxygen Delivery Method Room Air Room Air 08/25/22 19:52 08/25/22 19:52 08/25/22 20:00 Temperature Pulse Rate 82 83 Respiratory Rate 26 H 27 H Blood Pressure 129/66 Pulse Oximetry 92 92 Oxygen Delivery Method 08/25/22 20:01 08/25/22 20:01 Temperature Pulse Rate 81 Respiratory Rate 26 H Blood Pressure 129/80 Pulse Oximetry 92 Oxygen Delivery Method Room Air Oxygen Delivery Method Room Air Narrative Exam Narrative: General: Patient is a pleasant morbidly obese elderly male in mild resp distress at this time. HEENT: Normocephalic, atraumatic, extraocular muscles intact, oral pharynx is clear and mucous membranes are dry. Neck is supple and symmetric, trachea is midline, no adenopathy, no thyroid enlargement, nontender, no masses palpated. Negative for JVD Chest: Increased work of breathing, without nasal flaring, retractions Lungs: Auscultation of all lung smith mild bibasilar rales,with prolonged expiratory phase, left greater than right, tachypnea, shallow breathing, poor air exchange Cardio: regular rate and rhythm without murmur, rubs, or gallops, no carotid bruit, no cardiac pulsations present. Abdomen: Soft nontender, distended negative for organomegaly, or masses. Bowel sounds are present in all 4 quadrants without guarding or rebound, no CVA tenderness.White in place Musculoskeletal: Muscle strength and tone are equal, no deformity, crepitus, effusions, cyanosis, clubbing present. Positive bilateral lower extremity edema left: +4 pitting, diffuse erythema calf, chronic venous stasis, cool to touch, AFO in place. Right lower extremity: +3 pitting, chronic venous stasis. Full range of motion intact radial and pedal pulses are normal. Skin: Warm, extremely dry and cracking especially on extremities, without rashes, ulcerations or petechiae. Neuro: Alert and orientated x3, poor historian, significant documented history of medication noncompliance, moves all extremities, sensation to touch intact, no gross deficits noted of cranial nerves. Psych: Patient has a chronically ill appearance appearance, appropriate affect, mental status attitude thought context and judgment are appropriate for age. Objective Labs 08/25/22 17:50 08/25/22 17:50 Labs: Laboratory Results - last 24 hr 08/25/22 08/25/22 08/25/22 17:40 17:50 17:50 WBC 8.6 RBC 5.90 Hgb 12.7 L Hct 41.6 MCV 70.5 L MCH 21.5 L MCHC 30.5 RDW 20.0 H Plt Count 297 Neut % (Auto) 68.5 Lymph % (Auto) 18.2 L [place] % (Auto) 9.1 Eos % (Auto) 3.3 Baso % (Auto) 0.9 Neut # (Auto) 5900 Lymph # (Auto) 1600 [place] # (Auto) 800 Eos # (Auto) 300 Baso # (Auto) 100 PT 14.2 H INR 1.2 APTT 29 ABG pH 7.39 ABG pCO2 33.5 L ABG pO2 54 L ABG HCO3 20 L ABG Total CO2 21 L ABG O2 Saturation 88 L ABG Base Excess -5.0 L FiO2 21 Sodium Potassium Chloride Carbon Dioxide BUN Creatinine Estimated GFR BUN/Creatinine Ratio Glucose Calcium Total Bilirubin AST ALT Alkaline Phosphatase Total Creatine Kinase CK-MB (CK-2) CK-MB (CK-2) Rel Index Troponin I NT-Pro-B Natriuret Pep Total Protein Albumin Globulin Albumin/Globulin Ratio Lipase Procalcitonin Urine RBC Urine WBC Ur Squamous Epith Cells Calcium Oxalate Crystal Urine Bacteria Urine Mucus 08/25/22 08/25/22 08/25/22 17:50 17:50 18:09 WBC RBC Hgb Hct MCV MCH MCHC RDW Plt Count Neut % (Auto) Lymph % (Auto) [place] % (Auto) Eos % (Auto) Baso % (Auto) Neut # (Auto) Lymph # (Auto) [place] # (Auto) Eos # (Auto) Baso # (Auto) PT INR APTT ABG pH ABG pCO2 ABG pO2 ABG HCO3 ABG Total CO2 ABG O2 Saturation ABG Base Excess FiO2 Sodium 140 Potassium 4.4 Chloride 109 H Carbon Dioxide 21 L BUN 13 Creatinine 0.98 Estimated GFR > 60 BUN/Creatinine Ratio 13.3 Glucose 100 Calcium 9.1 Total Bilirubin 0.6 AST 28 ALT 25 Alkaline Phosphatase 64 Total Creatine Kinase 145 CK-MB (CK-2) TNP CK-MB (CK-2) Rel Index TNP Troponin I 0.013 NT-Pro-B Natriuret Pep 2460 H Total Protein 7.2 Albumin 3.9 Globulin 3.3 Albumin/Globulin Ratio 1.2 Lipase 178 Procalcitonin 0.08 Urine RBC 0-1/hpf Urine WBC 0-1/hpf Ur Squamous Epith Cells 0-1 /hpf Calcium Oxalate Crystal Few H Urine Bacteria None seen Urine Mucus 1+ H Assessment & Plan Assessment & Plan narrative: Arron Agarwal 72-year-old male daily smoker with history of prior stroke, COPD, CHF, BPH, obesity, remote hx of DVT, pulmonary edema, bilateral bibasilar PE, left lower extremity DVT, who presented with increasing shortness of breath.?This patient requires acute care inpatient hospital management for acute respiratory failure secondary to recurrent Bilateral PE/CHF/COPD exacerbation. After failing outpatient management and medication noncopmpliance. The patient is at much higher risk for medical and surgical complications because of his continued tobacco abuse, medication noncompliance, and obesity. These factors increase the difficulty and complexity of medical and surgical interventions and increases the chances of poor outcomes such as morbidity and mortality. The patient's obesity and continued tobacco abuse will impact his oxygenation, which will likely contribute to his acute respiratory failure. Patient admitted for acute hypoxic respiratory failure secondary to CHF/ COPD exacerbation . Hypoxic respiratory failure, acute, secondary to Bilateral PE, medication noncompliance, acute on chronic, present on admission -contributing factors CHF/COPD exacerbation due to patient's medication noncompliance- will continue to rule out infectious process. -WBC, procalcitonin all within normal limits, lactate:3 -patient is not on home O2, presented to the ED with O2 saturations in the low 80s on room air. -Currently patient is satting 90% to 92% on 3L nasal cannula -respiratory consult: Bipap PRN, DuoNebs q.4 hours, methylprednisone 60 IV. -repeat the ABGs, respiratory panel ordered, incentive spirometry -sputum and blood cultures pending -in ED Lasix 40 mg, NS, white placed. -PT/OT consult CHF exacerbation, acute on chronic, HFpEF, likely secondary to medication noncompliance, present on admission -today BNP 1930, comparison 09/19/2021 BUN of 978 -2000 cc fluid restriction, low-sodium diet -strict I&O, daily weights, white in place -was unable to verify patient's medications due to his lethargy, it is reported that he is supposed to take Lasix 80 mg daily-will hold PO Lasix -40 mg IV Lasix BID-closely monitor renal function, if worsening creatinine recommend starting gentle Lasix drip. -02/2022 Echo:?showed evidence of pulmonary hypertension and septal flattening suggesting RV overload, RVSP was 45, preserved EF -echo ordered COPD, exacerbation, acute on chronic, present on admission -continue patient's servant, Spiriva -DuoNebs, methylprednisone, respiratory consult -blood and sputum cultures Bilateral PE, Acute, recurrent, History of bilateral LL PE/left LE DVT, present on admission -hospitalization 02/26- 03/04/2022: Acute respiratory failure secondary to CHF/COPD exacerbation, bilateral PE and DVT-D/C on Eliquis -Admit chest CTA ordered rule out PE: Bilateral pulmonary embolism including involvement of the distal right lobar pulmonary artery as well as segmental and subsegmental pulmonary arteries in the right middle and lower lobes and left lower lobe.? No enlargement of the pulmonary arteries or leftward deviation of the interventricular septum to definitely suggest right heart strain.? However, there is mild enlargement of the right ventricle and reflux of contrast into the IVC suggestive of elevated right heart filling pressures. Peripheral areas of consolidation in the lower lobes and right middle lobe corresponding to the distribution of pulmonary emboli.? The findings are suggestive of pulmonary infarcts -it is noted that patient had a previous history of PE prior to February 2022 in which he was prescribed Xarelto he subsequently had stopped it due to melena. Patient was placed on Eliquis on discharge 03/04/2022 for bilateral PE and lower extremity DVT patient advised that he had stopped his Eliquis for 2week due to melena. He stated that he was placed on Coumadin, PT 14.2/INR 1.2 suggestive the patient has not been compliant with Coumadin. -Will restart Eliquis 5mg BID as pt is hemodynamically stable. -Phone consult tele mine car repairer Dr. Sharma he agreed with the restart of Eliquis for tx. on exam:LLE edema left: +4 pitting, diffuse erythema calf, neg holmans, nontender/Rt +3- lower extremity ultrasound tomorrow. -hemoccult as needed, monitor for bleeding Lactic acidosis, acute, in the setting of Mild sepsis w/o shock, acute, present on admission -patient did not meet SIRS criteria in ED, sofa score: 2 on admit patient is hemodynamically stable in no acute distress. -sepsis likely secondary to CHF/COPD/bilateral PEs -lactate 3, likely secondary to bilateral PE- will trend History of CVA, with left-sided hemiparesis, chronic, present on admission -patient is wheelchair bound -continue ASA, statin, fenofibrate -AFO to LLE Hyperlipidemia, chronic, present on admission -continue Lipitor BPH, chronic, present on admission -continue Flomax -Urine culture to rule out UTI, -bladder scan is needed to monitor for urinary retention Neuropathy, chronic, present on admission -holding gabapentin due to patient's over-sedation Obesity severe obesity, acute on chronic, present on admission -BMI 40 -dietary consult ordered regarding nutritional education and information for dietary, lifestyle, exercise, and weight changes. -the patient is at much higher risk for medical and surgical complications due to obesity as it relates to chronic illnesses:, and acute illness. The patient's obesity increases the difficulty and complexity of medical and/or surgical interventions, management and increases the chances of poor outcome such as morbidity and mortality as well as impaired wound healing. Tobacco abuse/dependence, acute on chronic, present on admission -patient's continued tobacco abuse is contributing to his multiple development of pulmonary embolus and DVT, as well as exacerbation of CHF and COPD. -nicotine patch ordered -encouraged smoking cessation. Code status:? DNR Surrogate decision maker:? Manoj Agarwal son DVT/VTE prophylaxis:? Eliquis and SCDs Disposition:? Patient admitted to acute care for management of acute hypoxic respiratory failure secondary to bilateral PEs, COPD and CHF exacerbation,expected length of stay, less than 2 midnights.? Patient will require diuresis, support a respiratory function, and therapeutic anticoagulation. I have utilized all available immediate resources to obtain, update, or review the patient's current medications. I confirmed that the patient's advanced care plan is present, Code status is documented and/or surrogate decision maker is listed in the patient's medical record. I have personally reviewed patient's chart notes from PCP, specialists, EKG, Echo, diagnostics, imaging, and laboratory results. Scores GCS Nichole coma scale eye opening: Spontaneous [place] coma scale verbal response: Orientated [place] coma scale motor response: Obey commands [place] coma scale total score: 15 SOFA PaO2/FIO2: < 300 mmHg Platelets: >= 150 Bilirubin: < 1.2 mg/dL Hypotension: MAP >= 70 mmHg Nichole Coma Scale: 15 Renal: < 1.2 mg/dL SOFA Score: 2
[2022-08-25 20:29] LABS: Magnesium 2.1 mg/dL (1.6-2.3)
--- NOTE | 2022-08-25 20:30 | DI.CT.S_ITS ---
PROCEDURE: CT ANGIO CHEST PE PROTOCOL INDICATIONS: ARF-Hx july LLPE DVT LLE 03/07 TECHNIQUE: After the administration of intravenous contrast, 2 mm thick sections acquired from the pulmonary apices to the posterior costophrenic angles. 3-dimensional maximum intensity projection (MIP) coronal and sagittal reformats were then acquired through the thorax. For radiation dose reduction, the following was used: automated exposure control, adjustment of mA and/or kV according to patient size. COMPARISON: [facility], CT, CT ANGIO CHEST PE PROTOCOL, 03/01/2022, 11:58. FINDINGS: Image quality: Excellent. Pulmonary arteries: There are filling defects within the pulmonary arteries bilaterally including within the distal right lobar pulmonary artery extending into segmental and subsegmental branches in the right middle and lower lobes. On the left, there are also filling defects within segmental and subsegmental pulmonary arteries of the left lower lobe. The main pulmonary artery is normal in caliber. No definite leftward deviation of the interventricular septum. Lower Neck: No lymphadenopathy by size criteria. Thyroid: Visualized thyroid demonstrates no discrete nodules. Axillae: No lymphadenopathy by size criteria. Chest Wall: Unremarkable. Bones: Visualized osseous structures demonstrate no suspicious lesions. Lungs and Airways: There are wedge-shaped areas of consolidation within the posterior right lower lobe, in the left lower lobe along the hemidiaphragm, and laterally in the right middle lobe corresponding to areas of pulmonary embolism. The findings are suspicious for pulmonary infarcts. There are moderate paraseptal and centrilobular emphysematous changes. The trachea and central airways are patent. Pleura: No pneumothorax or pleural effusions. Heart: Heart size is normal overall. There is mild enlargement of the right ventricle. No pericardial effusion. Thoracic Vessels: The thoracic aorta is normal in size. Mediastinum and Sandra: No lymphadenopathy by size criteria. Esophagus: No wall thickening. No hiatal hernia. Abdomen: Visualized upper abdomen demonstrates reflux of contrast into the IVC and hepatic veins suggestive of elevated right heart filling pressures. IMPRESSION: 1. Bilateral pulmonary embolism including involvement of the distal right lobar pulmonary artery as well as segmental and subsegmental pulmonary arteries in the right middle and lower lobes and left lower lobe. Findings reported to patient's nurse in the ER on 08/25/2022 at 8:48 p.m.. 2. No enlargement of the pulmonary arteries or leftward deviation of the interventricular septum to definitely suggest right heart strain. However, there is mild enlargement of the right ventricle and reflux of contrast into the IVC suggestive of elevated right heart filling pressures. 3. Peripheral areas of consolidation in the lower lobes and right middle lobe corresponding to the distribution of pulmonary emboli. The findings are suggestive of pulmonary infarcts. Dictated by: Vito Rust M.D. on 08/25/2022 at 20:43 Approved by: Vito Rust M.D. on 08/25/2022 at 20:56
[2022-08-25 21:38] LABS: Adenovirus Not Detected (Not Detect); B. parapertussis Not Detected (Not Detecte); Bordetella pertussis Not Detected (Not Detecte); Chlamydophila pneumoniae Not Detected (Not Detect); Coronavirus 229E Not Detected (Not Detect); Coronavirus HKU1 Not Detected (Not Detect); Coronavirus NL 63 Not Detected (Not Detect); Coronavirus OC43 Not Detected (Not Detect); Human Metapneumovirus Not Detected (Not Detect); Human Rhinovirus/Enterovirus Not Detected (Not Detect); Influenza A Not Detected (Not Detect); Influenza B Not Detected (Not Detect); Mycoplasma pneumoniae Not Detected (Not Detect); Parainfluenza Virus 1 Not Detected (Not Detect); Parainfluenza Virus 2 Not Detected (Not Detect); Parainfluenza Virus 3 Not Detected (Not Detect); Parainfluenza Virus 4 Not Detected (Not Detect); Respiratory Syncytial Virus Not Detected (Not Detect); SARS- CoV-2 Not Detected (Not Detecte)
[2022-08-25 22:14] LABS: Troponin I 0.014 ng/mL (0.01-0.034)
[2022-08-25 22:18] LABS: Reflexed Lactate in 2 Hours Y
[2022-08-25 22:33] LABS: Thyroid Stimulating Hormone 2.57 uIU/mL (0.47-4.68)
[2022-08-25] MEDS: MELATONIN 3 MG TABLET 6 MG PO (23:04)
[2022-08-25] MEDS: GABAPENTIN 600 MG TABLET PO (23:04)
[2022-08-25] MEDS: APIXABAN 5 MG TABLET PO (23:04)
[2022-08-25] MEDS: FUROSEMIDE 20 MG/2 ML VIAL 40 MG IV (23:05)
[2022-08-25] MEDS: methylPREDNISolone 125 MG/2 ML VIAL 60 MG IV (23:31)
[2022-08-26] VITALS (9 sets, daily range): BP systolic 101–143; BP diastolic 50–65; PULSE 65–84; RESP 18–26; TEMP 35.8–36.7; O2SAT 91–95
[2022-08-26] MEDS: methylPREDNISolone 125 MG/2 ML VIAL 60 MG IV ×3 (05:26→17:54)
--- NOTE | 2022-08-26 06:00 | DI.US.S_ITS ---
PROCEDURE: US PERIPH VENOUS LOW EXTREM LT INDICATIONS: HISTORY OF LEFT LOWER EXTREMITY DVT TECHNIQUE: Real-time imaging, as well as color and pulse Doppler interrogation, were performed of the lower extremity deep veins from the inguinal ligament to the popliteal fossa. COMPARISON: 02/27/2022 FINDINGS: Persistent filling defect within the superficial femoral vein compared with 02/27/2022. No additional filling defect. IMPRESSION: Persistent DVT in the superficial femoral vein compared with prior. Dictated by: Joel Hernandez M.D. on 08/26/2022 at 8:28 Approved by: Joel Hernandez M.D. on 08/26/2022 at 8:32
[2022-08-26 06:34] LABS: Add Manual Diff / Slide Review NO; Basophils Absolute Auto 0 /uL (0-100); Basophils Percent Auto 0.3 % (0-2); Eosinophils Absolute Auto 0 /uL (0-450); Eosinophils Percent Auto 0.1 % (2-4); Hematocrit 37.9 % (41-53); Hemoglobin 11.7 g/dL (13.5-17.5); Lymphocytes Absolute Auto 500 /uL (1100-4500); Lymphocytes Percent Auto 5.4 % (25-40); Mean Corpuscular HGB Conc 30.8 % (30-36); Mean Corpuscular Hemoglobin 21.5 PG (26-34); Monocytes Absolute Auto 100 /uL (0-900); Monocytes Percent Auto 0.7 % (3-14); Neutrophils Absolute Auto 8000 /uL (1500-7000); Neutrophils Percent Auto 93.5 % (50-75); Platelet Count 303 X10^3/uL (150-400); Red Blood Cell Count 5.41 X10^6/uL (4.5-5.9); Red Cell Distribution Width 21.6 % (11.6-14.8); White Blood Cell Count 8.6 X10^3/uL (4.5-11.0)
[2022-08-26 06:48] LABS: Blood Urea Nitrogen 13 mg/dL (9-20); Calcium 8.4 mg/dL (8.4-10.2); Carbon Dioxide 26 mmol/L (22-32); Chloride 107 mmol/L (98-107); Estimated Glomerular Filt Rate > 60 mL/min (>60); Glucose 140 mg/dL (80-110); HEMOLYSIS < 15 (0-50); Lactate (Lactic Acid) 1.4 mmol/L (0.7-2.1); Potassium 4.1 mmol/L (3.4-5.1); Sodium 139 mmol/L (137-145)
[2022-08-26 06:58] LABS: NT-proBNP (BNP-Adult 18+) 2230 pg/mL (<125); Troponin I < 0.012 ng/mL (0.01-0.034)
[2022-08-26 06:59] LABS: Anisocytosis 2+; Microcytosis 1+
[2022-08-26] MEDS: ALBUTEROL/IPRATROPIUM 3 ML AMPUL INH ×2 (07:20→10:54)
[2022-08-26] MEDS: GABAPENTIN 600 MG TABLET PO ×2 (09:06→22:01)
[2022-08-26] MEDS: ASPIRIN EC 81 MG TABLET PO (09:06)
[2022-08-26] MEDS: APIXABAN 5 MG TABLET PO ×2 (09:06→22:00)
[2022-08-26] MEDS: POTASSIUM CHLORIDE 20 MEQ TAB PO (09:06)
[2022-08-26] MEDS: FUROSEMIDE 40 MG/4 ML VIAL IV (09:07)
--- NOTE | 2022-08-26 09:24 | PM.PN.1 ---
Subjective Subjective Interval history: Patient says his breathing is somewhat improved. Still on 3L O2. Exam Vital Signs (past 8 hours): - 08/26/22 04:19 08/26/22 06:31 08/26/22 07:25 Temperature 96.5 F L 97.8 F Pulse Rate 72 65 Respiratory Rate 18 20 Blood Pressure 143/65 H 105/57 L Pulse Oximetry 92 95 91 Oxygen Delivery Method Nasal Cannula Oxygen Flow Rate 3 0 3 Oxygen Delivery Method Nasal Cannula Oxygen Flow Rate 3 Narrative Exam Narrative: General: Patient is a pleasant morbidly obese elderly male in mild resp distress at this time. HEENT: Normocephalic, atraumatic, extraocular muscles intact, oral pharynx is clear and mucous membranes are dry. Neck is supple and symmetric, trachea is midline, no adenopathy, no thyroid enlargement, nontender, no masses palpated. Negative for JVD Chest: Increased work of breathing, without nasal flaring, retractions Lungs: Auscultation of all lung smith mild bibasilar rales,with prolonged expiratory phase, left greater than right, tachypnea, shallow breathing, poor air exchange Cardio: regular rate and rhythm without murmur, rubs, or gallops, no carotid bruit, no cardiac pulsations present. Abdomen: Soft nontender, distended negative for organomegaly, or masses. Bowel sounds are present in all 4 quadrants without guarding or rebound, no CVA tenderness.White in place Musculoskeletal: Muscle strength and tone are equal, no deformity, crepitus, effusions, cyanosis, clubbing present. Positive bilateral lower extremity edema left: +4 pitting, diffuse erythema calf, chronic venous stasis, cool to touch, AFO in place. Right lower extremity: +3 pitting, chronic venous stasis. Full range of motion intact radial and pedal pulses are normal. Skin: Warm, extremely dry and cracking especially on extremities, without rashes, ulcerations or petechiae. Neuro: Alert and orientated x3, poor historian, significant documented history of medication noncompliance, moves all extremities, sensation to touch intact, no gross deficits noted of cranial nerves. Psych: Patient has a chronically ill appearance appearance, appropriate affect, mental status attitude thought context and judgment are appropriate for age. Objective Labs 08/26/22 06:13 08/26/22 06:13 Labs: Laboratory Results - last 24 hr 08/25/22 08/25/22 08/25/22 17:40 17:50 17:50 WBC 8.6 RBC 5.90 Hgb 12.7 L Hct 41.6 MCV 70.5 L MCH 21.5 L MCHC 30.5 RDW 20.0 H Plt Count 297 Neut % (Auto) 68.5 Lymph % (Auto) 18.2 L [place] % (Auto) 9.1 Eos % (Auto) 3.3 Baso % (Auto) 0.9 Neut # (Auto) 5900 Lymph # (Auto) 1600 [place] # (Auto) 800 Eos # (Auto) 300 Baso # (Auto) 100 RBC Morphology Anisocytosis Microcytosis PT 14.2 H INR 1.2 APTT 29 ABG pH 7.39 ABG pCO2 33.5 L ABG pO2 54 L ABG HCO3 20 L ABG Total CO2 21 L ABG O2 Saturation 88 L ABG Base Excess -5.0 L FiO2 21 Sodium Potassium Chloride Carbon Dioxide BUN Creatinine Estimated GFR BUN/Creatinine Ratio Glucose Lactate Calcium Magnesium Total Bilirubin AST ALT Alkaline Phosphatase Total Creatine Kinase CK-MB (CK-2) CK-MB (CK-2) Rel Index Troponin I NT-Pro-B Natriuret Pep Total Protein Albumin Globulin Albumin/Globulin Ratio Lipase Procalcitonin TSH Urine RBC Urine WBC Ur Squamous Epith Cells Calcium Oxalate Crystal Urine Bacteria Urine Mucus Chlamy pneumoniae PCR Adenovirus (PCR) B. pertussis DNA (PCR) B.parapertussis DNA PCR Coronavirus OC43 (PCR) Coronavirus HKU1 (PCR) Coronavirus 229E (PCR) SARS-CoV-2 (PCR) Coronavirus NL63 (PCR) Human Metapneumovir PCR Influenza Type A (PCR) Influenza Type B (PCR) M. pneumoniae (PCR) Parainfluenza 1 (PCR) Parainfluenza 2 (PCR) Parainfluenza 3 (PCR) Parainfluenza 4 (PCR) RSV (PCR) Entero/Rhino (PCR) 08/25/22 08/25/22 08/25/22 17:50 17:50 17:50 WBC RBC Hgb Hct MCV MCH MCHC RDW Plt Count Neut % (Auto) Lymph % (Auto) [place] % (Auto) Eos % (Auto) Baso % (Auto) Neut # (Auto) Lymph # (Auto) [place] # (Auto) Eos # (Auto) Baso # (Auto) RBC Morphology Anisocytosis Microcytosis PT INR APTT ABG pH ABG pCO2 ABG pO2 ABG HCO3 ABG Total CO2 ABG O2 Saturation ABG Base Excess FiO2 Sodium 140 Potassium 4.4 Chloride 109 H Carbon Dioxide 21 L BUN 13 Creatinine 0.98 Estimated GFR > 60 BUN/Creatinine Ratio 13.3 Glucose 100 Lactate Calcium 9.1 Magnesium 2.1 Total Bilirubin 0.6 AST 28 ALT 25 Alkaline Phosphatase 64 Total Creatine Kinase 145 CK-MB (CK-2) TNP CK-MB (CK-2) Rel Index TNP Troponin I 0.013 NT-Pro-B Natriuret Pep 2460 H Total Protein 7.2 Albumin 3.9 Globulin 3.3 Albumin/Globulin Ratio 1.2 Lipase 178 Procalcitonin 0.08 TSH Urine RBC Urine WBC Ur Squamous Epith Cells Calcium Oxalate Crystal Urine Bacteria Urine Mucus Chlamy pneumoniae PCR Adenovirus (PCR) B. pertussis DNA (PCR) B.parapertussis DNA PCR Coronavirus OC43 (PCR) Coronavirus HKU1 (PCR) Coronavirus 229E (PCR) SARS-CoV-2 (PCR) Coronavirus NL63 (PCR) Human Metapneumovir PCR Influenza Type A (PCR) Influenza Type B (PCR) M. pneumoniae (PCR) Parainfluenza 1 (PCR) Parainfluenza 2 (PCR) Parainfluenza 3 (PCR) Parainfluenza 4 (PCR) RSV (PCR) Entero/Rhino (PCR) 08/25/22 08/25/22 08/25/22 17:50 18:09 20:12 WBC RBC Hgb Hct MCV MCH MCHC RDW Plt Count Neut % (Auto) Lymph % (Auto) [place] % (Auto) Eos % (Auto) Baso % (Auto) Neut # (Auto) Lymph # (Auto) [place] # (Auto) Eos # (Auto) Baso # (Auto) RBC Morphology Anisocytosis Microcytosis PT INR APTT ABG pH ABG pCO2 ABG pO2 ABG HCO3 ABG Total CO2 ABG O2 Saturation ABG Base Excess FiO2 Sodium Potassium Chloride Carbon Dioxide BUN Creatinine Estimated GFR BUN/Creatinine Ratio Glucose Lactate 3.0 H Calcium Magnesium Total Bilirubin AST ALT Alkaline Phosphatase Total Creatine Kinase CK-MB (CK-2) CK-MB (CK-2) Rel Index Troponin I NT-Pro-B Natriuret Pep Total Protein Albumin Globulin Albumin/Globulin Ratio Lipase Procalcitonin TSH Urine RBC 0-1/hpf Urine WBC 0-1/hpf Ur Squamous Epith Cells 0-1 /hpf Calcium Oxalate Crystal Few H Urine Bacteria None seen Urine Mucus 1+ H Chlamy pneumoniae PCR Not detected Adenovirus (PCR) Not detected B. pertussis DNA (PCR) Not detected B.parapertussis DNA PCR Not detected Coronavirus OC43 (PCR) Not detected Coronavirus HKU1 (PCR) Not detected Coronavirus 229E (PCR) Not detected SARS-CoV-2 (PCR) Not detected Coronavirus NL63 (PCR) Not detected Human Metapneumovir PCR Not detected Influenza Type A (PCR) Not detected Influenza Type B (PCR) Not detected M. pneumoniae (PCR) Not detected Parainfluenza 1 (PCR) Not detected Parainfluenza 2 (PCR) Not detected Parainfluenza 3 (PCR) Not detected Parainfluenza 4 (PCR) Not detected RSV (PCR) Not detected Entero/Rhino (PCR) Not detected 08/25/22 08/25/22 08/26/22 21:20 21:20 06:13 WBC 8.6 RBC 5.41 Hgb 11.7 L Hct 37.9 L MCV 70.0 L MCH 21.5 L MCHC 30.8 RDW 21.6 H Plt Count 303 Neut % (Auto) 93.5 H D Lymph % (Auto) 5.4 L [place] % (Auto) 0.7 L Eos % (Auto) 0.1 L Baso % (Auto) 0.3 Neut # (Auto) 8000 H Lymph # (Auto) 500 L [place] # (Auto) 100 Eos # (Auto) 0 Baso # (Auto) 0 RBC Morphology See below Anisocytosis 2+ H Microcytosis 1+ H PT INR APTT ABG pH ABG pCO2 ABG pO2 ABG HCO3 ABG Total CO2 ABG O2 Saturation ABG Base Excess FiO2 Sodium Potassium Chloride Carbon Dioxide BUN Creatinine Estimated GFR BUN/Creatinine Ratio Glucose Lactate Calcium Magnesium Total Bilirubin AST ALT Alkaline Phosphatase Total Creatine Kinase CK-MB (CK-2) CK-MB (CK-2) Rel Index Troponin I 0.014 NT-Pro-B Natriuret Pep Total Protein Albumin Globulin Albumin/Globulin Ratio Lipase Procalcitonin TSH 2.57 Urine RBC Urine WBC Ur Squamous Epith Cells Calcium Oxalate Crystal Urine Bacteria Urine Mucus Chlamy pneumoniae PCR Adenovirus (PCR) B. pertussis DNA (PCR) B.parapertussis DNA PCR Coronavirus OC43 (PCR) Coronavirus HKU1 (PCR) Coronavirus 229E (PCR) SARS-CoV-2 (PCR) Coronavirus NL63 (PCR) Human Metapneumovir PCR Influenza Type A (PCR) Influenza Type B (PCR) M. pneumoniae (PCR) Parainfluenza 1 (PCR) Parainfluenza 2 (PCR) Parainfluenza 3 (PCR) Parainfluenza 4 (PCR) RSV (PCR) Entero/Rhino (PCR) 08/26/22 08/26/22 06:13 06:13 WBC RBC Hgb Hct MCV MCH MCHC RDW Plt Count Neut % (Auto) Lymph % (Auto) [place] % (Auto) Eos % (Auto) Baso % (Auto) Neut # (Auto) Lymph # (Auto) [place] # (Auto) Eos # (Auto) Baso # (Auto) RBC Morphology Anisocytosis Microcytosis PT INR APTT ABG pH ABG pCO2 ABG pO2 ABG HCO3 ABG Total CO2 ABG O2 Saturation ABG Base Excess FiO2 Sodium 139 Potassium 4.1 Chloride 107 Carbon Dioxide 26 BUN 13 Creatinine 0.93 Estimated GFR > 60 BUN/Creatinine Ratio 14.0 Glucose 140 H Lactate 1.4 Calcium 8.4 Magnesium Total Bilirubin AST ALT Alkaline Phosphatase Total Creatine Kinase CK-MB (CK-2) CK-MB (CK-2) Rel Index Troponin I < 0.012 NT-Pro-B Natriuret Pep 2230 H Total Protein Albumin Globulin Albumin/Globulin Ratio Lipase Procalcitonin TSH Urine RBC Urine WBC Ur Squamous Epith Cells Calcium Oxalate Crystal Urine Bacteria Urine Mucus Chlamy pneumoniae PCR Adenovirus (PCR) B. pertussis DNA (PCR) B.parapertussis DNA PCR Coronavirus OC43 (PCR) Coronavirus HKU1 (PCR) Coronavirus 229E (PCR) SARS-CoV-2 (PCR) Coronavirus NL63 (PCR) Human Metapneumovir PCR Influenza Type A (PCR) Influenza Type B (PCR) M. pneumoniae (PCR) Parainfluenza 1 (PCR) Parainfluenza 2 (PCR) Parainfluenza 3 (PCR) Parainfluenza 4 (PCR) RSV (PCR) Entero/Rhino (PCR) PFSH Medical History (Updated 08/25/22 @ 22:28 by CIRA Diallo) Bilateral pulmonary embolism BPH (benign prostatic hyperplasia) CHF (congestive heart failure) COPD (chronic obstructive pulmonary disease) History of DVT (deep vein thrombosis) History of stroke Hyperlipidemia Neuropathy Obesity (BMI 30-39.9) Surgical History History of shoulder surgery Family History Father Heart attack Sister AA (aortic aneurysm) Social History household members: none Smoking Status: Current every day smoker Assessment & Plan Assessment & Plan narrative: Arron Agarwal 72-year-old male daily smoker with history of prior stroke, COPD, CHF, BPH, obesity, remote hx of DVT, pulmonary edema, bilateral bibasilar PE, left lower extremity DVT, who presented with increasing shortness of breath.?This patient requires acute care inpatient hospital management for acute respiratory failure secondary to recurrent Bilateral PE/CHF/COPD exacerbation. After failing outpatient management and medication noncopmpliance. The patient is at much higher risk for medical and surgical complications because of his continued tobacco abuse, medication noncompliance, and obesity. These factors increase the difficulty and complexity of medical and surgical interventions and increases the chances of poor outcomes such as morbidity and mortality. The patient's obesity and continued tobacco abuse will impact his oxygenation, which will likely contribute to his acute respiratory failure. Patient admitted for acute hypoxic respiratory failure secondary to CHF/ COPD exacerbation . Hypoxic respiratory failure, acute, secondary to Bilateral PE, medication noncompliance, acute on chronic, present on admission -contributing factors CHF/COPD exacerbation due to patient's medication noncompliance- will continue to rule out infectious process. -WBC, procalcitonin all within normal limits, lactate:3 -patient is not on home O2, presented to the ED with O2 saturations in the low 80s on room air. -Currently patient is satting 90% to 92% on 3L nasal cannula -respiratory consult: Bipap PRN, DuoNebs q.4 hours, methylprednisone 60 IV BID -sputum and blood cultures pending -in ED Lasix 40 mg, NS, white placed. -PT/OT consult CHF exacerbation, acute on chronic, HFpEF, likely secondary to medication noncompliance, present on admission -today BNP 1930, comparison 09/19/2021 BUN of 978 -2000 cc fluid restriction, low-sodium diet -strict I&O, daily weights, white in place -was unable to verify patient's medications due to his lethargy, it is reported that he is supposed to take Lasix 80 mg daily-will hold PO Lasix -40 mg IV Lasix BID-closely monitor renal function, if worsening creatinine recommend starting gentle Lasix drip. -02/2022 Echo:?showed evidence of pulmonary hypertension and septal flattening suggesting RV overload, RVSP was 45, preserved EF -echo ordered and shows EF 70-75%, severely dilated RV and mildly reduced RV systolic function, severely dilated RA, all unchanged from prior echo in 02/2022 COPD, exacerbation, acute on chronic, present on admission -continue patient's servant, Spiriva -DuoNebs, methylprednisone, respiratory consult -blood and sputum cultures pending Bilateral PE, Acute, recurrent, History of bilateral LL PE/left LE DVT, present on admission -hospitalization 02/26- 03/04/2022: Acute respiratory failure secondary to CHF/COPD exacerbation, bilateral PE and DVT-D/C on Eliquis -Admit chest CTA ordered rule out PE: Bilateral pulmonary embolism including involvement of the distal right lobar pulmonary artery as well as segmental and subsegmental pulmonary arteries in the right middle and lower lobes and left lower lobe.? No enlargement of the pulmonary arteries or leftward deviation of the interventricular septum to definitely suggest right heart strain.? However, there is mild enlargement of the right ventricle and reflux of contrast into the IVC suggestive of elevated right heart filling pressures. Peripheral areas of consolidation in the lower lobes and right middle lobe corresponding to the distribution of pulmonary emboli.? The findings are suggestive of pulmonary infarcts -it is noted that patient had a previous history of PE prior to February 2022 in which he was prescribed Xarelto he subsequently had stopped it due to melena. Patient was placed on Eliquis on discharge 03/04/2022 for bilateral PE and lower extremity DVT patient advised that he had stopped his Eliquis for 2week due to melena. He stated that he was placed on Coumadin, PT 14.2/INR 1.2 suggestive the patient has not been compliant with Coumadin. -Will restart Eliquis 5mg BID as pt is hemodynamically stable. -Phone consult tele show host Dr. Sharma he agreed with the restart of Eliquis for tx. on exam:LLE edema left: +4 pitting, diffuse erythema calf, neg holmans, nontender/Rt +3- lower extremity ultrasound positive for persistent DVT in left superficial femoral vein -hemoccult as needed, monitor for bleeding Lactic acidosis, acute, in the setting of Mild sepsis w/o shock, acute, present on admission -patient did not meet SIRS criteria in ED, sofa score: 2 on admit patient is hemodynamically stable in no acute distress. -sepsis likely secondary to CHF/COPD/bilateral PEs -lactate 3, likely secondary to bilateral PE- will trend History of CVA, with left-sided hemiparesis, chronic, present on admission -patient is wheelchair bound -continue ASA, statin, fenofibrate -AFO to LLE Hyperlipidemia, chronic, present on admission -continue Lipitor BPH, chronic, present on admission -continue Flomax -Urine culture with 10-20k GNB -bladder scan is needed to monitor for urinary retention -start rocephin 1g daily Neuropathy, chronic, present on admission -holding gabapentin due to patient's over-sedation Obesity severe obesity, acute on chronic, present on admission -BMI 40 -the patient is at much higher risk for medical and surgical complications due to obesity as it relates to chronic illnesses:, and acute illness. The patient's obesity increases the difficulty and complexity of medical and/or surgical interventions, management and increases the chances of poor outcome such as morbidity and mortality as well as impaired wound healing. Tobacco abuse/dependence, acute on chronic, present on admission -patient's continued tobacco abuse is contributing to his multiple development of pulmonary embolus and DVT, as well as exacerbation of CHF and COPD. -nicotine patch ordered -encouraged smoking cessation. Code status:? DNR, limited interventions Surrogate decision maker:? Manoj henry DVT/VTE prophylaxis:? Eliquis and SCDs Disposition:?SNF in 1-2 days.
--- NOTE | 2022-08-26 10:52 | PC.NURSE ---
Patient is alert and oriented x4, he has left sided weakness from a previous cva, left hand is slightly contractured. He does better with his lower extremity and can use it some. He denies pain, iv to r.hand. This has been tender when flushing, area looks good. No redness or swelling. Will just flush iv slowly. Patient is on oxygen at 3L, he sats in the upper 90s. Bed bath given, patient has 4+ pitting edema to his l.extremity and 3+ to his r.lower extremity. Ate well at breakfast and is now resting.
--- NOTE | 2022-08-26 11:57 | PT.IIE ---
Surgical History (Last Reviewed 08/25/22 @ 20:19 by Chelsi Shin [facility]) History of shoulder surgery Medical History (Last Updated 08/25/22 @ 22:28 [facility]) Bilateral pulmonary embolism BPH (benign prostatic hyperplasia) CHF (congestive heart failure) COPD (chronic obstructive pulmonary disease) History of DVT (deep vein thrombosis) History of stroke Hyperlipidemia Neuropathy Obesity (BMI 30-39.9) Physical Therapy Inpatient Evaluation/Re-Eval M1 PT/OT-IP Prior Functional Status Start: 08/26/22 08:00 Freq: NEEDED Status: Active Protocol: Document 08/26/22 11:00 MB (Rec: 08/26/22 11:57 MB [id number]) Medical Review Prior Functional Status Medical History Reviewed Yes Diet/Fluid Consistency Regular Communication Communicates needs, pt states that he occ had coughing after eating at [employer] Mobility and Gait Pt does not ambulate s/p left hemiplegia. He uses a power w/ c, transfers by himself from his electric bed via transfer pole to power w/c. He has assistance for toileting, dressing and bathing at [place] and uses bars in for the toilet transfer. Activities of Daily Living and IADL's See above Prior Functional Level (Other details) See above, pt con't to smoke despite history of B PE, stroke Social History Household Members none Living Arrangements Assisted Living Number of Floors (Floors) One Floor Number of Stairs To Enter/Railing? Ramp Home Environment Walk in Shower,Ramp Home Equipment Power Wheelchair/Scooter, Hospital Bed,Bed Rails,Grab Bars Near Toilet,Grab Bars In Shower Employment Status Retired M2 PT-IP Current Condition Start: 08/26/22 08:00 Freq: NEEDED Status: Active Protocol: Document 08/26/22 11:00 MB (Rec: 08/26/22 11:57 MB [id number]) Physical Therapy Current Condition Current Condition Evaluation Date 08/26/22 Treatment Diagnosis B PE and DVT Onset Date Unsure how acute the B PE are given PE in 2021 M3 PT-IP Subjective Start: 08/26/22 08:00 Freq: NEEDED Status: Active Protocol: Document 08/26/22 11:00 MB (Rec: 06/12/23 11:57 MB [id number]) Subjective Physical Therapy Visit Type Type Initial Evaluation Visit Start Time 11:00 Visit Stop Time 11:39 Total Visit Minutes 39 Physical Therapy Visit Comments Patient Comments I don't know if I can do it with my breathing and without my transfer pole when PT encourages pt to try sitting EOB Therapy Pain Assessment Pain When Pain Assessed During Mobility Pain Present Pain Present Pain Reported Location Left ankle Intensity 5 Scale Used JaramilloScout (Faces) Description Acute,With Movement Pain Behaviors Calling Out Pain Management Techniques Modification of Treatment,Re- positioning M4 PT-IP Mobility and Gait Start: 08/26/22 08:00 Freq: NEEDED Status: Active Protocol: Document 08/26/22 11:00 MB (Rec: 08/26/22 11:57 [id number]) PT-Bed Mobility Assessment Rolling Level of Assist Maximal Assistance,2 Person Assistance Supine to Sit Supine to Sit Maximum Assistance,2 Person Assistance,Head of Bed Elevated,Bedrails Sit to Supine Sit to Supine Maximum Assistance,2 Person Assistance,Bedrails Scooting Scooting to Edge of Bed Maximum Assistance Scooting Up and Down in Bed Dependent PT-Transfer Assessment Comments Mobility Comments Pt requires heavy two person assist for bed mobility: dependent to don right hospital sock and left Tubagrip to protect skin from AFO, L AFO and both shoes. Pt uses his right hand on the right bed rail to get up to EOB to the right and little functional use of left side. Severely ASENCIO and rest breaks with O2 sats on 3L 88-92% when hook lying and sitting and dropping to 64% when bed in Trendelenburg to scoot him up to HOB and his face turns purplish PT-Balance Assessment Sitting Balance and Reactions Static Sitting Balance Ability Fair Dynamic Sitting Balance Ability Poor Comments Other Balance Tests/Deviations/Treatment PT must pull pad to scoot hips : out to EOB and heavy right UE use for static sitting balance and at least CGA to min A to maintain static sitting. M5 PT-IP Objective Assessments Start: 08/26/22 08:00 Freq: NEEDED Status: Active Protocol: Document 08/26/22 11:00 MB (Rec: 08/26/22 11:57 MB [id number]) Orientation Orientation/Cognition Level of Alertness Alert Orientation Name,Age,Birthday,Month,Date, Year,Day of Week,Place, Situation Language Function Ability No Deficits Noted Safety Awareness Understands Safety Issues Memory Description No Deficits Noted Gross Range of Motion Upper Extremity ROM Assessment Bilaterally Impaired Impairments See OT comments, pt with left sided hemiplegia Lower Extremity ROM Assessment Bilaterally Impaired Impairments Left-sided hemiplegia and tone , B LEs with discoloration and fungus-type skin appearance and edema and erythema on the LLE. Skin color changes right finger tips and pt reports echavarria from wearing glove where fingertips are exposed. Strength Upper Extremity Strength Hand Contracted left hand Lower Extremity Strength Assessment Bilaterally Impaired Hip Right hip less than 3/5, left hip trace Knee Right knee grossly 3/5, left knee trace Ankle PF tone B LEs but MMT in limited right DF and great toe ext 4/5, trace left Muscle Tone Muscle Tone WNL Yes Comments Muscle Tone Comments Left extremities with increased tone M6 PT-IP Treatment Start: 08/26/22 08:00 Freq: NEEDED Status: Active Protocol: Document 08/26/22 11:00 MB (Rec: 08/26/22 11:57 MB [id number]) Physical Therapy Treatment Education Education Provided Safety M7 PT-IP Assessment and Plan Start: 08/26/22 08:00 Freq: NEEDED Status: Active Protocol: Document 08/26/22 11:00 MB (Rec: 08/26/22 11:57 MB [id number]) PT Summary Assessment and Plan Potential Rehabilitation Potential Fair Status of Condition at Evaluation Evolving Summary Impairments Pain,ROM,Strength,Balance, Coordination,Sensation,Tone, Bed Mobility,Transfers, Activity Tolerance Progress Towards Goals Slow Progress due to Pain,Slow Progress due to Medical Issues,Slow Progress due to Activity Tolerance Assessment Summary Pt is a 72 y/o male with history of poor medical compliance, ongoing smoking in setting of old PE, DVT, stroke and pulmonary edema. His O2 sats on 3L fluctuate between 88-92% at rest and when in partial upright to full upright sitting. When lying back down to scoot up to HOB, his face becomes purplish and his sats decrease momentarily to 64% and recover to 99% when HOB increased slightly. He requires dependent assist for managing LE socks, AFO and shoes and heavy +2 max A for bed mobility today. He sits EOB for a few minutes only before ECHO arrives. Returned to supine with +2 assist. Pt has multiple medical comorbidities, is DNR and has pain in his LLE as well as profound movement impairment. His functional prognosis is guarded at best. Goals Bed Mobility Goal Standby Assistance Transfer Goal Contact Guard Assistance Days to Meet Goals 5 Frequency of Treatment Frequency Of Treatment Once a Day Treatment Plan Physical Therapy Treatment Plan Bed Mobility Training,Transfer Training,Therapeutic Exercise ,Balance Retraining, Neuromuscular Re-ed Recommendations To Nursing Amount of Assist Needed Mechanical Lift Discharge Recommendations PT Discharge Recommendations SNF Rehab Transportation Needs at Discharge Wheelchair/Cabulance
--- NOTE | 2022-08-26 12:45 | OT.IP.EVAL ---
Past Medical History (Last Updated 08/25/22 @ 22:28 by Chelsi Shin [facility]) Bilateral pulmonary embolism BPH (benign prostatic hyperplasia) CHF (congestive heart failure) COPD (chronic obstructive pulmonary disease) History of DVT (deep vein thrombosis) History of stroke Hyperlipidemia Neuropathy Obesity (BMI 30-39.9) Surgical History (Last Reviewed 08/25/22 @ 20:19 by Chelsi Shin [facility]) History of shoulder surgery Occupational Therapy Inpatient Evaluation/Re-Eval M1 PT/OT-IP Prior Functional Status Start: 08/26/22 13:12 Freq: NEEDED Status: Active Protocol: Document 08/26/22 11:24 [facility] (Rec: 08/26/22 13:30 [facility] [id number]) Medical Review Prior Functional Status Medical History Reviewed Yes Diet/Fluid Consistency Regular Communication Communicates needs, pt states that he occ had coughing after eating at [employer] Mobility and Gait Pt does not ambulate s/p left hemiplegia. He uses a power w/ c, transfers by himself from his electric bed via transfer pole to power w/c. He has assistance for toileting, dressing and bathing at [employer] and uses bars in for the toilet transfer. Activities of Daily Living and IADL's See above Prior Functional Level (Other details) See above, pt con't to smoke despite history of B PE, stroke Social History Household Members none Living Arrangements Assisted Living Number of Floors (Floors) One Floor Number of Stairs To Enter/Railing? Ramp Home Environment Walk in Shower,Ramp Home Equipment Power Wheelchair/Scooter, Hospital Bed,Bed Rails,Grab Bars Near Toilet,Grab Bars In Shower Employment Status Retired M2 OT-IP Current Condition Start: 08/26/22 13:12 Freq: Status: Active Protocol: Document 08/26/22 11:24 [facility] (Rec: 08/26/22 13:30 [facility] [id number]) Occupational Therapy Current Condition Current Condition Evaluation Date 08/26/22 Treatment Diagnosis BPE, DVT, acute respiratory failure Diagnosis Onset Date 08/25/22 M3 OT- IP Subjective and Pain Start: 08/26/22 13:12 Freq: Status: Active Protocol: Document 08/26/22 11:24 [facility] (Rec: 08/26/22 13:30 [facility] [id number]) OT- Subjective Occupational Therapy Visit Type Type Initial Evaluation Visit Start Time 11:24 Visit Stop Time 12:45 Total Visit Minutes 31 Notes Pt seen for split time 1124- 1137 and [id number] due to pt getting an ECHO. Occupational Therapy Visit Comments Patient Comments Pt agreed to ge up and PT present for first part of OT eval. Hospitalist okay/cleared to get the pt up for therapy and already started Eliquis last night. Patient/Caregiver Goals To get better, OT Pain Assessment Pain When Pain Assessed At Rest Pain Present Pain Present Pain Reported Location Left ankle Intensity 5 Scale Used Numeric (0 - 10) M4 OT- IP ADL's Start: 08/26/22 13:12 Freq: Status: Active Protocol: Document 08/26/22 11:24 [facility] (Rec[facility]/26/22 13:30 [id number] [id number]-[id number]-[id number] General Evaluation Self-Feeding Ability Standby Assistance Areas Needing Assistance Cutting Food,Opening Containers Comments OT Self-Feeding Comments Pt needing cues to eat when upright, take smaller bites, alternate between solids and liquids, to check for pocketing and food tends to stay in on the left side of his mouth and needing cues to clear his mouth. Requested to have PROCESS DEVELOPER eval for swallowing needs and to make sure pt is on an appropriate diet as pt has hx of CVA per pt 5 years ago. OT ADL-Grooming Comments OT Grooming Comments Not perfromed. OT ADL-Oral Care Comments Oral Care Comments Not performed. OT ADL-Dressing General Eval Lower Body Dressing Ability Total Assistance Areas Needing Assistance Socks,Shoes,Orthosis/ Prosthesis Comments OT Dressing Comments Per PT as already assisted pt with his shoes, AFO, and socks prior to OT coming into the room. OT ADL-Toileting General Evaluation Toileting Ability Total Assistance OT ADL-Bathing Comments OT Bathing Comments Sponge bath more appropriate at this time. M5 OT- IP IADL's Start: 08/26/22 13:12 Freq: Status: Active Protocol: Document 08/26/22 11:24 [facility] (Rec: 08/26/22 13:30 [facility] [id number]) OT-Instrumental Activities of Daily Living Home Safety Awareness Awareness of Need for Assistance at Home Good Awareness Medication Management Medication Management Caregiver Administers Money Management Money Management Caregiver Provides Assistance Meal Preparation Meal Preparation Caregiver Provides Assist M6 OT- IP Functional Cognition Start: 08/26/22 13:12 Freq: Status: Active Protocol: Document 08/26/22 11:24 [facility] (Rec: 08/26/22 13:30 [facility] [id number]) Cognitive Factors Limiting Selfcare Function Cognitive Ability Level of Alertness Alert Patient Orientation Name Attention Span Ability Capable of Focused Attention, Capable of Sustained Attention Ability to Follow Commands Able to Follow One Step Commands with Increased Time, Able to Follow One Step Commands with Repetition Memory Description Short Term Impaired Cognitive Comments Cognitive Assessment Comments Pt able to follow commands for mobility needs but needing encouragement and reassurance. OT- Vision and Hearing OT- Hearing Assessment OT- Hearing Assessment WFL OT- Vision Assessment Visual Acuity WFL Visual Attentiveness WFL Occular Pursuits WFL Vision Assessment Comments Pt able to read the clock accurately. M7 OT- IP Mobility and Balance Start: 08/26/22 13:12 Freq: Status: Active Protocol: Document 08/26/22 11:24 [facility] (Rec: 08/26/22 13:30 [facility] [id number]) OT- Bed Mobility Assessment Supine to Sit Supine to Sit Assist Maximum Assistance,2 Person Assistance Sit to Supine Sit to Supine Assist Maximum Assistance,2 Person Assistance OT-Transfer Assessment Comments Mobility Comments MAXA x2 to help get pt from Sit <>Supine. After able to assist to get pt to the edge of the bed able to sit with SBA. OT- Balance Assessment Sitting Balance and Reactions Static Sitting Balance Ability Fair M8 OT- IP Objective Assessments Start: 08/26/22 13:12 Freq: Status: Active Protocol: Document 08/26/22 11:24 [facility] (Rec: 08/26/22 13:30 [facility] [id number]) OT Gross Range of Motion Upper Extremity Range of Motion Assessment Bilaterally Impaired ROM Impairments LUE limited shoulder PROM at shoulder, fingers and mildly at his left wrist due to old CVA. OT Strength Upper Extremity Strength Assessment Bilaterally Impaired Comments Strength Comments LUE trace at shoulders. RUE 3-/5 at shoulder and 4/5 to 4-/5 from elbow to distal. Pt states history of dislocation and rotator cuff repair for his right arm. LUE tends to be internally rotated with elbow, wrist and fingers flexed. OT- Coordination Assessment Upper Extremity Finger to Nose Test Left UE Impaired Finger Tapping Test Left UE Impaired OT-Muscle Tone Assessment Muscle Tone WNL No Comments Muscle Tone Comments Pt has tone in his left fingers/contractures. M9 OT- IP Assessment and Plan Start: 08/26/22 13:12 Freq: Status: Active Protocol: Document 08/26/22 11:24 [facility] (Rec: 08/26/22 13:30 [facility] [id number]) OT Summary Assessment and Plan Potential Rehabilitation Potential Good Analytic Complexity at Evaluation High Summary OT Impairments Pain,Range of Motion,Strength, Balance,Tone,Functional Cognition,Functional Mobility, Self-Feeding,Grooming,Dressing ,Toilet Transfers,Shower Transfers Progress Towards Goals Slow Progress due to Pain,Slow Progress due to Medical Issues,Slow Progress due to Activity Tolerance Assessment Summary Pt High complexity and having BPE/DVT and acute respiratory failure and hx of CVA with left hemiparesis. At this time pt needing MAX AX 2 for bed mobility needs. Prior pt able to use transfer pole on his own to self transfer to and from his adjustable bed to power wc. In addition pt in on 3L of O2 and drops to the 80's with exertion. Pt also tends to hold his breath when exerting himself and needing cues to take deep breaths. Pt also noted pocketing of food on the left side of his mouth and Ot has requested for PROCESS DEVELOPER orders. Pt would greatly benefit from skilled rehab. Goals Self-Feeding Goal Standby Assistance Grooming Goal Standby Assistance Dressing Goal Moderate Assistance Toilet Transfer Goal Standby Assistance Shower Transfer Goal Standby Assistance Days to Meet Goals 30 Frequency of Treatment Frequency Of Treatment Once a Day Treatment Plan OT Treatment Plan ADL Training,Functional Mobility,Patient/Family Education,Discharge Planning Other Treatment Recommendations and Next Transfer with hemiwalker and Treatment Focus MAXA X 2. Discharge Recommendations OT Discharge Recommendations SNF Rehab Transportation Needs at Discharge Wheelchair/Cabulance
--- NOTE | 2022-08-26 13:34 | OT.IPNOTE ---
Able to request plate guard from the kitchen for the pt. Pt has an old CVA and only able to use his right hand for self feeding needs. Trapeze bar also placed on the hospital bed to help with his mobility in bed, nursing aware.
--- NOTE | 2022-08-26 16:36 | CM.DANOTE ---
DCP Brief Assessment; Patient is a 72yo M here from [place] following acute rep failure. SENIOR SQL DEVELOPER reviewed EMR. CM team unable to meet with patient today. From PT/OT eval, SNF is recommended at this time. From rounds, patient is wheelchair bound at baseline and is likely going to d/c to a SNF in a few days. SENIOR SQL DEVELOPER spoke with Bernabe (nurse?) at [facility] to update [facility] on patient status. Plan: CM team will follow up in am. CM team will contact August to see if she accepts. CM team will follow up with patient tomorrow. CM team will continue to follow with needs. CONCHIS Nelson Discharge Planning/Care Management CM Discharge Assessment Start: 08/26/22 16:26 Freq: Status: Active Protocol: Document 08/26/22 16:26 (Rec: 08/26/22 16:35 [id number]) Discharge Planning Assessment Assigned Strike Plate Attacher CONCHIS Nelson DPOA/Assigned Designee Name Manoj Agarwal (son) Contact Information [phone] Advance Directives? No History Provided By Patient,Medical Record Has Patient been admitted in last 30 No days? Prior Living Arrangements Assisted Living Household Members none Type of transporation used prior to Relies on Others admit Facility Name Admitted From: [place] Willing to Return to Facility? Yes Patient/Family [facility]ference [facility]charge [facility] Whiteboard Updated in Patient Room with No name and ext. # of Strike Plate Attacher Review Status In Process Next Review Type Continued Stay Review
--- NOTE | 2022-08-26 17:19 | ST.IPCSEOM ---
Visit Care Team Role Provider Type MALORIE Lind Primary Care Provider Non-Staff Specialty: Medical Address: [address] [place] [address], [id number] Email: Slava Russ MD Emergency Provider Physician Referring Provider Specialty: Emergency Medicine Address: [address] [place] [address], [facility] Email: [email or web address] Chelsi Shin [facility] Admit Provider Physician Attending Provider Specialty: Hospitalist Internal Medicine Address: [address] [place] [address], [id number] Email: Past Medical History (Last Updated 08/25/22 @ 22:28 by Chelsi Shin [facility]) Bilateral pulmonary embolism (Medical) BPH (benign prostatic hyperplasia) (Medical) CHF (congestive heart failure) (Medical) COPD (chronic obstructive pulmonary disease) (Medical) History of DVT (deep vein thrombosis) (Medical) History of stroke (Medical) Hyperlipidemia (Medical) Neuropathy (Medical) Obesity (BMI 30-39.9) (Medical) Speech-Language Pathology Swallow Evaluation SUPERVISOR COIL WINDING Clinical Swallow Evaluation Start: 08/26/22 16:56 Freq: Status: Active Protocol: Document 08/26/22 16:56 [facility] (Rec: 08/26/22 17:18 CG [id number]) Clinical Swallow Evaluation Session Time Visit Start Time 16:20 Visit Stop Time 16:57 Total Visit Minutes 37 Visit Information Visit Number [address] Oconnor Setting Assessment Location Acute Care Visit Type Note Type Initial evaluation Next Note Type Next Note Type Treatment Note Patient Information Identification Type Name,ID Card History Per H&P: Arron Agarwal is a 72yo M with PMH of HFpEF, COPD, stroke in 2015 with left sided hemiparesis, wheelchair-bound, tobacco dependence, BPH, obesity, pulmonary edema, HX of DVT, 02/2022 hospitalization for acute respiratory failure secondary to bilateral bibasilar PE, left lower extremity DVT, and CHF/COPD exacerbation d/c'd on eliquis presents by EMS for evaluation of shortness of breath worsening over the course of the day that is not being relieved by his typical breathing treatments. He complains of a mild cough with slight production, denies hematemesis. ?Shortness of breath worse with exertion and laying flat.? Patient initially presented with O2 saturations in the low 80s on room air.? Patient states that his remote history of DVT he was placed on Xarelto developed both upper GI and lower GI bleeding and was subsequently stopped. He had stopped his Eliquis (from last PE's & DVT) 10 days to 2 weeks ago, due to concerns regarding melena. He states that he had been started on Coumadin perhaps in the last week. Patient is a poor historian. He has NOT been taking his diuretics because they make him urinate too often and he has a hard time going to the bathroom.? He denies fever, chills, chest pain, abdominal pain, nausea, vomiting, diarrhea, changes in bowels, urinary changes not related to Lasix, recent illness injury or trauma.? He does not use supplemental oxygen.? He comes to us from [place] facility. Patient states for last 4 days he has had progressively worsening dyspnea to where he couldn't even get around in his wheelchair without becoming very SOB. He is a longtime smoker and still currently smokes. Patient is afebrile, 147/70, 87, 16, satting 90-92% on 2 L/ NC. Patient's CBC CMP and liver panel are predominantly unremarkable. ABGs pH 7.39, PO2 33, bicarb 20, TCO2 21, O2 sat 88%, BE-5, FiO2 21. BNP 2460, chest x-ray no acute cardiopulmonary changes. Troponin is negative at 0.013, procalcitonin negative. Patient did not meet SIRS criteria in ED sofa score: 2. On admit ordered CTA to rule out PE: Bilateral pulmonary embolism including involvement of the distal right lobar pulmonary artery as well as segmental and subsegmental pulmonary arteries in the right middle and lower lobes and left lower lobe.? No enlargement of the pulmonary arteries or leftward deviation of the interventricular septum to definitely suggest right heart strain.? However, there is mild enlargement of the right ventricle and reflux of contrast into the IVC suggestive of elevated right heart filling pressures. Peripheral areas of consolidation in the lower lobes and right middle lobe corresponding to the distribution of pulmonary emboli.? The findings are suggestive of pulmonary infarcts. Patient is admitted for acute hypoxic respiratory failure likely secondary bilateral PE's resulting from medication noncompliance, and COPD/CHF exacerbation. Pt is referred to ST due to nursing reports of pt coughing with meals and pt report of difficulty with hard/dry foods . Subjective Observations Pt was laying partially reclined in bed upon ST entry to room. He was alert, oriented, and cooperative. He stated that he occasionally coughs/chokes during meals, and that this generally happens with dry or crumbly foods and happens about once/ day. He is amenable to clinical swallow evaluation. He has a NC in place at present, but it was only situated in one nostril upon ST entry. SUPERVISOR COIL WINDING repositioned, but it frequently became dislodged during evaluation. Reported by Patient/Caregiver Pain/Discomfort No Other Symptoms Choking,Coughing,Difficulty swallowing solids Comment Pt reports he occasionally begins to cough/choke on solid foods, particularly dry/ crumbly solids. He states this usually happens because he gets short of breath while chewing and stops to take a breath, but in the process he inhales through his mouth which causes him to choke. He reports he is unable to always breathe through his nose while chewing due to nasal swelling/irritation resulting from frequent placement of NC. Current Diet Regular (IDDSI 7) Baseline Feeding Method Needs some assistance The IDDSI Framework Protocol: IDDSI.1 Objective Assessment Mental Status Alert,Responsive,Cooperative Oral Integrity Oral residue Dentition Missing teeth Lip Function Mild impairment Observation of Lips at Rest Symmetrical Pucker Reduced range of motion Lip Retraction Reduced range of motion Alternating Pucker/Lip Retraction Incoordination Tongue Function Moderate impairment Observations of Tongue at Rest Within normal limits Tongue Protrusion Within normal limits Tongue Lateralization Reduced strength, Incoordination Jaw Function Within normal limits Nasality Within normal limits Respiratory Sufficiency Severe impairment Comment Pt demonstrated mild-moderate lingual weakness bilaterally with lateral lingual press exercise. Additionally, lingual lateralization task was characterized by reduced ROM and slowed rate. This may have been due to overall fatigue, as pt became frequent SOB during OME, especially during lingual exercises. Cough strength appeared weakened but WFL with audible glottal opening/closing. Pt's oral cavity did have mild- moderate oral residue present along dentition and mild residue in buccal cavities, likely 2/ reduced lingual coordination and strength. Food and Liquid Trials Position During Assessment Slightly reclined Liquids Trialed Ice chips,Thin (IDDSI 0) Solid Trials Purred (IDDSI 4),Minced & Moist (IDDSI 5),Regular (IDDSI 7) Administration Type Cup single sip Oral Impairment Moderately impaired Oral Phase Comments Lip closure and bolus hold appeared WFL; however, bolus hold is compromised if pt needs to open oral cavity to inhale through mouth. A-P bolus transport was mildly slowed and mild lingual residue was present along tongue blade and left side of tongue base following swallows of all solids. Mastication of solids was mildly- moderately prolongued with pt becoming increasing SOB during mastication. Pharyngeal Impairment Within functional limits Pharyngeal Phase Comments Initiated of the pharyngeal swallow appeared timely. No overt s/sx aspiration/ penetration were observed across trials of liquids and solids; however, pt did have difficulty coordinating swallow reflex with breathing. Underlying etiology behind breathe/swallow discoordination appears to be pulmonary rather than pharyngeal. Note that silent aspiration cannot be ruled out without an instrumental assessment. Fatigue/Endurance Severe fatigue Comment Severe fatigue/SOB during PO intake resulting in pt attempting to inhale through the mouth with food in his oral cavity. Strategies Attempted Other Response/Comments Utilized small bites and sips throughout trials of solids and liquids in order to decrease the amount of time the pt would need to coordinate breathe-swallow reflexes at one time. The IDDSI Framework Protocol: IDDSI.1 Findings Swallowing Function Dysphagia unspecified Swallowing Function Comments c/b lingual weakness, oral residue, poor breathe-swallow coordination Severity of Swallow Impairment Mildly-moderately impaired Contributing Factors to Swallow Impaired oral-pharyngeal Impairment transport Prognosis Fair Based on Bed bound,Comorbidities Impact on Safety and Functioning Risk for aspiration Recommendations Instrumental Assessment No Swallowing Treatment Yes Recommended Solids Minced & Moist (IDDSI 5) Recommended Liquids Thin (IDDSI 0) Other Recommendations Small sips/bites. Utilize anterior bolus hold until ready to swallow to decrease likelihood of inaling bolus. Breathe in through nose while chewing. Use lingual sweep after meals to check for and remove pocketed food. Safety Precautions/Swallowing Remain upright (90 degrees) Recommendations during all oral intake,Small bites and sips when eating, Slow rate; swallow between bites,Check for pocketing Medication Recommendations As Tolerated Discharge Recommendations [facility] facility Referrals Recommended Referrals Pulmonology Education Patient/Caregiver Education Described results of evaluation,Patient expressed understanding of evaluation, Patient expressed agreement with goals & treatment plans, Patient requires further education/training Goals Short-term Goals Pt will tolerate current diet of minced and moist solids and thin liquids without overt s/ sx aspiration/penetration. Pt's diet will be progressed as tolerated based on s/sx dysphagia and ability to tolerate solids 2/ pulmonary status. Long-term Goals Pt will tolerate least restrictive diet without overt s/sx aspiration/penetration in order to meet his nutrition and hydration needs.
[2022-08-26] MEDS: FUROSEMIDE 40 MG TABLET PO (22:00)
[2022-08-26] MEDS: MELATONIN 3 MG TABLET 6 MG PO (22:00)
[2022-08-26] MEDS: predniSONE 20 MG TABLET 40 MG PO (22:00)
[2022-08-26] MEDS: ATORVASTATIN 20 MG TABLET PO (22:00)
[2022-08-26] MEDS: SENNOSIDES 8.6 MG TABLET 17.2 MG PO (22:00)
[2022-08-27] VITALS (15 sets, daily range): BP systolic 106–116; BP diastolic 56–69; PULSE 65–80; RESP 18–24; TEMP 35.7–36.7; O2SAT 83–97
--- NOTE | 2022-08-27 02:10 | PC.NURSE ---
Pt was c/o pain to IV site with saline flush (iv site slightly red). Tried to start IV AB but unable to infuse due to increase pain to the side. Tried to start a new IV on patient using vein finder. Had 2 other nurses tried to help with the iv insertion but unable too. Spoke to JOSE Shin and pt now has new orders for a PICC line placement. Pt received furosemide dose by mouth tonight as well as prednisone.
[2022-08-27] MEDS: ACETAMINOPHEN 325 MG TABLET 650 MG PO ×3 (02:26→18:26)
[2022-08-27 06:30] LABS: Add Manual Diff / Slide Review NO; Basophils Absolute Auto 0 /uL (0-100); Basophils Percent Auto 0.1 % (0-2); Eosinophils Absolute Auto 0 /uL (0-450); Hematocrit 36.3 % (41-53); Hemoglobin 11.3 g/dL (13.5-17.5); Lymphocytes Absolute Auto 600 /uL (1100-4500); Lymphocytes Percent Auto 5.1 % (25-40); Mean Corpuscular Hemoglobin 21.5 PG (26-34); Mean Corpuscular Volume 69.3 fL (80-100); Monocytes Absolute Auto 300 /uL (0-900); Neutrophils Absolute Auto 10500 /uL (1500-7000); Neutrophils Percent Auto 91.8 % (50-75); Platelet Count 300 X10^3/uL (150-400); Red Blood Cell Count 5.24 X10^6/uL (4.5-5.9); Red Cell Distribution Width 21.2 % (11.6-14.8); White Blood Cell Count 11.4 X10^3/uL (4.5-11.0)
[2022-08-27 06:36] LABS: Blood Urea Nitrogen 19 mg/dL (9-20); Calcium 8.9 mg/dL (8.4-10.2); Carbon Dioxide 27 mmol/L (22-32); Chloride 107 mmol/L (98-107); Estimated Glomerular Filt Rate > 60 mL/min (>60); Glucose 145 mg/dL (80-110); HEMOLYSIS < 15 (0-50); Potassium 4.3 mmol/L (3.4-5.1); Sodium 139 mmol/L (137-145)
[2022-08-27 06:46] LABS: Anisocytosis 2+; Hypochromasia 1+; Microcytosis 1+
--- NOTE | 2022-08-27 08:05 | P.PN_ITS ---
Subjective Subjective Interval history: Remains on 3L NC. Says his breathing is improved though. Awaiting SNF. Exam Vital Signs (past 8 hours): - 08/27/22 04:00 Temperature 98.1 F Pulse Rate 73 Respiratory Rate 22 Blood Pressure 111/69 Pulse Oximetry 94 Oxygen Flow Rate 3 Fraction of Inspired Oxygen 32 SaO2/FiO2 Ratio 284 Oxygen Delivery Method Nasal Cannula Oxygen Flow Rate 3 Narrative Exam Narrative: General: Patient is a pleasant morbidly obese elderly male in no resp distress HEENT: Normocephalic, atraumatic, extraocular muscles intact, oral pharynx is clear and mucous membranes are dry. Neck is supple and symmetric, trachea is midline, no adenopathy, no thyroid enlargement, nontender, no masses palpated. Negative for JVD Chest: Increased work of breathing, without nasal flaring, retractions Lungs: Auscultation of all lung smith mild bibasilar rales,with prolonged expiratory phase, left greater than right, tachypnea, shallow breathing, poor air exchange Cardio: regular rate and rhythm without murmur, rubs, or gallops, no carotid bruit, no cardiac pulsations present. Abdomen: Soft nontender, distended negative for organomegaly, or masses. Bowel sounds are present in all 4 quadrants without guarding or rebound, no CVA tenderness.White in place Musculoskeletal: Muscle strength and tone are equal, no deformity, crepitus, effusions, cyanosis, clubbing present. Positive bilateral lower extremity edema left: +4 pitting, diffuse erythema calf, chronic venous stasis, cool to touch, AFO in place. Right lower extremity: +3 pitting, chronic venous stasis. Full range of motion intact radial and pedal pulses are normal. Skin: Warm, extremely dry and cracking especially on extremities, without rashes, ulcerations or petechiae. Neuro: Alert and orientated x3, poor historian, significant documented history of medication noncompliance, moves all extremities, sensation to touch intact, no gross deficits noted of cranial nerves. Psych: Patient has a chronically ill appearance appearance, appropriate affect, mental status attitude thought context and judgment are appropriate for age. Objective Labs 08/27/22 05:15 08/27/22 05:15 Labs: Laboratory Results - last 24 hr 08/27/22 08/27/22 05:15 05:15 WBC 11.4 H RBC 5.24 Hgb 11.3 L Hct 36.3 L MCV 69.3 L MCH 21.5 L MCHC 31.0 RDW 21.2 H Plt Count 300 Neut % (Auto) 91.8 H Lymph % (Auto) 5.1 L [place] % (Auto) 3.0 Eos % (Auto) 0.0 L Baso % (Auto) 0.1 Neut # (Auto) 68258 H Lymph # (Auto) 600 L [place] # (Auto) 300 Eos # (Auto) 0 Baso # (Auto) 0 RBC Morphology See below Hypochromasia 1+ H Anisocytosis 2+ H Microcytosis 1+ H Sodium 139 Potassium 4.3 Chloride 107 Carbon Dioxide 27 BUN 19 Creatinine 1.00 Estimated GFR > 60 BUN/Creatinine Ratio 19.0 Glucose 145 H Calcium 8.9 PFSH Medical History (Updated 08/25/22 @ 22:28 by CIRA Diallo) Bilateral pulmonary embolism BPH (benign prostatic hyperplasia) CHF (congestive heart failure) COPD (chronic obstructive pulmonary disease) History of DVT (deep vein thrombosis) History of stroke Hyperlipidemia Neuropathy Obesity (BMI 30-39.9) Surgical History History of shoulder surgery Family History Father Heart attack Sister AA (aortic aneurysm) Social History household members: none Smoking Status: Current every day smoker Assessment & Plan Assessment & Plan narrative: Arron Agarwal 72-year-old male daily smoker with history of prior stroke, COPD, CHF, BPH, obesity, remote hx of DVT, pulmonary edema, bilateral bibasilar PE, left lower extremity DVT, who presented with increasing shortness of breath.?This patient requires acute care inpatient hospital management for acute respiratory failure secondary to recurrent Bilateral PE/CHF/COPD exacerbation. After failing outpatient management and medication noncopmpliance. The patient is at much higher risk for medical and surgical complications because of his continued tobacco abuse, medication noncompliance, and obesity. These factors increase the difficulty and complexity of medical and surgical interventions and increases the chances of poor outcomes such as morbidity and mortality. The patient's obesity and continued tobacco abuse will impact his oxygenation, which will likely contribute to his acute respiratory failure. Patient admitted for acute hypoxic respiratory failure secondary to CHF/ COPD exacerbation . Hypoxic respiratory failure, acute, secondary to Bilateral PE, medication noncompliance, acute on chronic, present on admission -contributing factors CHF/COPD exacerbation due to patient's medication noncompliance- will continue to rule out infectious process. -WBC, procalcitonin all within normal limits, lactate:3 -patient is not on home O2, presented to the ED with O2 saturations in the low 80s on room air. -Currently patient is satting 90% to 92% on 3L nasal cannula -respiratory consult: Bipap PRN, DuoNebs q.4 hours, methylprednisone 60 IV BID -sputum and blood cultures pending -in ED Lasix 40 mg, NS, white placed. -PT/OT consult CHF exacerbation, acute on chronic, HFpEF, likely secondary to medication noncompliance, present on admission -BNP 1930, comparison 09/19/2021 BUN of 978 -2000 cc fluid restriction, low-sodium diet -strict I&O, daily weights, white in place -was unable to verify patient's medications due to his lethargy, it is reported that he is supposed to take Lasix 80 mg daily-will hold PO Lasix -40 mg IV Lasix BID-closely monitor renal function, if worsening creatinine recommend starting gentle Lasix drip. -02/2022 Echo:?showed evidence of pulmonary hypertension and septal flattening suggesting RV overload, RVSP was 45, preserved EF -echo ordered and shows EF 70-75%, severely dilated RV and mildly reduced RV systolic function, severely dilated RA, all unchanged from prior echo in 02/2022 COPD, exacerbation, acute on chronic, present on admission -continue patient's servant, Spiriva -DuoNebs, methylprednisone, respiratory consult -blood and sputum cultures pending Bilateral PE, Acute, recurrent, History of bilateral LL PE/left LE DVT, present on admission -hospitalization 02/26- 03/04/2022: Acute respiratory failure secondary to C HF/COPD exacerbation, bilateral PE and DVT-D/C on Eliquis -Admit chest CTA ordered rule out PE: Bilateral pulmonary embolism including involvement of the distal right lobar pulmonary artery as well as segmental and subsegmental pulmonary arteries in the right middle and lower lobes and left lower lobe.? No enlargement of the pulmonary arteries or leftward deviation of the interventricular septum to definitely suggest right heart strain.? However, there is mild enlargement of the right ventricle and reflux of contrast into the IVC suggestive of elevated right heart filling pressures. Peripheral areas of consolidation in the lower lobes and right middle lobe corresponding to the distribution of pulmonary emboli.? The findings are suggestive of pulmonary infarcts -it is noted that patient had a previous history of PE prior to February 2022 in which he was prescribed Xarelto he subsequently had stopped it due to melena. Patient was placed on Eliquis on discharge 03/04/2022 for bilateral PE and lower extremity DVT patient advised that he had stopped his Eliquis for 2week due to melena. He stated that he was placed on Coumadin, PT 14.2/INR 1.2 suggestive the patient has not been compliant with Coumadin. -Will restart Eliquis 5mg BID as pt is hemodynamically stable. -Phone consult tele physician ophthalmologist Dr. Sharma he agreed with the restart of Eliquis for tx. on exam:LLE edema left: +4 pitting, diffuse erythema calf, neg holmans, nontender/Rt +3- lower extremity ultrasound positive for persistent DVT in left superficial femoral vein -hemoccult as needed, monitor for bleeding Lactic acidemia, acute, in the setting of Mild sepsis w/o shock, acute, present on admission, now resolved -patient did not meet SIRS criteria in ED, sofa score: 2 on admit patient is hemodynamically stable in no acute distress. -sepsis likely secondary to CHF/COPD/bilateral PEs -lactate 3, likely secondary to bilateral PE- now normal History of CVA, with left-sided hemiparesis, chronic, present on admission -patient is wheelchair bound -continue ASA, statin, fenofibrate -AFO to LLE Hyperlipidemia, chronic, present on admission -continue Lipitor BPH, chronic, present on admission -continue Flomax -Urine culture with 10-20k GNB -bladder scan is needed to monitor for urinary retention -start rocephin 1g daily Neuropathy, chronic, present on admission -holding gabapentin due to patient's over-sedation Obesity severe obesity, acute on chronic, present on admission -BMI 40 -the patient is at much higher risk for medical and surgical complications due to obesity as it relates to chronic illnesses:, and acute illness. The patient's obesity increases the difficulty and complexity of medical and/or surgical interventions, management and increases the chances of poor outcome such as morbidity and mortality as well as impaired wound healing. Tobacco abuse/dependence, acute on chronic, present on admission -patient's continued tobacco abuse is contributing to his multiple development of pulmonary embolus and DVT, as well as exacerbation of CHF and COPD. -nicotine patch ordered -encouraged smoking cessation. Code status:? DNR, limited interventions Surrogate decision maker:? Manoj Agarwal son DVT/VTE prophylaxis:? Eliquis and SCDs Disposition:?SNF in 1-2 days pending auth.
[2022-08-27] MEDS: cefTRIAXone 1,000 MG in SODIUM CHLORIDE 0.9% 100 ML 200 MG IV (08:26)
[2022-08-27] MEDS: APIXABAN 5 MG TABLET PO ×2 (08:28→21:18)
[2022-08-27] MEDS: NICOTINE 14 PATCH 14 MG TOP (08:28)
[2022-08-27] MEDS: ASPIRIN EC 81 MG TABLET PO (08:29)
[2022-08-27] MEDS: POTASSIUM CHLORIDE 20 MEQ TAB PO (08:29)
[2022-08-27] MEDS: GABAPENTIN 600 MG TABLET PO ×2 (08:29→21:18)
[2022-08-27] MEDS: FUROSEMIDE 40 MG/4 ML VIAL IV ×2 (08:29→21:19)
[2022-08-27] MEDS: BENZONATATE 100 MG CAPSULE PO ×2 (08:30→18:26)
[2022-08-27] MEDS: ALBUTEROL/IPRATROPIUM 3 ML AMPUL INH ×3 (10:13→19:27)
[2022-08-27] MEDS: methylPREDNISolone 125 MG/2 ML VIAL 60 MG IV ×2 (11:31→18:26)
--- NOTE | 2022-08-27 11:48 | CM.DPC ---
DCP Continued: CONCHIS reviewed EMR. PARLOR CHAPERONE spoke with Joanna at [facility]. Joanna has auth pending through [employer]. If auth approved, Joanna said they can accept patient when he is medically ready for d/c. From progress note, provider said patient is likely to d/c within one to two days. [facility] and [facility] medically [facility]. SL
--- NOTE | 2022-08-27 13:10 | ST.IPDYTX ---
Visit Care Team Role Provider Type MALORIE Lind Primary Care Provider Non-Staff Specialty: Medical Address: [address] [place], [place] [address] [place], [address] Email: Slava Russ MD Emergency Provider Physician Referring Provider Specialty: Emergency Medicine Address: [address] [place] [address], [id number] Email: [employer] Chelsi Shin [facility] Admit Provider Physician Attending Provider Specialty: Hospitalist Internal Medicine Address: [address] [place] [address], [id number] Email: SUBSTANCE ABUSE CLINICIAN Dysphagia Treatment SUBSTANCE ABUSE CLINICIAN Dysphagia Treatment Start: 08/27/22 12:56 Freq: Status: Active Protocol: Document 08/27/22 12:56 LNK (Rec: 08/27/22 13:10 LNK [id number]) Dysphagia Treatment Session Time Visit Start Time 12:15 Visit Stop Time 12:35 Total Visit Minutes 20 Setting Assessment Location Acute Care Visit Type Note Type Treatment Note Next Note Type Next Note Type Treatment Note Patient Information Identification Type Name,ID Wristband Subjective Observations Pt was laying partially reclined in bed upon ST entry to room. He was alert, oriented, and cooperative. He stated that he has noticed that eating has been easier on the altered diet Pt has a NC in place at present, but it was only situated in one nostril upon ST entry. SUBSTANCE ABUSE CLINICIAN repositioned, but it frequently became dislodged during evaluation. Treatment Liquids Trialed Thin Solids Trialed Dysphagia Mechanical Administration Type Self-Feeding Oral Strategies Upright at 90 degrees Pharyngeal Strategies Sitting Upright (90 deg),Small Bites and Sips,Alternate Liquids/Solids Additional Dysphagia Treatment Cue pt to use tongue sweep Strategies left and right after meals to clear pocketing. Treatment Activities Pt was repositioned upright in bed for noon meal. Pt's meal neded additional altering as pieces were too big and needed more gravy. Pt self fed lunch without difficulty. Pt was cued to clear pocketing left/right with tongue sweeps. Both sides were clear of pocketing following tongue sweeps. Pt appears to be safely tolerating modified diet. Pt reports he does not feel aSOB when eating. Assessment Patient Response to Treatment Excellent Rehab Potential Good Diet Recommendations Recommendations Continue Current Diet Medication Recommendations As Tolerated Aspiration Precautions Recommended Precautions Upright at 90 Degrees,Frequent Rest Periods,Small Bites/Sips ,Lingual Sweep Treatment Plan Placement Recommendation after Discharge Senior Living Care Facility Appropriate for Continued Therapy Yes: Follow up daily as indicated while inpt Dysphagia Goals Pt will tolerate current diet of minced and moist solids and thin liquids without overt s/ sx aspiration/penetration. Pt's diet will be progressed as tolerated based on s/sx dysphagia and ability to tolerate solids 2/ pulmonary status. Pt will tolerate least restrictive diet without overt s/sx aspiration/penetration in order to meet his nutrition and hydration needs.
--- NOTE | 2022-08-27 14:15 | PT.IPTN ---
Current Diagnoses Respiratory failure, unspecified with hypoxia (08/25/22) Physical Therapy Treatment Note M2 PT-IP Current Condition Start: 08/26/22 08:00 Freq: NEEDED Status: Active Protocol: Document 08/26/22 11:00 MB (Rec: 08/26/22 11:57 MB [id number]) Physical Therapy Current Condition Current Condition Evaluation Date 08/26/22 Treatment Diagnosis B PE and DVT Onset Date Unsure how acute the B PE are given PE in 2021 M3 PT-IP Subjective Start: 08/26/22 08:00 Freq: NEEDED Status: Active Protocol: Document 08/27/22 14:48 TS (Rec: 08/27/22 15:08 TS [id number]) Subjective Physical Therapy Visit Type Type Treatment Note Visit Start Time 14:15 Visit Stop Time 14:30 Total Visit Minutes 15 Notes Co-treat with OT. Number of RESEARCH BIOSTATISTICIAN Visits 1 Physical Therapy Visit Comments Patient Comments Pt agreeable to PT. M4 PT-IP Mobility and Gait Start: 08/26/22 08:00 Freq: NEEDED Status: Active Protocol: Document 08/27/22 14:48 TS (Rec: 08/27/22 15:08 TS [id number]) PT-Bed Mobility Assessment Supine to Sit Supine to Sit Maximum Assistance,2 Person Assistance,Head of Bed Elevated,Bedrails Scooting Scooting to Edge of Bed Maximum Assistance PT-Transfer Assessment Sit to and From Stand Sit to and from Stand Maximum Assistance,2 Person Assistance Equipment Transfer Assistive Device Gait Belt,Front Wheeled Walker Orthotic/Prosthetic Devices or Brace: Yes Transfers Transfer Destination Chair Transfer Technique Stand Step Pivot Transfer Ability Level of Assist Maximum Assistance,2 Person Assistance,Use of Upper Extremities Comments Mobility Comments Pt found resting in bed, agreeable to Pt. Supine to sit MaxA x2 for uprighting trunk and some assistance with LLE. Pt sat EOB with BUE support for donning of AFO MaxA. Sit to stand x2 MaxA x2 for heavy retrolean in standing, provided cues for weight forward and upright posture. Stand step pivot transfer to chair MaxA x3, required assist with kvean-walker and LLE assist, pt continues to heavily retrolean. Pt was left in chair with OT, all needs met. Gait Assessment Comments Gait Comments Stand step pivot transfer to chair. See mobility comments. PT-Balance Assessment Sitting Balance and Reactions Static Sitting Balance Ability Fair Dynamic Sitting Balance Ability Poor Standing Balance and Reactions Static Standing Balance Ability Poor Dynamic Standing Balance Ability Poor Comments Other Balance Tests/Deviations/Treatment See mobility comments. : M5 PT-IP Objective Assessments Start: 08/26/22 08:00 Freq: NEEDED Status: Active Protocol: Document 08/26/22 11:00 MB (Rec: 08/26/22 11:57 MB [id number]) Orientation Orientation/Cognition Level of Alertness Alert Orientation Name,Age,Birthday,Month,Date, Year,Day of Week,Place, Situation Language Function Ability No Deficits Noted Safety Awareness Understands Safety Issues Memory Description No Deficits Noted Gross Range of Motion Upper Extremity ROM Assessment Bilaterally Impaired Impairments See OT comments, pt with left sided hemiplegia Lower Extremity ROM Assessment Bilaterally Impaired Impairments Left-sided hemiplegia and tone , B LEs with discoloration and fungus-type skin appearance and edema and erythema on the LLE. Skin color changes right finger tips and pt reports echavarria from wearing glove where fingertips are exposed. Strength Upper Extremity Strength Hand Contracted left hand Lower Extremity Strength Assessment Bilaterally Impaired Hip Right hip less than 3/5, left hip trace Knee Right knee grossly 3/5, left knee trace Ankle PF tone B LEs but MMT in limited right DF and great toe ext 4/5, trace left Muscle Tone Muscle Tone WNL Yes Comments Muscle Tone Comments Left extremities with increased tone M6 PT-IP Treatment Start: 08/26/22 08:00 Freq: NEEDED Status: Active Protocol: Document 08/27/22 14:48 TS (Rec: 08/27/22 15:08 TS [id number]) Physical Therapy Treatment Education Education Provided Safety M7 PT-IP Assessment and Plan Start: 08/26/22 08:00 Freq: NEEDED Status: Active Protocol: Document 08/27/22 14:48 TS (Rec: 08/27/22 15:08 TS [id number]) PT Summary Assessment and Plan Potential Rehabilitation Potential Fair Summary Impairments Pain,ROM,Strength,Balance, Coordination,Sensation,Tone, Bed Mobility,Transfers, Activity Tolerance Progress Towards Goals Slow Progress due to Pain,Slow Progress due to Medical Issues,Slow Progress due to Activity Tolerance Assessment Summary Pt continues to make slow progress with his mobility. He is on 4L of o2, Spo2 remains in low to mid 90's during mobility. He requires MaxA x2 for supine to sit with use of trapeze bar. He scooted to EOB ModA with use of handrail assist. He performed sit to stand x2 MaxA x2 for retroleaning, requires cues for weight forward and upright posture. He performed stand step pivot transfer to chair MaxA x3, requires Max cueing for sequencing with kevan- walker and LLE assistance. PT recommend SNF rehab to progress functional mobility and activity tolerance. Goals Bed Mobility Goal Standby Assistance Transfer Goal Contact Guard Assistance Days to Meet Goals 5 Frequency of Treatment Frequency Of Treatment Once a Day Treatment Plan Physical Therapy Treatment Plan Bed Mobility Training,Transfer Training,Therapeutic Exercise ,Balance Retraining, Neuromuscular Re-ed Recommendations To Nursing Amount of Assist Needed 3 or More Person Assist Discharge Recommendations PT Discharge Recommendations SNF Rehab Transportation Needs at Discharge Wheelchair/Cabulance
--- NOTE | 2022-08-27 14:55 | OT.IP.TRT ---
Current Diagnoses Respiratory failure, unspecified with hypoxia (08/25/22) Occupational Therapy Treatment Note M2 OT-IP Current Condition Start: 08/26/22 13:12 Freq: Status: Active Protocol: Document 08/26/22 11:24 [facility] (Rec: 08/26/22 13:30 [facility] [id number]) Occupational Therapy Current Condition Current Condition Evaluation Date 08/26/22 Treatment Diagnosis BPE, DVT, acute respiratory failure Diagnosis Onset Date 08/25/22 M3 OT- IP Subjective and Pain Start: 08/26/22 13:12 Freq: Status: Active Protocol: Document 08/27/22 14:30 [facility] (Rec: 08/27/22 16:52 [facility] [id number]) OT- Subjective Occupational Therapy Visit Type Visit Start Time 14:15 Visit Stop Time 14:55 Total Visit Minutes 25 Notes Cotxt with CANAL SUPERINTENDENT due to pt needing extensive skilled assist for transfer and mobility needs. Occupational Therapy Visit Comments Patient Comments Pt agreed to try to get up and transfer with hesham-walker to the recliner. CANAL SUPERINTENDENT and nursing aid present. Patient/Caregiver Goals To get better so able to go home. M4 OT- IP ADL's Start: 08/26/22 13:12 Freq: Status: Active Protocol: Document 08/27/22 14:30 [facility] (Rec: 08/27/22 16:52 [facility] [id number]) OT [id number] Comments OT Self-Feeding Comments Pt able to states ARCHITECTURE CONSULTANT suggestions for eating to eat upright, check for pocketing, and to slow down. OT ADL-Oral Care General Eval Oral Care Ability Standby Assistance Areas of Assistance Retrieving/Set-Up of Items Comments Oral Care Comments Set-up assist and assist to hold basin so pt able to spit while seated in the recliner. OT ADL-Dressing General Eval Lower Body Dressing Ability Total Assistance Areas Needing Assistance Socks,Shoes,Orthosis/ Prosthesis Comments OT Dressing Comments Dependent for socks/shoes/AFO OT ADL-Toileting General Evaluation Toileting Ability Total Assistance Areas Needing Assistance Perform Perineal Hygiene Comments OT Toileting Comments Nursing aid able to assist to wipe for hygiene needs while OT/CANAL SUPERINTENDENT able to stand pt with MAX AX 2 with hemiwalker. OT ADL-Bathing Comments OT Bathing Comments Sponge bath more appropriate at this time. M5 OT- IP IADL's Start: 08/26/22 13:12 Freq: Status: Active Protocol: Document 08/26/22 11:24 [facility] (Rec: 08/26/22 13:30 [facility] [id number]) OT-Instrumental Activities of Daily Living Home Safety Awareness Awareness of Need for Assistance at Home Good Awareness Medication Management Medication Management Caregiver Administers Money Management Money Management Caregiver Provides Assistance Meal Preparation Meal Preparation Caregiver Provides Assist M6 OT- IP Functional Cognition Start: 08/26/22 13:12 Freq: Status: Active Protocol: Document 08/27/22 14:30 [facility] (Rec: 08/27/22 16:52 [facility] [id number]) Cognitive Factors Limiting Selfcare Function Cognitive Ability Level of Alertness Alert Patient Orientation Name Attention Span Ability Capable of Focused Attention, Capable of Sustained Attention Ability to Follow Commands Able to Follow One Step Commands Cognitive Comments Cognitive Assessment Comments Pt able to recall ARCHITECTURE CONSULTANT suggestions for swallowing, and commands for bed mobility needs. M7 OT- IP Mobility and Balance Start: 08/26/22 13:12 Freq: Status: Active Protocol: Document 08/27/22 14:30 [facility] (Rec: 08/27/22 16:52 [facility] [id number]) OT- Bed Mobility Assessment Supine to Sit Supine to Sit Assist Maximum Assistance,2 Person Assistance Sit to Supine Sit to Supine Assist Maximum Assistance,2 Person Assistance OT-Transfer Assessment Sit to and From Stand Sit to and from Stand Maximum Assistance,2 Person Assistance Transfers Transfer Ability Maximum Assistance,1 Person Assistance,2 Person Assistance Technique Transfer Destination Bed,Chair Transfer Technique Stand Step Pivot Devices Transfer Assistive Devices Gait Belt,Hesham Walker Orthotic/Prosthetic Devices or Brace: Yes Comments Mobility Comments Pt with use of trapzez bar able to move his LLE to towards tne edge of the bed and then needing MAXAx2 for his trunk and to sit upright at the edge of the bed. MAX A x2 to stand with hesham-walker with bed raised. MAX AX 3 to transfer, assist for balance, weight shifting and to guide the hesham-walker, at the end therapist having to guide his hips back to the recliner. It is recommended pt use angela lift to and from places by nursing for safety. OT- Balance Assessment Sitting Balance and Reactions Static Sitting Balance Ability Good Dynamic Sitting Balance Ability Fair Standing Balance and Reactions Static Standing Balance Ability Poor Dynamic Standing Balance Ability Poor Comments Other Balance Tests/Deviations/Treatment Pt heavily leans posteriorly : and has trouble weigh shifting and needing extensive 3 person assist for the transfer . 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 OT Strength Upper Extremity Strength Assessment Bilaterally Impaired Comments Strength Comments LUE trace at shoulders. RUE 3-/5 at shoulder and 4/5 to 4-/5 from elbow to distal. Pt states history of dislocation and rotator cuff repair for his right arm. OT- Coordination Assessment Upper Extremity Finger to Nose Test Left UE Impaired Finger Tapping Test Left UE Impaired OT-Muscle Tone Assessment Muscle Tone WNL No Comments Muscle Tone Comments Pt has tone in his left fingers/contratures. M9 OT- IP Assessment and Plan Start: 08/26/22 13:12 Freq: Status: Active Protocol: Document 08/27/22 14:30 [facility] (Rec: 08/27/22 16:52 [facility] [id number]) OT Summary Assessment and Plan Potential Rehabilitation Potential Good Analytic Complexity at Evaluation High Summary OT Impairments Pain,Range of Motion,Strength, Balance,Tone,Functional Cognition,Functional Mobility, Self-Feeding,Grooming,Dressing ,Toilet Transfers,Shower Transfers Progress Towards Goals Progressing Toward Goals Assessment Summary Pt able to tolerate transfer with hesham-walker and needing MAXAX3. Pt still on 4L of O2 and from reading in low 90's. Pt is very motivated, cooperative, and willing to get better. Pt to go to skilled rehab when medically stable. Goals Self-Feeding Goal Standby Assistance Grooming Goal Standby Assistance Dressing Goal Moderate Assistance Toilet Transfer Goal Standby Assistance Shower Transfer Goal Standby Assistance Days to Meet Goals 30 Frequency of Treatment Frequency Of Treatment Once a Day Treatment Plan OT Treatment Plan ADL Training,Functional Mobility,Patient/Family Education,Discharge Planning Other Treatment Recommendations and Next Transfer with hemiwalker and Treatment Focus MAXA X 2. Discharge Recommendations OT Discharge Recommendations SNF Rehab Transportation Needs at Discharge Wheelchair/Cabulance
--- NOTE | 2022-08-27 15:34 | CM.DPC ---
DCP Continued: GUT DROPPER reviewed EMR. From provider in rounds, patient will likely d/c in a day or two. GUT DROPPER entered room and introduced self and role. Patient was sitting up in chair. Patient appeared A/Ox4. PCP: Isi Andrews Patient is a resident of [facility]. Patient reported he uses a power wheel chair at baseline. Patient reported he has a quad cane that he uses. Patient's son, Manoj ([phone]), lives in [place]. Patient reports he is open to SNF upon d/c. Joanna from [facility] reported earlier this am they are waiting on the auth to be approved through patient's insurance. Joanna said she would let CM team know as soon as she knew about the auth. Joanna said they can accept if approved when patient is medically stable. Patient reports being upset that his phone was and that he wished to contact his son. GUT DROPPER tried to find a phone consultant electronics from the main nurses station, none available. GUT DROPPER encouraged patient to ask nursing staff later this evening if there was an available consultant electronics. Plan: pending [employer] approve insurance auth [facility] D/c when medically stable. PASRR needed. CM team will continue to follow closely.
[2022-08-27] MEDS: SENNOSIDES 8.6 MG TABLET 17.2 MG PO (21:18)
[2022-08-27] MEDS: ATORVASTATIN 20 MG TABLET PO (21:18)
[2022-08-27] MEDS: MELATONIN 3 MG TABLET 6 MG PO (21:18)
[2022-08-28] VITALS (12 sets, daily range): BP systolic 96–132; BP diastolic 53–74; PULSE 61–91; RESP 17–22; TEMP 36–36.7; O2SAT 90–96
[2022-08-28] MEDS: methylPREDNISolone 125 MG/2 ML VIAL 60 MG IV ×5 (00:29→23:39)
[2022-08-28 06:19] LABS: Add Manual Diff / Slide Review NO; Basophils Absolute Auto 0 /uL (0-100); Basophils Percent Auto 0.1 % (0-2); Eosinophils Absolute Auto 0 /uL (0-450); Hematocrit 37.4 % (41-53); Hemoglobin 11.5 g/dL (13.5-17.5); Lymphocytes Absolute Auto 400 /uL (1100-4500); Lymphocytes Percent Auto 3.8 % (25-40); Mean Corpuscular HGB Conc 30.8 % (30-36); Mean Corpuscular Hemoglobin 21.4 PG (26-34); Mean Corpuscular Volume 69.5 fL (80-100); Monocytes Absolute Auto 200 /uL (0-900); Monocytes Percent Auto 1.8 % (3-14); Neutrophils Absolute Auto 10100 /uL (1500-7000); Neutrophils Percent Auto 94.3 % (50-75); Platelet Count 310 X10^3/uL (150-400); Red Blood Cell Count 5.38 X10^6/uL (4.5-5.9); Red Cell Distribution Width 21.3 % (11.6-14.8); White Blood Cell Count 10.7 X10^3/uL (4.5-11.0)
[2022-08-28 06:21] LABS: BUN Creatinine Ratio 23.2 (6-22); Blood Urea Nitrogen 26 mg/dL (9-20); Carbon Dioxide 28 mmol/L (22-32); Chloride 103 mmol/L (98-107); Estimated Glomerular Filt Rate > 60 mL/min (>60); Glucose 148 mg/dL (80-110); HEMOLYSIS < 15 (0-50); Sodium 138 mmol/L (137-145)
[2022-08-28 06:50] LABS: Anisocytosis 2+; Hypochromasia 1+; Microcytosis 1+
[2022-08-28] MEDS: ALBUTEROL/IPRATROPIUM 3 ML AMPUL INH ×3 (07:36→19:32)
[2022-08-28] MEDS: ASPIRIN EC 81 MG TABLET PO (08:50)
[2022-08-28] MEDS: GABAPENTIN 600 MG TABLET PO ×2 (08:50→21:40)
[2022-08-28] MEDS: POTASSIUM CHLORIDE 20 MEQ TAB PO (08:50)
[2022-08-28] MEDS: FUROSEMIDE 40 MG/4 ML VIAL IV ×2 (08:51→21:40)
[2022-08-28] MEDS: cefTRIAXone 1,000 MG in SODIUM CHLORIDE 0.9% 100 ML 200 MG IV (08:54)
[2022-08-28] MEDS: APIXABAN 5 MG TABLET PO ×2 (08:55→21:40)
--- NOTE | 2022-08-28 11:44 | PT.IPTN ---
Current Diagnoses Respiratory failure, unspecified with hypoxia (08/25/22) Physical Therapy Treatment Note M2 PT-IP Current Condition Start: 08/26/22 08:00 Freq: NEEDED Status: Active Protocol: Document 08/26/22 11:00 MB (Rec: 08/26/22 11:57 [facility] [id number]) Physical Therapy Current Condition Current Condition Evaluation Date 08/26/22 Treatment Diagnosis B PE and DVT Onset Date Unsure how acute the B PE are given PE in 2021 M3 PT-IP Subjective Start: 08/26/22 08:00 Freq: NEEDED Status: Active Protocol: Document 08/28/22 14:04 TS (Rec: 08/28/22 14:29 TS [id number]) Subjective Physical Therapy Visit Type Type Treatment Note Visit Start Time 11:44 Visit Stop Time 12:01 Total Visit Minutes 17 Notes Co-treat with OT. Number of TRANSPORTATION ATTENDANT Visits 2 Physical Therapy Visit Comments Patient Comments Pt agreeable to PT. M4 PT-IP Mobility and Gait Start: 08/26/22 08:00 Freq: NEEDED Status: Active Protocol: Document 08/28/22 14:04 TS (Rec: 08/28/22 14:29 TS [id number]) PT-Bed Mobility Assessment Supine to Sit Supine to Sit Maximum Assistance,1 Person Assistance,Head of Bed Elevated,Bedrails Scooting Scooting to Edge of Bed Maximum Assistance PT-Transfer Assessment Sit to and From Stand Sit to and from Stand Maximum Assistance,2 Person Assistance Equipment Transfer Assistive Device Gait Belt,Hesham Walker Orthotic/Prosthetic Devices or Brace: Yes Transfers Transfer Destination Chair Transfer Technique Stand Step Pivot Transfer Ability Level of Assist Maximum Assistance,2 Person Assistance,Use of Upper Extremities Comments Mobility Comments Pt found resting in bed, Spo2 mid 90's on 2.5L, agreeable to PT. Supine to sit HOB elevated 45D, MaxA x1 for uprighting trunk with trapeze bar, pt with very labored breahting increased o2 to 3L. PT scooted to EOB initally CGA with handrail, required MaxA for LLE over EOB for donning of shoes. Sit to stand MaxA x2 , cues provided for LLE underneath for improved stability. Stand step pivot transfer to chair MaxA x3, provided cues for step sequencing. Pt was left in chair with call light nearby, OT and RN in room. Gait Assessment Comments Gait Comments Stand step pivot transfer to chair. See mobility comments. PT-Balance Assessment Sitting Balance and Reactions Static Sitting Balance Ability Good Dynamic Sitting Balance Ability Fair Standing Balance and Reactions Static Standing Balance Ability Poor Dynamic Standing Balance Ability Poor Comments Other Balance Tests/Deviations/Treatment See mobility comments. : M5 PT-IP Objective Assessments Start: 08/26/22 08:00 Freq: NEEDED Status: Active Protocol: Document 08/26/22 11:00 MB (Rec: 08/26/22 11:57 MB [id number]) Orientation Orientation/Cognition Level of Alertness Alert Orientation Name,Age,Birthday,Month,Date, Year,Day of Week,Place, Situation Language Function Ability No Deficits Noted Safety Awareness Understands Safety Issues Memory Description No Deficits Noted Gross Range of Motion Upper Extremity ROM Assessment Bilaterally Impaired Impairments See OT comments, pt with left sided hemiplegia Lower Extremity ROM Assessment Bilaterally Impaired Impairments Left-sided hemiplegia and tone , B LEs with discoloration and fungus-type skin appearance and edema and erythema on the LLE. Skin color changes right finger tips and pt reports echavarria from wearing glove where fingertips are exposed. Strength Upper Extremity Strength Hand Contracted left hand Lower Extremity Strength Assessment Bilaterally Impaired Hip Right hip less than 3/5, left hip trace Knee Right knee grossly 3/5, left knee trace Ankle PF tone B LEs but MMT in limited right DF and great toe ext 4/5, trace left Muscle Tone Muscle Tone WNL Yes Comments Muscle Tone Comments Left extremities with increased tone M6 PT-IP Treatment Start: 08/26/22 08:00 Freq: NEEDED Status: Active Protocol: Document 08/28/22 14:04 TS (Rec: 08/28/22 14:29 TS [id number]) Physical Therapy Treatment Education Education Provided Safety M7 PT-IP Assessment and Plan Start: 08/26/22 08:00 Freq: NEEDED Status: Active Protocol: Document 08/28/22 14:04 TS (Rec: 08/28/22 14:29 TS [id number]) PT Summary Assessment and Plan Potential Rehabilitation Potential Fair Summary Impairments Pain,ROM,Strength,Balance, Coordination,Sensation,Tone, Bed Mobility,Transfers, Activity Tolerance Progress Towards Goals Slow Progress due to Pain,Slow Progress due to Medical Issues,Slow Progress due to Activity Tolerance Assessment Summary Pt continues to make slow progress with his mobility. He is MaxA x1 for bed mobility with trapeze bar. He required MaxA x2 for sit to stands, LLE weak requiring increased assist for standing balance. He continues to perform stand pivot transfers to chair MaxA x3 with Max cueing, pt heavily retroleans. o2 desats with mobility, required increased to 3L from 2.5 due to labored breathing. PT recommends SNF at this time to progress bed mobility, transfers and activity tolerance. Goals Bed Mobility Goal Standby Assistance Transfer Goal Contact Guard Assistance Days to Meet Goals 5 Frequency of Treatment Frequency Of Treatment Once a Day Treatment Plan Physical Therapy Treatment Plan Bed Mobility Training,Transfer Training,Therapeutic Exercise ,Balance Retraining, Neuromuscular Re-ed Recommendations To Nursing Amount of Assist Needed Mechanical Lift Discharge Recommendations PT Discharge Recommendations SNF Rehab Transportation Needs at Discharge Wheelchair/Cabulance
--- NOTE | 2022-08-28 12:07 | ST.IPDYTX ---
Visit Care Team Role Provider Type MALORIE Lind Primary Care Provider Non-Staff Specialty: Medical Address: [address] [place], [place] [address] [place], [address] Email: Slava Russ MD Emergency Provider Physician Referring Provider Specialty: Emergency Medicine Address: [address] [place] [address], [address] Email: [email or web address] Chelsi Shin, [facility] Admit Provider Physician Attending Provider Specialty: Hospitalist Internal Medicine Address: [address] [place] [address], [address] Email: PERFORMANCE TEST CONSULTANT Dysphagia Treatment PERFORMANCE TEST CONSULTANT Dysphagia Treatment Start: 08/27/22 12:56 Freq: Status: Active Protocol: Document 08/28/22 11:31 LNK (Rec: 08/28/22 12:07 L[facility] [id number]) Dysphagia Treatment Session Time Visit Start Time 10:30 Visit Stop Time 10:50 Total Visit Minutes 20 Setting Assessment Location Acute Care Visit Type Note Type Treatment Note Next Note Type Next Note Type Treatment Note Patient Information Identification Type Name,ID Wristband Subjective Observations Pt was laying partially reclined in bed upon ST entry to room. He was alert, oriented, and cooperative. He stated that he has noticed that eating has been easier on the altered diet Pt has a NC in place at present, but it was only situated in one nostril upon ST entry. PERFORMANCE TEST CONSULTANT repositioned, but it frequently became dislodged during evaluation. Treatment Liquids Trialed Thin Solids Trialed Dysphagia Mechanical Administration Type Tea Spoon,Cup Consecutive Sips ,Straw,Self-Feeding Oral Strategies Lingual Sweep Pharyngeal Strategies Sitting Upright (90 deg),Small Bites and Sips,Alternate Liquids/Solids Additional Dysphagia Treatment Cue pt to use tongue sweep Strategies left and right after meals to clear pocketing. Treatment Activities Pt had just completed breakfast. Pt reported no difficulty with intake of solids and thin liquids at current level. Pt did restate that when he is eating ( regular texture) at the SNF, he does have challenges with breathing and eating at the same time, increasing aspiration risk. Modified diet has eased that difficulty . Pt needs to have modified diet [id number] (MINCED AND MOIST) . Pt is currently safe with modified diet. No overt s/sx aspiration. Will discharge at this time. Assessment Patient Response to Treatment Excellent Rehab Potential Good Diet Recommendations Recommendations Continue Current Diet Medication Recommendations As Tolerated Aspiration Precautions Recommended Precautions Upright at 90 Degrees,Frequent Rest Periods,Small Bites/Sips ,Lingual Sweep Treatment Plan Placement Recommendation after Discharge Nursing Home Care Facility Appropriate for Continued Therapy No: Follow up daily as indicated while inpt Dysphagia Goals Pt will tolerate least restrictive diet without overt s/sx aspiration/penetration in order to meet his nutrition and hydration needs.
--- NOTE | 2022-08-28 12:12 | OT.IP.TRT ---
Current Diagnoses Respiratory failure, unspecified with hypoxia (08/25/22) Occupational Therapy Treatment Note M2 OT-IP Current Condition Start: 08/26/22 13:12 Freq: Status: Active Protocol: Document 08/26/22 11:24 [facility] (Rec: 08/26/22 13:30 [facility] [id number]) Occupational Therapy Current Condition Current Condition Evaluation Date 08/26/22 Treatment Diagnosis BPE, DVT, acute respiratory failure Diagnosis Onset Date 08/25/22 M3 OT- IP Subjective and Pain Start: 08/26/22 13:12 Freq: Status: Active Protocol: Document 08/28/22 12:18 [facility] (Rec: 08/28/22 12:28 [facility] [id number]) OT- Subjective Occupational Therapy Visit Type Type Treatment Note Visit Start Time 11:42 Visit Stop Time 12:12 Total Visit Minutes 10 Notes Cotxt with IN HOUSE COUNSEL Occupational Therapy Visit Comments Patient Comments Pt agreed to get up and nurse present to assist. Patient/Caregiver Goals TO get stronger. OT Pain Assessment Pain When Pain Assessed During Mobility Pain Present Pain Present Pain Reported M4 OT- IP ADL's Start: 08/26/22 13:12 Freq: Status: Active Protocol: Document 08/28/22 12:18 [facility] (Rec: 08/28/22 12:28 [facility] [id number]) OT [id number] Comments OT Self-Feeding Comments Pt needing set-up. Pt able to recall MIDDLE SCHOOL RESOURCE TEACHER strategies. However encouraged pt to ask for help as when entering the room to see the pt , pt HOB needed to be higher. Pt states unable to reach the controls and reminded pt to ask for help. M5 OT- IP IADL's Start: 08/26/22 13:12 Freq: Status: Active Protocol: Document 08/26/22 11:24 [facility] (Rec: 08/26/22 13:30 [facility] [id number]) OT-Instrumental Activities of Daily Living Home Safety Awareness Awareness of Need for Assistance at Home Good Awareness Medication Management Medication Management Caregiver Administers Money Management Money Management Caregiver Provides Assistance Meal Preparation Meal Preparation Caregiver Provides Assist M6 OT- IP Functional Cognition Start: 08/26/22 13:12 Freq: Status: Active Protocol: Document 08/28/22 12:18 [facility] (Rec: 08/28/22 12:28 [facility] [id number]) Cognitive Factors Limiting Selfcare Function Cognitive Comments Cognitive Assessment Comments Pt able to recall steps for safe swallowing but needing reminders to follow sit upright , and to ask for assistance from staff to help raise the HOB up if not able to reach the controls on his own. Pt also able to state step by step process of getting up from the bed and needing less cue today- from MAX vc for hand placement to MIN/MOD vc today. M7 OT- IP Mobility and Balance Start: 08/26/22 13:12 Freq: Status: Active Protocol: Document 08/28/22 12:18 [facility] (Rec: 08/28/22 12:28 [facility] [id number]) OT- Bed Mobility Assessment Supine to Sit Supine to Sit Assist Maximum Assistance,1 Person Assistance OT-Transfer Assessment Sit to and From Stand Sit to and from Stand Maximum Assistance,2 Person Assistance Transfers Transfer Ability Maximum Assistance,1 Person Assistance,2 Person Assistance Technique Transfer Destination Bed,Chair Transfer Technique Stand Step Pivot Devices Transfer Assistive Devices Gait Belt,Hesham Walker Orthotic/Prosthetic Devices or Brace: Yes Comments Mobility Comments Pt still having difficulty to weight shift and move his LLE and needing the nurse to physically assist to get his left foot underneath him. Pt also needing assist to weight shift, assist for balance so able to move his feet. Pt able to get all the way to the recliner today by taking steps with the hesham-walker and MAXAX3. Still Tiny lift for nursing needs at this time as pt is a high fall risk and needing extensive skilled assist and cues for mobility needs. OT- Balance Assessment Sitting Balance and Reactions Static Sitting Balance Ability Good Dynamic Sitting Balance Ability Fair Standing Balance and Reactions Static Standing Balance Ability Poor Dynamic Standing Balance Ability Poor M9 OT- IP Assessment and Plan Start: 08/26/22 13:12 Freq: Status: Active Protocol: Document 08/28/22 12:18 [facility] (Rec: 08/28/22 12:28 [facility] [id number]) OT Summary Assessment and Plan Potential Rehabilitation Potential Good Analytic Complexity at Evaluation High Summary OT Impairments Pain,Range of Motion,Strength, Balance,Tone,Functional Cognition,Functional Mobility, Self-Feeding,Grooming,Dressing ,Toilet Transfers,Shower Transfers Progress Towards Goals Progressing Toward Goals Assessment Summary Pt on 3L on O2 and able to transfer to recliner with MAX Ax3 and hemiwalker , Pt's o2 at 92% and hr increased to 119 . Pt is very motivated, cooperative and looking forward to go to skilled rehab when medically stable. Goals Self-Feeding Goal Standby Assistance Grooming Goal Standby Assistance Dressing Goal Moderate Assistance Toilet Transfer Goal Standby Assistance Shower Transfer Goal Standby Assistance Days to Meet Goals 29 Frequency of Treatment Frequency Of Treatment Once a Day Treatment Plan OT Treatment Plan ADL Training,Functional Mobility,Patient/Family Education,Discharge Planning Other Treatment Recommendations and Next Transfer with hemiwalker and Treatment Focus MAXA X 2. Discharge Recommendations OT Discharge Recommendations SNF Rehab Transportation Needs at Discharge Wheelchair/Cabulance
--- NOTE | 2022-08-28 13:32 | CM.DPC ---
DCP Continued: ASSOCIATE PROFESSOR OF AUTOMATION reviewed EMR. Joanna from [facility] reported having the auth approved and they can accept him tomorrow morning, tentatively 1100. ASSOCIATE PROFESSOR OF AUTOMATION entered room and reintroduced self and role. Patient reported he wished to go home to [place] [facility] instead of going to [facility]. ASSOCIATE PROFESSOR OF AUTOMATION LVM with resident VM and nursing at [facility] to inform them patient would rather go home. ASSOCIATE PROFESSOR OF AUTOMATION BETSY spoke with Karie at [facility], who reported patient would need SNF rehab before returning to [facility]. ASSOCIATE PROFESSOR OF AUTOMATION informed patient of [facility]'s decision. Patient appeared disappointed but verbally accepted this information. Patient had questions regarding transportation, to which ASSOCIATE PROFESSOR OF AUTOMATION informed him someone from [facility] will come and transport him to the facility. ASSOCIATE PROFESSOR OF AUTOMATION spoke with Joanna at [facility]. She said confirmed all is well to accept patient tomorrow at roughly 1100 tomorrow, 08/29. Plan: patient will d/c to [facility] tomorrow, 08/29 at 1100 jovan. CM team will continue to follow with needs. CONCHIS Nelson
--- NOTE | 2022-08-28 15:48 | PM.PN.1 ---
Subjective Subjective Interval history: Remains on 3L NC. Says his breathing is improved and he denies dyspnea. Awaiting SNF. Exam Vital Signs (past 8 hours): - 08/28/22 09:00 08/28/22 11:28 08/28/22 08:00 Temperature 97.9 F Pulse Rate 91 H 81 Respiratory Rate 17 20 Blood Pressure 96/53 L Pulse Oximetry 90 L 90 L 96 Oxygen Delivery Method Nasal Cannula Nasal Cannula Oxygen Flow Rate 2 2 3 08/28/22 13:00 Temperature 97.0 F L Pulse Rate 85 Respiratory Rate 18 Blood Pressure 104/62 Pulse Oximetry 94 Oxygen Delivery Method Oxygen Flow Rate 3 Fraction of Inspired Oxygen 32 SaO2/FiO2 Ratio 284 Oxygen Delivery Method Nasal Cannula Oxygen Flow Rate 3 Narrative Exam Narrative: General:? Patient is well developed and well nourished, in no distress at this time. Chest:? Normal AP diameter and contour without kyphoscoliosis, no tachypnea, equal chest rise bilaterally. Lungs:? CTA b/l no wheezing rhonchi or rales. Cardio:?RRR no m/r/g. Abdomen: S NT ND. Extremities: bilateral 2+ pitting edema, L >R Neuro:? Alert and orientated x3 Psych:? Patient has a well-kept appearance, appropriate affect, mental status attitude thought context and judgment are appropriate for age. Objective Labs 08/28/22 05:30 08/28/22 05:30 Labs: Laboratory Results - last 24 hr 08/28/22 08/28/22 05:30 05:30 WBC 10.7 RBC 5.38 Hgb 11.5 L Hct 37.4 L MCV 69.5 L MCH 21.4 L MCHC 30.8 RDW 21.3 H Plt Count 310 Neut % (Auto) 94.3 H Lymph % (Auto) 3.8 L [place] % (Auto) 1.8 L Eos % (Auto) 0.0 L Baso % (Auto) 0.1 Neut # (Auto) 34542 H Lymph # (Auto) 400 L [place] # (Auto) 200 Eos # (Auto) 0 Baso # (Auto) 0 RBC Morphology See below Hypochromasia 1+ H Anisocytosis 2+ H Microcytosis 1+ H Sodium 138 Potassium 4.0 Chloride 103 Carbon Dioxide 28 BUN 26 H Creatinine 1.12 Estimated GFR > 60 BUN/Creatinine Ratio 23.2 H Glucose 148 H Calcium 9.0 [facility] Medical History (Updated 08/25/22 @ 22:28 by CIRA Diallo) Bilateral pulmonary embolism BPH (benign prostatic hyperplasia) CHF (congestive heart failure) COPD (chronic obstructive pulmonary disease) History of DVT (deep vein thrombosis) History of stroke Hyperlipidemia Neuropathy Obesity (BMI 30-39.9) Surgical History History of shoulder surgery Family History Father Heart attack Sister AA (aortic aneurysm) Social History household members: none Smoking Status: Current every day smoker Assessment & Plan Assessment & Plan narrative: Arron Agarwal 72-year-old male daily smoker with history of prior stroke, COPD, CHF, BPH, obesity, remote hx of DVT, pulmonary edema, bilateral bibasilar PE, left lower extremity DVT, who presented with increasing shortness of breath.?admitted with respriatory failure due to possible new PE, CHF and COPD exacerbations. Hypoxic respiratory failure, acute, secondary to Bilateral PE, medication noncompliance, acute on chronic, present on admission -contributing factors CHF/COPD exacerbation due to patient's medication noncompliance- infectious etiologies ruled out. also contributing are bilateral PE. -patient is not on home O2, presented to the ED with O2 saturations in the low 80s on room air. -Currently patient is satting 90% to 92% on 3L nasal cannula -respiratory consult: Bipap PRN, DuoNebs q.4 hours, methylprednisone 60 IV BID, will change to oral prednisone 40 mg daily today. -continue diuresis. -PT/OT consult recommended SNF. CHF exacerbation, acute on chronic, HFpEF, likely secondary to medication noncompliance, present on admission -1999 cc fluid restriction, low-sodium diet -strict I&O, daily weights, white in place -02/2022 Echo:?showed evidence of pulmonary hypertension and septal flattening suggesting RV overload, RVSP was 45, preserved EF -echo ordered and shows EF 70-75%, severely dilated RV and mildly reduced RV systolic function, severely dilated RA, all unchanged from prior echo in 02/2022 -continue IV furosemide 40 mg IV BID. change to oral furosemide on discharge. COPD, exacerbation, acute on chronic, present on admission -continue patient's servant, Spiriva -DuoNebs, methylprednisone, respiratory consult -blood and sputum cultures pending Bilateral PE, Acute, recurrent, History of bilateral LL PE/left LE DVT, present on admission -hospitalization 02/26- 03/04/2022: Acute respiratory failure secondary to CHF/COPD exacerbation, bilateral PE and DVT-D/C on Eliquis -Admit chest CTA ordered rule out PE: Bilateral pulmonary embolism including involvement of the distal right lobar pulmonary artery as well as segmental and subsegmental pulmonary arteries in the right middle and lower lobes and left lower lobe.? No enlargement of the pulmonary arteries or leftward deviation of the interventricular septum to definitely suggest right heart strain.? However, there is mild enlargement of the right ventricle and reflux of contrast into the IVC suggestive of elevated right heart filling pressures. Peripheral areas of consolidation in the lower lobes and right middle lobe corresponding to the distribution of pulmonary emboli.? The findings are suggestive of pulmonary infarcts -it is noted that patient had a previous history of PE prior to February 2022 in which he was prescribed Xarelto he subsequently had stopped it due to melena. Patient was placed on Eliquis on discharge 03/04/2022 for bilateral PE and lower extremity DVT patient advised that he had stopped his Eliquis for 2week due to melena. He stated that he was placed on Coumadin, PT 14.2/INR 1.2 suggestive the patient has not been compliant with Coumadin. -Will restart Eliquis 5mg BID as pt is hemodynamically stable. -Phone consult tele jacquard twine polisher operator Dr. Sharma he agreed with the restart of Eliquis for tx. Lactic acidemia, acute, resolved - sepsis ruled out, likely due to above respiratory and cardiac failure. History of CVA, with left-sided hemiparesis, chronic, present on admission -patient is wheelchair bound -continue ASA, statin, fenofibrate -AFO to LLE Hyperlipidemia, chronic, present on admission -continue Lipitor BPH, chronic, present on admission -continue Flomax -Urine culture with 10-20k GNB -bladder scan is needed to monitor for urinary retention Neuropathy, chronic, present on admission -continue gabapentin Obesity severe obesity, acute on chronic, present on admission -BMI 40 -the patient is at much higher risk for medical and surgical complications due to obesity as it relates to chronic illnesses:, and acute illness. The patient's obesity increases the difficulty and complexity of medical and/or surgical interventions, management and increases the chances of poor outcome such as morbidity and mortality as well as impaired wound healing. Tobacco abuse/dependence, acute on chronic, present on admission -patient's continued tobacco abuse is contributing to his multiple development of pulmonary embolus and DVT, as well as exacerbation of CHF and COPD. -nicotine patch ordered -encouraged smoking cessation. Code status:? DNR, limited interventions Surrogate decision maker:? Manoj Agarwal carl DVT/VTE prophylaxis:? Eliquis and SCDs Disposition:?SNF likely tomorrow.
[2022-08-28] MEDS: ATORVASTATIN 20 MG TABLET PO (21:40)
[2022-08-28] MEDS: SENNOSIDES 8.6 MG TABLET 17.2 MG PO (21:40)
[2022-08-28] MEDS: MELATONIN 3 MG TABLET 6 MG PO (21:40)
[2022-08-29 00:32] VITALS: BP 135/79; PULSE 63; RESP 20; TEMP 35.9; O2SAT 93
[2022-08-29 05:25] VITALS: BP 120/65; PULSE 66; RESP 20; TEMP 35.9; O2SAT 91
[2022-08-29 06:08] LABS: BUN Creatinine Ratio 32.3 (6-22); Blood Urea Nitrogen 31 mg/dL (9-20); Calcium 8.3 mg/dL (8.4-10.2); Carbon Dioxide 30 mmol/L (22-32); Chloride 102 mmol/L (98-107); Estimated Glomerular Filt Rate > 60 mL/min (>60); Glucose 156 mg/dL (80-110); HEMOLYSIS < 15 (0-50); Potassium 3.8 mmol/L (3.4-5.1); Sodium 137 mmol/L (137-145)
[2022-08-29] MEDS: methylPREDNISolone 125 MG/2 ML VIAL 60 MG IV (06:45)
[2022-08-29 07:58] VITALS: O2SAT 94
[2022-08-29] MEDS: FUROSEMIDE 40 MG/4 ML VIAL IV (08:30)
[2022-08-29] MEDS: cefTRIAXone 1,000 MG in SODIUM CHLORIDE 0.9% 100 ML 200 MG IV (08:31)
[2022-08-29] MEDS: APIXABAN 5 MG TABLET PO (08:31)
[2022-08-29] MEDS: GABAPENTIN 600 MG TABLET PO (08:31)
[2022-08-29] MEDS: NICOTINE 14 PATCH 14 MG TOP (08:31)
[2022-08-29] MEDS: ASPIRIN EC 81 MG TABLET PO (08:31)
[2022-08-29] MEDS: POTASSIUM CHLORIDE 20 MEQ TAB PO (08:31)
--- NOTE | 2022-08-29 08:32 | PM.DS.1 ---
History of Present Illness History of Present Illness Date Patient Seen: 08/29/22 Time Patient Seen: 08:32 Chief complaint: Acute resp fail CHF/COPDexac Narrative: Per admitting provider, Arron Agarwal is a 72yo M with PMH of HFpEF, COPD, stroke in 2016 with left sided hemiparesis, wheelchair-bound, tobacco dependence, BPH, obesity, pulmonary edema, HX of DVT, 02/2022 hospitalization for acute respiratory failure secondary to bilateral bibasilar PE, left lower extremity DVT, and CHF/COPD exacerbation d/c'd on eliquis presents by EMS for evaluation of shortness of breath worsening over the course of the day that is not being relieved by his typical breathing treatments. He complains of a mild cough with slight production, denies hematemesis. ?Shortness of breath worse with exertion and laying flat.? Patient initially presented with O2 saturations in the low 80s on room air.? Patient states that his remote history of DVT he was placed on Xarelto developed both upper GI and lower GI bleeding and was subsequently stopped. He had stopped his Eliquis (from last PE's & DVT) 10 days to 2 weeks ago, due to concerns regarding melena. He states that he had been started on Coumadin perhaps in the last week. Patient is a poor historian. He has NOT been taking his diuretics because they make him urinate too often and he has a hard time going to the bathroom.? He denies fever, chills, chest pain, abdominal pain, nausea, vomiting, diarrhea, changes in bowels, urinary changes not related to Lasix, recent illness injury or trauma.? He does not use supplemental oxygen.? He comes to us from [facility] facility. Patient states for last 4 days he has had progressively worsening dyspnea to where he couldn't even get around in his wheelchair without becoming very SOB. He is a longtime smoker and still currently smokes. Patient is afebrile, 147/70, 87, 16, satting 90-92% on 2 L/NC. Patient's CBC CMP and liver panel are predominantly unremarkable. ABGs pH 7.39, PO2 33, bicarb 20, TCO2 21, O2 sat 88%, BE-5, FiO2 21. BNP 2460, chest x-ray no acute cardiopulmonary changes. Troponin is negative at 0.013, procalcitonin negative. Patient did not meet SIRS criteria in ED sofa score: 2. On admit ordered CTA to rule out PE: Bilateral pulmonary embolism including involvement of the distal right lobar pulmonary artery as well as segmental and subsegmental pulmonary arteries in the right middle and lower lobes and left lower lobe.? No enlargement of the pulmonary arteries or leftward deviation of the interventricular septum to definitely suggest right heart strain.? However, there is mild enlargement of the right ventricle and reflux of contrast into the IVC suggestive of elevated right heart filling pressures. Peripheral areas of consolidation in the lower lobes and right middle lobe corresponding to the distribution of pulmonary emboli.? The findings are suggestive of pulmonary infarcts. Patient is admitted for acute hypoxic respiratory failure likely secondary bilateral PE's resulting from medication noncompliance, and COPD/CHF exacerbation. Discharge Providers Provider Date of admission: 08/25/22 20:18 Discharge Date: 08/29/22 Primary care physician: MALORIE Lind Consults: 08/25/22 20:01 Consult to Occupational Therapy Evaluate & Treat Comment: Dyspnea on exertion Physician Instructions: Evaluate and treat Consult to Physical Therapy Evaluate & Treat Comment: Dyspnea on exertion Physician Instructions: Evaluate and Treat 08/26/22 12:39 Consult to Speech Therapy Evaluate & Treat Comment: pocketing food per OT Physician Instructions: Evaluate and treat Discharge provider: Wilfredo Forbes DO Summary Hospital Course Discharge Diagnosis: Please see hospital course by problem list noted below: Hospital Course: Arron Agarwal 72-year-old male daily smoker with history of prior stroke, COPD, CHF, BPH, obesity, remote hx of DVT, pulmonary edema, bilateral bibasilar PE, left lower extremity DVT,? who presented with increasing shortness of breath.?admitted with respriatory failure due to possible new PE, CHF and COPD exacerbations. He was transferred to SNF after slight improvements with multiple therapies as discussed below. Hypoxic respiratory failure, acute, secondary to Bilateral PE, medication noncompliance,? acute on chronic, present on admission -contributing factors CHF/COPD exacerbation due to patient's medication noncompliance- infectious etiologies ruled out. also contributing are bilateral PE. -patient is not on home O2, presented to the ED with O2 saturations in the low 80s on room air. He was able to be weaned to 2L of O2 via NC at the time of discharge. -Patient was started on diuretic therapies, blood thinner was restarted, and steroids with slow improvement. Infectious etiologies were deemed less likely. -Resume previous furosemide dosing of 40 mg BID at discharge. -PT/OT consult recommended SNF. ?Diastolic CHF exacerbation, acute on chronic, HFpEF, likely secondary to medication noncompliance, present on admission -02/2022 Echo:?showed evidence of pulmonary hypertension and septal flattening suggesting RV overload, RVSP was 45, preserved EF -echo ordered and shows EF 70-75%, severely dilated RV and mildly reduced RV systolic function, severely dilated RA, all unchanged from prior echo in 02/2022 -continued IV furosemide 40 mg IV BID during his hospitalization, okay to change to oral furosemide at previous dosing on discharge. COPD, exacerbation, acute on chronic, present on admission -no changes to home medications. Completed adequate dosing of steroids during his hospitalization including IV and oral therapies. Bilateral PE, Acute, recurrent, History of bilateral LL PE/left LE DVT, present on admission -He had a hospitalization 02/26- 03/04/2022:? Acute respiratory failure secondary to CHF/COPD exacerbation, bilateral PE and DVT-D/C on Eliquis -Admit chest CTA ordered rule out PE: Bilateral pulmonary embolism including involvement of the distal right lobar pulmonary artery as well as segmental and subsegmental pulmonary arteries in the right middle and lower lobes and left lower lobe.? No enlargement of the pulmonary arteries or leftward deviation of the interventricular septum to definitely suggest right heart strain.? However, there is mild enlargement of the right ventricle and reflux of contrast into the IVC suggestive of elevated right heart filling pressures. Peripheral areas of consolidation in the lower lobes and right middle lobe corresponding to the distribution of pulmonary emboli.? The findings are suggestive of pulmonary infarcts -it is noted that patient had a previous history of PE prior to February 2022 in which he was prescribed Xarelto he subsequently had stopped it due to melena.? Patient was placed on Eliquis on discharge 03/04/2022 for bilateral PE and lower extremity DVT patient advised that he had stopped his Eliquis for 2week due to melena.? He stated that he was placed on Coumadin, PT 14.2/INR 1.2 suggestive the patient has not been compliant with Coumadin.? -Restarted eliquis given hemodynamic stability and after discussion with tele-durable medical equipment repairer. Though will need to watch for GI bleeding after discharge. Lactic acidemia, acute, resolved - sepsis ruled out, likely due to above respiratory and cardiac failure. History of CVA, with left-sided hemiparesis, chronic, present on admission -patient is in a wheelchair at baseline -continue ASA, statin, fenofibrate ?Hyperlipidemia, chronic, present on admission -continued Lipitor BPH, chronic, present on admission -continued Flomax -Urine culture with 10-20k proteus, treatment not necessary given asymptomatic presentation. Neuropathy, chronic, present on admission -continued gabapentin Obesity severe obesity, acute on chronic, present on admission -BMI 40 -the patient is at much higher risk for medical and surgical complications due to obesity as it relates to chronic illnesses:, and acute illness.? The patient's obesity increases the difficulty and complexity of medical and/or surgical interventions, management and increases the chances of poor outcome such as morbidity and mortality as well as impaired wound healing. Tobacco abuse/dependence, acute on chronic, present on admission -patient's continued tobacco abuse is contributing to his multiple development of pulmonary embolus and DVT, as well as exacerbation of CHF and COPD. -nicotine patch was provided. -encouraged smoking cessation. Time Spent with Patient Time spent: Greater than 30 minutes Exam Vital Signs (past 8 hours): - 08/29/22 05:25 08/29/22 07:58 Temperature 96.6 F L Pulse Rate 66 Respiratory Rate 20 Blood Pressure 120/65 Pulse Oximetry 91 94 Oxygen Delivery Method Nasal Cannula Oxygen Flow Rate 3 2 Fraction of Inspired Oxygen 32 SaO2/FiO2 Ratio 284 Oxygen Delivery Method Nasal Cannula Oxygen Flow Rate 2 Narrative Exam Narrative: General:? Patient is well developed and well nourished, in no distress at this time. Chest:? Normal AP diameter and contour without kyphoscoliosis, no tachypnea, equal chest rise bilaterally. Lungs:? CTA b/l no wheezing rhonchi or rales. Cardio:?RRR no m/r/g. Abdomen: S NT ND. Extremities: bilateral 2+ pitting edema, L >R Neuro:? Alert and orientated x3 Psych:? Patient has a well-kept appearance, appropriate affect, mental status attitude thought context and judgment are appropriate for age. Objective Labs 08/28/22 05:30 08/29/22 05:30 Labs: Laboratory Results - last 24 hr 08/29/22 05:30 Sodium 137 Potassium 3.8 Chloride 102 Carbon Dioxide 30 BUN 31 H Creatinine 0.96 Estimated GFR > 60 BUN/Creatinine Ratio 32.3 H Glucose 156 H Calcium 8.3 L [facility] Medical History (Updated 08/25/22 @ 22:28 by CIRA Diallo) Bilateral pulmonary embolism BPH (benign prostatic hyperplasia) CHF (congestive heart failure) COPD (chronic obstructive pulmonary disease) History of DVT (deep vein thrombosis) History of stroke Hyperlipidemia Neuropathy Obesity (BMI 30-39.9) Surgical History History of shoulder surgery Family History Father Heart attack Sister AA (aortic aneurysm) Social History household members: none Smoking Status: Current every day smoker Discharge Plan Discharge Plan Patient Disposition: SNF Transfer to: [facility] Provider Discharge Comment: 72 M admitted with respiratory failure due to possible pneumonia, CHF, COPD, b/l pulmonary embolism, obesity or any combination of the above. Continue 3 days of steroids, 2 days of antibiotics at discharge. Continue to wean O2 as tolerated with goal O2 between 89-96% while on supplemental therapy. Discharge orders & Medications Prescriptions: New Eliquis 5 mg Tablet 5 mg PO BID 30 Days Qty: 60 0RF prednisone 20 mg Tablet 40 mg PO DAILY 3 Days Qty: 6 0RF amoxicillin-pot clavulanate 875-125 mg tablet 1 tab PO BID 2 Days Qty: 4 0RF Continued gabapentin 600 mg tablet 600 mg BID atorvastatin 20 mg tablet 20 mg DAILY prednisone 5 mg tablet 5 mg DAILY aspirin 81 mg tablet,delayed release (DR/EC) 81 mg DAILY potassium chloride 20 mEq tablet,ER particles/crystals 20 meq PO DAILY tamsulosin 0.4 mg capsule 0.4 mg PO DAILY Serevent Diskus 50 mcg/dose blister with device 1 inh INHALATION BID sertraline 25 mg tablet 75 mg DAILY albuterol sulfate 90 mcg/actuation HFA aerosol inhaler 2 inh INHALATION BID risperidone 1 mg tablet 1 mg BEDTIME lidocaine 5 % ointment 1 applic DAILY Rx Instructions: to right hand Spiriva Respimat 2.5 mcg/actuation mist 2 inh INHALATION DAILY melatonin 3 mg 6 mg BEDTIME furosemide [Lasix] 40 mg tablet 40 mg PO BID Qty: 60 0RF fenofibrate micronized 134 mg capsule 134 mg PO DAILY Follow up/Referrals: Isi Andrews ARNP [Primary Care Provider] - Discharge Health Status Multidrug resistant organism: No MDRO Precautions: Flippin Diet/Activity/Treatments Diet: Diet as Tolerated and Low-sodium Liquid consistency: Normal/Thin Food texture: Soft Diet comment: MINCED AND MOIST DIET PER SPEECH THERAPY Activity: As tolerated Special Rehabilitation Services Reason for rehabilitation: Recovery r/t decondition Rehab type: Physical therapy, Occupational therapy and Speech therapy Visit Report/Discharge Packet Stand Alone Forms: Patient Portal/API Discharge Data Primary Care Provider: Isi Andrews Discharges patient from system. Discharge Date/Time: 08/29/22 11:09
[2022-08-29 08:54] VITALS: BP 114/62; PULSE 54; RESP 17; O2SAT 95
--- NOTE | 2022-08-29 09:00 | CM.DPC ---
Addendum entered by Bessy Peter R.N. 08/29/22 10:20: Did a new PASSR, since patient is on Sertraline for depression, and Risperdone at . [place] [facility] being redone, and will send and fax to facility. Original Note: DCP Cont: Patient is to be going to [facility] today with roll picker at 11:00. Updated white board at main nurses station, and updated nurse, David. Hospitalist is updated as well. PASSR completed by CONCHIS Renee, yesterday. REGINA Russo offset assistant press operator is faxing over PASSR, orders, and DC Summary to [facility]. P: Patient has discharge orders to [facility] today with roll picker at 11:00. Bessy Peter RN/Head And Neck Surgeon
[2022-08-29] MEDS: ALBUTEROL/IPRATROPIUM 3 ML AMPUL INH (09:29)
[2022-08-29 09:36] VITALS: PULSE 67; RESP 20; O2SAT 94
== END 2022-08-29 11:09 | DRG 175 ==
LOC: ED 20:09 → AC 21:06
PROVIDERS: Emergency Medicine; Internal Medicine; Admitting Provider Nurse Practitioner Family; Emergency Provider Emergency Medicine; PCP Nurse Practitioner Family; Referring Provider Emergency Medicine; Visit Provider Nurse Practitioner Family
DX: I26.94 Multiple subsegmental thrombotic pulmonary emboli without acute cor pulmonale (principal); I50.33 Acute on chronic diastolic (congestive) heart failure; J96.01 Acute respiratory failure with hypoxia; I69.954 Hemiplegia and hemiparesis following unspecified cerebrovascular disease affecting left non-dominant side; J44.1 Chronic obstructive pulmonary disease with (acute) exacerbation; Z68.41 Body mass index [BMI] 40.0-44.9, adult; E87.21 Acute metabolic acidosis; E78.5 Hyperlipidemia, unspecified; F17.210 Nicotine dependence, cigarettes, uncomplicated; N40.0 Benign prostatic hyperplasia without lower urinary tract symptoms; G62.9 Polyneuropathy, unspecified; E66.01 Morbid (severe) obesity due to excess calories; Z66 Do not resuscitate; Z20.822 Contact with and (suspected) exposure to COVID-19; Z86.718 Personal history of other venous thrombosis and embolism; Z91.148 Patient's other noncompliance with medication regimen for other reason; Z86.711 Personal history of pulmonary embolism; Z79.01 Long term (current) use of anticoagulants
CPT/HCPCS: 36415; 36600; 51798; 71045; 71275; 80048; 80053; 81003; 81015; 82550; 82805; 83605; 83690; 83735; 83880; 84145; 84443; 84484; 85025; 85610; 85730; 87040; 87077; 87086; 87186; 87633; 92526; 92610; 93005; 93306; 93971; 94640; 94760; 96374; 97161; 97167; 97530; 97535; 99285; J0696; J1940; J2930; Q9967

== ENCOUNTER 2023-01-12 19:39 | Inpatient (IN) | payer MEDICARE, MEDICAID, SELFPAY ==
[2022-02-26 23:30] VITALS: PULSE 88; RESP 28; O2SAT 94
[2022-08-25 21:23] VITALS: BMI 34.7
[2023-01-12] VITALS (10 sets, daily range): BP systolic 130; BP diastolic 76; PULSE 107–123; RESP 36–49; TEMP 37.3; O2SAT 89–94; BMI 35.1
--- NOTE | 2023-01-12 19:48 | ED_ITS ---
HPI - SOB/Dyspnea General Chief Complaint: Shortness of Breath/Dyspnea Stated Complaint: SOB Time Seen by Provider: 01/12/23 19:47 History of Present Illness HPI Narrative: Patient 72-year-old male who resides at [place] history of COPD CHF previously on anticoagulation for PE and DVT but not on anticoagulation now secondary to GI bleeding presents today with increasing shortness of breath and low-grade fever. Difficult to get information from what does appear in [id number] respiratory distress received a DuoNeb with EMS which he reports did help some. He is chronically on oxygen all the time was on 5 L nasal cannula for EMS. Low- grade fever. Related Data Home Medications Medication Instructions Recorded Confirmed albuterol sulfate 90 mcg/actuation 2 inh inhalation BID 12/29/21 01/12/23 aerosol inhaler aspirin 81 mg tablet,delayed 81 mg DAILY 12/29/21 01/12/23 release atorvastatin 20 mg tablet 20 mg BEDTIME 12/29/21 01/12/23 gabapentin 600 mg tablet 600 mg BID 12/29/21 01/12/23 melatonin 6 mg BEDTIME 12/29/21 01/12/23 potassium chloride 20 mEq 20 meq PO DAILY 12/29/21 01/12/23 tablet,extended release(part/cryst) prednisone 5 mg tablet 5 mg DAILY 12/29/21 01/12/23 salmeterol 50 mcg/dose blister 1 inh inhalation BID 12/29/21 01/12/23 powder for inhalation (Serevent Diskus) tamsulosin 0.4 mg capsule 0.4 mg PO DAILY 12/29/21 01/12/23 tiotropium bromide 2.5 2 inh inhalation DAILY 12/29/21 01/12/23 mcg/actuation mist for inhalation (Spiriva Respimat) fenofibrate micronized 134 mg 134 mg PO BEDTIME 08/26/22 01/12/23 capsule Previous Rx's Medication Instructions Recorded furosemide 40 mg tablet (Lasix) 40 mg PO BID #60 tabs 12/31/21 Allergies Allergy/AdvReac Type Severity Reaction Status Date / Time No Known Drug Allergies Allergy Verified 08/25/22 17:27 Review of Systems Review of Systems ROS Unobtainable: All systems reviewed & are unremarkable except as noted in HPI and below Patient History Medical History History of DVT (deep vein thrombosis) Bilateral pulmonary embolism History of stroke Neuropathy BPH (benign prostatic hyperplasia) Obesity (BMI 30-39.9) Hyperlipidemia CHF (congestive heart failure) COPD (chronic obstructive pulmonary disease) Surgical History History of shoulder surgery Family History Father Heart attack Sister AA (aortic aneurysm) Social History household members: none Smoking Status: Current every day smoker Smoking Status: Current every day smoker tobacco type: cigarettes alcohol intake frequency: 0-2 drinks per day Alcohol type: hard liquor Substance Use Type: marijuana Exam Initial Vital Signs Initial Vital Signs: Vital Signs Temperature 99.2 F 01/12/23 19:40 Pulse Rate 123 H 01/12/23 19:40 Respiratory Rate 40 H 01/12/23 19:40 Blood Pressure 130/76 01/12/23 19:40 Pulse Oximetry 92 01/12/23 19:40 Oxygen Delivery Method Nasal Cannula 01/12/23 19:40 Oxygen Flow Rate 2 01/12/23 19:40 GENERAL: Alert 72-year-old male appears in [id number] respiratory distress slightly disheveled HEENT: Head atraumatic,EOMI, pupils reactive, face symmetric, moist mucous membranes CARDIOVASCULAR: Regular rate and rhythm without murmurs, rubs or gallops. RESPIRATORY: Tachypneic coarse breath sounds bilaterally slight wheeze ABDOMEN: Soft, nontender. Normoactive bowel sounds all 4 quadrants. No guarding or rebound. EXTREMITIES: Normal range of motion, no clubbing or edema. Neurovascularly intact NEUROLOGICAL: Alert and oriented x4 moving all extremities SKIN: Warm, dry, no laceration, no petechiae, no rashes or lesions. Course Orders Ordered: ED Orders 01/12/23 19:48 XR chest 1V Stat EKG-12 Lead Stat 01/12/23 20:24 Blood Culture Stat Complete Blood Count AUTO DIFF Stat Comprehensive Metabolic Panel Stat Lactate (Lactic Acid) Stat NT-proBNP (BNP-Adult 18+) Stat PTT Partial Thromboplastin Shin Stat Procalcitonin Stat Prothrombin Time INR Stat Respiratory Panel (Film Array) Stat Troponin & CK Cardiac Panel Stat 01/12/23 21:24 Ictotest Urine Stat Urinalysis and Microscopic Stat Urine Culture Stat 01/12/23 22:17 Trop I [Troponin I] Stat Acetaminophen (Acetaminophen 325 Mg Tablet) 650 mg PO Q6H PRN PRN Reason: Fever/Mild Pain (1-3) Albuterol (Albuterol Hfa Mdi 60 Puff/8 Gm Inhaler) 2 puff INH BID LIZA Albuterol (Albuterol 2.5 Mg/3 Ml Neb (Adult)) 2.5 mg INH [id number] PRN PRN Reason: Dyspnea Albuterol/Ipratropium (Albuterol/Ipratropium 3 Ml Ampul) 3 ml INH RTQ4HR PRN PRN Reason: Shortness Of Breath Aspirin (Aspirin Ec 81 Mg Tablet) 81 mg PO DAILY [facility] Atorvastatin Calcium (Atorvastatin 20 Mg Tablet) 20 mg PO BEDTIME [facility] Bisacodyl (Bisacodyl 10 Mg Supp) 10 mg [place] DAILY PRN PRN Reason: Constipation Calcium Carbonate (Calcium Carbonate 500 Mg Tab) 1,000 mg PO Q4HR PRN PRN Reason: Dyspepsia Dexamethasone (Dexamethasone 1 Mg Tablet) 6 mg PO DAILY [facility] Enoxaparin Sodium (Enoxaparin 40 Mg/0.4 Ml Syringe) 40 mg SUBCUT DAILY [facility] Fenofibrate (Fenofibrate, Micronized 67 Mg Capsule) 134 mg PO BEDTIME [facility] Furosemide (Furosemide 40 Mg/4 Ml Vial) 40 mg IV Q12HR [facility] Gabapentin (Gabapentin 600 Mg Tablet) 600 mg PO BID [facility] Azithromycin 500 mg/ Dextrose 250 mls @ 250 mls/hr IV Q24H [facility] Ceftriaxone Sodium 2,000 mg/ (Sodium Chloride) 100 mls @ 200 mls/hr IV Q24H [facility] Remdesivir 100 mg/ Sodium (Chloride) 250 mls @ 250 mls/hr IV 2200 [facility] Stop: 01/16/23 22:59 Ipratropium Cameron (Ipratropium 0.5 Mg/2.5 Ml Neb) 0.5 mg INH Q4HRWA [facility] Ipratropium Cameron (Ipratropium 0.5 Mg/2.5 Ml Neb) 0.5 mg INH Q2HR PRN PRN Reason: Shortness Of Breath Melatonin (Melatonin 3 Mg Tablet) 6 mg PO BEDTIME [facility] Naloxone HCl (Naloxone 0.4 Mg/Ml Vial) 0.2 mg IV Q2MIN PRN PRN Reason: Opiate Reversal Non-Formulary Medication (Salmeterol [Serevent Diskus]) 1 inhalation INHALATION BID LIZA Ondansetron HCl (Ondansetron 4 Mg/2 Ml Inj) 4 mg IV Q8HR PRN PRN Reason: Nausea And Vomiting Oxycodone HCl (Oxycodone Ir 5 Mg Tablet) 5 mg PO Q3H PRN PRN Reason: Pain, Moderate (4-6) Potassium Chloride (Potassium Chloride 20 Meq Tab) 20 meq PO DAILY LIZA Sodium Chloride (Sodium Chloride 0.9% Flush) 10 ml IV PRN PRN PRN Reason: Flush Sodium Chloride (Sodium Chloride 0.9% Flush) 10 ml IV BID LIZA Tamsulosin HCl (Tamsulosin 0.4 Mg Capsule) 0.4 mg PO DAILY LIZA Discontinued Medications Albuterol/Ipratropium (Albuterol/Ipratropium 3 Ml Ampul) 3 ml INH NOW ONE Stop: 01/12/23 19:49 Last Admin: 01/12/23 19:53 Dose: 3 ml Documented By: Furosemide (Furosemide 40 Mg/4 Ml Vial) 40 mg IV NOW ONE Stop: 01/12/23 19:49 Last Admin: 01/12/23 19:56 Dose: 40 mg Documented By: HEMALATHA Ceftriaxone Sodium 2,000 mg/ (Sodium Chloride) 100 mls @ 200 mls/hr IV NOW ONE Stop: 01/12/23 21:48 Last Infusion: 01/12/23 22:22 Dose: Infused Documented By: Admin: 01/12/23 21:55 Dose: 200 mls/hr Documented By: ASHELY Azithromycin 500 mg/ Dextrose 250 mls @ 250 mls/hr IV NOW ONE Stop: 01/12/23 21:48 Last Infusion: 01/12/23 23:13 Dose: Infused Documented By: Admin: 01/12/23 22:00 Dose: 250 mls/hr Documented By: ASHELY Remdesivir 200 mg/ Sodium (Chloride) 250 mls @ 250 mls/hr IV NOW ONE Stop: 01/12/23 22:47 Last Infusion: 01/13/23 00:17 Dose: Infused Documented By: Admin: 01/12/23 22:33 Dose: 250 mls/hr Documented By: HEMALATHA Lidocaine HCl (Lidocaine 2% (Glydo) 6 Ml Gel) 6 ml TOP NOW ONE Stop: 01/12/23 21:52 Last Admin: 01/12/23 22:03 Dose: 6 ml Documented By: Methylprednisolone (Methylprednisolone 125 Mg/2 Ml Vial) 125 mg IV NOW ONE Stop: 01/12/23 19:49 Last Admin: 01/12/23 19:56 Dose: 125 mg Documented By: HEMALATHA Vital Signs Vital signs: Vital Signs - 8 hr 01/12/23 19:40 01/12/23 19:45 01/12/23 19:45 Temperature 99.2 F Pulse Rate 123 H 121 H Respiratory Rate 40 H 36 H Blood Pressure 130/76 130/76 Pulse Oximetry 92 92 Oxygen Delivery Method Nasal Cannula Oxygen Flow Rate 2 2 Fraction of Inspired Oxygen 01/12/23 19:54 01/12/23 20:00 01/12/23 20:30 Temperature Pulse Rate 121 H 121 H Respiratory Rate 44 H 44 H Blood Pressure Pulse Oximetry 93 94 89 L Oxygen Delivery Method Nasal Cannula Oxygen Flow Rate 3 2 2 Fraction of Inspired Oxygen 01/12/23 21:00 01/12/23 21:30 01/12/23 22:00 Temperature Pulse Rate 113 H 111 H 110 H Respiratory Rate 41 H 49 H 39 H Blood Pressure Pulse Oximetry 89 L 91 90 L Oxygen Delivery Method Oxygen Flow Rate 2 Fraction of Inspired Oxygen 01/12/23 22:30 01/12/23 23:00 01/13/23 00:19 Temperature Pulse Rate 107 H 109 H Respiratory Rate 44 H 44 H Blood Pressure Pulse Oximetry 94 93 93 Oxygen Delivery Method Heated High Flow Oxygen Flow Rate 45 Fraction of Inspired Oxygen 40 MDM - SOB/Dyspnea Lab Data 01/12/23 20:24 01/12/23 20:24 Labs: Lab Results 01/12/23 01/12/23 01/12/23 Range/Units 20:24 21:24 22:17 WBC 12.5 H (4.5-11.0) X10^3/uL RBC 5.44 (4.5-5.9) X10^6/uL Hgb 12.9 L (13.5-17.5) g/dL Hct 41.2 (41-53) % MCV 75.8 L (80-100) fL MCH 23.8 L (26-34) PG MCHC 31.4 (30-36) % RDW 19.5 H (11.6-14.8) % Plt Count 318 (150-400) X10^3/uL Neut % (Auto) Not Reportable Lymph % (Auto) Not Reportable [place] % (Auto) Not Reportable Eos % (Auto) Not Reportable Baso % (Auto) Not Reportable Lymph # (Auto) Not Reportable [place] # (Auto) Not Reportable Baso # (Auto) Not Reportable Total Counted 100 Seg Neutrophils % 82.0 H (38-70) % Lymphocytes % (Manual) 9.0 L (25-45) % Monocytes % (Manual) 8.0 (2-11) % Metamyelocytes % 1.0 H (-0) % Neutrophils # (Manual) 56293 H (5658-9548) /uL RBC Morphology See below Hypochromasia 1+ H Anisocytosis 1+ H Microcytosis 1+ H PT 19.8 H (10.1-12.7) SECONDS INR 1.7 H (0.9-1.3) APTT 29 (26-36) SECONDS Sodium 133 L (137-145) mmol/L Potassium 4.1 (3.4-5.1) mmol/L Chloride 99 (98-107) mmol/L Carbon Dioxide 26 (22-32) mmol/L BUN 23 H (9-20) mg/dL Creatinine 0.94 (0.66-1.25) mg/dL Estimated GFR > 60 (>60) mL/min BUN/Creatinine Ratio 24.5 H (6-22) Glucose 142 H (80-110) mg/dL Lactate 2.5 H (0.7-2.1) mmol/L Calcium 9.2 (8.4-10.2) mg/dL Total Bilirubin 2.5 H (0.2-1.3) mg/dL AST 74 H (17-59) IU/L ALT 46 (<50) IU/L Alkaline Phosphatase 71 (38-126) U/L Total Creatine Kinase 165 (55-170) U/L Troponin I 0.048 H 0.047 H (0.01-0.034) ng/mL NT-Pro-B Natriuret Pep 9120 H (<125) pg/mL Total Protein 6.8 (6.3-8.2) g/dL Albumin 3.2 L (3.5-5.0) g/dL Globulin 3.6 (1.7-4.1) g/dL Albumin/Globulin Ratio 0.9 L (1.0-2.8) Procalcitonin 0.92 H (<0.5) ng/mL Urine Color Dark yellow Urine Appearance Clear Urine pH 5.5 (4.5-8.0) Ur Specific [place] 1.025 (1.000-1.035) Urine Protein 1+ H (Negative) Urine Glucose (UA) Negative (Negative) g/dL Urine Ketones Trace H (NEGATIVE) Urine Occult Blood Trace-intact (Negative) Urine Nitrate Positive H (Negative) Urine Bilirubin 2+ H (NEGATIVE) Ur Bilirubin Confirm Positive H (Negative) Urine Urobilinogen >=8.0 (0.2) E.U./dL Ur Leukocyte Esterase Negative (NEGATIVE) Urine RBC 0-1/hpf (0-5/HPF) Urine WBC 0-1/hpf (0-5/HPF) Ur Squamous Epith Cells 0-1 /hpf (0-5/HPF) Urine Bacteria Few (2-10) H (None) Hyaline Casts 5-10/lpf (None) Urine Mucus 2+ H (Negative) Ur Culture Indicated? Specimen cultured Chlamy pneumoniae PCR Not detected (Not Detect) Adenovirus (PCR) Not detected (Not Detect) B.parapertussis DNA PCR Not detected (Not Detecte) Coronavirus OC43 (PCR) Not detected (Not Detect) Coronavirus HKU1 (PCR) Not detected (Not Detect) Coronavirus 229E (PCR) Not detected (Not Detect) SARS-CoV-2 (PCR) Detected H (Not Detecte) Coronavirus NL63 (PCR) Not detected (Not Detect) Human Metapneumovir PCR Not detected (Not Detect) Influenza Type A (PCR) Not detected (Not Detect) Influenza Type B (PCR) Not detected (Not Detect) M. pneumoniae (PCR) Not detected (Not Detect) Parainfluenza 1 (PCR) Not detected (Not Detect) Parainfluenza 2 (PCR) Not detected (Not Detect) Parainfluenza 3 (PCR) Not detected (Not Detect) Parainfluenza 4 (PCR) Not detected (Not Detect) RSV (PCR) Not detected (Not Detect) Entero/Rhino (PCR) Not detected (Not Detect) 10/29/23 Range/Units 22:37 WBC (4.5-11.0) X10^3/uL RBC (4.5-5.9) X10^6/uL Hgb (13.5-17.5) g/dL Hct (41-53) % MCV (80-100) fL MCH (26-34) PG MCHC (30-36) % RDW (11.6-14.8) % Plt Count (150-400) X10^3/uL Neut % (Auto) Lymph % (Auto) [place] % (Auto) Eos % (Auto) Baso % (Auto) Lymph # (Auto) [place] # (Auto) Baso # (Auto) Total Counted Seg Neutrophils % (38-70) % Lymphocytes % (Manual) (25-45) % Monocytes % (Manual) (2-11) % Metamyelocytes % (-0) % Neutrophils # (Manual) (3944-8896) /uL RBC Morphology Hypochromasia Anisocytosis Microcytosis PT (10.1-12.7) SECONDS INR (0.9-1.3) APTT (26-36) SECONDS Sodium (137-145) mmol/L Potassium (3.4-5.1) mmol/L Chloride (98-107) mmol/L Carbon Dioxide (22-32) mmol/L BUN (9-20) mg/dL Creatinine (0.66-1.25) mg/dL Estimated GFR (>60) mL/min BUN/Creatinine Ratio (6-22) Glucose (80-110) mg/dL Lactate 2.1 (0.7-2.1) mmol/L Calcium (8.4-10.2) mg/dL Total Bilirubin (0.2-1.3) mg/dL AST (17-59) IU/L ALT (<50) IU/L Alkaline Phosphatase (38-126) U/L Total Creatine Kinase (55-170) U/L Troponin I (0.01-0.034) ng/mL NT-Pro-B Natriuret Pep (<125) pg/mL Total Protein (6.3-8.2) g/dL Albumin (3.5-5.0) g/dL Globulin (1.7-4.1) g/dL Albumin/Globulin Ratio (1.0-2.8) Procalcitonin (<0.5) ng/mL Urine Color Urine Appearance Urine pH (4.5-8.0) Ur Specific [place] (1.000-1.035) Urine Protein (Negative) Urine Glucose (UA) (Negative) g/dL Urine Ketones (NEGATIVE) Urine Occult Blood (Negative) Urine Nitrate (Negative) Urine Bilirubin (NEGATIVE) Ur Bilirubin Confirm (Negative) Urine Urobilinogen (0.2) E.U./dL Ur Leukocyte Esterase (NEGATIVE) Urine RBC (0-5/HPF) Urine WBC (0-5/HPF) Ur Squamous Epith Cells (0-5/HPF) Urine Bacteria (None) Hyaline Casts (None) Urine Mucus (Negative) Ur Culture Indicated? Chlamy pneumoniae PCR (Not Detect) Adenovirus (PCR) (Not Detect) B.parapertussis DNA PCR (Not Detecte) Coronavirus OC43 (PCR) (Not Detect) Coronavirus HKU1 (PCR) (Not Detect) Coronavirus 229E (PCR) (Not Detect) SARS-CoV-2 (PCR) (Not Detecte) Coronavirus NL63 (PCR) (Not Detect) Human Metapneumovir PCR (Not Detect) Influenza Type A (PCR) (Not Detect) Influenza Type B (PCR) (Not Detect) M. pneumoniae (PCR) (Not Detect) Parainfluenza 1 (PCR) (Not Detect) Parainfluenza 2 (PCR) (Not Detect) Parainfluenza 3 (PCR) (Not Detect) Parainfluenza 4 (PCR) (Not Detect) RSV (PCR) (Not Detect) Entero/Rhino (PCR) (Not Detect) Imaging Data Chest x-ray: Radiologist's Impression: PROCEDURE: XR CHEST 1V INDICATIONS: short of breath TECHNIQUE: One view of the chest was acquired. COMPARISON: CT, CT ANGIO CHEST PE PROTOCOL, 08/25/2022, 20:25. [facility], CR, XR CHEST 1V, 08/25/2022, 17:22. FINDINGS: Surgical changes and devices: None. Lungs and pleura: Left hemidiaphragm elevation. Left basilar opacity may be scars, atelectasis or infiltrate. Chronic interstitial prominence, unchanged. No pleural effusions or pneumothorax. Mediastinum: Mediastinal contours appear normal. Heart size is normal. Bones and chest wall: No suspicious bony lesions. Overlying soft tissues appear unremarkable. IMPRESSION: 1. Left hemidiaphragm elevation with left basilar scars, atelectasis or infiltrate. 2. Chronic bilateral interstitial prominence. Dictated by: Zaid Guevara M.D. on 01/12/2023 at 20:48 ECG Data Interpretation: Sinus rhythm, Rate 122 174 QRS 100 QTC 441 right bundle-branch block slight artifact similar to previous MDM Narrative Medical decision making narrative: Patient is 72-year-old male multiple comorbidities COPD CHF on chronic oxygen presenting today with increasing weakness and increasing need of oxygen. He has low-grade fever some [id number] shortness breath. He is requiring 3-4 L nasal cannula. He is found to be COVID positive x-rays negative for pneumonia. Procalcitonin is elevated and he is mild leukocytosis of 12.5. He would have leukocytes and nitrates urine. Suggesting infection, no evidence of shock. BNP is also elevated 9120 usually 2230. He also has indeterminate troponins which are stable and not rising could represent some heart strain. Due to probable fluid overload known COVID sepsis fluids were not given. Is quite tachypneic in the ED is still able to converse does not appear to need BiPAP just yet however would benefit from high-flow. He is placed on high-flow which does seem to help him some. POLST form which is scanned in shows DNR however limited measures Labs have been reviewed WBC 12 5 sodium 133, lactate 2.5 with repeat at 2.1, creatinine 0.94, total bilirubin 2.5, troponin 0.048 with repeat 0.047, BNP 9120, procalcitonin 0.9 Chest x-ray reviewed , updated patient's symptoms test results and accepts patient for admission Discharge Plan Departure Patient Disposition: Admitted As Inpatient Clinical Impression: COVID-19, Congestive heart failure, Acute UTI Admit Date/Time: 01/13/23 00:33 Admit Provider: Baldomero Miller
[2023-01-12] MEDS: ALBUTEROL/IPRATROPIUM 3 ML AMPUL INH (19:53)
[2023-01-12] MEDS: FUROSEMIDE 40 MG/4 ML VIAL IV (19:56)
[2023-01-12] MEDS: methylPREDNISolone 125 MG/2 ML VIAL IV (19:56)
--- NOTE | 2023-01-12 20:25 | PC.NURSE ---
condom cath applied to pt
[2023-01-12 20:37] LABS: Add Manual Diff / Slide Review YES; Hematocrit 41.2 % (41-53); Hemoglobin 12.9 g/dL (13.5-17.5); Mean Corpuscular HGB Conc 31.4 % (30-36); Mean Corpuscular Hemoglobin 23.8 PG (26-34); Mean Corpuscular Volume 75.8 fL (80-100); Platelet Count 318 X10^3/uL (150-400); Red Blood Cell Count 5.44 X10^6/uL (4.5-5.9); Red Cell Distribution Width 19.5 % (11.6-14.8); White Blood Cell Count 12.5 X10^3/uL (4.5-11.0)
[2023-01-12 20:40] LABS: INR 1.7 (0.9-1.3); Prothrombin Time 19.8 SECONDS (10.1-12.7)
[2023-01-12 20:43] LABS: Lactate (Lactic Acid) 2.5 mmol/L (0.7-2.1)
[2023-01-12 20:44] LABS: Alanine Aminotransferase 46 IU/L (<50); Albumin 3.2 g/dL (3.5-5.0); Albumin Globulin Ratio 0.9 (1.0-2.8); Alkaline Phosphatase 71 U/L (38-126); Aspartate Aminotransferase 74 IU/L (17-59); BUN Creatinine Ratio 24.5 (6-22); Bilirubin Total 2.5 mg/dL (0.2-1.3); Blood Urea Nitrogen 23 mg/dL (9-20); Calcium 9.2 mg/dL (8.4-10.2); Carbon Dioxide 26 mmol/L (22-32); Chloride 99 mmol/L (98-107); Creatine Kinase 165 U/L (55-170); Estimated Glomerular Filt Rate > 60 mL/min (>60); Globulin 3.6 g/dL (1.7-4.1); Glucose 142 mg/dL (80-110); HEMOLYSIS 85 (0-50); Potassium 4.1 mmol/L (3.4-5.1); Sodium 133 mmol/L (137-145); Total Protein 6.8 g/dL (6.3-8.2)
[2023-01-12 20:45] LABS: PTT Partial Thromboplastin Tim 29 SECONDS (26-36)
[2023-01-12 20:50] LABS: Anisocytosis 1+; Hypochromasia 1+; Microcytosis 1+; Neutrophils Absolute Manual 10250 /uL (3000-5900); Total Cells Counted 100
[2023-01-12 20:55] LABS: NT-proBNP (BNP-Adult 18+) 9120 pg/mL (<125); Troponin I 0.048 ng/mL (0.01-0.034)
[2023-01-12 21:00] LABS: Procalcitonin 0.92 ng/mL (<0.5)
[2023-01-12 21:25] LABS: Adenovirus Not Detected (Not Detect); Coronavirus 229E Not Detected (Not Detect); Coronavirus HKU1 Not Detected (Not Detect)
[2023-01-12 21:26] LABS: B. parapertussis Not Detected (Not Detecte); Bordetella pertussis Not Detected (Not Detect); Chlamydophila pneumoniae Not Detected (Not Detect); Coronavirus NL 63 Not Detected (Not Detect); Coronavirus OC43 Not Detected (Not Detect); Human Metapneumovirus Not Detected (Not Detect); Human Rhinovirus/Enterovirus Not Detected (Not Detect); Influenza A Not Detected (Not Detect); Influenza B Not Detected (Not Detect); Mycoplasma pneumoniae Not Detected (Not Detect); Parainfluenza Virus 1 Not Detected (Not Detect); Parainfluenza Virus 2 Not Detected (Not Detect); Parainfluenza Virus 3 Not Detected (Not Detect); Parainfluenza Virus 4 Not Detected (Not Detect); Respiratory Syncytial Virus Not Detected (Not Detect)
[2023-01-12 21:37] LABS: Appearance Urine UA CLEAR; Bilirubin Urine UA 2+ (NEGATIVE); Glucose Urine UA NEGATIVE (Negative); Ketones Urine UA TRACE (NEGATIVE); Leukocyte Esterase Urine UA NEGATIVE (NEGATIVE); Nitrite Urine UA POSITIVE (Negative); Occult Blood Urine UA TRACE-INTACT (Negative); Protein Urine UA 1+ (Negative); Specific Gravity Urine UA 1.025 (1.000-1.035); Urobilinogen Urine UA >=8.0 E.U./dL (0.2); pH Urine UA 5.5 (4.5-8.0)
[2023-01-12 21:39] LABS: Color Urine UA Dark Yellow
[2023-01-12 21:43] LABS: Bacteria Urine Few (2-10); Hyaline Casts Urine 5-10/LPF; RBC Urine 0-1/HPF (0-5/HPF); Squamous Epithelial Cell Urine 0-1 /HPF (0-5/HPF); WBC Urine 0-1/HPF (0-5/HPF)
[2023-01-12 21:44] LABS: Ictotest Urine Positive (Negative); Mucus Urine 2+ (Negative)
[2023-01-12 21:45] LABS: Culture Indicated Urine Specimen Cultured
[2023-01-12] MEDS: cefTRIAXone 2,000 MG in SODIUM CHLORIDE 0.9% 100 ML 200 MG IV (21:55)
[2023-01-12] MEDS: AZITHROMYCIN 500 MG in DEXTROSE 5% IN WATER 250 ML 250 MG IV (22:00)
[2023-01-12] MEDS: LIDOCAINE 2% (GLYDO) 6 ML GEL TOP (22:03)
[2023-01-12 22:08] LABS: SARS- CoV-2 Detected (Not Detecte)
[2023-01-12 22:30] LABS: Reflexed Lactate in 2 Hours Y
[2023-01-12] MEDS: REMDESIVIR 200 MG in SODIUM CHLORIDE 0.9% 250 ML 250 MG IV (22:33)
[2023-01-12 22:53] LABS: Troponin I 0.047 ng/mL (0.01-0.034)
[2023-01-12 22:55] LABS: Lactate 2HR (Lactic Acid Rflx) 2.1 mmol/L (0.7-2.1)
--- NOTE | 2023-01-12 23:16 | PC.NURSE ---
pt continues tachypneic states he feels like he is breathing ok does not feel like he needs anymore oxygen
[2023-01-13 00:19] VITALS: O2SAT 93
--- NOTE | 2023-01-13 03:12 | P.HP_ITS ---
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 He also reported hypoxia in the low 80s. Patient is poor historian. [facility] residence. Smokes around 1 pack a day. Initial laboratory shows WBC 12.5, H&H 12.9/41.2, platelets 381, INR 1.7, sodium 133, potassium 4.1, creatinine 0.94, glucose 142, troponin 0.0 47, BNP 9120, procalcitonin 0.92, COVID positive, chest x-ray shows chronic bilateral interstitial prominence and left hemidiaphragm elevation with left base scars, atelectasis or infiltrates. In the ER he was given albuterol treatments, azithromycin IV, ceftriaxone IV, methylprednisolone 125 mg IV and Lasix 40 mg IV. [facility], LAT[facility] Medical History (Updated 01/13/23 @ 03:34 by Baldomero Miller MD) History of DVT (deep vein thrombosis) Bilateral pulmonary embolism History of stroke Neuropathy BPH (benign prostatic hyperplasia) Obesity (BMI 30-39.9) Hyperlipidemia CHF (congestive heart failure) COPD (chronic obstructive pulmonary disease) Surgical History History of shoulder surgery Family History Father Heart attack Sister AA (aortic aneurysm) Social History household members: none Smoking Status: Current every day smoker Meds Home Medications and Allergies Home Medications Medication Instructions Recorded Confirmed Type albuterol sulfate 90 mcg/actuation 2 inh inhalation BID 12/29/21 01/12/23 History aerosol inhaler aspirin 81 mg tablet,delayed 81 mg DAILY 12/29/21 01/12/23 History release atorvastatin 20 mg tablet 20 mg BEDTIME 12/29/21 01/12/23 History gabapentin 600 mg tablet 600 mg BID 12/29/21 01/12/23 History melatonin 6 mg BEDTIME 12/29/21 01/12/23 History potassium chloride 20 mEq 20 meq PO DAILY 12/29/21 01/12/23 History tablet,extended release(part/cryst) prednisone 5 mg tablet 5 mg DAILY 12/29/21 01/12/23 History salmeterol 50 mcg/dose blister 1 inh inhalation BID 12/29/21 01/12/23 History powder for inhalation (Serevent Diskus) tamsulosin 0.4 mg capsule 0.4 mg PO DAILY 12/29/21 01/12/23 History tiotropium bromide 2.5 2 inh inhalation DAILY 12/29/21 01/12/23 History mcg/actuation mist for inhalation (Spiriva Respimat) furosemide 40 mg tablet (Lasix) 40 mg PO BID #60 tabs 12/31/21 01/12/23 Rx fenofibrate micronized 134 mg 134 mg PO BEDTIME 08/26/22 01/12/23 History capsule Allergies Allergy/AdvReac Type Severity Reaction Status Date / Time No Known Drug Allergies Allergy Verified 08/25/22 17:27 Review of Systems Review of Systems ROS: Yes All systems reviewed with the patient and are negative except as otherwise documented Constitutional Constitutional: Reports as per HPI and Reports system reviewed and no additional complaints, except as documented Eyes Eyes: Reports as per HPI and Reports system reviewed and no additional complaints, except as documented ENT Ears, Nose, Mouth, and Throat: Yes as per HPI and Yes system reviewed and no additional complaints, except as documented Cardiovascular Cardiovascular: Reports system reviewed and no additional complaints, except as documented Respiratory Respiratory: Reports system reviewed and no additional complaints, except as documented Gastrointestinal Gastrointestinal: Reports system reviewed and no additional complaints, except as documented Genitourinary Genitourinary: Reports system reviewed and no additional complaints, except as documented Musculoskeletal Musculoskeletal: Reports system reviewed and no additional complaints, except as documented, Reports abnormal gait and Reports numbness Neurologic Neurologic: Reports system reviewed and no additional complaints, except as documented, Reports abnormal gait, Reports confusion and Reports numbness Psychiatric Psychiatric: Reports system reviewed and no additional complaints, except as documented and Reports confusion Exam Vital Signs (past 8 hours): - 01/12/23 19:40 01/12/23 19:45 01/12/23 19:45 Temperature 99.2 F Pulse Rate 123 H 121 H Respiratory Rate 40 H 36 H Blood Pressure 130/76 130/76 Pulse Oximetry 92 92 Oxygen Delivery Method Nasal Cannula Oxygen Flow Rate 2 2 Fraction of Inspired Oxygen 01/12/23:54 01/12/23 20:00 01/12/23 20:30 Temperature Pulse Rate 121 H 121 H Respiratory Rate 44 H 44 H Blood Pressure Pulse Oximetry 93 94 89 L Oxygen Delivery Method Nasal Cannula Oxygen Flow Rate 3 2 2 Fraction of Inspired Oxygen 01/12/23 21:00 01/12/23 21:30 01/12/23 22:00 Temperature Pulse Rate 113 H 111 H 110 H Respiratory Rate 41 H 49 H 39 H Blood Pressure Pulse Oximetry 89 L 91 90 L Oxygen Delivery Method Oxygen Flow Rate 2 Fraction of Inspired Oxygen 01/12/23 22:30 01/12/23 23:00 01/13/23 00:19 Temperature Pulse Rate 107 H 109 H Respiratory Rate 44 H 44 H Blood Pressure Pulse Oximetry 94 93 93 Oxygen Delivery Method Heated High Flow Oxygen Flow Rate 45 Fraction of Inspired Oxygen 40 Fraction of Inspired Oxygen 40 SaO2/FiO2 Ratio 232 Oxygen Delivery Method Heated High Flow Oxygen Flow Rate 45 Const General: cooperative, comfortable and well developed Orientation: alert and oriented x3 HENMT Head: normal to inspection, normocephalic and atraumatic Face and sinus: normal facial exam Mouth: oral mucosae normal and moist mucous membranes Throat: posterior oropharynx normal Eyes General: appearance normal, both eyes and all related structures Pupils: PERRL EOM: EOM intact bilaterally Neck Neck: normal visual inspection and full ROM Chest Chest: normal inspection of the chest Resp Effort & Inspection: normal respiratory effort and able to speak in complete sentences Auscultation: clear to auscultation bilaterally Cardio Palpation: normal PMI Rate: regular rate Rhythm: regular rhythm Heart Sounds: S1 normal and S2 normal GI Inspection: normal to inspection Palpation: soft and no hepatosplenomegaly Auscultation: normal bowel sounds Skin General: no rashes or lesions noted Lesions: no lesions Rashes: no rashes Trauma: no lacerations or abrasions Neuro General: patient alert, patient awake, patient oriented x3 and no focal motor deficits Cranial Nerves: CN's II-XI intact bilaterally Cognition: normal cognition Speech: speech normal Gait: normal gait Motor: muscle tone normal throughout Sensory Exam: no sensory deficits noted Extrem General: full ROM and no calf tenderness Psych Appearance: grossly normal Mental Status: mental status grossly normal Speech and Movement: speech and movement normal Objective Labs 01/12/23 20:24 01/12/23 20:24 Labs: Laboratory Results - last 24 hr 01/12/23 01/12/23 01/12/23 20:24 21:24 22:17 WBC 12.5 H RBC 5.44 Hgb 12.9 L Hct 41.2 MCV 75.8 L MCH 23.8 L MCHC 31.4 RDW 19.5 H Plt Count 318 Neut % (Auto) Not Reportable Lymph % (Auto) Not Reportable [place] % (Auto) Not Reportable Eos % (Auto) Not Reportable Baso % (Auto) Not Reportable Lymph # (Auto) Not Reportable [place] # (Auto) Not Reportable Baso # (Auto) Not Reportable Total Counted 100 Seg Neutrophils % 82.0 H Lymphocytes % (Manual) 9.0 L Monocytes % (Manual) 8.0 Metamyelocytes % 1.0 H Neutrophils # (Manual) 93352 H RBC Morphology See below Hypochromasia 1+ H Anisocytosis 1+ H Microcytosis 1+ H PT 19.8 H INR 1.7 H APTT 29 Sodium 133 L Potassium 4.1 Chloride 99 Carbon Dioxide 26 BUN 23 H Creatinine 0.94 Estimated GFR > 60 BUN/Creatinine Ratio 24.5 H Glucose 142 H Lactate 2.5 H Calcium 9.2 Total Bilirubin 2.5 H AST 74 H ALT 46 Alkaline Phosphatase 71 Total Creatine Kinase 165 Troponin I 0.048 H 0.047 H NT-Pro-B Natriuret Pep 9120 H Total Protein 6.8 Albumin 3.2 L Globulin 3.6 Albumin/Globulin Ratio 0.9 L Procalcitonin 0.92 H Urine Color Dark yellow Urine Appearance Clear Urine pH 5.5 Ur Specific [place] 1.025 Urine Protein 1+ H Urine Glucose (UA) Negative Urine Ketones Trace H Urine Occult Blood Trace-intact Urine Nitrate Positive H Urine Bilirubin 2+ H Ur Bilirubin Confirm Positive H Urine Urobilinogen >=8.0 Ur Leukocyte Esterase Negative Urine RBC 0-1/hpf Urine WBC 0-1/hpf Ur Squamous Epith Cells 0-1 /hpf Urine Bacteria Few (2-10) H Hyaline Casts 5-10/lpf Urine Mucus 2+ H Ur Culture Indicated? Specimen cultured Chlamy pneumoniae PCR Not detected Adenovirus (PCR) Not detected B.parapertussis DNA PCR Not detected Coronavirus OC43 (PCR) Not detected Coronavirus HKU1 (PCR) Not detected Coronavirus 229E (PCR) Not detected SARS-CoV-2 (PCR) Detected H Coronavirus NL63 (PCR) Not detected Human Metapneumovir PCR Not detected Influenza Type A (PCR) Not detected Influenza Type B (PCR) Not detected M. pneumoniae (PCR) Not detected Parainfluenza 1 (PCR) Not detected Parainfluenza 2 (PCR) Not detected Parainfluenza 3 (PCR) Not detected Parainfluenza 4 (PCR) Not detected RSV (PCR) Not detected Entero/Rhino (PCR) Not detected 01/12/23 22:37 WBC RBC Hgb Hct MCV MCH MCHC RDW Plt Count Neut % (Auto) Lymph % (Auto) [place] % (Auto) Eos % (Auto) Baso % (Auto) Lymph # (Auto) [place] # (Auto) Baso # (Auto) Total Counted Seg Neutrophils % Lymphocytes % (Manual) Monocytes % (Manual) Metamyelocytes % Neutrophils # (Manual) RBC Morphology Hypochromasia Anisocytosis Microcytosis PT INR APTT Sodium Potassium Chloride Carbon Dioxide BUN Creatinine Estimated GFR BUN/Creatinine Ratio Glucose Lactate 2.1 Calcium Total Bilirubin AST ALT Alkaline Phosphatase Total Creatine Kinase Troponin I NT-Pro-B Natriuret Pep Total Protein Albumin Globulin Albumin/Globulin Ratio Procalcitonin Urine Color Urine Appearance Urine pH Ur Specific [place] Urine Protein Urine Glucose (UA) Urine Ketones Urine Occult Blood Urine Nitrate Urine Bilirubin Ur Bilirubin Confirm Urine Urobilinogen Ur Leukocyte Esterase Urine RBC Urine WBC Ur Squamous Epith Cells Urine Bacteria Hyaline Casts Urine Mucus Ur Culture Indicated? Chlamy pneumoniae PCR Adenovirus (PCR) B.parapertussis DNA PCR Coronavirus OC43 (PCR) Coronavirus HKU1 (PCR) Coronavirus 229E (PCR) SARS-CoV-2 (PCR) Coronavirus NL63 (PCR) Human Metapneumovir PCR Influenza Type A (PCR) Influenza Type B (PCR) M. pneumoniae (PCR) Parainfluenza 1 (PCR) Parainfluenza 2 (PCR) Parainfluenza 3 (PCR) Parainfluenza 4 (PCR) RSV (PCR) Entero/Rhino (PCR) Assessment & Plan Assessment and plan (1) Acute hypoxemic respiratory failure: Status: Acute Plan: Most likely multifactorial due to COVID-pneumonia, COPD and CHF exacerbation. -Start the patient on oxygen supplement keep desaturation with movement to percent -Albuterol and DuoNeb as needed -Telemetry (2) COVID-19: Status: Acute Plan: Start the patient on remdesivir per protocol and dexamethasone p.o. Airborne and contact isolation Oxygen supplement to keep oxygenation greater than 92% Albuterol and Tylenol for fever as needed as needed (3) CHF (congestive heart failure): Status: Acute Plan: Recent echo shows ejection fraction 70-75%, severely dilated RV and mildly reduced RV systolic function, severely dilated RA all unchanged from previous echo in 02/2022. -Continue furosemide 40 mg IV twice daily -Daily weight, low-sodium diet, strict I/O (4) COPD (chronic obstructive pulmonary disease): Status: Acute Plan: Continuous Spiriva, Serevent and albuterol as needed DuoNeb, steroids and respiratory consult BiPAP as needed PT/OT evaluation (5) Hyperlipidemia: Status: Acute Plan: Continue with atorvastatin 20 mg daily (6) BPH (benign prostatic hyperplasia): Status: Acute Plan: Continue with tamsulosin (7) Neuropathy: Status: Acute Plan: Continue with gabapentin (8) History of stroke: Status: Acute Plan: History of CVA with left-sided residual weakness, chronic. Wheelchair-bound. -Continue aspirin, statin and fenofibrate, -AFO to LLE Time Spent With Patient Time with patient: 50 to 69 minutes with 50% spent counseling/coordinating care Quality VTE Deep Vein Thrombosis/Pulmonary Embolism Present on Admission: No MIPS - Admit I confirm the patient?s Advance Care Plan is present, Code status is documented, Surrogate decision maker is in patient?s record [If Yes, STOP here]: Yes MIPS - Meds 'Current medications' to include all prescriptions, [id number] products, herbals, cannabis/cannabidiol products, and vitamin/mineral/dietary (nutritional) supplements. I have utilized all available resources to obtain, update, or review the patient?s current medications. [If Yes, STOP here]: Yes
[2023-01-13 03:45] VITALS: BMI 32.8
[2023-01-13] MEDS: ALBUTEROL 2.5 MG/3 ML NEB (ADULT) INH (04:28)
[2023-01-13] MEDS: IPRATROPIUM 0.5 MG/2.5 ML NEB INH (04:28)
[2023-01-13 05:32] LABS: Alanine Aminotransferase 38 IU/L (<50); Albumin 2.9 g/dL (3.5-5.0); Alkaline Phosphatase 74 U/L (38-126); Aspartate Aminotransferase 42 IU/L (17-59); BUN Creatinine Ratio 25.8 (6-22); Bilirubin Total 1.2 mg/dL (0.2-1.3); Blood Urea Nitrogen 23 mg/dL (9-20); Calcium 9.1 mg/dL (8.4-10.2); Carbon Dioxide 26 mmol/L (22-32); Chloride 102 mmol/L (98-107); Estimated Glomerular Filt Rate > 60 mL/min (>60); Globulin 2.9 g/dL (1.7-4.1); Glucose 182 mg/dL (80-110); HEMOLYSIS < 15 (0-50); Potassium 3.9 mmol/L (3.4-5.1); Sodium 133 mmol/L (137-145); Total Protein 5.8 g/dL (6.3-8.2)
[2023-01-13 05:35] LABS: Cholesterol 85 mg/dL (140-199); HDL Cholesterol 12 mg/dL (40-60); LDL Cholesterol Calculated 49 mg/dL (<100); Triglycerides 120 mg/dL (35-150)
[2023-01-13 06:00] VITALS: BP 98/63; PULSE 90; RESP 33; TEMP 36.7; O2SAT 90
[2023-01-13 08:14] LABS: MRSA (Nasal) PCR Not Detected (Not Detect)
[2023-01-13] MEDS: TAMSULOSIN 0.4 MG CAPSULE PO (10:13)
[2023-01-13] MEDS: dexAMETHasone 1 MG TABLET 6 MG PO (10:13)
[2023-01-13] MEDS: POTASSIUM CHLORIDE 20 MEQ TAB PO (10:13)
[2023-01-13] MEDS: ASPIRIN EC 81 MG TABLET PO (10:13)
[2023-01-13] MEDS: GABAPENTIN 600 MG TABLET PO (10:13)
[2023-01-13] MEDS: SODIUM CHLORIDE 0.9% FLUSH 10 ML IV (10:14)
--- NOTE | 2023-01-13 11:32 | PT-IP ANOTE ---
Received PT orders and completed chart review, noting pt's baseline is 1 person assist transfers with transfer pole bed <> power wheelchair. Per discussion at AM interdisciplinary rounds, no acute PT needs are identified. Please re-consult should mobility status or needs change.
--- NOTE | 2023-01-13 11:40 | CM.DANOTE ---
Addendum entered by CONCHIS Humphreys 01/13/23 14:45: ADD: Transport arrived and took pt [facility] and RN provided report and d/c summary not yet available to fax to [facility]. BF Original Note: Patient is a 72 yo male who was admitted on 01/13/23 for SOB/COVID+. Pt has [facility] for insurance and his PCP is Isi Andrews. EMR was reviewed. Per MD, pt with hx of CVA in 2016 with residual weakness and is mostly w/c bound at baseline and a poor medical technologist. Pt admitted for respiratory failure secondary to COVID pneumonia and likely COPD exac. Per MD, pt back to his baseline oxygen needs and pt requesting to d/c and MD in agreement that pt can d/c today as pt would like to return to smoking and ETOH. Per facility Provider, requested hospital inquire with pt about Hospice as he is non-compliant with medications and does not like to come to the hospital but pt drinks at baseline at their facility and has been unclear if he was in agreement with Hospice or not. SW met bedside with pt and explained role and discussed Hospice services and supports and pt's ongoing non-compliance with medications and ongoing smoking and drinking. Pt confirms he is agreeable with [facility] referral and Info Visit towards determining if he is agreeable with more comfort focused tx. SW made initial referral to [facility] and requested in-person Info Visit at [facility] after discharge today back to facility to determine if pt meets criteria for Hospice and would be agreeable. ALECIA contacted Admin Santa at [facility] with update on pt d/c and faxed over clinicals to review and [facility] referral made and she confirms they can accept pt back today and will work on transport time. Plan: SW to follow for transportation time for pt return to [facility] and [facility] to f/u with pt after discharge. CONCHIS Humphreys Discharge Planning/Care Management CM Discharge Assessment Start: 01/13/23 11:28 Freq: Status: Active Protocol: Document 01/13/23 11:28 BF (Rec: 01/13/23 11:40 BF [id number]) Discharge Planning Assessment Assigned Assistant Manager Airside Operations CONCHIS Gooden DPOA/Assigned Designee Name carl Aranda Advance Directives? Yes: polst Advance Directives on File No History Provided By Patient,Medical Record Has Patient been admitted in last 30 No days? Prior Living Arrangements Assisted Living Household Members none Type of transporation used prior to Relies on Others admit Facility Name Admitted From: [facility] Willing to Return to Facility? Yes: [facility] with ADL's No Is patient alert and oriented? Yes Needs Assistance With Bathing,Meal Prep,Managing Medications,Home Chores / Shopping Caregiver for Another No Community Services used prior to Hospice admission: Comment Pt interested in Hospice Comment ADA DME in facility Barriers to Discharge No Discharge Plan Assisted Living Facility Transportation Arrangement [facility] facility van Referrals Initiated Other Additional Comment [facility] referral Whiteboard Updated in Patient Room with Yes name and ext. # of Assistant Manager Airside Operations Review Status In Process Please Provide Date Initial DC 01/13/23 Assessment Was Performed Next Review Type Continued Stay Review
[2023-01-13] MEDS: ACETAMINOPHEN 325 MG TABLET 650 MG PO (12:58)
--- NOTE | 2023-01-13 14:09 | PC.NURSE ---
Discharge: Pt agreeable to discharge. Pt requested use of angela sling, which he and facility designee state is what he uses at times at baseline in the assisted living facility. Pt saturation 93% on RA, limited SOB. Pt transferred to wheelchair via angela. Pt wheeled by facility designee to facility vehicle at approximately 1310.
--- NOTE | 2023-01-14 19:32 | PM.DS.1 ---
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 He also reported hypoxia in the low 80s. Patient is poor historian. intermediate residence. Smokes around 1 pack a day. Initial laboratory shows WBC 12.5, H&H 12.9/41.2, platelets 381, INR 1.7, sodium 133, potassium 4.1, creatinine 0.94, glucose 142, troponin 0.0 47, BNP 9120, procalcitonin 0.92, COVID positive, chest x-ray shows chronic bilateral interstitial prominence and left hemidiaphragm elevation with left base scars, atelectasis or infiltrates. In the ER he was given albuterol treatments, azithromycin IV, ceftriaxone IV, methylprednisolone 125 mg IV and Lasix 40 mg IV. Discharge Providers Provider Date of admission: 01/13/23 00:33 Discharge Date: 01/13/23 Primary care physician: MALORIE Lind Consults: 01/13/23 00:41 Consult to Discharge Planning Routine Comment: Consult to Occupational Therapy Evaluate & Treat Comment: Physician Instructions: Evaluate and treat Consult to Physical Therapy Evaluate & Treat Comment: Physician Instructions: Evaluate and Treat Discharge provider: Dilshad Gannon MD Summary Hospital Course Discharge Diagnosis: 1. Acute on chronic hypoxemic respiratory failure 2. COVID infection 3. Chronic CHFpEF 4. Possible acute COPD flare 5. BPH 6. History of CVA 7. Nonadherence to medications 8. Alcohol abuse Hospital Course: Mr. Agarwal presented to the hospital with worsening shortness of breath. I did discuss his case with Dr. Hendrix. She notes he has a chronic alcohol problem, and often declines recommended treatment and drinks instead. He has expressed interest in hospice. He does require oxygen intermittently, but states he uses 3L daily. He was initially on high flow here but improved rapidly. He was weaned down to 3L oxygen and his sats were in the low to mid 90s. He stated his breathing was back to his normal. He was on steroids and remdesivir here. He was continued on steroids at discharge for treatment for possible reactive airway/COPD. He was also given a prescription for antibiotics for possible pneumonia. He was also encouraged to continue taking his lasix at his facility. He expressed interest in hospice and he was referred to this at discharge. Exam Vital Signs (past 8 hours): Fraction of Inspired Oxygen 38 SaO2/FiO2 Ratio 232 Oxygen Delivery Method Nasal Cannula Oxygen Flow Rate 45 Narrative Exam Narrative: GEN: chronically ill appearing PULM: increased work of breathing, patient says feels at baseline CV: regular rate and rhythym, no murmurs ABD: soft, nontender Objective Labs 01/12/23 20:24 01/13/23 05:08 [facility] Medical History (Updated 01/13/23 @ 03:34 by Baldomero Miller MD) History of DVT (deep vein thrombosis) Bilateral pulmonary embolism History of stroke Neuropathy BPH (benign prostatic hyperplasia) Obesity (BMI 30-39.9) Hyperlipidemia CHF (congestive heart failure) COPD (chronic obstructive pulmonary disease) Surgical History History of shoulder surgery Family History Father Heart attack Sister AA (aortic aneurysm) Social History household members: none Smoking Status: Current every day smoker Discharge Plan Discharge Plan Patient Disposition: Home Provider Discharge Comment: Mr. Agarwal came to the hospital with trouble breathing. He had COVID. He felt better with treatment. He also had UTI which he was discharged with antibiotics. Discharge orders & Medications Prescriptions: New levofloxacin 750 mg tablet 750 mg PO DAILY Qty: 5 0RF prednisone 20 mg tablet 40 mg PO DAILY Qty: 10 0RF Continued gabapentin 600 mg tablet 600 mg BID atorvastatin 20 mg tablet 20 mg BEDTIME aspirin 81 mg tablet,delayed release (DR/EC) 81 mg DAILY potassium chloride 20 mEq tablet,ER particles/crystals 20 meq PO DAILY tamsulosin 0.4 mg capsule 0.4 mg PO DAILY Serevent Diskus 50 mcg/dose blister with device 1 inh INHALATION BID albuterol sulfate 90 mcg/actuation HFA aerosol inhaler 2 inh INHALATION BID Spiriva Respimat 2.5 mcg/actuation mist 2 inh INHALATION DAILY melatonin 3 mg 6 mg BEDTIME furosemide [Lasix] 40 mg tablet 40 mg PO BID Qty: 60 0RF fenofibrate micronized 134 mg capsule 134 mg PO BEDTIME Discontinued prednisone 5 mg tablet 5 mg DAILY Follow up/Referrals: Isi Andrews ARNP [Primary Care Provider] - Diet/Activity/Treatments Diet: Low-sodium Other treatments: Made H[facility] referral to review if pt meets Hospice criteria and requested Info Visit at [facility] per pt's request and interest. Visit Report/Discharge Packet Instructions: DI for COVID-19 (Suspected or Confirmed ) Stand Alone Forms: Patient Portal/API, Stroke Signs & Symptoms Discharge Data Primary Care Provider: Isi Andrews Quality VTE Deep Vein Thrombosis/Pulmonary Embolism Present on Admission: No
== END 2023-01-13 13:10 | DRG 177 ==
LOC: ED 23:24 → AC 01-13 00:35 → ICU 01-13 01:43
PROVIDERS: Admitting Provider Internal Medicine; Emergency Provider Emergency Medicine; PCP Nurse Practitioner Family; Referring Provider Emergency Medicine; Visit Provider Internal Medicine
DX: U07.1 COVID-19 (principal); J12.82 Pneumonia due to coronavirus disease 2019; J96.21 Acute and chronic respiratory failure with hypoxia; I69.954 Hemiplegia and hemiparesis following unspecified cerebrovascular disease affecting left non-dominant side; I50.32 Chronic diastolic (congestive) heart failure; J44.1 Chronic obstructive pulmonary disease with (acute) exacerbation; N39.0 Urinary tract infection, site not specified; F17.210 Nicotine dependence, cigarettes, uncomplicated; E78.5 Hyperlipidemia, unspecified; N40.0 Benign prostatic hyperplasia without lower urinary tract symptoms; F10.10 Alcohol abuse, uncomplicated; G62.9 Polyneuropathy, unspecified; Z99.3 Dependence on wheelchair; Z91.148 Patient's other noncompliance with medication regimen for other reason; Z99.81 Dependence on supplemental oxygen
CPT/HCPCS: 36415; 71045; 80053; 80061; 81001; 82550; 83605; 83735; 83880; 84145; 84484; 85007; 85025; 85610; 85730; 87040; 87077; 87086; 87186; 87633; 87797; 93005; 94003; 94640; 96365; 96367; 96368; 96375; 99285; A9270; J0696; J1650; J1940; J2930; J7613

== ENCOUNTER → 2023-04-08 07:18 | Outpatient (ROUT) | payer MEDICARE, MEDICAID, SELFPAY ==
[2022-02-26 23:30] VITALS: PULSE 88; RESP 28; O2SAT 94
[2023-04-08 08:17] LABS: Add Manual Diff / Slide Review NO; Basophils Absolute Auto 100 /uL (0-100); Basophils Percent Auto 0.8 % (0-2); Eosinophils Absolute Auto 100 /uL (0-450); Eosinophils Percent Auto 2.3 % (2-4); Hematocrit 45.6 % (41-53); Hemoglobin 14.7 g/dL (13.5-17.5); Lymphocytes Absolute Auto 1900 /uL (1100-4500); Lymphocytes Percent Auto 30.1 % (25-40); Mean Corpuscular HGB Conc 32.2 % (30-36); Mean Corpuscular Hemoglobin 27.2 PG (26-34); Mean Corpuscular Volume 84.3 fL (80-100); Monocytes Absolute Auto 500 /uL (0-900); Neutrophils Absolute Auto 3800 /uL (1500-7000); Neutrophils Percent Auto 58.8 % (50-75); Platelet Count 221 X10^3/uL (150-400); Red Blood Cell Count 5.41 X10^6/uL (4.5-5.9); White Blood Cell Count 6.4 X10^3/uL (4.5-11.0)
[2023-04-08 08:47] LABS: Alanine Aminotransferase 10 IU/L (<50); Albumin 2.5 g/dL (3.5-5.0); Alkaline Phosphatase 90 U/L (38-126); Aspartate Aminotransferase 23 IU/L (17-59); BUN Creatinine Ratio 12.7 (6-22); Bilirubin Total 1.4 mg/dL (0.2-1.3); Blood Urea Nitrogen 7 mg/dL (9-20); Calcium 8.8 mg/dL (8.4-10.2); Carbon Dioxide 24 mmol/L (22-32); Chloride 104 mmol/L (98-107); Estimated Glomerular Filt Rate > 60 mL/min (>60); Globulin 2.5 g/dL (1.7-4.1); Glucose 88 mg/dL (80-110); HEMOLYSIS < 15 (0-50); Potassium 3.5 mmol/L (3.4-5.1); Sodium 136 mmol/L (137-145)
[2023-04-08 08:49] LABS: Anisocytosis 2+
== END ==
PROVIDERS: PCP Nurse Practitioner Family; Visit Provider Nurse Practitioner Gerontology
DX: J44.9 Chronic obstructive pulmonary disease, unspecified (principal); I50.9 Heart failure, unspecified
CPT/HCPCS: 36415; 80053; 85025